=== PATIENT | female | born 1965 | race Caucasian/White ===

== ENCOUNTER 2020-11-14 01:20 | Outpatient (CLI) | payer OTHER, SELFPAY ==
[2020-11-14 18:46] LABS: SARS-CoV-2 RNA PCR Negative
== END 2020-11-14 01:21 | disposition home or self-care (01) ==
LOC: ANHCOVIDDT 01:20
PROVIDERS: PCP Family Medicine Sports Medicine; Visit Provider Internal Medicine Gastroenterology
DX: Z01.812 Encounter for preprocedural laboratory examination (principal); Z20.822 Contact with and (suspected) exposure to COVID-19
CPT/HCPCS: C9803; U0003; U0005

== ENCOUNTER 2020-11-18 01:19 | Day surgery (SDC) | payer OTHER, SELFPAY ==
[2020-11-05 10:16] VITALS: BMI 35.6
[2020-11-18 07:32] VITALS: PULSE 92; RESP 18; TEMP 36.2; O2SAT 98
[2020-11-18] MEDS: LACTATED RINGERS 1,000 ML 150 ML IV CONT (07:44)
[2020-11-18 07:49] LABS: Glucose Point of Care 219 (65-105)
--- NOTE | 2020-11-18 07:53 | WPDANESEPPF ---
Anes - Initial Pre Proc Eval Procedure: Operation Date: 11/18/20 08:30 Proposed Procedures p Screening Colonoscopy - Rahul Connell MD Date/Time: 11/18/20 07:53 Surgeon: Rahul Connell MD Pre Op Diagnosis: Neoplasm Screening Patient Data Age: 55 Gender: F Height: 1.65 m Weight: 95.9 kg Last Vital Signs Temp 36.2 C L 11/18/20 07:32 Pulse 92 11/18/20 07:32 Resp 18 11/18/20 07:32 Pulse Ox 98 11/18/20 07:32 Allergies Allergy/AdvReac Type Severity Reaction Status Date / Time No Known Drug Allergies Allergy Unknown none Verified 11/18/20 07:31 Home Medications Medication Instructions Recorded Confirmed Type cyclobenzaprine 10 mg PO DAILY PRN 11/05/20 11/18/20 History hydrochlorothiazide 25 mg PO DAILY 11/05/20 11/18/20 History meloxicam 7.5 mg PO DAILY PRN 11/05/20 11/18/20 History metformin 500 mg PO BID 11/05/20 11/18/20 History pregabalin 75 mg PO BID 11/05/20 11/18/20 History tramadol 50 mg PO DAILY PRN 11/05/20 11/18/20 History Laboratory Tests 11/18/20 07:46 POC Capillary Glucose 219 mg/dl H mg/dl (65-105) Patient hx anesthesia problems: none Family hx anesthesia problems: none PMFSH Past Medical History Medical History (Updated 11/18/20 @ 07:54 by Marko Esquivel MD) Back pain Diabetes HTN (hypertension) Obesity Social History Social History Smoking packs per day: 0.5 Smoking cigarettes per day: 10.0 Smoking status: Current every day smoker Tobacco type: cigarettes Alcohol intake: never Substance use type: does not use Living arrangements: with family Spiritual care concerns: No Anes - Eval Final PreProcedure Day of Procedure 11/18/20 07:53 Patient weight: obese Heart: regular rate and rhythm Lungs: clear to auscultation and normal air movement Airway: Mallampati scale class II Neurological: alert and oriented Last oral intake: >/= 8 hours ASA classification: III Emergent: no Anesthetic plan: proceed Anesthesia type and monitoring: general GIVS Informed Consent: The patient's anesthetic plan and its attendant risks and benefits were discussed with the patient/family/POA. Questions were solicited and answers provided to the satisfaction of the patient/family/POA.
--- NOTE | 2020-11-18 08:25 | PM.HPGS ---
History of Present Illness History of Present Illness Consent: Risks, benefits, and alternatives have been discussed and questions answered. Patient agrees to proceed with procedure. Chief complaint: Neoplasm Screening Narrative: Eli Jordan is a 55 year old female here for first colonoscopy, maternal grandmother and aunt with colon cancer. Review of Systems Constitutional: Constitutional: Denies headache(s) and Denies weakness Eyes: Eyes: Denies blurry vision ENT: Reports Normal hearing present, Denies headache(s) and Denies neck pain Cardiovascular: Cardiovascular: Denies chest pain and Denies dyspnea Respiratory: Respiratory: Denies dyspnea Gastrointestinal: Gastrointestinal: Reports no additional gastrointestinal complaints Genitourinary: Genitourinary: Denies dysuria Musculoskeletal: Musculoskeletal: Denies neck pain Integumentary/Breasts: Skin/Breast: Denies dry skin Neurologic: Reports Normal hearing present, Denies headache(s) and Denies weakness Psychiatric: Psychiatric: Denies anxiety Endocrine: Endocrine: Denies change in body appearance Hematologic/Lymphatic: Hematologic/Lymphatic: Denies easy bleeding Allergic/Immunologic: Allergic/Immunologic: Denies urticaria PMFSH Past Medical History Medical History (Updated 11/18/20 @ 08:26 by Rahul Connell MD) Back pain Colon cancer screening Diabetes HTN (hypertension) Obesity Social History Social History Smoking packs per day: 0.5 Smoking cigarettes per day: 10.0 Smoking status: Current every day smoker Tobacco type: cigarettes Alcohol intake: never Substance use type: does not use Living arrangements: with family Spiritual care concerns: No Meds Home Medications and Allergies Home Medications Medication Instructions Recorded Confirmed Type cyclobenzaprine 10 mg PO DAILY PRN 11/05/20 11/18/20 History hydrochlorothiazide 25 mg PO DAILY 11/05/20 11/18/20 History meloxicam 7.5 mg PO DAILY PRN 11/05/20 11/18/20 History metformin 500 mg PO BID 11/05/20 11/18/20 History pregabalin 75 mg PO BID 11/05/20 11/18/20 History tramadol 50 mg PO DAILY PRN 11/05/20 11/18/20 History Allergies Allergy/AdvReac Type Severity Reaction Status Date / Time No Known Drug Allergies Allergy Unknown none Verified 11/18/20 07:31 Vital Signs Vital Signs - 24 hr 11/18/20 07:32 Temperature 97.1 F L Pulse Rate 92 Respiratory Rate 18 Pulse Oximetry 98 Exam Const: General: comfortable and no acute distress HENMT: General nose exam: Normal nares present Eyes: General: appearance normal, both eyes and all related structures Neck: Neck: no JVD Resp: Auscultation: clear to auscultation bilaterally Cardio: Rate: regular rate Rhythm: regular rhythm GI: Inspection: non-distended GI Palp: Yes Soft to palpation Skin: General skin exam: normal color Neuro: General: gait normal Speech: normal speech Extrem: General: normal to inspection Psych: Mental Status: mental status grossly normal Assessment and Plan Assessment and plan (1) Colon cancer screening: Code(s): Z12.11 - Encounter for screening for malignant neoplasm of colon Status: Acute Assessment and Plan: will proceed with colonoscopy
[2020-11-18 08:56] VITALS: BP 104/56; PULSE 76; RESP 18; O2SAT 97
[2020-11-18 09:06] VITALS: BP 100/61; PULSE 76; RESP 20; O2SAT 98
[2020-11-18 09:16] VITALS: BP 115/58; PULSE 75; RESP 16; O2SAT 99
[2020-11-18 09:26] VITALS: BP 124/71; PULSE 74; RESP 18; O2SAT 100
== END 2020-11-18 09:32 | disposition home or self-care (01) ==
PROVIDERS: PCP Family Medicine Sports Medicine; Visit Provider Internal Medicine Gastroenterology
PROC: 0DJD8ZZ Inspection of Lower Intestinal Tract, Via Natural or Artificial Opening Endoscopic (ICD-10-PCS; CPT 45378; principal; 2020-11-18 08:30)
DX: Z12.11 Encounter for screening for malignant neoplasm of colon (principal); D12.5 Benign neoplasm of sigmoid colon; D12.3 Benign neoplasm of transverse colon; E11.9 Type 2 diabetes mellitus without complications; I10 Essential (primary) hypertension; Z79.890 Hormone replacement therapy; E66.9 Obesity, unspecified; Z68.35 Body mass index [BMI] 35.0-35.9, adult; K63.5 Polyp of colon; K64.8 Other hemorrhoids
CPT/HCPCS: 45385; 82948; 88305; C9803; J2704; J7120; U0003; U0005

== ENCOUNTER 2024-02-01 01:12 | Day surgery (SDC) | payer OTHER, SELFPAY ==
[2024-01-23 13:17] VITALS: BMI 33.5
[2024-02-01 08:25] VITALS: BP 121/84; PULSE 86; RESP 20; TEMP 36.4; O2SAT 99; BMI 32.4
[2024-02-01] MEDS: LACTATED RINGERS 1,000 ML 150 ML IV CONT (08:29)
[2024-02-01 08:41] LABS: Glucose Point of Care 251 mg/dl (65-105)
--- NOTE | 2024-02-01 08:41 | P.PNAN_ITS ---
Anes - Initial Pre Proc Eval Procedure: Operation Date: 02/01/24 09:30 Proposed Procedures p Screening Colonoscopy - Rahul Connell MD Date/Time: 02/01/24 08:41 Surgeon: Rahul Connell MD Pre Op Diagnosis: hx colon polyps Patient Data Age: 58 Gender: F Height: 1.65 m Weight: 88.5 kg Last Vital Signs Temp 97.6 F 02/01/24 08:25 Pulse 86 02/01/24 08:25 Resp 20 02/01/24 08:25 BP 121/84 02/01/24 08:25 Pulse Ox 99 02/01/24 08:25 O2 Del Method Room Air 02/01/24 08:25 Allergies Allergy/AdvReac Type Severity Reaction Status Date / Time No Known Drug Allergies Allergy Unknown none Verified 02/01/24 08:23 Home Medications Medication Instructions Recorded Confirmed Type cyclobenzaprine 10 mg tablet 10 mg PO DAILY PRN Pain 11/05/20 02/01/24 History hydrochlorothiazide 25 mg tablet 25 mg PO DAILY 11/05/20 02/01/24 History meloxicam 7.5 mg tablet 7.5 mg PO DAILY PRN Pain 11/05/20 02/01/24 History metformin 500 mg tablet 500 mg PO BID 11/05/20 02/01/24 History pregabalin 75 mg capsule 75 mg PO BID 11/05/20 02/01/24 History tramadol 50 mg tablet 50 mg PO DAILY PRN Pain 11/05/20 02/01/24 History Laboratory Tests 02/01/24 08:39 POC Capillary Glucose 251 H mg/dl (65-105) Patient hx anesthesia problems: none Family hx anesthesia problems: none Results Review: All pre-operative results and documents have been reviewed as part of the pre- operative evaluation. [facility] Past Medical History Medical History (Updated 11/18/20 @ 08:26 by Rahul Connell MD) Back pain Colon cancer screening Diabetes HTN (hypertension) Obesity Social History Social History Smoking packs per day: 0.5 Smoking cigarettes per day: 10.0 Smoking status: Current every day smoker Tobacco type: cigarettes Alcohol intake: never Substance use type: does not use Living arrangements: with family Spiritual care concerns: No Anes - Eval Final PreProcedure Day of Procedure 02/01/24 08:41 Patient weight: obese Heart: regular rate and rhythm Lungs: clear to auscultation Airway: Mallampati scale class II Neurological: alert and oriented Last oral intake: >/= 8 hours ASA classification: III Emergent: no Anesthetic plan: proceed Anesthesia type and monitoring: general GIVS and standard monitoring Results Review: All pre-operative results and documents have been reviewed as part of the pre- operative evaluation. Informed Consent: The patient's anesthetic plan and its attendant risks and benefits were discussed with the patient/family/POA. Questions were solicited and answers provided to the satisfaction of the patient/family/POA.
--- NOTE | 2024-02-01 09:00 | PM.HPGS ---
History of Present Illness History of Present Illness Consent: Risks, benefits, and alternatives have been discussed and questions answered. Patient agrees to proceed with procedure. Chief complaint: hx colon polyps Narrative: Eli Jordan is a 58 year old female with colon polyps in 2020 Review of Systems Review of Systems: All systems reviewed & are unremarkable except as noted in HPI and below PMFSH Past Medical History Medical History (Updated 02/01/24 @ 09:01 by Rahul Connell MD) Adenomatous colon polyp Back pain Colon cancer screening Diabetes HTN (hypertension) Obesity Social History Social History Smoking packs per day: 0.5 Smoking cigarettes per day: 10.0 Smoking status: Current every day smoker Tobacco type: cigarettes Alcohol intake: never Substance use type: does not use Living arrangements: with family Spiritual care concerns: No Meds Home Medications and Allergies Home Medications Medication Instructions Recorded Confirmed Type cyclobenzaprine 10 mg tablet 10 mg PO DAILY PRN Pain 11/05/20 02/01/24 History hydrochlorothiazide 25 mg tablet 25 mg PO DAILY 11/05/20 02/01/24 History meloxicam 7.5 mg tablet 7.5 mg PO DAILY PRN Pain 11/05/20 02/01/24 History metformin 500 mg tablet 500 mg PO BID 11/05/20 02/01/24 History pregabalin 75 mg capsule 75 mg PO BID 11/05/20 02/01/24 History tramadol 50 mg tablet 50 mg PO DAILY PRN Pain 11/05/20 02/01/24 History Allergies Allergy/AdvReac Type Severity Reaction Status Date / Time No Known Drug Allergies Allergy Unknown none Verified 02/01/24 08:23 Vital Signs Vital Signs - 24 hr 02/01/24 08:25 Temperature 97.6 F Pulse Rate 86 Respiratory Rate 20 Blood Pressure 121/84 Pulse Oximetry 99 Oxygen Delivery Room Air Exam Const: General: comfortable and no acute distress HENMT: Face/Nose/Sinus: Normal nares present Eyes: General: appearance normal, both eyes and all related structures Neck: Neck: no JVD Resp: Auscultation: clear to auscultation bilaterally Cardio: Rate: regular rate Rhythm: regular rhythm GI: Inspection: non-distended GI Palp: Yes Soft to palpation Skin: General skin exam: normal color Neuro: General: gait normal Speech: normal speech Extrem: General: normal to inspection Psych: Mental Status: mental status grossly normal Assessment and Plan Assessment and plan (1) Adenomatous colon polyp: Code(s): D12.6 - Benign neoplasm of colon, unspecified Status: Acute Assessment and Plan: colonoscopy
[2024-02-01 09:22] VITALS: BP 93/59; PULSE 74; RESP 18; O2SAT 99
[2024-02-01 09:32] VITALS: BP 100/61; PULSE 70; RESP 18; O2SAT 100
[2024-02-01 09:42] VITALS: BP 113/67; PULSE 71; RESP 18; O2SAT 100
== END 2024-02-01 09:50 | disposition home or self-care (01) ==
PROVIDERS: PCP Family Medicine; Visit Provider Internal Medicine Gastroenterology
PROC: 0DJD8ZZ Inspection of Lower Intestinal Tract, Via Natural or Artificial Opening Endoscopic (ICD-10-PCS; CPT 45378; principal; 2024-02-01 09:30)
DX: Z12.11 Encounter for screening for malignant neoplasm of colon (principal); D12.2 Benign neoplasm of ascending colon; D12.3 Benign neoplasm of transverse colon; D12.4 Benign neoplasm of descending colon; K64.8 Other hemorrhoids; I10 Essential (primary) hypertension; E11.9 Type 2 diabetes mellitus without complications; F17.210 Nicotine dependence, cigarettes, uncomplicated; E66.9 Obesity, unspecified; Z68.32 Body mass index [BMI] 32.0-32.9, adult; Z79.891 Long term (current) use of opiate analgesic; Z79.84 Long term (current) use of oral hypoglycemic drugs
CPT/HCPCS: 45385; 82948; 88305; J2704; J7120

== ENCOUNTER 2024-03-23 19:57 | Emergency (ER) | payer OTHER, SELFPAY ==
--- NOTE | ~2024-03-23 | XR_ITS ---
XR knee RT 3V 03/23/2024 20:36 Indication: Right knee pain Procedure: 3 views right knee Comparison: No prior studies for comparison. Findings: There is mild osteoarthritis. No fracture, subluxation or dislocation. No joint effusion. Impression: 1: Mild osteoarthritis of the right knee. Reviewed, dictated and finalized at location B. Impression: 1: Mild osteoarthritis of the right knee.
--- NOTE | ~2024-03-23 | XR_ITS ---
XR chest 1V 03/23/2024 20:36 Indication: Left shoulder bruising Procedure: AP view of the chest Comparison: 09/20/2018 Findings: Heart size normal. No focal air space disease, pulmonary edema, pleural effusion or suspect ed pneumothorax. No acute osseous abnormality. Impression: 1: No acute cardiopulmonary disease. Reviewed, dictated and finalized at location B. Impression: 1: No acute cardiopulmonary disease.
--- NOTE | ~2024-03-23 | XR_ITS ---
XR clavicle LT 03/23/2024 20:36 Indication: Left shoulder pain Procedure: 2 views left shoulder Comparison: 03/23/2024 Findings: There is mild polyarticular osteoarthritis. No fracture, subluxation or dislocation. No sof t tissue abnormality. Impression: 1: Mild polyarticular osteoarthritis of the left shoulder Reviewed, dictated and finalized at location B. Impression: 1: Mild polyarticular osteoarthritis of the left shoulder
--- NOTE | ~2024-03-23 | XR_ITS ---
XR shoulder LT min 2V 03/23/2024 20:36 Indication: Left shoulder pain after injury Procedure: 4 views left shoulder Comparison: 03/23/2024 Findings: There is anatomic alignment. There is mild polyarticular osteoarthritis. No fracture or tra umatic malalignment. No focal soft tissue abnormality. Impression: 1: No acute fracture. Reviewed, dictated and finalized at location B. Impression: 1: No acute fracture.
[2024-03-23 20:01] VITALS: BP 159/91; PULSE 104; PULSE 109; RESP 20; RESP 21; TEMP 36.8; O2SAT 97; O2SAT 98
[2024-03-23 20:02] VITALS: BP 159/91; PULSE 109; RESP 19; O2SAT 93
[2024-03-23] MEDS: HYDROcodone/acetaminophen (*CRX) 5-325 MG TABLET 1 TAB PO (20:11)
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
[2024-03-23 21:55] VITALS: BP 141/89; PULSE 90; RESP 18; O2SAT 98
== END 2024-03-23 21:58 | disposition home or self-care (01) ==
PROVIDERS: Emergency Provider Emergency Medicine; PCP Family Medicine
DX: S80.01XA Contusion of right knee, initial encounter (principal); S40.012A Contusion of left shoulder, initial encounter; F17.210 Nicotine dependence, cigarettes, uncomplicated; E11.9 Type 2 diabetes mellitus without complications; I10 Essential (primary) hypertension; Z79.84 Long term (current) use of oral hypoglycemic drugs; V28.09XA Other motorcycle driver injured in noncollision transport accident in nontraffic accident, initial encounter
CPT/HCPCS: 71045; 73000; 73030; 73562; 99284; A9270

== ENCOUNTER 2024-06-13 20:37 | Emergency (ER) | payer OTHER, SELFPAY ==
--- NOTE | ~2024-06-13 | XR_ITS ---
EXAMINATION: XR shoulder RT min 2V DATE: 06/13/2024 21:42 INDICATION: Right shoulder injury. TECHNIQUE: 4 views of right shoulder were obtained. COMPARISON: None. FINDINGS: Alignment is normal. No fracture. There is mild osteoarthritis of acromioclavicular joint a nd glenohumeral joint. IMPRESSION: 1. Mild polyarticular osteoarthritis. Reviewed, dictated and finalized at location A.
[2024-06-13 20:40] VITALS: BP 156/63; PULSE 91; RESP 16; TEMP 36.1; O2SAT 100
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
[2024-06-13] MEDS: HYDROcodone/acetaminophen (*CRX) 5-325 MG TABLET 1 TAB PO (22:20)
== END 2024-06-13 22:40 | disposition home or self-care (01) ==
PROVIDERS: Emergency Provider Emergency Medicine; PCP Family Medicine
DX: S49.91XA Unspecified injury of right shoulder and upper arm, initial encounter (principal); I10 Essential (primary) hypertension; E11.9 Type 2 diabetes mellitus without complications; E66.9 Obesity, unspecified; Z68.33 Body mass index [BMI] 33.0-33.9, adult; F17.210 Nicotine dependence, cigarettes, uncomplicated; Z86.010 Personal history of colon polyps; Z79.84 Long term (current) use of oral hypoglycemic drugs; Z79.899 Other long term (current) drug therapy; M19.011 Primary osteoarthritis, right shoulder; W18.30XA Fall on same level, unspecified, initial encounter
CPT/HCPCS: 73030; 99283; A9270

== ENCOUNTER 2024-07-08 07:48 | Outpatient (CLI) | payer OTHER, SELFPAY ==
--- NOTE | ~2024-07-08 | MR_ITS ---
EXAMINATION: MR shoulder RT wo con DATE: 07/08/2024 08:28 INDICATION: Unspecified injury of right shoulder. TECHNIQUE: Magnetic resonance imaging (MRI) of the right shoulder was performed without intravenous c ontrast. Sequences included axial PD-weighted FS FSE, coronal oblique PD-weighted FS FSE and T2-weigh leela FS FSE, and sagittal oblique T2-weighted FS FSE and T1-weighted FSE. COMPARISON: Right shoulder radiographs 06/13/2024 FINDINGS: Coracoacromial arch: The acromion undersurface is curved in morphology (type II). There is severe acromioclavicular joint osteoarthritis including inferiorly directed osteophytes. There is moderate subacromial/subdeltoid bu rsitis. Rotator cuff: There is severe supraspinatus and infraspinatus tendinopathy. There is an articular-sided partial-thi ckness tear of the conjoined portion of the tendon measuring 3 mm anterior to posterior by 13 mm prox imal to distal by less than 20% tendon thickness. Teres minor tendon is normal. There is mild subscap ularis tendinopathy. There is no asymmetric fatty atrophy of the rotator cuff muscle bellies. There i s edema in supraspinatus muscle belly, consistent with strain. Biceps tendon and glenoid labrum: Biceps tendon is in bicipital groove. There is mild intra-articular biceps tendinopathy. There is a t ear of the anterior glenoid labrum. Fluid: There is a small glenohumeral joint effusion. Bones/cartilage: There is a fracture involving anterior and anteroinferior glenoid. There is full-thickness cartilage loss of glenoid and deep partial-thickness cartilage loss of humeral head. Osteophytes are noted. IMPRESSION: 1. Fracture involving anterior and anteroinferior glenoid. 2. Severe glenohumeral joint chondrosis. 3. Severe rotator cuff tendinopathy with articular-sided partial thickness tear of supraspinatus and infraspinatus tendons. 4. Severe acromioclavicular joint osteoarthritis. 5. Mild intra-articular biceps tendinopathy. 6. Small glenohumeral joint effusion. 7. Moderate subacromial/subdeltoid bursitis. Reviewed, dictated and finalized at location A.
== END 2024-07-08 07:49 | disposition home or self-care (01) ==
PROVIDERS: PCP Anesthesiology; Visit Provider Orthopaedic Surgery
DX: M19.011 Primary osteoarthritis, right shoulder (principal); M25.411 Effusion, right shoulder; M75.51 Bursitis of right shoulder
CPT/HCPCS: 73221

== ENCOUNTER 2024-08-07 14:00 | Observation (INO) | payer OTHER, SELFPAY ==
--- NOTE | ~2024-08-07 | XR_ITS ---
EXAMINATION: XR chest 1V portable DATE: 08/07/2024 14:30 INDICATION: Weakness. Stroke. TECHNIQUE: frontal view of the chest was obtained. COMPARISON: Chest radiograph dated 03/23/2024 FINDINGS: Calcite nodules at the lateral left lung base consistent with old granulomatous disease. No other air space opacities, pulmonary edema, pleural effusion or pneumothorax. The cardiomediastinal silhouette is normal. Visualized bones and soft tissues are unremarkable. IMPRESSION: 1. No acute cardiopulmonary disease. Reviewed, dictated and finalized at location A.
--- NOTE | ~2024-08-07 | MR_ITS ---
EXAMINATION: MR brain/brain stem wo con DATE: 08/08/2024 07:41 INDICATION: Slurred speech. Right facial droop. TECHNIQUE: Magnetic resonance imaging (MRI) of the brain and brainstem was performed without intraven ous contrast. COMPARISON: Head CT 08/07/2024 FINDINGS: There are patchy areas of acute infarct involving right insula and right frontal parietal r egion. There is an old infarct in left parietal lobe. There are old infarcts in right temporal pariet al occipital region. There are old infarcts in the left thalamus and left basal ganglia. There is an old infarct in left cerebellum. There are scattered areas of nonspecific increased T2-weighted signal intensity in the cerebral white matter. There is no intracranial hemorrhage or abnormal mass lesion. The ventricles are normal in size. The orbits are normal. There is mild mucosal thickening in the le ft ethmoid sinuses. There is a small right mastoid effusion. IMPRESSION: 1. Acute infarct involving the right insula and right frontal parietal region. 2. Multiple old infarcts in the brain. 3. Moderate nonspecific cerebral white matter disease, which likely represents chronic small vessel i schemic disease. Reviewed, dictated and finalized at location A. IMPRESSION: 1. Acute infarct involving the right insula and right frontal parietal region. 2. Multiple old infarcts in the brain. 3. Moderate nonspecific cerebral white matter disease, which likely represents chronic small vessel ischemic disease.
--- NOTE | ~2024-08-07 | CT_ITS ---
CTA brain carotid Ordering provider: Janneth Iverson III, DO History: . facial droop . Comparison: None. Technique: CT angiogram head and neck was performed following timed intravenous injection of contrast . Thin slice axial images and reformatted coronal images were obtained. Three dimensional reformatted images of the brain were also obtained using a [employer] workstation. Radiation reduction technique ut ilized.The dose-length product was 972.98 mGy-cm. 100 mL Omnipaque 350 was given IV. FINDINGS: HEAD: --ANTERIOR AND MIDDLE CEREBRAL ARTERIES AND BRANCHES: Normal caliber and contour. --INTERNAL CAROTID ARTERIES: Mild atheromatous disease but no significant stenosis. No occlusion. --BASILAR ARTERY AND BRANCHES: Normal caliber and contour. No atheromatous disease. --POSTERIOR CEREBRAL ARTERIES: Normal caliber and contour --POSTERIOR COMMUNICATING ARTERIES: Not visualized which is probably related to congenital absence or small size. --ANEURYSM: None visualized. --BRAIN: Please refer to report of CT head performed the same day. --BONES AND SUPERFICIAL SOFT TISSUES: Please refer to report of CT head performed the same day. --PARANASAL SINUSES AND MASTOIDS: Please refer to report of CT head done the same day. NECK: --RIGHT CERVICAL CAROTID SYSTEM: Mild atheromatous disease of the carotid bulb and proximal internal carotid artery without significant stenosis. Percent stenosis per NASCET criteria is 0%. No carotid dissection. Otherwise, no significant atheromatous disease or stenosis of the cervical carotid system . --LEFT CERVICAL CAROTID SYSTEM: Mild atheromatous disease of the carotid bulb and proximal internal c arotid artery without significant stenosis. Percent stenosis per NASCET criteria is 0%. No carotid d issection. Otherwise, no significant atheromatous disease or stenosis of the cervical carotid system. --VERTEBRAL ARTERIES: Normal caliber and contour. --VISUALIZED AORTIC ARCH AND BRANCHING VESSELS: Mild atheromatous disease but no significant stenosis . --SOFT TISSUES: Normal. Fibrotic changes of the lungs. --CERVICAL SPINE: Age appropriate degenerative changes. IMPRESSION: 1. CTA head and neck. Percent stenosis per NASCET criteria is 0%. 2. No intracranial vascular occlusion or significant stenosis. Reviewed, dictated and finalized at location A.
--- NOTE | ~2024-08-07 | CT_ITS ---
CT brain wo con Ordering provider: Jarvis Bates MD History: 59 years Female with . cva? . Comparison: None. Technique: CT of the head without contrast. Radiation reduction technique utilized.The dose-length product was 681 mGy-cm. FINDINGS: BRAIN PARENCHYMA AND CSF SPACES: Mild leukoaraiosis and diffuse cortical atrophy. Mild atheromatous d isease. Hypodensity in the posterior right temporal lobe most likely old infarct with encephalomalaci a. Old lacunar infarct in the left thalamus. No midline shift, mass effect or hemorrhage. The brain parenchyma and CSF spaces are otherwise normal. VISUALIZED PARANASAL SINUSES: Well aerated. MASTOIDS: Well aerated. BONES: The bones appear intact. SOFT TISSUES: Visualized nasopharynx is normal. Superficial soft tissues are normal. IMPRESSION: No acute intracranial findings. If Still suspicious is MRI is advised. Reviewed, dictated and finalized at location A.
--- NOTE | 2024-08-07 14:06 | ECG_ITS ---
Test Date: 2024-08-07 14:09:57 Measurements Intervals [place] Rate: P: 0 CA: 0 QRS: 0 QRSD: 0 T: 0 QT: 0 QTc: 0 Interpretive Statements SINUS RHYTHM WARNING: DATA QUALITY MAY AFFECT INTERPRETATION No previous ECG available for comparison Electronically Signed On 08-08-2024 09:35:37 CDT by Jennifer Bob M.D.
[2024-08-07 14:07] VITALS: BP 150/83; PULSE 89; RESP 18; TEMP 36.5; O2SAT 97
[2024-08-07 14:29] LABS: Basophils Absolute Auto 0.1 K/mm3 (0.0-0.1); Basophils Percent Auto 0.5 % (0.2-1.2); Eosinophils Absolute Auto 0.3 K/mm3 (0-0.3); Eosinophils Percent Auto 2.8 % (0-4.4); Hematocrit 43.3 % (37.0-47.0); Hemoglobin 14.7 g/dL (12.0-15.0); Immature Granulocyte Absolute 0.04 K/mm3 (0.00-0.031); Immature Granulocyte Percent A 0.4 % (0-0.5); Lymphocytes Absolute Auto 1.77 K/mm3 (0.9-3.2); Lymphocytes Percent Auto 17.1 % (18.3-44.2); Mean Corpuscular HGB Conc 33.9 g/dl (32-36); Mean Corpuscular Hemoglobin 28.3 pg (26-34); Mean Corpuscular Volume 83.4 fl (80-100); Monocytes Absolute Auto 0.7 K/mm3 (0.1-0.6); Monocytes Percent Auto 6.5 % (2.6-8.5); Neutrophils Absolute Auto 7.5 K/mm3 (1.3-6.7); Neutrophils Percent Auto 72.7 % (45.5-73.1); Platelet Count Result 210 k/mm3 (150-375); Red Blood Count 5.19 M/mm3 (4.2-5.4); Red Cell Distribution Width 13.2 % (11.5-14.5); White Blood Count 10.4 K/mm3 (4.5-10.0)
[2024-08-07 14:36] LABS: Alanine Aminotransferase 21 U/L (6-35); Albumin Level 4.6 g/dL (3.5-5.1); Alkaline Phosphatase 165 U/L (38-126); Anion Gap 9 mmol/L (4-12); Aspartate Amino Transferase 20 U/L (14-36); Bilirubin,Total 0.4 mg/dL (0.2-1.3); Blood Urea Nitrogen 15 mg/dL (7-17); Calcium 9.4 mg/dL (8.4-10.2); Carbon Dioxide 26 mmol/L (22-30); Chloride 100 mmol/L (98-107); Estimated CRCL calculation 54 ml/min; Estimated Glomerular Filt Rate 50; Glucose 207 mg/dL (65-110); INR 0.9; Potassium 4.4 mmol/L (3.4-5.0); Prothrombin Time 12.2 Seconds (11.1-14.7); Sodium 135 mmol/L (137-145)
--- NOTE | 2024-08-07 14:36 | ED_ITS ---
HPI - Neuro Symptoms/Deficit General Chief Complaint: Neuro Symptoms/Deficit Stated Complaint: ?cva, TANIA 0530 Time Seen by Provider: 08/07/24 14:30 History of Present Illness HPI Narrative: Pt presents with right sided facial droop and slurred speech. Pt had some slurred speech last night but thought it was related to nasal congestion. Pt went to bed, woke her up at 0530 and said she had no slurred speech or facial droop and he went to work. He called her at noon and she had slurred speech. Pt has no complaints of GOMEZ or any extremity weakness. Pt has had two prior CVA's. Related Data Home Medications Medication Instructions Recorded Confirmed meloxicam 7.5 mg tablet 7.5 mg PO DAILY 11/05/20 08/07/24 tramadol 50 mg tablet 50 mg PO BID PRN Pain 11/05/20 08/07/24 hydrocodone 5 mg-acetaminophen 325 1 tablet PO Q6H PRN pain 08/07/24 08/07/24 mg tablet Allergies Allergy/AdvReac Type Severity Reaction Status Date / Time No Known Drug Allergies Allergy Unknown none Verified 08/07/24 18:21 Review of Systems Review of Systems: All systems reviewed & are unremarkable except as noted in HPI and below PMFSH Past Medical History Medical History Adenomatous colon polyp Cerebrovascular accident no residual deficits Hypertension Obesity Type 2 diabetes mellitus Surgical History Surgical History History of section History of colonoscopy with polypectomy History of lumbosacral spine surgery fusion and cages L4-S1 Family History Family History Unknown Diabetes mellitus Hypertension Mother Diabetes mellitus Hypertension Social History Social History (Updated 08/07/24 @ 21:13 by Estephania Mccoy PA-C) Social History: Surrogate medical decision maker: Sammy Jordan, spouse. Code status: Full code. Smoking packs per day: 0.5 Smoking cigarettes per day: 10.0 Years smoked: 15 Smoking pack-years: 7.50 Smoking status: Former smoker Tobacco type: cigarettes Alcohol intake: never Substance use: never Substance use type: does not use Do You Feel Safe in your Home?: Yes Lack of Transportation: No Lack of Food: Never True Current Housing: I Have Housing Concerned About Future Housing: Decline to Answer Difficulty Paying Gas/Electric Bills: Decline to Answer Difficulty Paying for Meds: Decline to Answer Currently Unemployed: Decline to Answer Education: Decline to Answer Difficulty w/ Childcare or Family Care: Decline to Answer Living arrangements: with family Additional living arrangements comments: Lives in [place] with . Occupation/Education: retired Additional occupation/education comments: On disability since a back injury at work. Spiritual care concerns: No Exam Const: General: healthy appearing and no acute distress Nutritional Appe arance: well nourished Orientation/consciousness: patient oriented x3 Limitations: no limitations HENMT: Head: normal to inspection Mouth: Yes moist mucous membranes Eyes: Conjunctivae: conjunctivae normal Pupils: Equal, round and reactive pupils present EOM: EOMs intact bilaterally Neck: Neck: normal visual inspection Resp: Effort & Inspection: normal respiratory effort Auscultation: clear to auscultation bilaterally Cardio: Rate: regular rate Rhythm: regular rhythm GI: GI Palp: Yes Soft to palpation and No Tenderness to palpation present (GI) Auscultation: normal bowel sounds Skin: General skin exam: normal color Rashes: no rashes Wounds: no wounds Neuro: General: patient oriented x3, moves all extremities and no focal motor deficits (right sided facial droop) Speech: Abnormal speech present slurred Extrem: General: normal to inspection and no clubbing, cyanosis or edema Psych: Mental Status: mental status grossly normal Affect: normal affect Attitude: cooperative Course Vital Signs Vital signs: Vital Signs Temperature 97.7 F 08/07/24 14:07 Pulse Rate 89 08/07/24 14:07 Respiratory Rate 18 08/07/24 14:07 Blood Pressure 150/83 H 08/07/24 14:07 Pulse Oximetry 97 08/07/24 14:07 Temperature 98.9 F 08/07/24 19:58 Pulse Rate 68 08/07/24 19:58 Respiratory Rate 22 H 08/07/24 19:58 Blood Pressure 132/57 L 08/07/24 19:58 Pulse Oximetry 98 08/07/24 19:58 Oxygen Delivery Room Air 08/07/24 17:30 MDM - Neuro Symptoms/Deficit MDM Narrative Medical decision making narrative: Pt presents with slurred speech and right facila droop. onset sometime between 0530 this morning and noon so out of window due to indeterminate onset time. Will do CVA work up and will need admission or transfer. CT non acute labs and ekg unremarkable. Dicussed with Estephania Larios and agrees to admit. can consult neuro in am Lab Data 08/07/24 14:19 08/07/24 14:19 Labs: Lab Results 08/07/24 08/07/24 Range/Units 14:19 14:34 WBC 10.4 H (4.5-10.0) K/mm3 RBC 5.19 (4.2-5.4) M/mm3 Hgb 14.7 (12.0-15.0) g/dL Hct 43.3 (37.0-47.0) % MCV 83.4 (80-100) fl MCH 28.3 (26-34) pg MCHC 33.9 (32-36) g/dl RDW 13.2 (11.5-14.5) % Plt Count 210 (150-375) k/mm3 MPV 10.0 (7.4-10.4) fl Immature Gran % (Auto) 0.4 (0-0.5) % Neut % (Auto) 72.7 (45.5-73.1) % Lymph % (Auto) 17.1 L (18.3-44.2) % [place] % (Auto) 6.5 (2.6-8.5) % Eos % (Auto) 2.8 (0-4.4) % Baso % (Auto) 0.5 (0.2-1.2) % Lymph # (Auto) 1.77 (0.9-3.2) K/mm3 [place] # (Auto) 0.7 H (0.1-0.6) K/mm3 Eos # (Auto) 0.3 (0-0.3) K/mm3 Baso # (Auto) 0.1 (0.0-0.1) K/mm3 Abs Immat Gran (auto) 0.04 H (0.00-0.031) K/mm3 Absolute Neuts (auto) 7.5 H (1.3-6.7) K/mm3 Absolute Nucleated RBC 0.000 (0.0-0.012) K/mm3 Nucleated RBC % 0.0 (0.0-0.2) % PT 12.2 (11.1-14.7) Seconds INR 0.9 APTT 24.5 (22.3-36.8) Seconds Sodium 135 L (137-145) mmol/L Potassium 4.4 (3.4-5.0) mmol/L Chloride 100 (98-107) mmol/L Carbon Dioxide 26 (22-30) mmol/L Anion Gap 9 (4-12) mmol/L BUN 15 (7-17) mg/dL Creatinine 1.10 H (0.7-1.0) mg/dL Estim Creat Clear Calc 54 ml/min Estimated GFR 50 L (59 - ) Glucose 207 H (65-110) mg/dL POC Capillary Glucose 210 H (65-105) mg/dl Calcium 9.4 (8.4-10.2) mg/dL Total Bilirubin 0.4 (0.2-1.3) mg/dL AST 20 (14-36) U/L ALT 21 (6-35) U/L Alkaline Phosphatase 165 H (38-126) U/L Troponin I < 0.012 (0.000-0.034) ng/mL Total Protein 8.0 (6.3-8.2) g/dL Albumin 4.6 (3.5-5.1) g/dL Discharge Plan Discharge Clinical Impression: Acute CVA (cerebrovascular accident) Patient Disposition: Still a Patient Condition: Stable
[2024-08-07 14:37] LABS: Partial Thromboplastin Time 24.5 Seconds (22.3-36.8)
[2024-08-07 14:41] VITALS: PULSE 80; RESP 16; O2SAT 100
[2024-08-07 14:42] VITALS: BP 155/82; PULSE 83; RESP 14
[2024-08-07 14:51] LABS: Troponin I < 0.012 ng/mL (0.000-0.034)
[2024-08-07 15:31] VITALS: BP 117/50; PULSE 70; RESP 15; O2SAT 97
[2024-08-07 16:05] LABS: Glucose Point of Care 210 mg/dl (65-105)
--- NOTE | 2024-08-07 16:52 | PC.NURSE ---
Pt able to drink water from a straw without any sign of aspiration.
--- NOTE | 2024-08-07 16:59 | PC.NURSE ---
Report called [facility]. All questions answered at this time. Deo avionics technician to transport pt to floor via stretcher on telemetry. Pt and at bedside updated.
--- NOTE | 2024-08-07 17:10 | PC.NURSE ---
This patient, Eli Jordan, was admitted to 3 [facility] Surg Room 313-01. Patient/family oriented to hospital policies and general routines including ID bracelet, bed and alarms, visiting hours, pain management, procedures, bathroom and other care routines, personal items, smoking policy, room service/diet, and visiting hours. Information on how to activate the Rapid Response Team has been discussed. Patient/Family are encouraged to report perceived risks to care and to ask questions if they do not understand what they are told or what they should do.
[2024-08-07 17:26] VITALS: BMI 32.1
[2024-08-07] MEDS: ASPIRIN 325 MG TABLET PO (17:41)
--- NOTE | 2024-08-07 18:10 | PM.IMHP ---
H&P: HPI History of Present Illness Date/Time: 08/07/24 18:10 Chief Complaint: Slurred speech. Narrative: This is a pleasant 59-year-old female with history of stroke without residual deficit, hypertension, and type 2 diabetes mellitus who presented to the emergency department via private vehicle for evaluation of slurred speech. The patient and her provide the following history. Over the past 5 days she has had some sinus congestion and last night thought her speech seemed a little slurred though she attributed that to her congestion. woke the patient at about 04:00 this morning when he was on his way to work to check on her and she seemed to be in her usual state of health. At noontime he called her on her lunch break and noticed that her speech was slurred and when he came home to check on her of the right side of her face seemed to be drooping and she was brought in for evaluation. With further questioning she reports some tingling in her right hand but she goes on to say that has been an intermittent problem for a while due to a torn rotator cuff. She denies vertigo, visual changes, dysphagia, focal weakness, palpitations, and sensations of irregular heart beat. In the ED: Vital signs were stable on arrival. Labs are significant for WBC count of 10.4, sodium 135, creatinine 1.10, glucose 207. Head CT showed no acute findings and CTA of the head and neck showed 0% stenosis in the bilateral internal carotid arteries and no intracranial vascular occlusion or significant stenosis. She was given aspirin 325 mg and is being admitted in this setting for close monitoring and neurology consultation. Review of Systems Review of Systems: 12 systems were reviewed and are negative except for as per HPI. [facility] Past Medical History Medical History Adenomatous colon polyp Cerebrovascular accident no residual deficits Hypertension Obesity Type 2 diabetes mellitus Surgical History Surgical History History of section History of colonoscopy with polypectomy History of lumbosacral spine surgery fusion and cages L4-S1 Family History Family History Unknown Diabetes mellitus Hypertension Mother Diabetes mellitus Hypertension Social History Social History (Updated 08/07/24 @ 21:13 by Estephania Mccoy PA-C) Social History: Surrogate medical decision maker: Sammy Jordan, spouse. Code status: Full code. Smoking packs per day: 0.5 Smoking cigarettes per day: 10.0 Years smoked: 15 Smoking pack-years: 7.50 Smoking status: Former smoker Tobacco type: cigarettes Alcohol intake: never Substance use: never Substance use type: does not use Do You Feel Safe in your Home?: Yes Lack of Transportation: No Lack of Food: Never True Current Housing: I Have Housing Concerned About Future Housing: Decline to Answer Difficulty Paying Gas/Electric Bills: Decline to Answer Difficulty Paying for Meds: Decline to Answer Currently Unemployed: Decline to Answer Education: Decline to Answer Difficulty w/ Childcare or Family Care: Decline to Answer Living arrangements: with family Additional living arrangements comments: Lives in [place] with . Occupation/Education: retired Additional occupation/education comments: On disability since a back injury at work. Spiritual care concerns: No Meds Home Medications and Allergies Home Medications Medication Instructions Recorded Confirmed Type meloxicam 7.5 mg tablet 7.5 mg PO DAILY 11/05/20 08/07/24 History tramadol 50 mg tablet 50 mg PO BID PRN Pain 11/05/20 08/07/24 History hydrocodone 5 mg-acetaminophen 325 1 tablet PO Q6H PRN pain 08/07/24 08/07/24 History mg tablet Allergies Allergy/AdvReac Type Severity Reaction Status Date / Time No Known Drug Allergies Allergy Unknown none Verified 08/07/24 18:21 Vital Signs Vital Signs - 24 hr 08/07/24 14:07 08/07/24 14:41 08/07/24 14:42 Temperature 97.7 F Pulse Rate 89 80 83 Respiratory Rate 18 16 14 Blood Pressure 150/83 H 155/82 H Pulse Oximetry 97 100 08/07/24 15:31 Temperature Pulse Rate 70 Respiratory Rate 15 Blood Pressure 117/50 L Pulse Oximetry 97 Exam Narrative: General: Nontoxic-appearing female sitting up in bed in no acute distress. Weight: 87.7 kg. BMI: 32.2. HEENT: Normocephalic, atraumatic. PERRL, EOMI. Sclera anicteric. Oral mucosa moist. Oropharynx clear. Neck: Supple. No carotid bruits. Respiratory: Lungs are clear to auscultation bilaterally. Cardiovascular: Regular rate and rhythm with S1-S2. Gastrointestinal: Abdomen is soft, nontender, and nondistended with positive bowel sounds. No organomegaly. Skin: Warm and dry. No rash or lesions on limited exam. Extremities: No cyanosis, clubbing, or edema. Radial and pedal pulses intact. Neurological: Alert and oriented. Cranial nerves 2-12 are grossly intact. Speech is clear. Tongue seems to deviate a bit to the left. Mild asymmetry of the mouth. No pronator drift. Hand teletype technician and foot pushes are equal bilaterally. Right toe mildly upgoing. Strength equal in upper and lower extremities. Psychiatric: Pleasant and cooperative with appropriate mood and affect. She is in good spirits. H&P: Results Labs Labs: Short CBC 08/07/24 Range/Units 14:19 WBC 10.4 H (4.5-10.0) K/mm3 Hgb 14.7 (12.0-15.0) g/dL Hct 43.3 (37.0-47.0) % Plt Count 210 (150-375) k/mm3 BMP 08/07/24 14:19 Sodium 135 L Potassium 4.4 Chloride 100 Carbon Dioxide 26 BUN 15 Creatinine 1.10 H Glucose 207 H Calcium 9.4 Cardiac Enzymes 08/07/24 Range/Units 14:19 Troponin I < 0.012 (0.000-0.034) ng/mL Liver Function 08/07/24 Range/Units 14:19 Total Bilirubin 0.4 (0.2-1.3) mg/dL AST 20 (14-36) U/L ALT 21 (6-35) U/L Alkaline Phosphatase 165 H (38-126) U/L Albumin 4.6 (3.5-5.1) g/dL Imaging Head CT 08/07/24 14:28 IMPRESSION: 1. No acute intracranial findings. 2. If Still suspicious is MRI is advised. Chest X-Ray 08/07/24 14:35 IMPRESSION: 1. No acute cardiopulmonary disease. Head/Neck CTA 08/07/24 15:55 IMPRESSION: 1. CTA head and neck. Percent stenosis per NASCET criteria is 0%. 2. No intracranial vascular occlusion or significant stenosis. Assessment and Plan Assessment and plan (1) Neurological symptoms: Code(s): R29.90 - Unspecified symptoms and signs involving the nervous system Status: Acute (2) Type 2 diabetes mellitus: Code(s): E11.9 - Type 2 diabetes mellitus without complications Status: Acute (3) Hypertension: Code(s): I10 - Essential (primary) hypertension Status: Acute (4) Renal insufficiency: Code(s): N28.9 - Disorder of kidney and ureter, unspecified Status: Acute Plan The patient presented to the emergency department for evaluation of slurred speech and facial droop as detailed in HPI. Labs, imaging, EKG, and all reports were personally reviewed. Last known normal was at about 04:30 that she is far outside of the window for thrombolytics. Symptoms are very mild at this time with slight facial asymmetry and paresthesias of the right hand which may or may not be new. Transient cerebral ischemia is the likely diagnosis however cannot rule out cerebrovascular accident and a brain MRI has been ordered. The right hand paresthesias could be peripheral as she has had issues with her right rotator cuff lately as was previously mentioned. CTA of the head and neck showed no intracranial occlusions or significant stenosis in 0% stenosis of the internal carotid arteries. She has no history of atrial fibrillation and denies palpitations though it may be prudent to send her home on event monitor given her presumably cryptic strokes in the past. Echocardiogram with bubble study ordered. Check fasting lipids in a.m. Dual antiplatelet therapy is likely indicated pending MRI. Bedside swallow evaluation has also been ordered. Blood pressures were reviewed and they are stable. Initiate sliding scale insulin, Accu-Cheks, and hypoglycemic protocol. Check hemoglobin A1c. I suspect she has some component of chronic kidney disease though she has not had labs that this facility for quite some time and records have been requested from her doctor's office for comparison. Her medications will be reviewed and resumed as appropriate. Findings and treatment plan were discussed with the patient. Questions were solicited and answered to satisfaction. The patient's medical management will be taken over by the hospitalist team in a.m. Quality VTE Prophylaxis VTE prophylaxis: mechanical ordered Pharmacological Therapy Was IV thrombolytic therapy given?: No Contraindications to IV thrombolytic therapy: medical contraindication (outside the window, minimal deficits) The patient has been admitted under observation status. Hospitalist [facility] Advance Care Plan I have confirmed that the patient's Advanced Care Plan is present, code status is documented, or surrogate decision maker is listed in patient medical record.: Yes Medication Reconciliation I have utilized all available resources to obtain, update and review the patients current medications (includes all prescriptions, OTC, herbals, cannabis, and nutritional supplements).: Yes
[2024-08-07 19:58] VITALS: BP 132/57; PULSE 68; RESP 22; TEMP 37.2; O2SAT 98
[2024-08-07 20:00] VITALS: PULSE 78
[2024-08-07 22:00] LABS: Glucose Point of Care 287 mg/dl (65-105)
[2024-08-07] MEDS: INSULIN ASPART (*BKC) 100 UNITS/ML SUB-Q (22:03)
[2024-08-08] VITALS (9 sets, daily range): BP systolic 122–150; BP diastolic 54–74; PULSE 66–91; RESP 12–18; TEMP 36.1–36.8; O2SAT 96–100
[2024-08-08 06:44] LABS: Hematocrit 42.7 % (37.0-47.0); Mean Corpuscular HGB Conc 32.8 g/dl (32-36); Mean Corpuscular Volume 85.4 fl (80-100); Mean Platelet Volume 10.7 fl (7.4-10.4); Platelet Count Result 202 k/mm3 (150-375); Red Cell Distribution Width 13.2 % (11.5-14.5); White Blood Count 8.7 K/mm3 (4.5-10.0)
[2024-08-08 06:51] LABS: Anion Gap 6 mmol/L (4-12); Blood Urea Nitrogen 17 mg/dL (7-17); Calcium 9.2 mg/dL (8.4-10.2); Carbon Dioxide 29 mmol/L (22-30); Chloride 100 mmol/L (98-107); Cholesterol 251 mg/dL (0-200); Estimated CRCL calculation 49 ml/min; Estimated Glomerular Filt Rate 46; Glucose 226 mg/dL (65-110); HDL Direct 40 mg/dL; Potassium 4.3 mmol/L (3.4-5.0); Sodium 135 mmol/L (137-145); Triglycerides 203 mg/dL (<150)
[2024-08-08 07:02] LABS: LDL Cholesterol Direct 151 mg/dL
[2024-08-08] MEDS: MELOXICAM 7.5 MG TABLET PO (08:13)
[2024-08-08] MEDS: ASPIRIN 325 MG TABLET PO (08:13)
[2024-08-08 08:14] LABS: Glucose Point of Care 198 mg/dl (65-105)
--- NOTE | 2024-08-08 09:45 | PCSTNOTE ---
Please refer to the Bedside Swallow Evaluation in the EMR. Please note, silent aspiration cannot be ruled out at bedside.
--- NOTE | 2024-08-08 11:08 | P.PNIM_ITS ---
Progress Note: A&P Assessment and Plan (1) Neurological symptoms: Code(s): R29.90 - Unspecified symptoms and signs involving the nervous system Status: Acute Assessment and Plan: * Acute infarct present as per MRI as reviewed independently by myself and the radiologists report. * Awaiting Neurology consultation * No TNK/TPA given as pt was outside of the window of allotted time to give * PT and OT eval. * Speech evaluated and recommendations for regular diet and consistencies is made. * Continue daily ASA 325 mg. Suspect Neuro will recommend starting DAPT therapy. * Will initiate Atorvastatin 80 mg po daily. * Fall precautions * Recommend tight glucose control. * ECHO pending. (2) Type 2 diabetes mellitus: Code(s): E11.9 - Type 2 diabetes mellitus without complications Status: Chronic Assessment and Plan: * Poorly controlled at A1C is 10.0. * Continue low dose SSI. * Recommend initiation of insulin upon discharge. * breastfeeding educator and dietitian consult. Pt at high risk of repeat Vascular event. * Continue diabetic diet * Hypoglycemic protocol continued * Glucose checks continued. (3) Dyslipidemia: Code(s): E78.5 - Hyperlipidemia, unspecified Status: Acute Assessment and Plan: * Newly dx'd. * Total cholesterol 251, Trigs 203, LDL 151, HDL 40 * In setting of new and second CVA. * Initiated Atorvastatin 80 mg po daily. (4) Hypertension: Code(s): I10 - Essential (primary) hypertension Status: Chronic Assessment and Plan: * Allow permissive HTN at current. * No current intervention needed. * Continue to monitor and trend. (5) Renal insufficiency: Code(s): N28.9 - Disorder of kidney and ureter, unspecified Status: Chronic Assessment and Plan: * Chronic Kidney disease. * Appears to be at baseline function with Cr/BUN 1.2/17 respectively. * Monitor with labs. Time Spent With Patient Time with patient: 25 - 35 minutes Subjective Date/time seen: 08/08/24 0900 Interval history: This 59 year old female pt was examined at the bedside today in interval assessment since being admitted to the hospital with concerns of stroke like symptoms. CT/CTA was negative in ER and MRI was completed today. ECHO is still pending. MRI today showed an acute infarct involving the right insula and right frontal parietal region. We are still awaiting Neurology consult. PT and OT are consulted and we await their recommendations. Speech has consulted and they are recommending a regular diet and liquid intake as she passed her swallow eval. She is receiving ASA 325 mg daily. Review of Systems Review of Systems: All systems reviewed & are unremarkable except as noted in HPI and below Exam Narrative: General: Nontoxic-appearing female sitting up in bed in no acute distress. HEENT: Normocephalic, atraumatic. PERRL, EOMI. Sclera anicteric. Oral mucosa moist. Oropharynx clear. Neck: Supple. No carotid bruits. Respiratory: Lungs are clear to auscultation bilaterally. Cardiovascular: Regular rate and rhythm with S1-S2. Gastrointestinal: Abdomen is soft, nontender, and nondistended with positive bowel sounds. No organomegaly. Skin: Warm and dry. No rash or lesions on limited exam. Extremities: No cyanosis, clubbing, or edema. Radial and pedal pulses intact. Neurological: Alert and oriented. Cranial nerves 2-12 are grossly intact. Speech is clear. Tongue seems to deviate a bit to the left. Mild asymmetry of the mouth. No pronator drift. 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 Right toe mildly upgoing. Strength equal in upper and lower extremities. Psychiatric: Pleasant and cooperative with appropriate mood and affect. She is in good spirits. Objective Data Vital Signs Vital Signs: Vital Signs - 24 hr 08/07/24 14:07 08/07/24 14:41 08/07/24 14:42 Temperature 97.7 F Pulse Rate 89 80 83 Respiratory Rate 18 16 14 Blood Pressure 150/83 H 155/82 H Pulse Oximetry 97 100 Oxygen Delivery 08/07/24 15:31 08/07/24 17:30 08/07/24 19:58 Temperature 98.9 F Pulse Rate 70 68 Respiratory Rate 15 22 H Blood Pressure 117/50 L 132/57 L Pulse Oximetry 97 98 Oxygen Delivery Room Air 08/08/24 00:00 08/07/24 20:00 08/08/24 00:00 Temperature 97.1 F L Pulse Rate 90 78 91 Respiratory Rate 12 Blood Pressure 130/64 Pulse Oximetry 96 Oxygen Delivery 08/08/24 04:00 08/08/24 04:00 08/08/24 07:43 Temperature 97.5 F L Pulse Rate 66 72 Respiratory Rate 18 Blood Pressure 129/65 Pulse Oximetry 97 96 Oxygen Delivery Room Air 08/08/24 08:00 08/08/24 08:13 08/08/24 08:13 Temperature 96.9 F L Pulse Rate 72 74 Respiratory Rate 16 Blood Pressure 131/71 Pulse Oximetry 100 Oxygen Delivery Room Air Intake/Output Intake/Output: Intake & Output 08/05/24 08/06/24 08/07/24 08/08/24 23:59 23:59 23:59 23:59 Intake Total 1392 Balance 1392 Meds/Results Medications: Active Medications Generic Name Dose Route Start Last Admin Trade Name Freq PRN Reason Stop Dose Admin Acetaminophen 650 mg 08/07/24 18:17 Acetaminophen 325 Mg Tablet PO Q6H PRN Mild Pain (1-3) or Fever Hydrocodone Bitart/Acetaminophen 1 tab 08/07/24 21:22 Hydrocodone/Acetaminophen (*Crx) 5-325 Mg Tablet PO Q6H PRN pain 7-10 Aspirin 325 mg 08/08/24 08:00 08/08/24 08:13 Aspirin 325 Mg Tablet PO 325 mg DAILY@0800 [facility] Administration Dextrose 12.5 gm 08/07/24 21:23 Dextrose 50% 25 Gm/50 Ml Syringe IV PUSH PRN PRN Hypoglycemia Protocol Glucagon 1 mg 08/07/24 21:23 Glucagon For Inj 1 Mg Vial IM PRN PRN Hypoglycemia Protocol Glucose 15 gm 08/07/24 21:23 Glucose Oral Gel 15 Gm Of Glucse In 37.5 Gm Tube PO PRN PRN Hypoglycemia Protocol Dextrose 1,000 mls @ 100 mls/hr 08/07/24 21:23 Dextrose 5% 1,000 Ml IVPB PRN PRN Hypoglycemia Protocol Insulin Aspart 2 - 5 units 08/08/24 08:00 08/08/24 08:09 Insulin Aspart (*Bkc) 100 Units/Ml SUB-Q Not Given TIDWM [facility] Protocol Insulin Aspart 1 - 2 units 08/07/24 21:30 08/07/24 22:03 Insulin Aspart (*Bkc) 100 Units/Ml SUB-Q 1 units HS SARBJIT Administration Protocol Meloxicam 7.5 mg 08/08/24 09:00 08/08/24 08:13 Meloxicam 7.5 Mg Tablet PO 7.5 mg DAILY SARBJIT Administration Perflutren Lipid Microsphere 0 ml 08/07/24 18:17 Perflutren Lipid Microspheres 1.5 Ml Vial Diluted To 10 Ml Total Volume IV PUSH 08/10/24 18:18 ONCE PRN adequate visualization Protocol Tramadol HCl 50 mg 08/07/24 21:22 Tramadol Hcl (*Crx) 50 Mg Tablet PO BID PRN Pain 4-6 Radiology Results: ITS Impressions Head CT 08/07/24 14:28 IMPRESSION: No acute intracranial findings. If Still suspicious is MRI is advised. Chest X-Ray 08/07/24 14:35 IMPRESSION: 1. No acute cardiopulmonary disease. Head/Neck CTA 08/07/24 15:55 IMPRESSION: 1. CTA head and neck. Percent stenosis per NASCET criteria is 0%. 2. No intracranial vascular occlusion or significant stenosis. Brain MRI 08/08/24 07:45 IMPRESSION: 1. Acute infarct involving the right insula and right frontal parietal region. 2. Multiple old infarcts in the brain. 3. Moderate nonspecific cerebral white matter disease, which likely represents chronic small vessel ischemic disease. Labs Labs: Laboratory Results - last 24 hr 08/07/24 08/07/24 08/07/24 14:19 14:34 21:57 WBC 10.4 H RBC 5.19 Hgb 14.7 Hct 43.3 MCV 83.4 MCH 28.3 MCHC 33.9 RDW 13.2 Plt Count 210 MPV 10.0 Immature Gran % (Auto) 0.4 Neut % (Auto) 72.7 Lymph % (Auto) 17.1 L [place] % (Auto) 6.5 Eos % (Auto) 2.8 Baso % (Auto) 0.5 Lymph # (Auto) 1.77 [place] # (Auto) 0.7 H Eos # (Auto) 0.3 Baso # (Auto) 0.1 Abs Immat Gran (auto) 0.04 H Absolute Neuts (auto) 7.5 H Absolute Nucleated RBC 0.000 Nucleated RBC % 0.0 PT 12.2 INR 0.9 APTT 24.5 Sodium 135 L Potassium 4.4 Chloride 100 Carbon Dioxide 26 Anion Gap 9 BUN 15 Creatinine 1.10 H Estim Creat Clear Calc 54 Estimated GFR 50 L Glucose 207 H POC Capillary Glucose 210 H 287 H Hemoglobin A1c 10.0 H Calcium 9.4 Magnesium Total Bilirubin 0.4 AST 20 ALT 21 Alkaline Phosphatase 165 H Troponin I < 0.012 Total Protein 8.0 Albumin 4.6 Triglycerides Cholesterol LDL Cholesterol Direct HDL Direct 08/08/24 08/08/24 05:58 08:09 WBC 8.7 RBC 5.00 Hgb 14.0 Hct 42.7 MCV 85.4 MCH 28.0 MCHC 32.8 RDW 13.2 Plt Count 202 MPV 10.7 H Immature Gran % (Auto) Neut % (Auto) Lymph % (Auto) [place] % (Auto) Eos % (Auto) Baso % (Auto) Lymph # (Auto) [place] # (Auto) Eos # (Auto) Baso # (Auto) Abs Immat Gran (auto) Absolute Neuts (auto) Absolute Nucleated RBC Nucleated RBC % PT INR APTT Sodium 135 L Potassium 4.3 Chloride 100 Carbon Dioxide 29 Anion Gap 6 BUN 17 Creatinine 1.20 H Estim Creat Clear Calc 49 Estimated GFR 46 L Glucose 226 H POC Capillary Glucose 198 H Hemoglobin A1c Calcium 9.2 Magnesium 2.0 Total Bilirubin AST ALT Alkaline Phosphatase Troponin I Total Protein Albumin Triglycerides 203 H Cholesterol 251 H LDL Cholesterol Direct 151 HDL Direct 40 Quality VTE Prophylaxis VTE prophylaxis: mechanical ordered Stroke Date of last known normal: 08/07/24 Time of last known normal: 04:30 Stroke Scale Stroke scale date:: 08/08/24 Stroke scale time:: 09:00 1a Level of conciousness: alert-0 1b Level of consciousness: answers both correctly-0 1c Level of consciousness: obeys both correctly-0 2 Best gaze: normal-0 3 Visual: no visual loss-0 4 Facial palsy: minor paralysis-1 5a Motor: left arm: no drift-0 5b Motor: right arm: no drift-0 6a Motor: left leg: no drift-0 6b Motor: right leg: no drift-0 7 Limb ataxia: absent-0 8 Sensory: pinprick less sharp-1 9 Best language: no aphasia-0 10 Dysarthria: slurs some words-1 11 Extinction and inattention: no abnormality-0 Level:: 3 Comment: Pt is edentulous making it hard for me to understand some of her speech. Pharmacological Therapy Was IV thrombolytic therapy given?: No Contraindications to IV thrombolytic therapy: medical contraindication (Outside of appropriate window of time.) Reason anticoag or antiplatelet not ordered by end of day 2: not indicated (Pt awaiting Neuro consult. ASA 325 mg was initiated.)
--- NOTE | 2024-08-08 12:02 | WPDNEURCNPN ---
Assessment and Plan Assessment and plan (1) Acute CVA (cerebrovascular accident): Code(s): I63.9 - Cerebral infarction, unspecified Status: Acute (2) Renal insufficiency: Code(s): N28.9 - Disorder of kidney and ureter, unspecified Status: Chronic (3) Type 2 diabetes mellitus: Code(s): E11.9 - Type 2 diabetes mellitus without complications Status: Chronic (4) Hypertension: Code(s): I10 - Essential (primary) hypertension Status: Chronic Plan Since the CT angiogram did not show any significant abnormalities. Good be important to look for any cardiac source in the meanwhile we should keep her on dual antiplatelets and high does high intensity statin. I will suggest aspirin Plavix and atorvastatin 80 mg a day. Her LDL was high at 151. She has had 2 strokes in the past. I spoke to her made aware of these. Will require speech therapy. Physical therapy assessment was done and they did not find much to worry so far. I have told her sometimes strokes can get worse in the 1st 2-5 days and has close observation is desirable. An echocardiogram will be obtained. EKG shows sinus rhythm. A prolonged cardiac monitoring should be considered since the source of multiple stroke has not been identified. Consult date: 08/08/24 HPI: Eli Jordan is a 59 year old female with history of diabetes mellitus and previous strokes presented with slurring of speech which started yesterday. Her noticed that there is also some flattening of the left side of the face. The symptoms have persisted. In the past she has has somewhat of a similar presentation. The 1st stroke occurred in early part of 2022 and another 1 in May of 2020 3 and 1 of them so she was treated at [facility]. Another 1 treated here. The patient denies any chest pain or shortness of breath. No headaches or diplopia. No difficulties swallowing. She does not feel she has any weakness in upper lower limbs. She was in usual state of health before the onset of symptoms yesterday. In the emergency room she did have a CT scan of the brain and CT angiogram head and neck which did not show any significant abnormality. MRI of the brain has been performed which shows a new infarct in the right right frontal parietal area on the diffusion scanning in addition to the old infarct noted in both sides right more than left side. Review of Systems Review of Systems: All systems reviewed & are unremarkable except as noted in HPI and below PMFSH Past Medical History Medical History (Updated 08/08/24 @ 11:29 by KIMBERLY Guthrie) Adenomatous colon polyp Cerebrovascular accident no residual deficits Dyslipidemia Hypertension Obesity Type 2 diabetes mellitus Surgical History Surgical History History of section History of colonoscopy with polypectomy History of lumbosacral spine surgery fusion and cages L4-S1 Family History Family History Unknown Diabetes mellitus Hypertension Mother Diabetes mellitus Hypertension Social History Social History (Updated 08/07/24 @ 21:13 by Estephania Mccoy PA-C) Social History: Surrogate medical decision maker: Sammy Howardatt, spouse. Code status: Full code. Smoking packs per day: 0.5 Smoking cigarettes per day: 10.0 Years smoked: 15 Smoking pack-years: 7.50 Smoking status: Former smoker Tobacco type: cigarettes Alcohol intake: never Substance use: never Substance use type: does not use Do You Feel Safe in your Home?: Yes Lack of Transportation: No Lack of Food: Never True Current Housing: I Have Housing Concerned About Future Housing: Decline to Answer Difficulty Paying Gas/Electric Bills: Decline to Answer Difficulty Paying for Meds: Decline to Answer Currently Unemployed: Decline to Answer Education: Decline to Answer Difficulty w/ Childcare or Family Care: Decline to Answer Living arrangements: with family Additional living arrangements comments: Lives in [place] with . Occupation/Education: retired Additional occupation/education comments: On disability since a back injury at work. Spiritual care concerns: No Meds Home Medications and Allergies Home Medications Medication Instructions Recorded Confirmed Type meloxicam 7.5 mg tablet 7.5 mg PO DAILY 11/05/20 08/07/24 History tramadol 50 mg tablet 50 mg PO BID PRN Pain 11/05/20 08/07/24 History hydrocodone 5 mg-acetaminophen 325 1 tablet PO Q6H PRN pain 08/07/24 08/07/24 History mg tablet Allergies Allergy/AdvReac Type Severity Reaction Status Date / Time No Known Drug Allergies Allergy Unknown none Verified 08/07/24 18:21 Vital Signs Vital Signs - 24 hr 08/07/24 14:07 08/07/24 14:41 08/07/24 14:42 Temperature 97.7 F Pulse Rate 89 80 83 Respiratory Rate 18 16 14 Blood Pressure 150/83 H 155/82 H Pulse Oximetry 97 100 Oxygen Delivery 08/07/24 15:31 08/07/24 17:30 08/07/24 19:58 Temperature 98.9 F Pulse Rate 70 68 Respiratory Rate 15 22 H Blood Pressure 117/50 L 132/57 L Pulse Oximetry 97 98 Oxygen Delivery Room Air 08/08/24 00:00 08/07/24 20:00 08/08/24 00:00 Temperature 97.1 F L Pulse Rate 90 78 91 Respiratory Rate 12 Blood Pressure 130/64 Pulse Oximetry 96 Oxygen Delivery 08/08/24 04:00 08/08/24 04:00 08/08/24 07:43 Temperature 97.5 F L Pulse Rate 66 72 Respiratory Rate 18 Blood Pressure 129/65 Pulse Oximetry 97 96 Oxygen Delivery Room Air 08/08/24 08:00 08/08/24 08:13 08/08/24 08:13 Temperature 96.9 F L Pulse Rate 72 74 Respiratory Rate 16 Blood Pressure 131/71 Pulse Oximetry 100 Oxygen Delivery Room Air Exam Narrative: Fully conscious alert, oriented to self time place and person, no aphasia however she has moderate dysarthria. Examination head and neck shows no evidence of external trauma. No nuchal rigidity. No carotid bruit. Cranial nerves on individual testing reveal visual marques by confrontation are normal. Pupils were equal and reactive to light. There is a mild flattening of the left nasolabial fold. Tongue was however midline. Face sensation intact. Extraocular movements were within normal limits. Other cranial nerves were within normal limits. Motor system shows normal power and tone in both upper and lower limbs however there is some loss of rapid alternating movement of the left hand compared to the right side. No significant difference noted in the lower limbs. Deep tendon reflexes at biceps triceps supinator and knee and ankle reflexes did not show any significant asymmetry. Since a young person was intact to pain temperature vibration. No involuntary movements were seen. Coordination [id number] appears normal. Gait was not tested at this time. Results Labs 08/08/24 05:58 08/08/24 05:58 Labs: Short CBC 08/07/24 08/08/24 Range/Units 14:19 05:58 WBC 10.4 H 8.7 (4.5-10.0) K/mm3 Hgb 14.7 14.0 (12.0-15.0) g/dL Hct 43.3 42.7 (37.0-47.0) % Plt Count 210 202 (150-375) k/mm3 BMP 08/07/24 08/08/24 14:19 05:58 Sodium 135 L 135 L Potassium 4.4 4.3 Chloride 100 100 Carbon Dioxide 26 29 BUN 15 17 Creatinine 1.10 H 1.20 H Glucose 207 H 226 H Calcium 9.4 9.2 Cardiac Enzymes 08/07/24 Range/Units 14:19 Troponin I < 0.012 (0.000-0.034) ng/mL Liver Function 08/07/24 Range/Units 14:19 Total Bilirubin 0.4 (0.2-1.3) mg/dL AST 20 (14-36) U/L ALT 21 (6-35) U/L Alkaline Phosphatase 165 H (38-126) U/L Albumin 4.6 (3.5-5.1) g/dL Imaging Attestation: I personally reviewed and interpreted this imaging study as follows: ( MRI of the brain) My impression: new infarct noted in the right frontal parietal area. Small lesions were noted. For noted all for more bite the left side. These appear to involve cord to call a as in the right tried. Radiologist's impression: Same
[2024-08-08 12:26] LABS: Glucose Point of Care 299 mg/dl (65-105)
[2024-08-08] MEDS: INSULIN ASPART (*BKC) 100 UNITS/ML SUB-Q ×3 (12:28→21:19)
[2024-08-08] MEDS: PERFLUTREN LIPID MICROSPHERES 1.5 ML VIAL DILUTED TO 10 ML TOTAL VOLUME IV PUSH (15:19)
--- NOTE | 2024-08-08 15:20 | IVDEFINITY ---
Prior to administration of IV Definity the patient was educated on the risks and benefits of the imaging enhancing agent including potential adverse side effects. The patient verbalized understanding. Allergies were verified. No exclusion criteria were identified and at least one of the following inclusion criteria were met: 1) physician request, 2) patient technically difficult to image (per the [place] [employer]ch[employer] guidelines of two or more segments not discernable within the apical view), or 3) questionable left ventricular function. ?
[2024-08-08 16:23] LABS: Glucose Point of Care 299 mg/dl (65-105)
--- NOTE | 2024-08-08 18:18 | ECHO_ITS ---
Patient Info Name: Eli Jordan Age: 59 years : 1965 Gender: Female Ht: 65 in Wt: 193 lbs BSA: 2.04 m2 HR: 72 bpm BP: 129 / 65 mmHg Heart Rhythm: Sinus Rhythm Technical Quality: Fair Exam Date: 08/08/2024 11:44 AM Exam Location: Echo Lab Patient Status: Inpatient Admit Date: 08/07/2024 Staff Ordering Physician: Estephania Mccoy PA-C Assistant Community Manager: Iggy Blackmon RDCS Attending Provider: Macy Ying Referring Physician: Darius JORGENSEN; Exam Type: CA echo dop bubble study w con Study Info Indications - stroke - HTN Complete two-dimentional, color flow and Doppler transthoracic echocardiogram is performed with agitated saline and with contrast to opacify the left ventricle and to improve the delineation of the left ventricle endocardial borders. Contrast/Agitated Saline Contrast/Ag. Saline: Definity Amount: 2.00 ml Existing IV Access: Yes IV Access Condition: patent with no signs of infiltration Contrast/Ag. Saline: Agitated Saline Amount: 14.00 ml Existing IV Access: Yes IV Access Condition: patent with no signs of infiltration Summary 1. Left ventricular chamber dimension is normal. 2. Left ventricular systolic function is normal, estimated at 60-65%. 3. There is mildly increased left ventricular wall thickness. 4. The left ventricular diastolic function is grade I diastolic dysfunction. 5. Right ventricular systolic function is normal. 6. Left atrial chamber dimension is moderately enlarged. 7. Intact interatrial septum visualized by color flow and agitated saline imaging. Negative bubble study. 8. There is mild mitral valve regurgitation. Left Ventricle Left ventricular chamber dimension is normal. Left ventricular systolic function is normal, estimated at 60-65%. There is mildly increased left ventricular wall thickness. The left ventricular diastolic function is grade I diastolic dysfunction. Right Ventricle Right ventricular chamber dimension is normal. Right ventricular systolic function is normal. Left Atria Left atrial chamber dimension is moderately enlarged. Right Atria Right atrial chamber dimension is normal. Atrial Septum Intact interatrial septum visualized by color flow and agitated saline imaging. Negative bubble study. Aortic Valve The aortic valve is probable trileaflet. There is no aortic valve stenosis. There is no aortic valve regurgitation. Pulmonic Valve The pulmonic valve is not well visualized. There is no pulmonic regurgitation. Mitral Valve There is mild mitral valve regurgitation. Tricuspid Valve There is trace tricuspid valve regurgitation. Pericardium/Pleural The pericardium appears epicardial fat pad. There is no pericardial effusion. Inferior Vena Cava Normal inferior vena cava with >50% collapse upon inspiration consistent with normal right atrial pressure, 3 mmHg. Aorta The aortic root size at the sinus of Valsalva is normal. Left Ventricular Outflow Tract Name Value Normal LVOT Doppler LVOT Peak Gradient 6 mmHg LVOT Mean Gradient 3 mmHg LVOT VTI 22 cm LVOT VTI/AV VTI Ratio 0.8 Pulmonic Valve Name Value Normal PV Doppler PV Peak Gradient 3 mmHg Mitral Valve Name Value Normal MV Doppler MV Decel [place] 381 cm/s2 MV PHT 92 ms MV Area (PHT) 2.4 cm2 4.0-5.0 MV Diastolic Function MV E Peak Velocity 121 cm/s MV A Peak Velocity 133 cm/s MV E/A 0.9 MV Decel Time 318 ms Tricuspid Valve Name Value Normal Estimated PAP/RSVP RA Pressure 3 mmHg <=5 Aorta Name Value Normal Ascending Aorta Ao Root Diameter (MM) 2.2 cm Ao Root Diam Index (MM) 1.1 cm/m2 Aortic Valve Name Value Normal AV Doppler AV Peak Velocity 143 cm/s AV Peak Gradient 8 mmHg AV Mean Gradient 4 mmHg AV VTI 28 cm Ventricles Name Value Normal LV Dimensions 2D/MM IVS Diastolic Thickness (2D) 0.9 cm 0.6-1.0 IVS Diastole Thickness (MM) 1.0 cm 0.6-0.9 LVID Diastole (2D) 4.3 cm 3.8-5.2 LVID Diastole (MM) 4.9 cm 3.8-5.2 LVIW Diastolic Thickness (2D) 0.8 cm 0.6-0.9 LVIW Diastolic Thickness (MM) 1.0 cm 0.6-0.9 LVID Systole (2D) 2.4 cm 2.2-3.5 LVID Systole (MM) 2.9 cm 2.2-3.5 LV Mass (2D Cubed) 123.61 g 67.00-162.00 LV Mass Index (2D Cubed) 61 g/m2 43-95 Relative Wall Thickness (2D) 0.39 LV Mass (MM Cubed) 167.66 g 67.00-162.00 LV Mass Index (MM Cubed) 82 g/m2 43-95 Relative Wall Thickness (MM) 0.40 LV Fractional Shortening/Ejection Fraction 2D/MM LV Fractional Shortening (2D) 44 % 27-45 LV Fractional Shortening (MM) 41 % 27-45 LV EF (MM Teicholz) 71 % 54-74 LV EF (2D Teicholz) 76 % 54-74 LV Diastolic Volume (4C MOD) 52 ml LV EF (4C MOD) 56 % LV Diastolic Volume (2C MOD) 35 ml LV EF (2C MOD) 52 % LV Diastolic Volume (BP MOD) 43 ml 46-106 LV Diastolic Volume Index (BP MOD) 21 ml/m2 29-61 LV Systolic Volume (BP MOD) 20 ml 14-42 LV Systolic Volume Index (BP MOD) 10 ml/m2 8-24 LV EF (BP MOD) 54 % 54-74 LV Diastolic Length (4C) 7.4 cm LV Systolic Length (4C) 6.2 cm LV Stroke Volume (4C MOD) 29 ml Atria Name Value Normal LA Dimensions LA Dimension (MM) 4.0 cm 2.7-3.8 LA Volume (4C A-L) 47 ml LA Volume (BP A-L) 39 ml RA Dimensions RA Area (4C) 10.2 cm2 <=18.0 Report Signatures
[2024-08-08 20:23] LABS: Glucose Point of Care 237 mg/dl (65-105)
[2024-08-09] VITALS (8 sets, daily range): BP systolic 128–144; BP diastolic 45–73; PULSE 64–89; RESP 12–20; TEMP 36.1–36.8; O2SAT 98–100; BMI 33.4
[2024-08-09 07:35] LABS: Basophils Percent Auto 0.5 % (0.2-1.2); Eosinophils Absolute Auto 0.2 K/mm3 (0-0.3); Eosinophils Percent Auto 3.1 % (0-4.4); Hemoglobin 12.9 g/dL (12.0-15.0); Immature Granulocyte Absolute 0.04 K/mm3 (0.00-0.031); Immature Granulocyte Percent A 0.5 % (0-0.5); Lymphocytes Absolute Auto 2.21 K/mm3 (0.9-3.2); Lymphocytes Percent Auto 28.1 % (18.3-44.2); Mean Corpuscular HGB Conc 33.1 g/dl (32-36); Mean Corpuscular Volume 84.8 fl (80-100); Mean Platelet Volume 10.5 fl (7.4-10.4); Monocytes Absolute Auto 0.5 K/mm3 (0.1-0.6); Monocytes Percent Auto 6.6 % (2.6-8.5); Neutrophils Absolute Auto 4.8 K/mm3 (1.3-6.7); Neutrophils Percent Auto 61.2 % (45.5-73.1); Platelet Count Result 177 k/mm3 (150-375); Red Cell Distribution Width 13.2 % (11.5-14.5); White Blood Count 7.9 K/mm3 (4.5-10.0)
[2024-08-09 07:39] LABS: Glucose Point of Care 174 mg/dl (65-105)
[2024-08-09 07:50] LABS: Alanine Aminotransferase 21 U/L (6-35); Albumin Level 3.7 g/dL (3.5-5.1); Alkaline Phosphatase 124 U/L (38-126); Anion Gap 6 mmol/L (4-12); Aspartate Amino Transferase 22 U/L (14-36); Bilirubin,Total 0.4 mg/dL (0.2-1.3); Blood Urea Nitrogen 18 mg/dL (7-17); Calcium 8.9 mg/dL (8.4-10.2); Carbon Dioxide 26 mmol/L (22-30); Chloride 103 mmol/L (98-107); Estimated CRCL calculation 58 ml/min; Estimated Glomerular Filt Rate 56; Glucose 168 mg/dL (65-110); Magnesium 1.9 mg/dL (1.6-2.3); Potassium 4.1 mmol/L (3.4-5.0); Sodium 135 mmol/L (137-145)
[2024-08-09] MEDS: ATORVASTATIN 40 MG TABLET 80 MG PO (08:42)
[2024-08-09] MEDS: MELOXICAM 7.5 MG TABLET PO (08:42)
[2024-08-09] MEDS: CLOPIDOGREL BISULFATE 75 MG TABLET PO (08:42)
[2024-08-09] MEDS: ASPIRIN 325 MG TABLET 81 MG PO (08:49)
[2024-08-09] MEDS: ASPIRIN 81 MG CHEWABLE TABLET PO (08:50)
[2024-08-09 12:01] LABS: Glucose Point of Care 232 mg/dl (65-105)
[2024-08-09] MEDS: INSULIN ASPART (*BKC) 100 UNITS/ML SUB-Q ×3 (12:06→20:53)
[2024-08-09 16:31] LABS: Glucose Point of Care 211 mg/dl (65-105)
--- NOTE | 2024-08-09 16:49 | P.PNIM_ITS ---
Progress Note: A&P Assessment and Plan (1) Neurological symptoms: Code(s): R29.90 - Unspecified symptoms and signs involving the nervous system Status: Acute Assessment and Plan: * Acute infarct present as per MRI as reviewed independently by myself and the radiologists report. * Awaiting Neurology to see patient. * No TNK/TPA given as pt was outside of the window of allotted time to give * PT and OT eval done and pt cleared with no further therapy recommended due to pt independence. * Speech evaluated and recommendations for regular diet and consistencies is made. * Continue daily ASA 325 mg, Plavix and statin. * Continue Atorvastatin 80 mg po daily. * Fall precautions * Continue tight glucose control. * ECHO with no intracardiac embolus with negative bubble study. EF 60-65%. * Teacher Citizenship consulted for possible outpatient cardiac monitoring per neurologist recommendations. * Maintains SR on telemetry. (2) Type 2 diabetes mellitus: Code(s): E11.9 - Type 2 diabetes mellitus without complications Status: Chronic Assessment and Plan: * Poorly controlled as A1C is 10.0. * Continue low dose SSI. * Consider initiation of insulin upon discharge. * clinical systems educator and dietitian consult. Pt at high risk of repeat Vascular event. * Continue diabetic diet * Hypoglycemic protocol continued * Glucose checks continued. (3) Dyslipidemia: Code(s): E78.5 - Hyperlipidemia, unspecified Status: Acute Assessment and Plan: * Newly dx'd. * Total cholesterol 251, Trigs 203, LDL 151, HDL 40 * In setting of new and second CVA. * Continue Atorvastatin 80 mg po daily. (4) Hypertension: Code(s): I10 - Essential (primary) hypertension Status: Chronic Assessment and Plan: * BP well controlled. * Continue to monitor and trend. (5) Renal insufficiency: Code(s): N28.9 - Disorder of kidney and ureter, unspecified Status: Chronic Assessment and Plan: * Chronic Kidney disease. * Appears to be at baseline function with Cr/BUN 1.2/17 respectively. * Monitor with labs. * Avoid nephrotoxins. Plan Awaiting wallpaper embosser helper and neurologist recommendations pending discharge. Time Spent With Patient Time with patient: 25 - 35 minutes Subjective Date/time seen: 08/09/24 10:45 Interval history: This 59 year old female pt was examined at the bedside today in interval assessment since being admitted to the hospital with concerns of stroke like symptoms. CT/CTA was negative in ER and MRI showing Acute infarct involving the right insula and right frontal parietal region. ECHO is still pending. Still awaiting Neurology to see. PT and OT evaluation done and patient noted to be independent with good strength and endurance. Speech recommending a regular diet and liquid intake as she passed her swallow eval. She is receiving ASA 325 mg daily. Review of Systems Review of Systems: 12 systems were reviewed and are negativ e except for as per HPI. All systems reviewed & are unremarkable except as noted in HPI and below Exam Narrative: General: Nontoxic-appearing female sitting up in bed in no acute distress. HEENT: Normocephalic, atraumatic. PERRL, EOMI. Sclera anicteric. Oral mucosa moist. Oropharynx clear. Neck: Supple. No carotid bruits. Respiratory: Lungs are clear to auscultation bilaterally. Cardiovascular: Regular rate and rhythm with S1-S2. Gastrointestinal: Abdomen is soft, nontender, and nondistended with positive bowel sounds. No organomegaly. Skin: Warm and dry. No rash or lesions on limited exam. Extremities: No cyanosis, clubbing, or edema. Radial and pedal pulses intact. Neurological: Alert and oriented. Cranial nerves 2-12 are grossly intact. Speech is clear. Strength equal in upper and lower extremities, 5/5. Psychiatric: Pleasant and cooperative with appropriate mood and affect. She is in good spirits. Objective Data Vital Signs Vital Signs: Vital Signs - 24 hr 08/08/24 20:00 08/08/24 23:55 08/09/24 00:00 Temperature 97.5 F L 97.8 F Pulse Rate 81 72 78 Respiratory Rate 14 14 Blood Pressure 133/67 122/54 L Pulse Oximetry 99 100 08/09/24 04:00 08/09/24 04:00 08/09/24 08:00 Temperature 97.1 F L 98.2 F Pulse Rate 73 68 65 Respiratory Rate 12 18 Blood Pressure 128/73 134/48 L Pulse Oximetry 99 100 08/09/24 12:00 08/09/24 15:29 Temperature 96.9 F L 96.9 F L Pulse Rate 86 86 Respiratory Rate 18 18 Blood Pressure 130/45 L 133/52 L Pulse Oximetry 100 100 Intake/Output Intake/Output: Intake & Output 08/06/24 08/07/24 08/08/24 08/09/24 23:59 23:59 23:59 23:59 Intake Total 2292 660 Balance 2292 660 Meds/Results Medications: Active Medications Generic Name Dose Route Start Last Admin Trade Name Freq PRN Reason Stop Dose Admin Acetaminophen 650 mg 08/07/24 18:17 Acetaminophen 325 Mg Tablet PO Q6H PRN Mild Pain (1-3) or Fever Hydrocodone Bitart/Acetaminophen 1 tab 08/07/24 21:22 Hydrocodone/Acetaminophen (*Crx) 5-325 Mg Tablet PO Q6H PRN pain 7-10 Aspirin 81 mg 08/09/24 08:50 08/09/24 08:50 Aspirin 81 Mg Chewable Tablet PO 81 mg DAILY@0800 SARBJIT Administration Atorvastatin Calcium 80 mg 08/09/24 09:00 08/09/24 08:42 Atorvastatin 40 Mg Tablet PO 80 mg DAILY SARBJIT Administration Clopidogrel Bisulfate 75 mg 08/09/24 09:00 08/09/24 08:42 Clopidogrel Bisulfate 75 Mg Tablet PO 75 mg QAM SARBJIT Administration Dextrose 12.5 gm 08/07/24 21:23 Dextrose 50% 25 Gm/50 Ml Syringe IV PUSH PRN PRN Hypoglycemia Protocol Glucagon 1 mg 08/07/24 21:23 Glucagon For Inj 1 Mg Vial IM PRN PRN Hypoglycemia Protocol Glucose 15 gm 08/07/24 21:23 Glucose Oral Gel 15 Gm Of Glucse In 37.5 Gm Tube PO PRN PRN Hypoglycemia Protocol Dextrose 1,000 mls @ 100 mls/hr 08/07/24 21:23 Dextrose 5% 1,000 Ml IVPB PRN PRN Hypoglycemia Protocol Insulin Aspart 2 - 5 units 08/08/24 08:00 08/09/24 12:06 Insulin Aspart (*Bkc) 100 Units/Ml SUB-Q 2 units TIDWM SARBJIT Administration Protocol Insulin Aspart 1 - 2 units 08/07/24 21:30 08/08/24 21:19 Insulin Aspart (*Bkc) 100 Units/Ml SUB-Q 1 units HS SARBJIT Administration Protocol Meloxicam 7.5 mg 08/08/24 09:00 08/09/24 08:42 Meloxicam 7.5 Mg Tablet PO 7.5 mg DAILY SARBJIT Administration Tramadol HCl 50 mg 08/07/24 21:22 Tramadol Hcl (*Crx) 50 Mg Tablet PO BID PRN Pain 4-6 Radiology Results: ITS Impressions Head CT 08/07/24 14:28 IMPRESSION: No acute intracranial findings. If Still suspicious is MRI is advised. Chest X-Ray 08/07/24 14:35 IMPRESSION: 1. No acute cardiopulmonary disease. Head/Neck CTA 08/07/24 15:55 IMPRESSION: 1. CTA head and neck. Percent stenosis per NASCET criteria is 0%. 2. No intracranial vascular occlusion or significant stenosis. Brain MRI 08/08/24 07:45 IMPRESSION: 1. Acute infarct involving the right insula and right frontal parietal region. 2. Multiple old infarcts in the brain. 3. Moderate nonspecific cerebral white matter disease, which likely represents chronic small vessel ischemic disease. Labs Labs: Laboratory Results - last 24 hr 08/08/24 08/09/24 08/09/24 19:47 07:19 07:28 WBC 7.9 RBC 4.60 Hgb 12.9 Hct 39.0 MCV 84.8 MCH 28.0 MCHC 33.1 RDW 13.2 Plt Count 177 MPV 10.5 H Immature Gran % (Auto) 0.5 Neut % (Auto) 61.2 Lymph % (Auto) 28.1 [place] % (Auto) 6.6 Eos % (Auto) 3.1 Baso % (Auto) 0.5 Lymph # (Auto) 2.21 [place] # (Auto) 0.5 Eos # (Auto) 0.2 Baso # (Auto) 0.0 Abs Immat Gran (auto) 0.04 H Absolute Neuts (auto) 4.8 Absolute Nucleated RBC 0.000 Nucleated RBC % 0.0 Sodium 135 L Potassium 4.1 Chloride 103 Carbon Dioxide 26 Anion Gap 6 BUN 18 H Creatinine 1.00 Estim Creat Clear Calc 58 Estimated GFR 56 L Glucose 168 H POC Capillary Glucose 237 H 174 H Calcium 8.9 Magnesium 1.9 Total Bilirubin 0.4 AST 22 ALT 21 Alkaline Phosphatase 124 Total Protein 7.0 Albumin 3.7 08/09/24 08/09/24 11:35 16:25 WBC RBC Hgb Hct MCV MCH MCHC RDW Plt Count MPV Immature Gran % (Auto) Neut % (Auto) Lymph % (Auto) [place] % (Auto) Eos % (Auto) Baso % (Auto) Lymph # (Auto) [place] # (Auto) Eos # (Auto) Baso # (Auto) Abs Immat Gran (auto) Absolute Neuts (auto) Absolute Nucleated RBC Nucleated RBC % Sodium Potassium Chloride Carbon Dioxide Anion Gap BUN Creatinine Estim Creat Clear Calc Estimated GFR Glucose POC Capillary Glucose 232 H 211 H Calcium Magnesium Total Bilirubin AST ALT Alkaline Phosphatase Total Protein Albumin Quality VTE Prophylaxis VTE prophylaxis: mechanical ordered If No VTE Prophylaxis Answer both mechanical and pharmacologic: Reason no pharmacologic proph: medical contraindication Hospitalist MIPS Advance Care Plan I have confirmed that the patient's Advanced Care Plan is present, code status is documented, or surrogate decision maker is listed in patient medical record.: Yes Medication Reconciliation I have utilized all available resources to obtain, update and review the patients current medications (includes all prescriptions, OTC, herbals, cannabis, and nutritional supplements).: Yes
--- NOTE | 2024-08-09 17:33 | P.CONCA_ITS ---
Assessment and Plan Assessment and plan (1) Acute CVA (cerebrovascular accident): Code(s): I63.9 - Cerebral infarction, unspecified Status: Acute Assessment and Plan: Acute CVA with multiple old CVAs noted by previous MRI. This does raise concern of cardioembolic phenomena. Echocardiogram does not show any evidence of shunting albeit a transthoracic echocardiogram with agitated saline study is not 100% with regards to evaluation for a PFO. Other possibilities for cardioembolic phenomena include paroxysmal atrial fibrillation. Outpatient monitoring reportedly performed in the past not show any evidence of atrial fibrillation. She does have left atrial enlargement which does increase her risk of AFib. I do think that further outpatient monitoring is reasonable. I did talk to her about external monitor. However she has worn an external monitor in the past. In my opinion, I think it would be better to have an implantable loop recorder placed. This can be performed as an outpatient. Her and her are in agreement and willing to proceed with loop recorder. In the meantime acute stroke workup and per Neurology and primary care team. Can consider an outpatient TANGELA with agitated saline study if patient is going to be discharged before day. In time, I agree with anti-platelet therapy as well as statin. (2) Hypertension associated with diabetes: Code(s): E11.59 - Type 2 diabetes mellitus with other circulatory complications; I15.2 - Hypertension secondary to endocrine disorders Status: Acute Assessment and Plan: Per primary team (3) Obesity: Code(s): E66.9 - Obesity, unspecified Status: Acute Assessment and Plan: Dietary and lifestyle modifications for weight loss (4) Dyslipidemia: Code(s): E78.5 - Hyperlipidemia, unspecified Status: Acute Assessment and Plan: Continue atorvastatin History of Present Illness History of Present Illness Consult date/time: 08/09/24 17:33 Requesting physician: Pat Barcenas NP Consult reason: Other (Stroke, consider outpatient monitoring) Reason For Visit: CVA Narrative: Reason for consultation: Stroke, outpatient monitoring consultation Date of service 08/09/2024 requesting provider: Pat Rader History:59-year-old female with history of stroke without residual deficit. She states that she had a stroke in November 2022 affecting her in another episode in May of 2023 also affecting her speech and this admission also because of slurred speech. She has a history of hypertension, and type 2 diabetes mellitus who presented to the emergency department via private vehicle for evaluation of slurred speech. Reportedly sinus congestion and some slurred speech which her and her originally thought was to her sinus issues. However due to acutely worsening speech and slurring she came spoke for further evaluation and her had also knows that there was some drooping of her face. MRI has confirmed acute CVA and and multiple old strokes are noted via MRI. From a cardiac perspective she denies any chest pain, shortness breath, syncope, presyncope, paroxysmal nocturnal dyspnea, orthopnea, edema palpitations. She has worn outpatient monitoring in the past which was reportedly unremarkable but not available for review at this point. Inpatient pvc monitor revealed any arrhythmia. Review of Systems Review of Systems: All systems reviewed & are unremarkable except as noted in HPI and below Constitutional: Constitutional: Denies body ache(s) Eyes: Eyes: Denies blurry vision ENT: Reports Normal hearing present Cardiovascular: Cardiovascular: Denies chest pain and Denies palpitations Respiratory: Respiratory: Denies chest congestion Gastrointestinal: Gastrointestinal: Denies abdominal pain Genitourinary: Genitourinary: Denies hematuria Musculoskeletal: Musculoskeletal: Reports back pain Integumentary/Breasts: Skin/Breast: Denies pruritus Neurologic: Reports Abnormal speech present Psychiatric: Psychiatric: Denies anxiety Endocrine: Endocrine: Denies excessive sweating Hematologic/Lymphatic: Hematologic/Lymphatic: Denies easy bleeding Allergic/Immunologic: Allergic/Immunologic: Denies GI upset with certain foods PMFSH Past Medical History Medical History Adenomatous colon polyp Cerebrovascular accident no residual deficits Dyslipidemia Hypertension Obesity Type 2 diabetes mellitus Surgical History Surgical History History of section History of colonoscopy with polypectomy History of lumbosacral spine surgery fusion and cages L4-S1 Family History Family History Unknown Diabetes mellitus Hypertension Mother Diabetes mellitus Hypertension Social History Social History Social History: Surrogate medical decision maker: Sammy Jordan, spouse. Code status: Full code. Smoking packs per day: 0.5 Smoking cigarettes per day: 10.0 Years smoked: 15 Smoking pack-years: 7.50 Smoking status: Former smoker Tobacco type: cigarettes Alcohol intake: never Substance use: never Substance use type: does not use Do You Feel Safe in your Home?: Yes Lack of Transportation: No Lack of Food: Never True Current Housing: I Have Housing Concerned About Future Housing: Decline to Answer Difficulty Paying Gas/Electric Bills: Decline to Answer Difficulty Paying for Meds: Decline to Answer Currently Unemployed: Decline to Answer Education: Decline to Answer Difficulty w/ Childcare or Family Care: Decline to Answer Living arrangements: with family Additional living arrangements comments: Lives in [place] with . Occupation/Education: retired Additional occupation/education comments: On disability since a back injury at work. Spiritual care concerns: No Meds Home Medications and Allergies Home Medications Medication Instructions Recorded Confirmed Type meloxicam 7.5 mg tablet 7.5 mg PO DAILY 11/05/20 08/07/24 History tramadol 50 mg tablet 50 mg PO BID PRN Pain 11/05/20 08/07/24 History hydrocodone 5 mg-acetaminophen 325 1 tablet PO Q6H PRN pain 08/07/24 08/07/24 History mg tablet Allergies Allergy/AdvReac Type Severity Reaction Status Date / Time No Known Drug Allergies Allergy Unknown none Verified 08/07/24 18:21 Vital Signs Vital Signs - 24 hr 08/08/24 20:00 08/08/24 23:55 08/09/24 00:00 Temperature 36.4 C L 36.6 C Pulse Rate 81 72 78 Respiratory Rate 14 14 Blood Pressure 133/67 122/54 L Pulse Oximetry 99 100 Oxygen Delivery 08/09/24 04:00 08/09/24 04:00 08/09/24 08:00 Temperature 36.2 C L 36.8 C Pulse Rate 73 68 65 Respiratory Rate 12 18 Blood Pressure 128/73 134/48 L Pulse Oximetry 99 100 Oxygen Delivery 08/09/24 12:00 08/09/24 15:29 08/09/24 08:00 Temperature 36.1 C L 36.1 C L Pulse Rate 86 86 Respiratory Rate 18 18 Blood Pressure 130/45 L 133/52 L Pulse Oximetry 100 100 Oxygen Delivery Room Air Exam Narrative: Alert oriented appears stated age Const: General: comfortable and no acute distress HENMT: Ears: TM's normal bilaterally Face/Nose/Sinus: Normal nares present Eyes: General: appearance normal, both eyes and all related structures Neck: Neck: supple and no JVD Carotids: no bruits Chest: Other: No reproducible chest wall pain to palpation Resp: Effort & Inspection: normal respiratory effort Auscultation: clear to auscultation bilaterally Cardio: Rate: regular rate Rhythm: regular rhythm Heart sounds: no murmurs GI: Inspection: distended GI Palp: Yes Soft to palpation Skin: General skin exam: normal color and no rashes or lesions noted Neuro: General: gait normal Speech: No normal speech Sensory Exam: normal sensation Extrem: General: normal to inspection Psych: Mental Status: mental status grossly normal Affect: normal affect Results Labs and Meds 08/09/24 07:19 08/09/24 07:19 Lab results: Cardiac Enzymes 08/09/24 Range/Units 07:19 AST 22 (14-36) U/L CBC 08/09/24 Range/Units 07:19 WBC 7.9 (4.5-10.0) K/mm3 RBC 4.60 (4.2-5.4) M/mm3 Hgb 12.9 (12.0-15.0) g/dL Hct 39.0 (37.0-47.0) % Plt Count 177 (150-375) k/mm3 Lymph # (Auto) 2.21 (0.9-3.2) K/mm3 [place] # (Auto) 0.5 (0.1-0.6) K/mm3 Eos # (Auto) 0.2 (0-0.3) K/mm3 Baso # (Auto) 0.0 (0.0-0.1) K/mm3 Comprehensive Metabolic Panel 08/09/24 Range/Units 07:19 Sodium 135 L (137-145) mmol/L Potassium 4.1 (3.4-5.0) mmol/L Chloride 103 (98-107) mmol/L Carbon Dioxide 26 (22-30) mmol/L BUN 18 H (7-17) mg/dL Creatinine 1.00 (0.7-1.0) mg/dL Glucose 168 H (65-110) mg/dL Calcium 8.9 (8.4-10.2) mg/dL AST 22 (14-36) U/L ALT 21 (6-35) U/L Alkaline Phosphatase 124 (38-126) U/L Total Protein 7.0 (6.3-8.2) g/dL Albumin 3.7 (3.5-5.1) g/dL Intake and Output 08/09/24 08/09/24 08/09/24 07:59 15:59 23:59 Intake Total 300 360 Balance 300 360 Intake: Oral 300 360 Other: # Unmeasured Voids 2 Patient Weight 08/09/24 23:59 Weight 91.2 kg EKG is personally reviewed and independently interpreted showing normal sinus rhythm. Normal EKG. Echocardiogram also independently interpreted and personally reviewed showing 1. Left ventricular chamber dimension is normal. 2. Left ventricular systolic function is normal, estimated at 60-65%. 3. There is mildly increased left ventricular wall thickness. 4. The left ventricular diastolic function is grade I diastolic dysfunction. 5. Right ventricular systolic function is normal. 6. Left atrial chamber dimension is moderately enlarged. 7. Intact interatrial septum visualized by color flow and agitated saline imaging. Negative bubble study. 8. There is mild mitral valve regurgitation.
[2024-08-09 20:43] LABS: Glucose Point of Care 239 mg/dl (65-105)
[2024-08-10] VITALS: BP 100/73; PULSE 63; PULSE 66; RESP 20; TEMP 36.4; O2SAT 100
[2024-08-10 04:00] VITALS: BP 131/64; PULSE 62; PULSE 73; RESP 20; TEMP 36.3; O2SAT 100
[2024-08-10 05:58] LABS: Basophils Percent Auto 0.6 % (0.2-1.2); Eosinophils Absolute Auto 0.2 K/mm3 (0-0.3); Eosinophils Percent Auto 3.4 % (0-4.4); Hematocrit 38.1 % (37.0-47.0); Hemoglobin 12.9 g/dL (12.0-15.0); Immature Granulocyte Absolute 0.02 K/mm3 (0.00-0.031); Immature Granulocyte Percent A 0.3 % (0-0.5); Lymphocytes Absolute Auto 2.06 K/mm3 (0.9-3.2); Mean Corpuscular HGB Conc 33.9 g/dl (32-36); Mean Corpuscular Hemoglobin 28.8 pg (26-34); Mean Platelet Volume 10.6 fl (7.4-10.4); Monocytes Absolute Auto 0.5 K/mm3 (0.1-0.6); Monocytes Percent Auto 6.9 % (2.6-8.5); Neutrophils Absolute Auto 4.3 K/mm3 (1.3-6.7); Neutrophils Percent Auto 59.8 % (45.5-73.1); Platelet Count Result 174 k/mm3 (150-375); Red Blood Count 4.48 M/mm3 (4.2-5.4); Red Cell Distribution Width 13.1 % (11.5-14.5); White Blood Count 7.1 K/mm3 (4.5-10.0)
[2024-08-10 06:07] LABS: Alanine Aminotransferase 22 U/L (6-35); Albumin Level 3.8 g/dL (3.5-5.1); Alkaline Phosphatase 121 U/L (38-126); Anion Gap 6 mmol/L (4-12); Aspartate Amino Transferase 21 U/L (14-36); Bilirubin,Total 0.5 mg/dL (0.2-1.3); Blood Urea Nitrogen 17 mg/dL (7-17); Calcium 8.8 mg/dL (8.4-10.2); Carbon Dioxide 24 mmol/L (22-30); Chloride 106 mmol/L (98-107); Estimated CRCL calculation 64 ml/min; Estimated Glomerular Filt Rate > 60; Glucose 179 mg/dL (65-110); Potassium 4.1 mmol/L (3.4-5.0); Sodium 136 mmol/L (137-145)
[2024-08-10 07:51] LABS: Glucose Point of Care 178 mg/dl (65-105)
[2024-08-10 08:00] VITALS: BP 124/69; PULSE 56; PULSE 72; RESP 20; TEMP 36.4; O2SAT 100
[2024-08-10] MEDS: CLOPIDOGREL BISULFATE 75 MG TABLET PO (08:23)
[2024-08-10] MEDS: ASPIRIN 81 MG CHEWABLE TABLET PO (08:24)
[2024-08-10] MEDS: MELOXICAM 7.5 MG TABLET PO (08:24)
[2024-08-10] MEDS: ATORVASTATIN 40 MG TABLET 80 MG PO (08:24)
--- NOTE | 2024-08-10 11:17 | P.PNCA_ITS ---
Progress Note: A&P Assessment and Plan (1) Acute CVA (cerebrovascular accident): Code(s): I63.9 - Cerebral infarction, unspecified Status: Acute Assessment and Plan: Acute CVA with multiple old CVAs noted by previous MRI. This does raise concern of cardioembolic phenomena. Echocardiogram does not show any evidence of shunting albeit a transthoracic echocardiogram with agitated saline study is not 100% with regards to evaluation for a PFO. Other possibilities for cardioembolic phenomena include paroxysmal atrial fibrillation. Outpatient monitoring reportedly performed in the past did not show any evidence of atrial fibrillation. She does have left atrial enlargement which does increase her risk of AFib. I do think that further outpatient monitoring is reasonable. I did talk to her about external monitor. However she has worn an external monitor in the past. Plan for outpatient implantable loop recorder placement. Her and her are in agreement and willing to proceed with loop recorder. In the meantime acute stroke workup and per Neurology and primary care team. Can consider an outpatient TANGELA with agitated saline study if patient is going to be discharged before day. Continue aspirin, Plavix and atorvastatin. Hemoglobin is stable at 12.9 today (2) Hypertension associated with diabetes: Code(s): E11.59 - Type 2 diabetes mellitus with other circulatory complications; I15.2 - Hypertension secondary to endocrine disorders Status: Acute Assessment and Plan: Per primary team (3) Obesity: Code(s): E66.9 - Obesity, unspecified Status: Acute Assessment and Plan: Dietary and lifestyle modifications for weight loss (4) Dyslipidemia: Code(s): E78.5 - Hyperlipidemia, unspecified Status: Acute Assessment and Plan: Continue atorvastatin Subjective Date/time seen: 08/10/24 11:17 Interval history: 59-year-old admitted for stroke Date of Service: 08/10/2024: From a cardiac perspective she feels okay. No arrhythmia. No chest pain, shortness of breath Review of Systems Review of Systems: All systems reviewed & are unremarkable except as noted in HPI and below Constitutional: Constitutional: Denies body ache(s) Eyes: Eyes: Denies blurry vision ENT: Denies Normal hearing present Cardiovascular: Cardiovascular: Denies chest pain Respiratory: Respiratory: Denies dyspnea Gastrointestinal: Gastrointestinal: Denies abdominal pain Genitourinary: Genitourinary: Denies hematuria Musculoskeletal: Musculoskeletal: Denies joint swelling Integumentary/Breasts: Skin/Breast: Denies rash Neurologic: Reports Abnormal speech present Psychiatric: Psychiatric: Denies anxiety Endocrine: Endocrine: Denies change in body appearance Hematologic/Lymphatic: Hematologic/Lymphatic: Denies easy bleeding Allergic/Immunologic: Allergic/Immunologic: Denies GI upset with certain foods Exam Narrative: Awake alert appears to be no acute distress Const: General: comfortable and no acute distress HENMT: Ears: TM's normal bilaterally Face/Nose/Sinus: Normal nares present Eyes: General: appearance normal, both eyes and all related structures Neck: Neck: supple and no JVD Carotids: no bruits Chest: Other: No reproducible chest wall pain to palpation Resp: Effort & Inspection: normal respiratory effort Auscultation: clear to auscultation bilaterally Cardio: Rate: regular rate Rhythm: regular rhythm Heart sounds: no murmurs GI: Inspection: distended Skin: General skin exam: normal color and no rashes or lesions noted Neuro: General: gait normal Cranial nerves: Yes Normal hearing present Speech: No normal speech and Abnormal speech present Sensory Exam: normal sensation Extrem: General: normal to inspection Psych: Mental Status: mental status grossly normal Affect: normal affect Other: Slurred speech Objective Data Vital Signs Vital Signs: Vital Signs - 24 hr 08/09/24 12:00 08/09/24 15:29 08/09/24 12:00 Temperature 36.1 C L 36.1 C L Pulse Rate 86 86 64 Respiratory Rate 18 18 Blood Pressure 130/45 L 133/52 L Pulse Oximetry 100 100 Oxygen Delivery 08/09/24 16:00 08/09/24 20:00 08/09/24 20:35 Temperature 36.3 C L Pulse Rate 89 71 74 Respiratory Rate 20 Blood Pressure 144/69 H Pulse Oximetry 98 Oxygen Delivery 08/10/24 00:00 08/10/24 00:00 08/10/24 04:00 Temperature 36.4 C Pulse Rate 63 66 62 Respiratory Rate 20 Blood Pressure 100/73 Pulse Oximetry 100 Oxygen Delivery 08/10/24 04:00 08/10/24 08:00 08/10/24 08:00 Temperature 36.3 C L 36.4 C Pulse Rate 73 72 56 L Respiratory Rate 20 20 Blood Pressure 131/64 124/69 Pulse Oximetry 100 100 Oxygen Delivery 08/10/24 08:00 Temperature Pulse Rate Respiratory Rate Blood Pressure Pulse Oximetry Oxygen Delivery Room Air Intake/Output Intake/Output: Intake & Output 08/07/24 08/08/24 08/09/24 08/10/24 23:59 23:59 23:59 23:59 Intake Total 2292 1330 500 Balance 2292 1330 500 Meds/Results Medications: Active Medications Generic Name Dose Route Start Last Admin Trade Name Freq PRN Reason Stop Dose Admin Acetaminophen 650 mg 08/07/24 18:17 Acetaminophen 325 Mg Tablet PO Q6H PRN Mild Pain (1-3) or Fever Hydrocodone Bitart/Acetaminophen 1 tab 08/07/24 21:22 Hydrocodone/Acetaminophen (*Crx) 5-325 Mg Tablet PO Q6H PRN pain 7-10 Aspirin 81 mg 08/09/24 08:50 08/10/24 08:24 Aspirin 81 Mg Chewable Tablet PO 81 mg DAILY@0800 SARBJIT Administration Atorvastatin Calcium 80 mg 08/09/24 09:00 08/10/24 08:24 Atorvastatin 40 Mg Tablet PO 80 mg DAILY SARBJIT Administration Clopidogrel Bisulfate 75 mg 08/09/24 09:00 08/10/24 08:23 Clopidogrel Bisulfate 75 Mg Tablet PO 75 mg QAM SARBJIT Administration Dextrose 12.5 gm 08/07/24 21:23 Dextrose 50% 25 Gm/50 Ml Syringe IV PUSH PRN PRN Hypoglycemia Protocol Glucagon 1 mg 08/07/24 21:23 Glucagon For Inj 1 Mg Vial IM PRN PRN Hypoglycemia Protocol Glucose 15 gm 08/07/24 21:23 Glucose Oral Gel 15 Gm Of Glucse In 37.5 Gm Tube PO PRN PRN Hypoglycemia Protocol Dextrose 1,000 mls @ 100 mls/hr 08/07/24 21:23 Dextrose 5% 1,000 Ml IVPB PRN PRN Hypoglycemia Protocol Insulin Aspart 2 - 5 units 08/08/24 08:00 08/10/24 08:24 Insulin Aspart (*Bkc) 100 Units/Ml SUB-Q Not Given TIDWM SARBJIT Protocol Insulin Aspart 1 - 2 units 08/07/24 21:30 08/09/24 20:53 Insulin Aspart (*Bkc) 100 Units/Ml SUB-Q 1 units HS SARBJIT Administration Protocol Meloxicam 7.5 mg 08/08/24 09:00 08/10/24 08:24 Meloxicam 7.5 Mg Tablet PO 7.5 mg DAILY SARBJIT Administration Tramadol HCl 50 mg 10/23/24 21:22 Tramadol Hcl (*Crx) 50 Mg Tablet PO BID PRN Pain 4-6 Radiology Results: ITS Impressions Head CT 08/07/24 14:28 IMPRESSION: No acute intracranial findings. If Still suspicious is MRI is advised. Chest X-Ray 08/07/24 14:35 IMPRESSION: 1. No acute cardiopulmonary disease. Head/Neck CTA 08/07/24 15:55 IMPRESSION: 1. CTA head and neck. Percent stenosis per NASCET criteria is 0%. 2. No intracranial vascular occlusion or significant stenosis. Brain MRI 08/08/24 07:45 IMPRESSION: 1. Acute infarct involving the right insula and right frontal parietal region. 2. Multiple old infarcts in the brain. 3. Moderate nonspecific cerebral white matter disease, which likely represents chronic small vessel ischemic disease. Labs Labs: Laboratory Results - last 24 hr 08/09/24 08/09/24 08/09/24 11:35 16:25 20:17 WBC RBC Hgb Hct MCV MCH MCHC RDW Plt Count MPV Immature Gran % (Auto) Neut % (Auto) Lymph % (Auto) Williams % (Auto) Eos % (Auto) Baso % (Auto) Lymph # (Auto) Williams # (Auto) Eos # (Auto) Baso # (Auto) Abs Immat Gran (auto) Absolute Neuts (auto) Absolute Nucleated RBC Nucleated RBC % Sodium Potassium Chloride Carbon Dioxide Anion Gap BUN Creatinine Estim Creat Clear Calc Estimated GFR Glucose POC Capillary Glucose 232 H 211 H 239 H Calcium Magnesium Total Bilirubin AST ALT Alkaline Phosphatase Total Protein Albumin 08/10/24 08/10/24 05:51 07:39 WBC 7.1 RBC 4.48 Hgb 12.9 Hct 38.1 MCV 85.0 MCH 28.8 MCHC 33.9 RDW 13.1 Plt Count 174 MPV 10.6 H Immature Gran % (Auto) 0.3 Neut % (Auto) 59.8 Lymph % (Auto) 29.0 Williams % (Auto) 6.9 Eos % (Auto) 3.4 Baso % (Auto) 0.6 Lymph # (Auto) 2.06 Williams # (Auto) 0.5 Eos # (Auto) 0.2 Baso # (Auto) 0.0 Abs Immat Gran (auto) 0.02 Absolute Neuts (auto) 4.3 Absolute Nucleated RBC 0.000 Nucleated RBC % 0.0 Sodium 136 L Potassium 4.1 Chloride 106 Carbon Dioxide 24 Anion Gap 6 BUN 17 Creatinine 0.90 Estim Creat Clear Calc 64 Estimated GFR > 60 Glucose 179 H POC Capillary Glucose 178 H Calcium 8.8 Magnesium 2.0 Total Bilirubin 0.5 AST 21 ALT 22 Alkaline Phosphatase 121 Total Protein 7.0 Albumin 3.8
[2024-08-10 12:00] VITALS: BP 142/68; PULSE 73; PULSE 78; RESP 18; TEMP 36.4; O2SAT 99
[2024-08-10 12:06] LABS: Glucose Point of Care 237 mg/dl (65-105)
[2024-08-10] MEDS: INSULIN ASPART (*BKC) 100 UNITS/ML SUB-Q (12:11)
--- NOTE | 2024-08-10 15:12 | P.DS_ITS ---
DS: Admitting Diagnosis Discharge Date 08/10/24 Admitting Diagnosis Acute CVA. DS: Discharge Diagnosis Discharge Diagnosis (1) Neurological symptoms: Code(s): R29.90 - Unspecified symptoms and signs involving the nervous system Status: Acute Assessment and Plan: * Acute infarct present as per MRI as reviewed independently by myself and the radiologists report. * Neurologist recommendation noted. * No TNK/TPA given as pt was outside of the window of allotted time to give * PT and OT eval done and pt cleared with no further therapy recommended due to pt independence. * Speech evaluated and recommendations for regular diet and consistencies is made. * Continue daily ASA 325 mg, Plavix and statin. * Continue Atorvastatin 80 mg po daily. * Continue tight glucose control. * ECHO with no intracardiac embolus with negative bubble study. EF 60-65%. * Tetryl Nitrator Operator consulted for possible outpatient cardiac monitoring per neurologist recommendations. * Maintains SR on telemetry. * Patient to follow-up with medication assistant outpatient for possible implantable look recorder placement and possible TANGELA. (2) Type 2 diabetes mellitus: Code(s): E11.9 - Type 2 diabetes mellitus without complications Status: Chronic Assessment and Plan: * Poorly controlled as A1C is 10.0. * Continue low dose SSI. * Consider initiation of insulin upon discharge. * hospice educator and dietitian saw pt. Pt at high risk of repeat Vascular event. * Continue diabetic diet. * Hypoglycemic protocol continued * Glucose checks continued. * Unclear if pt takes hypoglycemics at home, none of his home meds list. (3) Dyslipidemia: Code(s): E78.5 - Hyperlipidemia, unspecified Status: Acute Assessment and Plan: * Newly dx'd. * Total cholesterol 251, Trigs 203, LDL 151, HDL 40 * In setting of new and second CVA. * Continue Atorvastatin 80 mg po daily. (4) Hypertension: Code(s): I10 - Essential (primary) hypertension Status: Chronic Assessment and Plan: * BP well controlled. * Continue to monitor and trend. (5) Renal insufficiency: Code(s): N28.9 - Disorder of kidney and ureter, unspecified Status: Chronic Assessment and Plan: * Chronic Kidney disease. * Appears to be at baseline function with Cr/BUN 1.2/17 respectively. * Monitor with labs. * Avoid nephrotoxins. Plan Patient to be discharge to f/u with medication assistant outpatient for possible loop recorder placement and TANGELA. DS: Summary Hospital Course Reason for hospitalization: Acute CVA Hospital Course: Eli Jordan is a 59 year old female with history of diabetes mellitus and previous strokes who presented with slurring of speech which started the day before her presentation. Her noticed that there is also some flattening of the left side of the face and the symptoms persisted. The 1st stroke occurred in early part of 2022 and another 1 in May of 2023 and 1 of them she was treated at [facility]. Another 1 treated here. The patient denied any chest pain or shortness of breath. No headaches or diplopia. No difficulties swallowing. She does not feel she has any weakness in upper lower limbs. She was in usual state of health before the onset of symptom prior to her presentation. In the emergency room she did have a CT scan of the brain and CT angiogram head and neck which did not show any significant abnormality. MRI of the brain has been performed which shows a new infarct in the right right frontal parietal area on the diffusion scanning in addition to the old infarct noted in both sides right more than left side. Patient was seen by PT and OT and noted to be independent for home discharge. She was also seen by ST and was cleared for regular diet. She was seen by the neurologist and recommended for outpatient cardiac monitoring for possible PAF or other dysrhythmia. She has been by the medication assistant and scheduled for outpatient f/u for cardiac monitoring and possible TANGELA. No acute neuro deficits noted and patient is medically stable for home discharge and will f/u with medication assistant and neurologist outpatient. Patient will be started on Metformin for diabetes as it appears patient was not on any hypoglycemics. Status at Discharge Functional status at discharge: independent ambulation Overall status at discharge: patient is progressing back to baseline Time Spent with Patient Time attestation: Total time spent providing and/or coordinating discharge services: Time spent: Greater than 30 minutes Exam Narrative: General: Nontoxic-appearing female sitting up in bed in no acute distress. HEENT: Normocephalic, atraumatic. PERRL, EOMI. Sclera anicteric. Oral mucosa moist. Oropharynx clear. Neck: Supple. No carotid bruits. Respiratory: Lungs are clear to auscultation bilaterally. Cardiovascular: Regular rate and rhythm with S1-S2. Gastrointestinal: Abdomen is soft, nontender, and nondistended with positive bowel sounds. No organomegaly. Skin: Warm and dry. No rash or lesions on limited exam. Extremities: No cyanosis, clubbing, or edema. Radial and pedal pulses intact. Neurological: Alert and oriented. Cranial nerves 2-12 are grossly intact. Speech is clear. Strength equal in upper and lower extremities, 5/5. Psychiatric: Pleasant and cooperative with appropriate mood and affect. She is in good spirits. DS: Data Data Completed and Pending Labs on day of discharge: Labs from last 24 hours 08/10/24 08/10/24 08/10/24 11:29 07:39 05:51 WBC 7.1 RBC 4.48 Hgb 12.9 Hct 38.1 MCV 85.0 MCH 28.8 MCHC 33.9 RDW 13.1 Plt Count 174 MPV 10.6 H Immature Gran % (Auto) 0.3 Neut % (Auto) 59.8 Lymph % (Auto) 29.0 Alexander % (Auto) 6.9 Eos % (Auto) 3.4 Baso % (Auto) 0.6 Lymph # (Auto) 2.06 Alexander # (Auto) 0.5 Eos # (Auto) 0.2 Baso # (Auto) 0.0 Abs Immat Gran (auto) 0.02 Absolute Neuts (auto) 4.3 Absolute Nucleated RBC 0.000 Nucleated RBC % 0.0 Sodium 136 L Potassium 4.1 Chloride 106 Carbon Dioxide 24 Anion Gap 6 BUN 17 Creatinine 0.90 Estim Creat Clear Calc 64 Estimated GFR > 60 Glucose 179 H POC Capillary Glucose 237 H 178 H Calcium 8.8 Magnesium 2.0 Total Bilirubin 0.5 AST 21 ALT 22 Alkaline Phosphatase 121 Total Protein 7.0 Albumin 3.8 08/09/24 08/09/24 20:17 16:25 WBC RBC Hgb Hct MCV MCH MCHC RDW Plt Count MPV Immature Gran % (Auto) Neut % (Auto) Lymph % (Auto) Alexander % (Auto) Eos % (Auto) Baso % (Auto) Lymph # (Auto) Alexander # (Auto) Eos # (Auto) Baso # (Auto) Abs Immat Gran (auto) Absolute Neuts (auto) Absolute Nucleated RBC Nucleated RBC % Sodium Potassium Chloride Carbon Dioxide Anion Gap BUN Creatinine Estim Creat Clear Calc Estimated GFR Glucose POC Capillary Glucose 239 H 211 H Calcium Magnesium Total Bilirubin AST ALT Alkaline Phosphatase Total Protein Albumin Discharge Plan Discharge Attending physician on discharge: Zuhair Archer Consulting providers: Vidya Saldivar; Mike Taylor Discharging Clinician: Pat Barcenas Anticipated Discharge Date/Time: 08/10/24 15:29 Patient Disposition: Home, Self-Care Activity: as tolerated Diet: heart healthy and diabetic Patient Instructions: Antibiotic Form Patient Language: Maori Stand Alone Forms: General Discharge Information Follow-up/Referrals: Mike Taylor MD [Physician] - 1 Week Vidya Saldivar MD [Physician] - 2 Weeks Discharge Medications: New atorvastatin 40 mg Tablet 80 mg PO DAILY Qty: 60 0RF clopidogrel 75 mg Tablet 75 mg PO QAM Qty: 60 0RF aspirin [Children's Aspirin] 81 mg Tablet,Chewable 81 mg PO DAILY@0800 Qty: 60 0RF metformin 500 mg tablet 500 mg PO BID Qty: 60 0RF Continued tramadol 50 mg tablet 50 mg PO BID PRN (Reason: Pain) hydrocodone-acetaminophen 5-325 mg tablet 1 tablet PO Q6H PRN (Reason: pain) Discontinued meloxicam 7.5 mg tablet 7.5 mg PO DAILY Other Ambulatory Orders: Diabetes Education Referral (Routine) Timeframe: 1 Day Location: Determined by Patient Ordered By: Pat Barcenas Date of admission: 08/07/24 16:13 Primary Care Provider: YasmanyPaco Admitting Provider: Zuhair Archer Attending physician on admission: Macy Ying Condition: Stable Quality VTE Prophylaxis VTE prophylaxis: mechanical ordered Hospitalist MIPS Heart Failure (Exclusion) Patient has history of Heart Transplant or Left Ventricular Assistive Device?: No IF YES, STOP HERE Heart Failure (Qualifier) Patient has current or prior documentation of LVEF less than or equal to 40%, or mod/servere depressed LVSF?: No IF NO, STOP HERE If Medications not prescribed/taking Reason patient not prescribed/taking ASHLEY or ARB: Patient reasons: pt declined or other pt reason (Pt declined) Reason patient not prescribed/taking bisoprolol, carvedilol, or sustained realease metoprolol succinate: Patient reasons: pt declined or other pt reason (Pt declined)
--- NOTE | 2024-08-16 11:58 | PCCDE ---
08/16/24 11:50 am Follow up courtesy call Spoke with pt and . Have seen HCP since DC. Started on Rybelsus -> reviewed how to take (were not aware to avoid beverages x 30 min) Advised re: outpatient opportunities, they are not interested currently. FJ
== END 2024-08-10 16:00 | disposition home or self-care (01) ==
LOC: ANHED 15:18 → ANH3MEDSUR 17:03
PROVIDERS: Emergency Medicine; Physician Assistant; Admitting Provider Internal Medicine; Emergency Provider Emergency Medicine; PCP Family Medicine; Visit Provider Nurse Practitioner Adult Health
DX: I63.9 Cerebral infarction, unspecified (principal); R47.81 Slurred speech; R29.810 Facial weakness; E11.59 Type 2 diabetes mellitus with other circulatory complications; I15.2 Hypertension secondary to endocrine disorders; E78.5 Hyperlipidemia, unspecified; N28.9 Disorder of kidney and ureter, unspecified; E66.9 Obesity, unspecified; Z68.33 Body mass index [BMI] 33.0-33.9, adult; Z86.73 Personal history of transient ischemic attack (TIA), and cerebral infarction without residual deficits; Z86.0101 Personal history of adenomatous and serrated colon polyps; Z87.891 Personal history of nicotine dependence
CPT/HCPCS: 36415; 70450; 70496; 70498; 70551; 71045; 80048; 80053; 80061; 82948; 83036; 83735; 84484; 85025; 85027; 85610; 85730; 92507; 92522; 92610; 93005; 96374; 96375; 97161; 97165; 99285; A9270; C8929; G0378; J1815; Q9957; Q9967

== ENCOUNTER 2024-08-23 11:02 | Outpatient (CLI) | payer OTHER, SELFPAY ==
[2024-08-22 12:41] VITALS: BMI 31.6
[2024-08-23] VITALS (11 sets, daily range): BP systolic 104–152; BP diastolic 52–100; PULSE 64–84; RESP 12–19; TEMP 36.3; O2SAT 96–100; BMI 31.6
--- NOTE | 2024-08-23 12:37 | P.SEDATION_ITS ---
Moderate Sedation Note-Pt Data Patient Data Diagnosis: CVA Present Complaint: CVA Procedure to be performed/Plan: Transesophageal Echocardiogram Allergies Allergy/AdvReac Type Severity Reaction Status Date / Time No Known Drug Allergies Allergy Unknown none Verified 08/23/24 11:46 Home Medications Medication Instructions Recorded Confirmed Type tramadol 50 mg tablet 50 mg PO BID PRN Pain 11/05/20 08/22/24 History aspirin 81 mg chewable tablet 81 mg PO DAILY@0800 #60 tabs 08/10/24 08/22/24 Rx (Children's Aspirin) atorvastatin 40 mg tablet 80 mg PO DAILY #60 tabs 08/10/24 08/22/24 Rx clopidogrel 75 mg tablet 75 mg PO QAM #60 tabs 08/10/24 08/22/24 Rx metformin 500 mg tablet 500 mg PO BID #60 tabs 08/10/24 08/22/24 Rx omeprazole 40 mg capsule,delayed 40 mg DAILY 08/22/24 08/22/24 History release Sedation/Anesthesia: No previous sedation/anesthesia problems (including family history). [facility] Past Medical History Medical History Adenomatous colon polyp Cerebrovascular accident no residual deficits Dyslipidemia Hypertension Obesity Type 2 diabetes mellitus Surgical History Surgical History History of section History of colonoscopy with polypectomy History of lumbosacral spine surgery fusion and cages L4-S1 Family History Family History Unknown Diabetes mellitus Hypertension Mother Diabetes mellitus Hypertension Social History Social History Social History: Surrogate medical decision maker: Sammy Jordan, spouse. Code status: Full code. Smoking packs per day: 0.5 Smoking cigarettes per day: 10.0 Years smoked: 15 Smoking pack-years: 7.50 Smoking status: Former smoker Tobacco type: cigarettes Alcohol intake: never Substance use: never Substance use type: does not use Do You Feel Safe in your Home?: Yes Lack of Transportation: No Lack of Food: Never True Current Housing: I Have Housing Concerned About Future Housing: Decline to Answer Difficulty Paying Gas/Electric Bills: Decline to Answer Difficulty Paying for Meds: Decline to Answer Currently Unemployed: Decline to Answer Education: Decline to Answer Difficulty w/ Childcare or Family Care: Decline to Answer Living arrangements: with family Additional living arrangements comments: Lives in [place] with . Occupation/Education: retired Additional occupation/education comments: On disability since a back injury at work. Spiritual care concerns: No Mod Sed Physical Exam Physical Exam Pre Procedural Exam: Normal: Appearance, Lungs, Heart Rate, Heart Rhythm, Neuro Exam, Extremities and Skin Hours since solid foods: 12 Hours since liquid intake: 8 Mallampati Classification: class III Internal Medicine - PN: Obj Da Vital Signs Vital Signs: Vital Signs - 24 hr 08/23/24 11:48 Temperature 36.3 C L Pulse Rate 79 Respiratory Rate 19 Blood Pressure 125/85 Pulse Oximetry 98 Oxygen Delivery Room Air ASA Classification/Sedation ASA Classification/Sedation ASA Class: II Emergent: No Risks: Risks, benefits and alternatives explained and patient/family accepted plan for sedation. Patient re-evaluated immediately prior to sedation.
--- NOTE | 2024-08-23 12:37 | WPDHPUPDATE1 ---
History and Physical Update Update Date/Time: 08/23/24 12:37 History and Physical has been reviewed, including an updated exam of the patient. There are NO changes in the patient's condition. Risks, benefits, and alternatives have been discussed and questions answered. Patient agrees to proceed with procedure.
--- NOTE | 2024-08-23 14:28 | P.PCNTEE_ITS ---
TANGELA TransEsophageal Echocardiogram Date of procedure: 08/23/24 Procedure Type: Date Of Procedure: 08/23/2024 Brief History Of Present Illness: Patient is a 59 year old female with history of CVA who is referred for TANGELA to assess for PFO/ASD. Indication: CVA Procedure In Detail: After verbal and written informed consent was obtained, the patient risks, benefits, and alternatives explained in detail. The patient agreed to proceed with the plan of care as outlined above.?The patient was evaluated at bedside in [facility].?The posterior oropharynx, neck, and jaw angle all within normal limits on examination. Lungs were clear to auscultation. See pre-sedation note for further details. The patient was then placed in the appropriate 30 to 45 degree angle supine position at a slight left lateral decubitus position.?Patient was monitored throughout the study with telemetry, oxygen saturation, end-tidal CO2 monitoring, blood pressure, heart rate, and respirations.?The posterior hypopharynx was then locally anesthetized using repeated administration of Hurricaine spray. After local anesthetic of the posterior hypopharynx was achieved and the oral bite block placed, moderate sedation was administered.?After confirmation of adequate moderate sedation, the transesophageal echocardiogram probe was advanced through the oral bite block into the posterior hypopharynx and into the esophagus easily and without complication.?Multiple, multiplanar echocardiographic images were obtained in multiple standard re-projections.?Pulsed wave, continuous-wave, and color-flow D oppler were utilized in conjunction with this study.?At the conclusion of the study, the transesophageal echocardiogram probe was removed easily and without complication. The patient tolerated the procedure well without difficulty.?Patient was in sinus rhythm throughout the study. Moderate Sedation / Anesthesia Administration: Procedure / sedation start time: 13:07 Procedure / sedation end time: 13:26 Total procedure time: 19 minutes Total of IV Versed 3mg and Fentanyl 100mg was administered by RN. FINDINGS: LEFT VENTRICLE: Size and systolic function were within normal limits without wall motion abnormalities with ejection fraction of 55-60%. RIGHT VENTRICLE:?Size and systolic function within normal limits. LEFT ATRIUM: Appears moderately enlarged. RIGHT ATRIUM: Normal size. INTERATRIAL SEPTUM: Interatrial septum appears lipomatous. No shunt by color Doppler. Bubbly study is negative, with both rest and Valsalva. MITRAL VALVE: The mitral valve leaflets appear mildly thickened. There is moderate-severe mitral regurgitation. AORTIC VALVE: The aortic valve is trileaflet. Mild sclerosis. No aortic regurgitation. TRICUSPID VALVE: The tricuspid valve is anatomically normal with normal leaflet excursion with trivial regurgitation identified.? PULMONIC VALVE: Pulmonic valve is grossly normal. LEFT ATRIAL APPENDAGE: Anatomically normal structure with prominent pectinate muscles without thrombus or vegetation identified. ? PERICARDIUM: The pericardium was anatomically normal without significant pericardial effusion. ? AORTA: Mild atherosclerotic disease. Complications: None
== END 2024-08-23 14:55 | disposition home or self-care (01) ==
LOC: ANHCARD 11:04
PROVIDERS: PCP Family Medicine; Visit Provider Internal Medicine
PROC: (CPT 93312; principal; 2024-08-23 13:00)
DX: I63.9 Cerebral infarction, unspecified (principal)
CPT/HCPCS: 93312; 93320; 93325; J2250; J3010

== ENCOUNTER 2024-11-12 09:40 | Emergency (ER) | payer BC, SELFPAY ==
--- NOTE | ~2024-11-12 | XR_ITS ---
EXAMINATION: XR chest 1V portable DATE: 11/12/2024 12:44 INDICATION: Preoperative evaluation post fall with left tibial plateau fracture. TECHNIQUE: frontal view of the chest was obtained. COMPARISON: Chest radiograph dated 08/07/2024 FINDINGS: Unchanged small calcified nodule in the left lower lung zone along with calcified AP window lymph nod es consistent with old granulomatous disease. No other new airspace opacities, pulmonary edema, pleur al effusion or pneumothorax. The cardiomediastinal silhouette is normal. Moderate to severe thoracic spondylosis. IMPRESSION: 1. No acute cardiopulmonary disease. Reviewed, dictated and finalized at location A. MOTIVE STARTER REPAIRER
--- NOTE | ~2024-11-12 | XR_ITS ---
XR knee RT min 4V 11/12/2024 11:25 INDICATION: Right knee pain after fall PROCEDURE: 4 views right knee COMPARISON: No prior studies for comparison. FINDINGS: Fracture, dislocation or subluxation is not identified. The soft tissues appear within norm al limits. No foreign bodies are identified. IMPRESSION: 1: NO ACUTE BONE OR JOINT ABNORMALITY IDENTIFIED. Reviewed, dictated and finalized at location A. STAMPER
--- NOTE | ~2024-11-12 | XR_ITS ---
XR knee LT min 4V 11/12/2024 11:24 Indication: Status post fall. Left knee pain. Procedure: 4 views left knee Comparison: No prior studies for comparison. Findings: There is a comminuted mildly displaced intra-articular fracture of the tibial plateau exten ding to the metaphysis with mild dorsal angulation. Moderate joint effusion. Cannot exclude nondispla haily proximal fibular fracture. Impression: 1: Comminuted mildly displaced intra-articular fracture left tibial plateau extending to the metaphys is with dorsal angulation. Reviewed, dictated and finalized at location A. CIATE AUTOMATION ENGINEER Impression: 1: Comminuted mildly displaced intra-articular fracture left tibial plateau ext ending to the metaphysis with dorsal angulation.
--- NOTE | ~2024-11-12 | CT_ITS ---
CLINICAL INDICATION: Tibial plateau fracture. COMPARISON: Plain film evaluation of the right knee, performed on the same day. TECHNIQUE: Computed tomography (CT) of the right knee was performed without intravenous contrast. The dose-length product was 572.77 mGy-cm. FINDINGS/OBSERVATIONS: Redemonstration of a comminuted bicondylar fracture with a transverse fracture the metaphy sis from the diaphysis. The distal femur is intact. Comminuted fracture of the proximal fibula is also noted. Large suprapatellar joint effusion with a fluid/fluid level, secondary to blood products. The poplite al artery and vein are intact despite trace retropulsion of the fracture fragments. IMPRESSION: Complex lower leg fracture, as detailed above. Reviewed, dictated and finalized at location A. SER
[2024-11-12 09:43] VITALS: BP 152/78; PULSE 101; RESP 18; TEMP 36.4; O2SAT 99
--- OUTSIDE RECORDS SUMMARY | 2024-11-12 10:13 | XMS_ITS | Clinical Summary ---
Author Organization [facility] Address [address] [place] [address] Care Team Providers Care Casket Assembler Metal Name Role Phone Unavailable Primary Care Provider Unavailabl e Source Comments [facility],non-owned Affiliates and Associated Physician Practices is amultiple site organization consisting of ambulatory clinics and hospital sitesin [place], [place], [place] and [place]. This disclosure is being madepursuant to the Care Everywhere program and may not contain all information available regarding this patient. Last updated 18.[facility] [employer] Social History Tobacco Use Types Packs/Day Years Used Date Smoking Tobacco: Never Assessed Sex and Gender Information Value Date Recorded Sex Assigned at Not on file Gender Identity Not on file Sexual Orientation Not on file Plan of Treatment Health Maintenance Due Date Last Done Comments COLOGUARD (AGES 45-75) - COL ON CA SCREENING 1963 COLON MONITORING 1963 COLONOSCOPY - COLON CA SCREENING 1963 CT COLONOGRAPHY - COLON CA SCREENING 1963 Colorectal Cancer Screening 1963 FIT - COLON CA SCREENING 1963 FLEX SIG - COLON CA SCREENING 1963 LIPID TESTING 1963 MAMMOGRAM 1963 PAP SMEAR 1963 HIV SCREENING 1978 HEPATITIS C SCREENING 06/10/1981 DTAP/TDAP/TD VACCINES (1 - Tdap) 1982 PNEUMOCOCCAL VACCINE 50+ (1 of 1 - PCV) 2013 ZOSTER VACCINE (1 of 2) 2013 COVID-19 VACCINE ( - 2023-2 5 season) 2024 INFLUENZA VACCINE (#1) 2024 DEPRESSION SCREENING 10/16/2024 Respiratory Syncytial Virus (RSV) Vaccine Pt: or over 60 yrs (1 - 1-dose 75+ series) 2038 HEPATITIS B VACCINE Aged Out No longe r eligible based on patient's age to complete this topic HIB VACCINE Aged Out No longer eligi ble based on patient's age to complete this topic HPV VACCINE Aged Out No longer eligi ble based on patient's age to complete this topic MENINGOCOCCAL (Group B) VACCINE Aged Out No longer eligible based on patient's age to complete this topic MENINGOCOCCAL VACCINE Aged Out No leana traci eligible based on patient's age to complete this topic PNEUMOCOCCAL VACCINE Aged Out No long er eligible based on patient's age to complete this topic
--- OUTSIDE RECORDS SUMMARY | 2024-11-12 10:13 | XMS_ITS ---
Author Organization [facility] Address [address] [place] [address] CANDICE Alarcon [address] Care Team Providers Care Team Leader/Research Psychologist Name Role Phone JOESPH MORENO MD Primary Care Provider Leland Watson Unavailable [phone] ALLERGIES No Known Allergies REASON FOR VISIT Follow Up, Right = Left Low Back Pain, Right = Left Lower Extremity Pain MEDICATIONS Medication SIG (Take, Route, Frequency, Duration) Notes Start Date End Date Status Xanax 0.25 MG 1-2 tablets Orally 30 minutes prior to injection 11/28/2023 Active Lidocaine 5 % 1 patch remove after 12 hours External Once a day Active Methocarbamol 750 MG 1 tablet Oral every 8 hrs Active EQ Aspirin Adult Low Dose 81 MG Oral for 90 Active traMADol HCl 50 MG 1 tablet as needed Orally 2x/day severe pain for 30 days MAY FILL 10/28/24 10/24/2024 Active Clopidogrel Bisulfate 75 MG 1 tablet Ora l Once a day Active Omeprazole 40 MG Oral for 90 A ctive Cymbalta 60 MG 1 capsule Orally Once a day Active Pregabalin 75 MG 1 capsule Orally every 12 hours 10/25/2022 Active Meloxicam 7.5 MG take 1 tablet by mouth twice daily Oral 2x/day for 30 days Active Cyclobenzaprine HCl 10 MG 1 tab as neede d orally every 12 hours PRN muscle spasms for 30 days 04/28/2023 Active Rybelsus 7 MG 1 tablet at least 30 minutes before first food, beverage or other oral medicine of the day Orally Once a day for 30 day(s) Active hydroCHLOROthiazide 25 MG 1 tablet in th e morning Oral Once a day Active Voltaren 1 % apply 4 grams to painful joint(s) Transdermal 4x/day as needed for pain for 30 days Active metFORMIN HCl 500 MG 1 tablet with a meal Orally Once a day for 30 day(s) Active Atorvastatin Calcium 20 MG 1 tablet Oral Once a day Active NIFEdipine ER Osmotic Release 30 MG Oral for 30 Active Sertraline HCl 25 MG TAKE 1 TABLET BY MOUTH ONCE DAILY Oral for 30 Active SOCIAL HISTORY Tobacco Use: Social History Observation Description Date Details (start date - stop date) Current Smoker NA - NA Sex Assigned At : Social History Observation Description Sex Assigned At Unknown Tobacco Use/Smoking Question Answer Notes Are you a current every day smoker VITAL SIGNS Blood pressure systolic 123 mm Hg 10/24/19 25 Blood pressure diastolic 85 mm Hg 025 Heart Rate 78 /min 10/24/2024 Respiratory Rate 16 /min 10/24/2024 Height 5 ft 5 in in 10/24/2024 Weight 213 lbs 10/24/2024 BMI 35.44 kg/m2 10/24/2024 Encounters Encounter Location Date Provider Diagnosis [facility] [address] [place] [address] 10/24/2024 Leland Vitale Radiculopathy, lumbosacral region M54.17 ; Spondylosis without myelopathy or radiculopathy, lumbar region M47.816 ; Sacroiliitis, not elsewhere classified M46.1 ; Postlaminectomy syndrome, not elsewhere classified M96.1 ; Radiculopathy, lumbar region M54.16 ; 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 ; retirement (current) use of opiate analgesic Z79.891 ; retirement (current) use of non-steroidal anti-inflammatories (NSAID) Z79.1 and transport specialist (current) use of anticoagulants Z79.01 ASSESSMENTS Encounter Date Diagnosis Assessment Notes Treatment Notes Treatment Clinical Notes 10/24/2024 Radiculopathy, lumbosacral region (ICD-10 - M54.17) The side effects of opioid analgesics including sedation, constipation potentially resulting in bowel obstruction, respiratory depression, tolerance, addiction, hyperalgesia, withdrawal after abrupt discontinuation, immunosuppression and endocrine abnormalities such as hypocortisolism and hypogonadism resulting in sexual dysfunction which may become permanent were discussed and the patient expressed an understanding of the above. The patient was advised to avoid driving, climbing ladders and operating dangerous machinery after taking this medication. The patient was advised to avoid consuming alcohol, illicit drugs and sedative/hypnotic drugs in conjunction with this medication due to the risk of profound respiratory depression and . The patient was directed to utilize the lowest effective dose possible. The importance of safe storage and keeping opioid medications locked up at all times in order to prevent theft and unintended consumption by friends, relatives or anyone else was discussed with the patient at length. The patient agrees to fully comply with the above. The [place] and [place] PDMP were reviewed and were appropriate 10/24/2024 Spondylosis without myelopathy or radiculopathy, lumbar region (ICD-10 - M47.816) 10/24/2024 Sacroiliitis, not elsewhere classified (ICD-10 - M46.1) 10/24/2024 Postlaminectomy syndrome, not elsewhere classified (ICD-10 - M96.1) 10/24/2024 Radiculopathy, lumbar region (ICD-10 - M54.16) 10/24/2024 Fear of injections and transfusions (ICD-10 - F40.231) 10/24/2024 retirement (current) use of opiate analgesic (ICD-10 - Z79.891) 10/24/2024 retirement (current) use of non-steroidal anti-inflammatories (NSAID) (ICD-10 - Z79.1) 10/24/2024 retirement (current) use of anticoagulants (ICD-10 - Z79.01) 10/24/2024 Other The above-named patient was evaluated in conjunction with Dr. Vitale. I have discussed and reviewed all of the pertinent history, physical examination findings and diagnostic imaging results with him. As a result of our discussion, Dr. Vitale has determined the above assessment and directed the treatment plan. This note was dictated using voice recognition software and therefore inadvertent errors may have occurred. This note was dictated by BOBBY Barrientos. Total Time Spent with Patient and Medical Decision Makin minutes PLAN OF TREATMENT Medication Medication Name Sig Start Date Stop Date Notes traMADol HCl 50 MG 1 tablet as needed O rally 2x/day severe pain for 30 days 10/24/2024 MAY FILL 10/28/24 Treatment Notes Assessment Notes Radiculopathy, lumbosacral region The si de effects of opioid analgesics including sedation, constipation potentially resulting in bowel obstruction, respiratory depression, tolerance, addiction, hyperalgesia, withdrawal after abrupt discontinuation, immunosuppression and endocrine abnormalities such as hypocortisolism and hypogonadism resulting in sexual dysfunction which may become permanent were discussed and the patient expressed an understanding of the above. The patient was advised to avoid driving, climbing ladders and operating dangerous machinery after taking this medication. The patient was advised to avoid consuming alcohol, illicit drugs and sedative/hypnotic drugs in conjunction with this medication due to the risk of profound respiratory depression and . The patient was directed to utilize the lowest effective dose possible. The importance of safe storage and keeping opioid medications locked up at all times in order to prevent theft and unintended consumption by friends, relatives or anyone else was discussed with the patient at length. The patient agrees to fully comply with the above. The [place] and [place] PDMP were reviewed and were appropriate Other The above-named patient was evaluated in conjunction with Dr. Vitael. I have discussed and reviewed all of the pertinent history, physical examination findings and diagnostic imaging results with him. As a result of our discussion, Dr. Vitale has determined the above assessment and directed the treatment plan. This note was dictated using voice recognition software and therefore inadvertent errors may have occurred. This note was dictated by BOBBY Barrientos. Total Time Spent with Patient and Medical Decision Makin minutes Next Appt Details Follow Up: 4 Weeks OPV, Reas on: Provider Name:Leland silvalianna, 11/21/2024 02:30:00 PM, [address] [place] [address], [phone], Progress Notes * Examination Category Sub-Category Detail Notes Examination/ Pre-Anesthesia Assessment General: The patient is alert and ruth ented X 3 in moderate distress secondary to pain HEENT: Normocephalic, atrau matic. PERRL. The oropharynx is clear Neck: There is full range of motion of the cervical spine Heart: Regular rate and rhy thm Chest: Clear to auscultatio n bilaterally Abdomen: Soft and benign Musculoskeletal and Extremities: There i s tenderness to palpation over the bilateral L2-3 through L5-S1 facet joints. Extension and lateral rotation of the lumbar spine reproduces the patient's typical axial low back pain. Yuliana's, [place]'s and [place]ens[place]'s are positive bilaterally. There is severe tenderness palpation over the bilateral sacroiliac joints. There is tenderness to palpation over the bilateral lumbar paraspinal muscles and palpable myofascial trigger points throughout. There is weakness and atrophy of the bilateral lumbar paraspinal muscle., There is tenderness to palpation about the right shoulder with positive right shoulder impingement upon 90 degrees of abduction Neurological: Straight leg raise p ositive bilaterally for the referral reduction of pain down the L3 and L4 dermatomes bilaterally. There is diminished sensation to light touch over the left lateral thigh. There are no focal strength deficits in the bilateral lower extremities. There is 4 out of 5 strength at the bilateral EHL , Straight leg raise positive bilaterally for the referral reduction of pain down the L3 and L4 dermatomes bilaterally. There is diminished sensation to light touch over the left lateral thigh. There are no focal strength deficits in the bilateral lower extremities. There is 4 out of 5 strength at the bilateral EHL Skin: Clean, dry and intac t , Clean, dry and intact Psychiatric: Mood and affect are normal , Mood and affect are normal History and Physical Notes * HPI (History of Present Illness) Category Sub-Category Detail Notes Pain Management Radiographic Imaging MRI Lumbar Spine with and without Contrast 10/19/2020: Posterior spinal fusion L4-S1. L4-L5 grade 1 anterolisthesis. L2-3: Broad-based disc bulge and bilateral facet arthropathy. Mild right, mild to moderate left neuroforaminal stenosis. L3-4: Broad-based disc bulge and bilateral facet arthropathy with mild central canal stenosis. Moderate right, moderate to severe left neuroforaminal stenosis. L4-L5: No evidence of residual disc bulge, bilateral facet arthropathy. [id number] bilateral neuroforaminal stenosis. L5-S1: No evidence of residual disc bulge. Bilateral facet arthropathy. Mild left neuroforaminal stenosis. MRI right shoulder performed 07/08/24. Fracture involving the anterior and anterior-inferior glenoid severe. Glenohumeral joint chondrosis severe rotator cuff tendinopathy with particular sided partial thickness tear of the supraspinatus and infraspinatus tendons. Severe acromioclavicular joint osteoarthritis. Mild intra-articular biceps tendinopathy. Small glenohumeral joint effusion. Moderate subacromial/subdeltoid bursitis Assessment and Follow-up: Follow-up Plan documen leela:: Yes MIPS Quality 2020: MIPS Documented:: Compliant
--- OUTSIDE RECORDS SUMMARY | 2024-11-12 10:13 | XMS_ITS ---
Author Organization [facility] Address [address] [place] [address] CANDICE Alarcon [address] Care Team Providers Care Spine Specialist Name Role Phone JOESHP MORENO MD Primary Care Provider Leland Watson Unavailable [phone] ALLERGIES No Known Allergies REASON FOR VISIT Follow Up, Right = Left Low Back Pain, Right = Left Lower Extremity Pain MEDICATIONS Medication SIG (Take, Route, Frequency, Duration) Notes Start Date End Date Status Omeprazole 40 MG Oral for 90 A ctive Clopidogrel Bisulfate 75 MG 1 tablet Ora l Once a day Active Cymbalta 60 MG 1 capsule Orally Once a day Active Meloxicam 7.5 MG take 1 tablet by mouth twice daily Oral 2x/day for 30 days Active Pregabalin 75 MG 1 capsule Orally every 12 hours 10/25/2022 Active Cyclobenzaprine HCl 10 MG 1 tab as neede d orally every 12 hours PRN muscle spasms for 30 days 04/28/2023 Active hydroCHLOROthiazide 25 MG 1 tablet in th e morning Oral Once a day Active Rybelsus 7 MG 1 tablet at least 30 minutes before first food, beverage or other oral medicine of the day Orally Once a day for 30 day(s) Active metFORMIN HCl 500 MG 1 tablet with a meal Orally Once a day for 30 day(s) Active Voltaren 1 % apply 4 grams to painful joint(s) Transdermal 4x/day as needed for pain for 30 days Active NIFEdipine ER Osmotic Release 30 MG Oral for 30 Active Atorvastatin Calcium 20 MG 1 tablet Oral Once a day Active Sertraline HCl 25 MG TAKE 1 TABLET BY MOUTH ONCE DAILY Oral for 30 Active EQ Aspirin Adult Low Dose 81 MG Oral for 90 Active traMADol HCl 50 MG 1 tablet as needed Orally 2x/day severe pain for 30 days MAY FILL 09/28/24 08/21/2024 Active Lidocaine 5 % 1 patch remove after 12 hours External Once a day Active Xanax 0.25 MG 1-2 tablets Orally 30 minutes prior to injection 11/28/2023 Active Methocarbamol 750 MG 1 tablet Oral every 8 hrs Active SOCIAL HISTORY Tobacco Use: Social History Observation Description Date Details (start date - stop date) Current Smoker NA - NA Sex Assigned At : Social History Observation Description Sex Assigned At Unknown Tobacco Use/Smoking Question Answer Notes Are you a current every day smoker VITAL SIGNS Blood pressure systolic 121 mm Hg 09/17/20 Blood pressure diastolic 77 mm Hg 024 Heart Rate 85 /min 09/17/2024 Respiratory Rate 18 /min 09/17/2024 Height 5 ft 5 in in 09/17/2024 Weight 213 lbs 09/17/2024 BMI 35.44 kg/m2 09/17/2024 Encounters Encounter Location Date Provider Diagnosis [facility] [address] [place] [address] 09/17/2024 Leland Vitale Radiculopathy, lumbosacral region M54.17 ; Spondylosis without myelopathy or radiculopathy, lumbar region M47.816 ; Sacroiliitis, not elsewhere classified M46.1 ; Postlaminectomy syndrome, not elsewhere classified M96.1 ; Radiculopathy, lumbar region M54.16 ; 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 ; penitentiary (current) use of opiate analgesic Z79.891 ; penitentiary (current) use of non-steroidal anti-inflammatories (NSAID) Z79.1 and terminal makeup operator (current) use of anticoagulants Z79.01 ASSESSMENTS Encounter Date Diagnosis Assessment Notes Treatment Notes Treatment Clinical Notes 09/17/2024 Radiculopathy, lumbosacral region (ICD-10 - M54.17) The [...] to fully comply with the above. The [place] and [place] PDMP were reviewed and were appropriate 09/17/2024 Spondylosis without myelopathy or radiculopathy, lumbar region (ICD-10 - M47.816) 09/17/2024 Sacroiliitis, not elsewhere classified (ICD-10 - M46.1) 09/17/2024 Postlaminectomy syndrome, not elsewhere classified (ICD-10 - M96.1) 09/17/2024 Radiculopathy, lumbar region (ICD-10 - M54.16) 09/17/2024 Fear of injections and transfusions (ICD-10 - F40.231) 09/17/2024 penitentiary (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 09/17/2024 terminal makeup operator (current) use of non-steroidal anti-inflammatories (NSAID) (ICD-10 - Z79.1) 09/17/2024 penitentiary (current) use of anticoagulants (ICD-10 - Z79.01) 09/17/2024 Other The above-named patient was evaluated in [...] rally 2x/day severe pain for 30 days 08/21/2024 MAY FILL 09/28/24 Treatment Notes Assessment Notes Radiculopathy, lumbosacral region [...] to fully comply with the above. The [place] and [place] PDMP were reviewed and were appropriate terminal makeup operator (current) use of o piate analgesic The patient submitted a urine sample for drug screening to ensure compliance. Other The above-named patient was evaluated in [...] 4 Weeks OPV, Reas on: Provider Name:Leland Huber martinez, 11/21/2024 02:30:00 PM, [address] [place], [phone], Progress Notes * Examination Category Sub-Category Detail [...] patient's typical axial low back pain. Yuliana's, [place]'s and Gaenslen's are positive bilaterally. There is [...] of residual disc bulge, bilateral facet arthropathy. [id number] bilateral neuroforaminal stenosis. L5-S1: No evidence of [...]
--- OUTSIDE RECORDS SUMMARY | 2024-11-12 10:13 | XMS_ITS | Patient Health Summary ---
Author Organization [facility] Address [address] [place] [address] Care Team Providers Care Hob Mill Operator Name Role Phone Unavailable Primary Care Provider Unavailabl e Note from [facility],non-owned Affiliates and Associated Physician Practices is amultiple site organization consisting of ambulatory clinics and hospital sitesin [place], [place], [place] and [place]. This disclosure is being madepursuant to the Care Everywhere program and may not contain all information available regarding this patient. Last updated 18.[facility] Social History Tobacco Use Types Packs/Day Years Used Date Smoking Tobacco: Never Assessed Sex and Gender Information Value Date Recorded Sex Assigned at Not on file Gender Identity Not on file Sexual Orientation Not on file
--- OUTSIDE RECORDS SUMMARY | 2024-11-12 10:13 | XMS_ITS | Referral Summary ---
Author Organization [facility] Address [address] [place] [address] Care Team Providers Care Guest House Manager Name Role Phone Unavailable Primary Care Provider Unavailabl e Source Comments [facility],non-owned Affiliates and Associated Physician Practices is amultiple site organization consisting of ambulatory clinics and hospital sitesin [place], [place], [place] and [place]. This disclosure is being madepursuant to the Care Everywhere program and may not contain all information available regarding this patient. Last updated 18.[facility] Social History Tobacco Use Types Packs/Day Years Used Date Smoking Tobacco: Never Assessed Sex and Gender Information Value Date Recorded Sex Assigned at Not on file Gender Identity Not on file Sexual Orientation Not on file Plan of Treatment Not on file
--- OUTSIDE RECORDS SUMMARY | 2024-11-12 10:13 | XMS_ITS | CONTINUITY OF CARE DOCUMENT ---
Author Name maxim pan Address Unknown Organization [facility] Address [address] [place] [address] Phone [phone] Care Team Providers Care Medical Research Tech Name Role Phone Dennis SARAVIA, Bijan Unavailable SONIA DANIELS MD Unavailable SONIA DANIELS MD Unavailable INSURANCE PROVIDERS Payer name Policy type / Coverage type [place] ID [place] [id number] [facility] [id number] Other [id number]
--- OUTSIDE RECORDS SUMMARY | 2024-11-12 10:14 | XMS_ITS ---
Author Organization [facility] Address [address] [place] [address] CANDICE Alarcon [address] Care Team Providers Care Windows Migration Technician Name Role Phone JOESPH MORENO MD Primary Care Provider Leland Watson Unavailable [phone] ALLERGIES No Known Allergies REASON FOR VISIT Follow Up, Right = Left Low Back Pain, Right = Left Lower Extremity Pain MEDICATIONS Medication SIG (Take, Route, Frequency, Duration) Notes Start Date End Date Status NIFEdipine ER Osmotic Release 30 MG Oral for 30 Active Atorvastatin Calcium 20 MG 1 tablet Oral Once a day Active Methocarbamol 750 MG 1 tablet Oral every 8 hrs Active EQ Aspirin Adult Low Dose 81 MG Oral for 90 Active Lidocaine 5 % 1 patch remove after 12 hours External Once a day Active Pregabalin 75 MG 1 capsule Orally every 12 hours 10/25/2022 Active Omeprazole 40 MG Oral for 90 A ctive Xanax 0.25 MG 1-2 tablets Orally 30 minutes prior to injection 11/28/2023 Active Meloxicam 7.5 MG take 1 tablet by mouth twice daily Oral 2x/day for 30 days Active Clopidogrel Bisulfate 75 MG 1 tablet Ora l Once a day Active Cymbalta 60 MG 1 capsule Orally Once a day Active Voltaren 1 % apply 4 grams to painful joint(s) Transdermal 4x/day as needed for pain for 30 days Active metFORMIN HCl 500 MG 1 tablet with a meal Orally Once a day for 30 day(s) Active Rybelsus 7 MG 1 tablet at least 30 minutes before first food, beverage or other oral medicine of the day Orally Once a day for 30 day(s) Active hydroCHLOROthiazide 25 MG 1 tablet in th e morning Oral Once a day Active traMADol HCl 50 MG 1 tablet as needed Orally 2x/day severe pain for 30 days MAY FILL 08/30/24 08/21/2024 Active Sertraline HCl 25 MG TAKE 1 TABLET BY MOUTH ONCE DAILY Oral for 30 Active Cyclobenzaprine HCl 10 MG 1 tab as neede d orally every 12 hours PRN muscle spasms for 30 days 04/28/2023 Active SOCIAL HISTORY Tobacco Use: Social History Observation Description Date Details (start date - stop date) Current Smoker NA - NA Sex Assigned At : Social History Observation Description Sex Assigned At Unknown Tobacco Use/Smoking Question Answer Notes Are you a current every day smoker VITAL SIGNS Blood pressure systolic 132 mm Hg 08/21/20 24 Blood pressure diastolic 90 mm Hg 024 Heart Rate 79 /min 08/21/2024 Respiratory Rate 18 /min 08/21/2024 Height 5 ft 5 in in 08/21/2024 Weight 213 lbs 08/21/2024 BMI 35.44 kg/m2 08/21/2024 Encounters Encounter Location Date Provider Diagnosis [facility] [address] [place] [address] 08/21/2024 Leland Vitale Radiculopathy, lumbosacral region M54.17 ; Spondylosis without myelopathy or radiculopathy, lumbar region M47.816 ; Sacroiliitis, not elsewhere classified M46.1 ; Postlaminectomy syndrome, not elsewhere classified M96.1 ; Radiculopathy, lumbar region M54.16 ; 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 The [place] and [place] PDMP were reviewed and were appropriate 08/21/2024 Spondylosis without myelopathy or radiculopathy, lumbar region (ICD-10 - M47.816) 08/21/2024 Sacroiliitis, not elsewhere classified (ICD-10 - M46.1) 08/21/2024 Postlaminectomy syndrome, not elsewhere classified (ICD-10 - M96.1) 08/21/2024 Radiculopathy, lumbar region (ICD-10 - M54.16) 08/21/2024 Fear of injections and transfusions (ICD-10 - F40.231) 08/21/2024 care home (current) use of opiate analgesic (ICD-10 - Z79.891) 08/21/2024 care home (current) use of non-steroidal anti-inflammatories (NSAID) (ICD-10 - Z79.1) 08/21/2024 technician terminal and repeater (current) use of anticoagulants (ICD-10 - Z79.01) 08/21/2024 Other The above-named patient was evaluated in [...] pain for 30 days 08/21/2024 MAY FILL 08/30/24 Treatment Notes Assessment Notes Radiculopathy, lumbosacral region [...] to fully comply with the above. The [place] PDMP were reviewed and were appropriate Other [...] on: Provider Name:Leland silvalianna, 11/21/2024 02:30:00 PM, [address] [place] [address], [id number], Progress Notes * Examination Category Sub-Category [...] patient's typical axial low back pain. Yuliana's, [place]'s and [place]'s are positive bilaterally. There is [...] of residual disc bulge, bilateral facet arthropathy. [id number] bilateral neuroforaminal stenosis. L5-S1: No evidence of [...]
--- OUTSIDE RECORDS SUMMARY | 2024-11-12 10:14 | XMS_ITS | Clinical Summary ---
Author Organization [facility] Address [address] [place] [address]. [place], [place] [id number] [place] [address] Care Team Providers Care Product Development Engineer Name Role Phone Unavailable Primary Care Provider Unavailabl e Social History Tobacco Use Types Packs/Day Years Used Date Smoking Tobacco: Never Assessed Comments Unknown Sex and Gender Information Value Date Recorded Sex Assigned at Not on file Legal Sex Female 8:33 PM CDT Gender Identity Not on file Sexual Orientation Not on file Last Filed Vital Signs Vital Sign Reading Time Taken Comments Blood Pressure 144/92 01/31/2013 9:12 AM CDT Pulse 81 01/31/2013 9:12 AM CDT Temperature - - Respiratory Rate - - Oxygen Saturation - - Inhaled Oxygen Concentration - - Weight 85.3 kg (188 lb) 01/31/2013 9:12 AM CDT Height 165.1 cm (5' 5 ) 01/31/2013 9:12 AM CDT Body Mass Index 31.28 01/31/2013 9:12 AM CDT Plan of Treatment Health Maintenance Due Date Last Done Comments Cervical Cancer Screening Pa p Smear (Age 30 to 64) Every 3 Years 1963 Colorectal Cancer Screening Colonoscopy (10 Years) 1963 Annual Physical 1966 Hepatitis C 1981 DTaP, Tdap and Td Vaccines ( 1 - Tdap) 1982 Cervical Cancer Screening Pa p with HPV Testing (Age 30 to 64) Every 5 Years 1993 Cervical Cancer Screening with HPV 1993 Mammogram Screening 2003 Zoster Vaccines (1 of 2) 2013 COVID-19 Vaccine ( - 2023-2 5 season) 2024 Influenza Adult (#1) 2024 RSV Immunization or 60+ Years (1 - 1-dose 75+ series) 2038 Meningococcal B Vaccine Aged Out No l onger eligible based on patient's age to complete this topic Meningococcal Vaccine Aged Out No leana traci eligible based on patient's age to complete this topic Pneumococcal Vaccine: Pediat rics (0 to 5 Years) and At-Risk Patients (6 to 64 Years) Aged Out No longer eligible b ased on patient's age to complete this topic RSV Immunizations Under 20 Months Aged Out No longer eligible based on patient's age to complete this topic
--- NOTE | 2024-11-12 12:27 | ECG_ITS ---
Test Date: 2024-11-12 13:26:37 Measurements Intervals [place] Rate: 84 P: 47 [place]: 148 QRS: 58 QRSD: 84 T: 14 QT: 377 QTc: 447 Interpretive Statements SINUS RHYTHM Compared to ECG 08/07/2024 14:09:57 No significant changes Electronically Signed On 11-12-2024 16:42:45 BAR WAITER/WAITRESS by Jennifer Bob M.D.
--- OUTSIDE RECORDS SUMMARY | 2024-11-12 12:54 | XMS_ITS | Referral Summary ---
Author Organization [facility] Address [address] [address] Care Team Providers Care Power Regulator Name Role Phone Unavailable Primary Care Provider Unavailabl e Source Comments [facility],non-owned Affiliates and Associated Physician Practices is amultiple site organization consisting of ambulatory clinics and hospital sitesin [place], [place], [place] and [place]. This disclosure is being madepursuant to the Care Everywhere program and may not contain all information available regarding this patient. Last updated 18.[facility] Social History Tobacco Use Types Packs/Day Years Used Date Smoking Tobacco: Never Assessed Sex and Gender Information Value Date Recorded Sex Assigned at Not on file Gender Identity Not on file Sexual Orientation Not on file Plan of Treatment Not on file
--- OUTSIDE RECORDS SUMMARY | 2024-11-12 12:54 | XMS_ITS | Clinical Summary ---
Author Organization [facility] Address [address] [place] [address] Care Team Providers Care Program Clinician Name Role Phone Unavailable Primary Care Provider Unavailabl e Source Comments [facility],non-owned Affiliates and Associated Physician Practices is amultiple site organization consisting of ambulatory clinics and hospital sitesin [place], [place], [place] and [place]. This disclosure is being madepursuant to the Care Everywhere program and may not contain all information available regarding this patient. Last updated 18.[facility] [employer] Social History Tobacco Use Types Packs/Day Years [...]
--- OUTSIDE RECORDS SUMMARY | 2024-11-12 12:55 | XMS_ITS | CONTINUITY OF CARE DOCUMENT ---
Author Name maxim pan Address Unknown Organization [facility] Address [address] [place] [address] Phone [phone] Care Team Providers Care Yarn Twister Name Role Phone Dennis SARAVIA, Bijan Unavailable SONIA DANIELS MD Unavailable SONIA DANIELS MD Unavailable INSURANCE PROVIDERS Payer name Policy type / Coverage type [place] ID [place] [id number] 3 [facility] [id number] Other [id number]
--- OUTSIDE RECORDS SUMMARY | 2024-11-12 12:55 | XMS_ITS | Patient Health Record ---
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 Results (Not yet reviewed by provider) Interpretation: Performing Lab:[id number] [email or web address], [address] [facility] [facility] [address] Becca Barkley MD Notes/Report: 4-ANPP: Fentanyl Negative. Acetyl fentanyl: Fentanyl Negative. Acetyl norfenta nyl: Fentanyl Negative. Acryl fentanyl: Fentanyl Negative. Carfentanil: Fentany l Negative. Para-fluorofentanyl: Fentanyl Negative. Codeine Quantification negative 50 ng/mL Morphine Quantification negative 50 ng/mL Hydrocodone Quantification negative 50 ng/mL Norhydrocodone Quantification negative 50 ng/mL Hydromorphone Quantification negative 50 ng/mL Oxycodone Quantification negative 50 ng/mL Noroxycodone Quantification negative 50 ng/mL Oxymorphone Quantification negative 50 ng/mL Buprenorphine Quantification negative 5 ng/mL Norbuprenorphine Quantification negative 20 ng/mL Fentanyl Quantification negative 1 ng/mL Norfentanyl Quantification negative 8 ng/mL Methadone Quantification negative 100 ng/mL EDDP (Methadone metabolite) Quantification negative 100 ng/mL Tramadol Quantification negative 100 ng/mL B-kkdcbqmmy-cvfsoiay Quantification negative 100 n g/mL A-Kmbksavwa-Khpkskfs Quantification negative 100 n g/mL Tapentadol Quantification negative 50 ng/mL Meperidine Quantification negative 50 ng/mL Normeperidine Quantification negative 50 ng/mL Alpha-Hydroxyalprazolam Quantification negative 20 ng/mL 7-Kphlw-Ljsjergfkd Quantification negative 20 ng/m L Lorazepam Quantification negative 40 ng/mL Nordiazepam Quantification negative 40 ng/mL Temazepam Quantification negative 50 ng/mL Oxazepam Quantification negative 40 ng/mL Amphetamine Quantification negative 100 ng/mL Methylphenidate Quantification negative 50 ng/mL Ritalinic Acid Quantification negative 50 ng/mL Citalopram/Escitalopram Quantification negative 25 ng/mL N-Desmethylcitalopram Quantification negative 25 n g/mL Hydroxybupropion Quantification negative 50 ng/mL Duloxetine Quantification negative 25 ng/mL Fluoxetine Quantification negative 25 ng/mL NorFluoxetine Quantification negative 25 ng/mL Paroxetine Quantification negative 25 ng/mL Sertraline Quantification negative 10 ng/mL Trazodone Quantification negative 10 ng/mL Venlafaxine Quantification negative 100 ng/mL Desmethylvenlafaxine Quantification negative 100 n g/mL Aripipazole Quantification negative 5 ng/mL [id number]-3373 Quantification negative 15 Clozapine Quantification negative 25 ng/mL N-Desmethylclozapine Quantification negative 25 ng /mL Haloperidol Quantification negative 5 ng/mL Reduced Haloperidol Quantification negative 5 ng/m L Olanzapine Quantification negative 25 ng/mL Quetiapine Quantification negative 25 ng/mL Norquetiapine Quantification negative 25 ng/mL Risperidone Quantification negative 10 ng/mL Hydroxyrisperidone Quantification negative 25 ng/m L Gabapentin Quantification negative 1000 Pregabalin Quantification negative 400 Lamotrigine Quantification negative 50 ng/mL Ketamine Quantification negative 50 ng/mL Norketamine Quantification negative 50 ng/mL Naltrexone Quantification negative 10 ng/mL Naltrexol Quantification negative 10 ng/mL Naloxone Quantification negative 20 cZolpidem Quantification negative 10 ng/mL Carisoprodol Quantification negative 100 ng/mL Meprobamate Quantification negative 100 ng/mL Pentobarbital Quantification negative 200 ng/mL Phenobarbital Quantification negative 200 ng/mL Secobarbital Quantification negative 200 ng/mL Butalbital Quantification negative 200 ng/mL Amitriptyline Quantification negative 50 ng/mL Nortriptyline Quantification negative 50 ng/mL Imipramine Quantification negative 50 ng/mL Desipramine Quantification negative 50 ng/mL Cyclobenzaprine Quantification negative 50 ng/mL Dextromethorphan negative 50 ng/mL Levorphanol / Dextrorphan Quantification negative 50 ng/mL Phentermine Quantification negative 50 ng/mL Methamphetamine Quantification negative 100 ng/mL Cocaine metabolite Quantification negative 50 ng/m L cTHC (Marijuana metabolite) Quantification negative 15 ng/mL MDMA Quantification negative 100 ng/mL 6-CORBY (Heroin metabolite) Quantification negative 10 ng/mL Phencyclidine Quantification negative 10 ng/mL 4-ANPP Quantification Fen Neg 2 ng/mL Acetyl fentanyl Quantification Fen Neg 2 ng/mL Acetyl norfentanyl Quantification Fen Neg 5 ng/mL Acryl fentanyl Quantification Fen Neg 1 ng/mL Carfentanil Quantification Fen Neg 2 ng/mL Para-fluorofentanyl Quantification Fen Neg 1 ng/m L 2-methyl AP-237 Quantification negative 10 ng/mL Brorphine Quantification negative 15 ng/mL Metonitazene Quantification negative 5 ng/mL 8-aminoclonazolam Quantification negative 10 ng/mL Etizolam Quantification negative 10 ng/mL Alpha-hydroxyetizolam Quantification negative 10 n g/mL Flualprazolam Quantification negative 10 ng/mL Flubromazolam Quantification negative 10 ng/mL OYZ690 metabolite Quantification negative 10 ng/mL ORV187 metabolite Quantification negative 10 ng/mL RCS4 metabolite Quantification negative 10 ng/mL XLR11/UR144 metabolite negative 10 ng/mL 5F-ADB-M7 negative 10 ng/mL VS-YJATCTUT-J9 negative 10 ng/mL QYKZ-NPESEPLF-D0 negative 10 ng/mL Eutylone Quantification negative 10 ng/mL Methylone Quantification negative 3 ng/mL Xylazine Quantification negative 10 ng/mL 4-hydroxy Xylazine Quantification negative 10 ng/m L Mitragynine (Kratom alkaloid ) Quantification negative 1 ng/mL 9-TQ-Tiyuicutnxa (Kratom alk aloid) Quantification negative 1 ng/mL ETHANOL negative 20 mg/dL mg/dL Ethyl Glucuronide Quantification negative 500 ng/m L Ethyl Sulfate Quantification negative 500 ng/mL CREATININE (CHEMICAL) normal-27.8 >20 mg/dL mg/dL OXIDANT normal-0 <200 ug/mL ug/mL PH normal-5.3 4.5 - 9.5 SPECIFIC GRAVITY normal-1.005 1.003 - 1.035 [facility] Results (Not yet reviewed by provider) Interpretation: Performing Lab:[id number] [email or web address], [address] [facility] [address] Becca Barkley MD Notes/Report: 4-ANPP: Fentanyl Negative. Acetyl fentanyl: Fentanyl Negative. Acetyl norfenta nyl: Fentanyl Negative. Acryl fentanyl: Fentanyl Negative. Carfentanil: Fentany l Negative. Para-fluorofentanyl: Fentanyl Negative. Codeine Quantification negative 50 ng/mL Morphine Quantification negative 50 ng/mL Hydrocodone Quantification negative 50 ng/mL Norhydrocodone Quantification negative 50 ng/mL Hydromorphone Quantification negative 50 ng/mL Oxycodone Quantification negative 50 ng/mL Noroxycodone Quantification negative 50 ng/mL Oxymorphone Quantification negative 50 ng/mL Buprenorphine Quantification negative 5 ng/mL Norbuprenorphine Quantification negative 20 ng/mL Fentanyl Quantification negative 1 ng/mL Norfentanyl Quantification negative 8 ng/mL Methadone Quantification negative 100 ng/mL EDDP (Methadone metabolite) Quantification negative 100 ng/mL Tramadol Quantification positive-1382.931 100 ng/mL O-vwsmugaun-cpjgwvxe Quantification positive-697.748 1 00 ng/mL G-Jtimnwbtu-Oyakqzcl Quantification positive-433.749 1 00 ng/mL Tapentadol Quantification negative 50 ng/mL Meperidine Quantification negative 50 ng/mL Normeperidine Quantification negative 50 ng/mL Alpha-Hydroxyalprazolam Quantification negative 20 ng/mL 4-Epmup-Mpevjbtrhf Quantification negative 20 ng/m L Lorazepam Quantification negative 40 ng/mL Nordiazepam Quantification negative 40 ng/mL Temazepam Quantification negative 50 ng/mL Oxazepam Quantification negative 40 ng/mL Amphetamine Quantification negative 100 ng/mL Methylphenidate Quantification negative 50 ng/mL Ritalinic Acid Quantification negative 50 ng/mL Citalopram/Escitalopram Quantification negative 25 ng/mL N-Desmethylcitalopram Quantification negative 25 n g/mL Hydroxybupropion Quantification negative 50 ng/mL Duloxetine Quantification negative 25 ng/mL Fluoxetine Quantification negative 25 ng/mL NorFluoxetine Quantification negative 25 ng/mL Paroxetine Quantification negative 25 ng/mL Sertraline Quantification negative 10 ng/mL Trazodone Quantification negative 10 ng/mL Venlafaxine Quantification negative 100 ng/mL Desmethylvenlafaxine Quantification negative 100 n g/mL Aripipazole Quantification negative 5 ng/mL [id number]-3373 Quantification negative 15 ng/mL Clozapine Quantification negative 25 ng/mL N-Desmethylclozapine Quantification negative 25 ng /mL Haloperidol Quantification negative 5 ng/mL Reduced Haloperidol Quantification negative 5 ng/m L Olanzapine Quantification negative 25 ng/mL Quetiapine Quantification negative 25 ng/mL Norquetiapine Quantification negative 25 ng/mL Risperidone Quantification negative 10 ng/mL Hydroxyrisperidone Quantification negative 25 ng/m L Gabapentin Quantification negative 1000 ng/mL Pregabalin Quantification negative 400 ng/mL Lamotrigine Quantification negative 50 ng/mL Ketamine Quantification negative 50 ng/mL Norketamine Quantification negative 50 ng/mL Naltrexone Quantification negative 10 ng/mL Naltrexol Quantification negative 10 ng/mL Naloxone Quantification negative 20 ng/mL cZolpidem Quantification negative 10 ng/mL Carisoprodol Quantification negative 100 ng/mL Meprobamate Quantification negative 100 ng/mL Pentobarbital Quantification negative 200 ng/mL Phenobarbital Quantification negative 200 ng/mL Secobarbital Quantification negative 200 ng/mL Butalbital Quantification negative 200 ng/mL Amitriptyline Quantification negative 50 ng/mL Nortriptyline Quantification negative 50 ng/mL Imipramine Quantification negative 50 ng/mL Desipramine Quantification negative 50 ng/mL Cyclobenzaprine Quantification positive-77.067 50 ng/m L Dextromethorphan negative 50 ng/mL Levorphanol / Dextrorphan Quantification negative 50 ng/mL Phentermine Quantification negative 50 ng/mL Methamphetamine Quantification negative 100 ng/mL Cocaine metabolite Quantification negative 50 ng/m L cTHC (Marijuana metabolite) Quantification negative 15 ng/mL MDMA Quantification negative 100 ng/mL 6-CORBY (Heroin metabolite) Quantification negative 10 ng/mL Phencyclidine Quantification negative 10 ng/mL 4-ANPP Quantification Fen Neg 2 ng/mL Acetyl fentanyl Quantification Fen Neg 2 ng/mL Acetyl norfentanyl Quantification Fen Neg 5 ng/mL Acryl fentanyl Quantification Fen Neg 1 ng/mL Carfentanil Quantification Fen Neg 2 ng/mL Para-fluorofentanyl Quantification Fen Neg 1 ng/m L 2-methyl AP-237 Quantification negative 10 ng/mL Brorphine Quantification negative 15 ng/mL Metonitazene Quantification negative 5 ng/mL 8-aminoclonazolam Quantification negative 10 ng/mL Etizolam Quantification negative 10 ng/mL Alpha-hydroxyetizolam Quantification negative 10 n g/mL Flualprazolam Quantification negative 10 ng/mL Flubromazolam Quantification negative 10 ng/mL EGR007 metabolite Quantification negative 10 ng/mL MKA837 metabolite Quantification negative 10 ng/mL RCS4 metabolite Quantification negative 10 ng/mL XLR11/UR144 metabolite negative 10 ng/mL 5F-ADB-M7 negative 10 ng/mL MH-NFBYKPPB-I8 negative 10 ng/mL EQDJ-ZAFYNYHL-I5 negative 10 ng/mL Eutylone Quantification negative 10 ng/mL Methylone Quantification negative 3 ng/mL Xylazine Quantification negative 10 ng/mL 4-hydroxy Xylazine Quantification negative 10 ng/m L Mitragynine (Kratom alkaloid ) Quantification negative 1 ng/mL ng/mL 5-GW-Efjtzcrarop (Kratom alk aloid) Quantification negative 1 ng/mL ng/mL ETHANOL positive-164.100 20 mg/dL mg/dL Ethyl Glucuronide Quantification negative 500 ng/m L Ethyl Sulfate Quantification negative 500 ng/mL CREATININE (CHEMICAL) normal-29.1 >20 mg/dL mg/dL OXIDANT normal-0 <200 ug/mL ug/mL PH normal-4.5 4.5 - 9.5 SPECIFIC GRAVITY normal-1.008 1.003 - 1.035 [facility] Results (Not yet reviewed by provider) Interpretation: Performing Lab:[id number] [email or web address], [address] [facility] [address] Becca Barkley MD Notes/Report: Acetyl fentanyl: Fentanyl Negative. Acetyl norfentanyl: Fentanyl Negative. Acr yl fentanyl: Fentanyl Negative. Carfentanil: Fentanyl Negative. Para-fluorofent anyl: Fentanyl Negative. Codeine Quantification negative 50 ng/mL Morphine Quantification negative 50 ng/mL Hydrocodone Quantification negative 50 ng/mL Norhydrocodone Quantification negative 50 ng/mL Hydromorphone Quantification negative 50 ng/mL Oxycodone Quantification negative 50 ng/mL Noroxycodone Quantification negative 50 ng/mL Oxymorphone Quantification negative 50 ng/mL Fentanyl Quantification negative 1 ng/mL Norfentanyl Quantification negative 8 ng/mL Methadone Quantification negative 100 ng/mL EDDP (Methadone metabolite) Quantification negative 100 ng/mL Tramadol Quantification positive-7107.214 100 ng/mL Z-jxleltoxj-evqxkaou Quantification positive-3106.144 100 ng/mL R-Soxgcsygc-Eqnwnrbu Quantification positive-3722.215 100 ng/mL Alpha-Hydroxyalprazolam Quantification negative 20 ng/mL 9-Adkqf-Tyqcxpgfyi Quantification negative 20 ng/m L Lorazepam Quantification negative 40 ng/mL Nordiazepam Quantification negative 40 ng/mL Temazepam Quantification negative 50 ng/mL Oxazepam Quantification negative 40 ng/mL Amphetamine Quantification negative 100 ng/mL Methamphetamine Quantification negative 100 ng/mL Cocaine metabolite Quantification negative 50 ng/m L cTHC (Marijuana metabolite) Quantification negative 15 ng/mL 6-CORBY (Heroin metabolite) Quantification negative 10 ng/mL Acetyl fentanyl Quantification Fen Neg 2 ng/mL Acetyl norfentanyl Quantification Fen Neg 5 ng/mL Acryl fentanyl Quantification Fen Neg 1 ng/mL Carfentanil Quantification Fen Neg 2 ng/mL Para-fluorofentanyl Quantification Fen Neg 1 ng/m L Mitragynine (Kratom alkaloid ) Quantification negative 1 ng/mL 6-BM-Jkhmmvlhhwy (Kratom alk aloid) Quantification negative 1 ng/mL Ethyl Glucuronide Quantification negative 500 ng/m L Ethyl Sulfate Quantification negative 500 ng/mL [facility] Results (Not yet reviewed by provider) Interpretation: Performing Lab:[id number] [email or web address], [address] [facility] [facility] [address] Becca Barkley MD Notes/Report: Acetyl fentanyl: Fentanyl Negative. Acetyl norfentanyl: Fentanyl Negative. Acr yl fentanyl: Fentanyl Negative. Carfentanil: Fentanyl Negative. Para-fluorofent anyl: Fentanyl Negative. Codeine Quantification negative 50 ng/mL Morphine Quantification negative 50 ng/mL Hydrocodone Quantification negative 50 ng/mL Norhydrocodone Quantification negative 50 ng/mL Hydromorphone Quantification negative 50 ng/mL Oxycodone Quantification negative 50 ng/mL Noroxycodone Quantification negative 50 ng/mL Oxymorphone Quantification negative 50 ng/mL Fentanyl Quantification negative 1 ng/mL Norfentanyl Quantification negative 8 ng/mL Methadone Quantification negative 100 ng/mL EDDP (Methadone metabolite) Quantification negative 100 ng/mL Tramadol Quantification positive-> 84691 100 ng/mL G-yzpcugrqp-wunfaaqh Quantification positive-73894.721 100 ng/mL J-Fweobdbio-Hblmnntu Quantification positive-> 50874 1 00 ng/mL Alpha-Hydroxyalprazolam Quantification negative 20 ng/mL 0-Vuxth-Sfpcrvfaaq Quantification negative 20 ng/m L Lorazepam Quantification negative 40 ng/mL Nordiazepam Quantification negative 40 ng/mL Temazepam Quantification negative 50 ng/mL Oxazepam Quantification negative 40 ng/mL Amphetamine Quantification negative 100 ng/mL Methamphetamine Quantification negative 100 ng/mL Cocaine metabolite Quantification negative 50 ng/m L cTHC (Marijuana metabolite) Quantification negative 15 ng/mL 6-CORBY (Heroin metabolite) Quantification negative 10 ng/mL Acetyl fentanyl Quantification Fen Neg 2 ng/mL Acetyl norfentanyl Quantification Fen Neg 5 ng/mL Acryl fentanyl Quantification Fen Neg 1 ng/mL Carfentanil Quantification Fen Neg 2 ng/mL Para-fluorofentanyl Quantification Fen Neg 1 ng/m L Mitragynine (Kratom alkaloid ) Quantification negative 1 ng/mL 4-YY-Rtrnmywrjvd (Kratom alk aloid) Quantification negative 1 ng/mL Ethyl Glucuronide Quantification negative 500 ng/m L Ethyl Sulfate Quantification negative 500 ng/mL REASON FOR REFERRAL Reason Discuss options for RT SHOULDER fracture involving anterior and anteroinferior glenoid Diagnosis 1 Pain in right should er (M25.511) Referral Organization [facility] Referring Provider First Name Leland Referring Provider Last Name Winifred Referring Provider Speciality Pain Medic ine Referred Provider Ginny HAYDEN BRUCE Referred Provider Specialty Orthopedic S urgery Referral Priority Stat MEDICATIONS Medication SIG (Take, Route, Frequency, Duration) Notes Start Date End Date Status Atorvastatin Calcium 20 MG 1 tablet Oral Once a day Active Clopidogrel Bisulfate 75 MG 1 tablet Ora l Once a day Active NIFEdipine ER Osmotic Release 30 MG Oral for 30 Active Omeprazole 40 MG Oral for 90 A ctive Sertraline HCl 25 MG TAKE 1 TABLET BY MOUTH ONCE DAILY Oral for 30 Active Xanax 0.25 MG 1-2 tablets Orally 30 minutes prior to injection 11/28/2023 Active Cyclobenzaprine HCl 10 MG 1 tab as neede d orally every 12 hours PRN muscle spasms for 30 days 04/28/2023 Active Lidocaine 5 % 1 patch remove after 12 hours External Once a day Active Rybelsus 7 MG 1 tablet at least 30 minutes before first food, beverage or other oral medicine of the day Orally Once a day for 30 day(s) Active Methocarbamol 750 MG 1 tablet Oral every 8 hrs Active hydroCHLOROthiazide 25 MG 1 tablet in morning Oral Once a day Active EQ Aspirin Adult Low Dose 81 MG Oral for 90 Active Voltaren 1 % apply 4 grams to painful joint(s) Transdermal 4x/day as needed for pain for 30 days Active metFORMIN HCl 500 MG 1 tablet with a meal Orally Once a day for 30 day(s) Active traMADol HCl 50 MG 1 tablet as needed Orally 2x/day severe pain for 30 days MAY FILL 10/28/24 10/24/2024 Active Cymbalta 60 MG 1 capsule Orally Once a day Active Pregabalin 75 MG 1 capsule Orally every 12 hours 10/25/2022 Active Meloxicam 7.5 MG take 1 tablet by mouth twice daily Oral 2x/day for 30 days Active SOCIAL HISTORY Tobacco Use: Social History Observation Description Date Details (start date - stop date) Current Smoker NA - NA Sex Assigned At : Social History Observation Description Sex Assigned At Unknown Tobacco Use/Smoking Question Answer Notes Are you a current every day smoker Alcohol Screen (Audit-C) Question Answer Notes Did you have a drink containing alcohol in the p ast year? No Points 0 Interpretation Negative PROBLEMS Problem Type ICD Code Onset Dates Problem Status W/U Status Risk SNOMED Code Notes Problem Morbid (severe) obesity due to excess calories (E66.01) Active confirmed Morbid obesity (disorder) (815207831) Problem Fear of injections and transfusions (F40.231) Active confirmed Fear of medical treatment (134938598) Problem Unspecified osteoarthritis, unspecified site (M19.90) Active confirmed Osteoarthritis (088301134) Problem Sacroiliitis, not elsewhere classified (M46.1) Active confirmed Solitary sacroiliitis (321340582) Problem Spondylosis without myelopathy or radiculopathy, lumbar region (M47.816) Active confirmed Lumbosacral spondylosis without myelopathy (76200012) Problem Spondylosis without myelopathy or radiculopathy, lumbosacral region (M47.817) Active confirmed Lumbosacral spondylosis without myelopathy (disorder) (99570354) Problem Intervertebral disc disorders with radiculopathy, lumbar region (M51.16) Active confirmed Radiculopathy d ue to lumbar intervertebral disc disorder (874519583373081) Problem Other intervertebral disc degeneration, lumbar region (M51.36) Active confirmed Degeneration of lumbar intervertebral disc (06291133) Problem Other intervertebral disc degeneration, lumbosacral region (M51.37) Active confirmed Degeneration of lumbosacral intervertebral disc (80871730) Problem Radiculopathy, lumbar region (M54.16) Active confirmed Lumbar radiculopathy (482270414) Problem Radiculopathy, lumbosacral region (M54.17) Active confirmed Lumbosacral radiculopathy (6952404) Problem Postlaminectomy syndrome, not elsewhere classified (M96.1) Active confirmed Post-lami nectomy syndrome (11392212) Problem Osseous stenosis of neural canal of lumbar region (M99.33) Active confirmed Spinal stenosis of lumbar region (59971855) Problem 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) Active confirmed Spinal stenosis of lumbar region (97758895) Problem Osseous and subluxation stenosis of intervertebral foramina of lumbar region (M99.63) Active confirmed Spinal steno sis of lumbar region (39003357) Problem 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) Active confirmed Long-term curre nt use of anticoagulant (625981070) Problem 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) Active confirmed High risk drug monitoring status (771144185) Problem Spinal stenosis, lumbar region with neurogenic claudication (M48.062) Active confirmed Neurogenic claudication (699110050) VITAL SIGNS Heart Rate 78 /min 10/24/2024 Respiratory Rate 16 /min 10/24/2024 Oximetry 99 % 01/17/2024 Blood pressure diastolic 85 mm Hg 10/24/2024 Height 5 ft 5 in in 10/24/2024 Blood pressure systolic 123 mm Hg 10/24/2024 Weight 213 lbs 10/24/2024 BMI 35.44 kg/m2 10/24/2024 Encounters Encounter Location Date Provider Diagnosis [facility] [address] [facility] [place] [address] [place] [address] 11/28/2023 Leland Vitale Radiculopathy, lumbosacral region M54.17 ; Spondylosis without myelopathy or radiculopathy, lumbar region M47.816 ; Sacroiliitis, not elsewhere classified M46.1 ; Postlaminectomy syndrome, not elsewhere classified M96.1 ; Radiculopathy, lumbar region M54.16 ; 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 ; nursing home (current) use of opiate analgesic Z79.891 ; nursing home (current) use of non-steroidal anti-inflammatories (NSAID) Z79.1 and nursing home (current) use of anticoagulants Z79.01 [facility] [address] [place] [address] 12/05/2023 Leland Stynowick Radiculopathy, lumbosacral region M54.17 ; Other intervertebral disc degeneration, lumbosacral region M51.37 and Osseous stenosis of neural canal of lumbar region M99.33 [facility] [address] [place] [phone] 12/06/2023 Leland Stynowick [facility] [address] [place] [address] [place] [address] 12/26/2023 Leland Stynowick Radiculopathy, lumbosacral region M54.17 ; Spondylosis without myelopathy or radiculopathy, lumbar region M47.816 ; Sacroiliitis, not elsewhere classified M46.1 ; Postlaminectomy syndrome, not elsewhere classified M96.1 ; Radiculopathy, lumbar region M54.16 ; 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 ; 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 ; nursing home (current) use of non-steroidal anti-inflammatories (NSAID) Z79.1 and nursing home (current) use of anticoagulants Z79.01 [facility] [address] [place] [address] 01/16/2024 Leland Stpeggylianna [facility] [address] [place] [address] 01/17/2024 Leland Stynowick Spondylosis without myelopathy or radiculopathy, lumbar region M47.816 ; Spondylosis without myelopathy or radiculopathy, lumbosacral region M47.817 and 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 [facility] [address] [place] [address], [place] [address] 01/18/2024 Leland Stynowick [facility] [address] [place] [address] [place] [address] 01/25/2024 Leland Stynowick Radiculopathy, lumbosacral region M54.17 ; Spondylosis without myelopathy or radiculopathy, lumbar region M47.816 ; Sacroiliitis, not elsewhere classified M46.1 ; Postlaminectomy syndrome, not elsewhere classified M96.1 ; Radiculopathy, lumbar region M54.16 ; 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 ; 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 ; nursing home (current) use of non-steroidal anti-inflammatories (NSAID) Z79.1 and nursing home (current) use of anticoagulants Z79.01 [facility] [address] [place] [phone] 02/02/2024 Leland Stynowick Radiculopathy, lumbosacral region M54.17 [facility] [address] [place] [phone] 02/27/2024 Leland Stynowick Radiculopathy, lumbosacral region M54.17 ; Spondylosis without myelopathy or radiculopathy, lumbar region M47.816 ; Sacroiliitis, not elsewhere classified M46.1 ; Postlaminectomy syndrome, not elsewhere classified M96.1 ; Radiculopathy, lumbar region M54.16 ; 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 ; nursing home (current) use of opiate analgesic Z79.891 ; nursing home (current) use of non-steroidal anti-inflammatories (NSAID) Z79.1 and 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 Z79.01 [facility] [address] [place] [phone] 03/26/2024 Leland Stynowick Radiculopathy, lumbosacral region M54.17 ; Spondylosis without myelopathy or radiculopathy, lumbar region M47.816 ; Sacroiliitis, not elsewhere classified M46.1 ; Postlaminectomy syndrome, not elsewhere classified M96.1 ; Radiculopathy, lumbar region M54.16 ; 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 ; nursing home (current) use of opiate analgesic Z79.891 ; 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 terminal supervisor (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1 and 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 Z79.01 [facility] [address] [place] [phone] 05/29/2024 Leland Vitale Radiculopathy, lumbosacral region M54.17 ; Spondylosis without myelopathy or radiculopathy, lumbar region M47.816 ; Sacroiliitis, not elsewhere classified M46.1 ; Postlaminectomy syndrome, not elsewhere classified M96.1 ; Radiculopathy, lumbar region M54.16 ; 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 ; nursing home (current) use of opiate analgesic Z79.891 ; nursing home (current) use of non-steroidal anti-inflammatories (NSAID) Z79.1 and 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 Z79.01 [facility] [address] [place] [phone] 06/26/2024 Leland Vitale Radiculopathy, lumbosacral region M54.17 ; Spondylosis without myelopathy or radiculopathy, lumbar region M47.816 ; Sacroiliitis, not elsewhere classified M46.1 ; Postlaminectomy syndrome, not elsewhere classified M96.1 ; Radiculopathy, lumbar region M54.16 ; 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 ; 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 ; ferry terminal supervisor (current) use of non-steroidal anti-inflammatories (NSAID) Z79.1 and 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 Z79.01 [facility] [address] [place] [phone] 07/24/2024 Leland Vitale Radiculopathy, lumbosacral region M54.17 ; Spondylosis without myelopathy or radiculopathy, lumbar region M47.816 ; Sacroiliitis, not elsewhere classified M46.1 ; Postlaminectomy syndrome, not elsewhere classified M96.1 ; Radiculopathy, lumbar region M54.16 ; 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 ; nursing home (current) use of opiate analgesic Z79.891 ; nursing home (current) use of non-steroidal anti-inflammatories (NSAID) Z79.1 and 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 Z79.01 [facility] [address] [place] [phone] 08/21/2024 Leland Vitale Radiculopathy, lumbosacral region M54.17 ; Spondylosis without myelopathy or radiculopathy, lumbar region M47.816 ; Sacroiliitis, not elsewhere classified M46.1 ; Postlaminectomy syndrome, not elsewhere classified M96.1 ; Radiculopathy, lumbar region M54.16 ; 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 ; nursing home (current) use of opiate analgesic Z79.891 ; nursing home (current) use of non-steroidal anti-inflammatories (NSAID) Z79.1 and nursing home (current) use of anticoagulants Z79.01 [facility] [address] [place] [phone] 09/17/2024 Leland Vitale Radiculopathy, lumbosacral region M54.17 ; Spondylosis without myelopathy or radiculopathy, lumbar region M47.816 ; Sacroiliitis, not elsewhere classified M46.1 ; Postlaminectomy syndrome, not elsewhere classified M96.1 ; Radiculopathy, lumbar region M54.16 ; 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 ; 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 ; nursing home (current) use of non-steroidal anti-inflammatories (NSAID) Z79.1 and nursing home (current) use of anticoagulants Z79.01 [facility] [address] [place] [phone] 10/24/2024 Leland Vitale Radiculopathy, lumbosacral region M54.17 ; Spondylosis without myelopathy or radiculopathy, lumbar region M47.816 ; Sacroiliitis, not elsewhere classified M46.1 ; Postlaminectomy syndrome, not elsewhere classified M96.1 ; Radiculopathy, lumbar region M54.16 ; 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 ; nursing home (current) use of opiate analgesic Z79.891 ; nursing home (current) use of non-steroidal anti-inflammatories (NSAID) Z79.1 and nursing home (current) use of anticoagulants Z79.01 ASSESSMENTS Encounter Date Diagnosis Assessment Notes Treatment Notes Treatment Clinical Notes 11/28/2023 Spondylosis without myelopathy or radiculopathy, lumbar region (ICD-10 - M47.816) 11/28/2023 Radiculopathy, lumbosacral region (ICD-10 - M54.17) Schedule a bilateral S1 transforaminal epidural steroid injection. The risks of this procedure including pain, bleeding, infection, spinal headache, persistent spinal fluid leak, epidural hematoma, nerve damage, spinal cord injury, paralysis, total spinal anesthesia resulting in cardiopulmonary arrest/, respiratory distress requiring intubation, insomnia, hyperglycemia, hair loss, muscle atrophy, skin depigmentation, weight gain, fluid retention, adrenal suppression, immunosuppression, osteoporosis resulting in fractures, avascular necrosis of the hip, cataracts, bleeding gastric ulcer, worsening pain and failure to relieve pain were discussed and the patient is agreeable to proceeding at this time. The side effects of opioid analgesics including [...] to fully comply with the above. 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 The risks of this procedure including pain, bleeding, infection, nerve damage, spinal cord injury, paralysis, total spinal anesthesia resulting in cardiopulmonary arrest/, respiratory distress requiring intubation, neuritis after radiofrequency ablation, hyperglycemia, insomnia, hair loss, muscle atrophy, skin depigmentation, weight gain, fluid retention, adrenal suppression, osteoporosis resulting in fractures, avascular necrosis of the hip, cataracts, bleeding gastric ulcer, worsening pain and failure to relieve pain were discussed and the patient is agreeable to proceeding at this time. 12/26/2023 Radiculopathy, lumbosacral region (ICD-10 - M54.17) The [...] to fully comply with the above. The [place] PD[place] were reviewed and were appropriate 01/17/2024 Spondylosis without myelopathy or radiculopathy, lumbar region (ICD-10 - M47.816) 01/17/2024 Spondylosis without myelopathy or radiculopathy, lumbosacral region (ICD-10 - M47.817) 01/25/2024 Spondylosis without myelopathy or radiculopathy, lumbar region (ICD-10 - M47.816) 01/25/2024 Radiculopathy, lumbosacral region (ICD-10 - M54.17) The [...] to fully comply with the above. The [place] PD[place] were reviewed and were appropriate 02/02/2024 Radiculopathy, lumbosacral region (ICD-10 - M54.17) 02/27/2024 Spondylosis without myelopathy or radiculopathy, lumbar region (ICD-10 - M47.816) 02/27/2024 Radiculopathy, lumbosacral region (ICD-10 - M54.17) The [...] to fully comply with the above. The [facility] PDMP were reviewed and were appropriate 03/26/2024 Spondylosis without myelopathy or radiculopathy, lumbar region (ICD-10 - M47.816) 03/26/2024 Radiculopathy, lumbosacral region (ICD-10 - M54.17) The [...] to fully comply with the above. The [place] were reviewed and were appropriate 04/24/2024 Spondylosis without myelopathy or radiculopathy, lumbar region (ICD-10 - M47.816) 04/24/2024 Radiculopathy, lumbosacral region (ICD-10 - M54.17) The [...] to fully comply with the above. The [facility] PDMP were reviewed and were appropriate 05/29/2024 Spondylosis without myelopathy or radiculopathy, lumbar region (ICD-10 - M47.816) 05/29/2024 Radiculopathy, lumbosacral region (ICD-10 - M54.17) The [...] to fully comply with the above. The [place] PD[place] were reviewed and were appropriate 06/26/2024 Spondylosis without myelopathy or radiculopathy, lumbar region (ICD-10 - M47.816) 06/26/2024 Radiculopathy, lumbosacral region (ICD-10 - M54.17) The [...] to fully comply with the above. The [facility] PDMP were reviewed and were appropriate 07/24/2024 Spondylosis without myelopathy or radiculopathy, lumbar region (ICD-10 - M47.816) 07/24/2024 Radiculopathy, lumbosacral region (ICD-10 - M54.17) The [...] to fully comply with the above. 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 The [facility] PDMP were reviewed and were appropriate 09/17/2024 Spondylosis without myelopathy or radiculopathy, lumbar region (ICD-10 - M47.816) 09/17/2024 Radiculopathy, lumbosacral region (ICD-10 - M54.17) [...] to fully comply with the above. The [place] were reviewed and were appropriate 10/24/2024 Spondylosis without myelopathy or radiculopathy, lumbar region (ICD-10 - M47.816) 10/24/2024 Radiculopathy, lumbosacral region (ICD-10 - M54.17) [...] to fully comply with the above. The [place] PD[place] were reviewed and were appropriate 10/24/2024 Sacroiliitis, not elsewhere classified (ICD-10 - M46.1) 09/17/2024 Sacroiliitis, not elsewhere classified (ICD-10 - M46.1) 08/21/2024 Sacroiliitis, not elsewhere classified (ICD-10 - M46.1) 07/24/2024 Sacroiliitis, not elsewhere classified (ICD-10 - M46.1) 06/26/2024 Sacroiliitis, not elsewhere classified (ICD-10 - M46.1) 05/29/2024 Sacroiliitis, not elsewhere classified (ICD-10 - M46.1) 04/24/2024 Sacroiliitis, not elsewhere classified (ICD-10 - M46.1) 03/26/2024 Sacroiliitis, not elsewhere classified (ICD-10 - M46.1) 02/27/2024 Sacroiliitis, not elsewhere classified (ICD-10 - M46.1) 01/25/2024 Sacroiliitis, not elsewhere classified (ICD-10 - M46.1) 12/26/2023 Sacroiliitis, not elsewhere classified (ICD-10 - M46.1) 01/17/2024 Fear of injections and transfusions (ICD-10 - F40.231) 12/05/2023 Osseous stenosis of neural canal of lumbar region (ICD-10 - M99.33) 11/28/2023 Sacroiliitis, not elsewhere classified (ICD-10 - M46.1) 11/28/2023 Postlaminectomy syndrome, not elsewhere classified (ICD-10 - M96.1) 12/26/2023 Postlaminectomy syndrome, not elsewhere classified (ICD-10 - M96.1) 01/25/2024 Postlaminectomy syndrome, not elsewhere classified (ICD-10 - M96.1) 02/27/2024 Postlaminectomy syndrome, not elsewhere classified (ICD-10 - M96.1) 03/26/2024 Postlaminectomy syndrome, not elsewhere classified (ICD-10 - M96.1) 04/24/2024 Postlaminectomy syndrome, not elsewhere classified (ICD-10 - M96.1) 05/29/2024 Postlaminectomy syndrome, not elsewhere classified (ICD-10 - M96.1) 06/26/2024 Postlaminectomy syndrome, not elsewhere classified (ICD-10 - M96.1) 07/24/2024 Postlaminectomy syndrome, not elsewhere classified (ICD-10 - M96.1) 08/21/2024 Postlaminectomy syndrome, not elsewhere classified (ICD-10 - M96.1) 09/17/2024 Postlaminectomy syndrome, not elsewhere classified (ICD-10 - M96.1) 10/24/2024 Postlaminectomy syndrome, not elsewhere classified (ICD-10 - M96.1) 10/24/2024 Radiculopathy, lumbar region (ICD-10 - M54.16) 09/17/2024 Radiculopathy, lumbar region (ICD-10 - M54.16) 08/21/2024 Radiculopathy, lumbar region (ICD-10 - M54.16) 07/24/2024 Radiculopathy, lumbar region (ICD-10 - M54.16) 06/26/2024 Radiculopathy, lumbar region (ICD-10 - M54.16) 05/29/2024 Radiculopathy, lumbar region (ICD-10 - M54.16) 04/24/2024 Radiculopathy, lumbar region (ICD-10 - M54.16) 03/26/2024 Radiculopathy, lumbar region (ICD-10 - M54.16) 02/27/2024 Radiculopathy, lumbar region (ICD-10 - M54.16) 01/25/2024 Radiculopathy, lumbar region (ICD-10 - M54.16) 12/26/2023 Radiculopathy, lumbar region (ICD-10 - M54.16) 11/28/2023 Radiculopathy, lumbar region (ICD-10 - M54.16) 11/28/2023 Fear of injections and transfusions (ICD-10 - F40.231) The patient was given written instructions explaining the above and was informed that they would need to come with a package delivery driver after taking this medication due to the risk of impairment. 12/26/2023 Fear of injections and transfusions (ICD-10 - F40.231) Due to a severe fear of needles and injections, the patient is insisting on IV Sedation with this procedure. The patient was advised she may drink clear liquids up until 2 hours prior to the procedure, but was instructed not to eat for 8 hours prior to the procedure. The inherent risks of anesthesia up to and including airway obstruction potentially resulting in cardiac arrest and were also discussed and the patient is agreeable to proceeding at this time. 01/25/2024 Fear of injections and transfusions (ICD-10 - F40.231) 02/27/2024 Fear of injections and transfusions (ICD-10 - F40.231) 03/26/2024 Fear of injections and transfusions (ICD-10 - F40.231) 04/24/2024 Fear of injections and transfusions (ICD-10 - F40.231) 05/29/2024 Fear of injections and transfusions (ICD-10 - F40.231) 06/26/2024 Fear of injections and transfusions (ICD-10 - F40.231) 07/24/2024 Fear of injections and transfusions (ICD-10 - F40.231) 08/21/2024 Fear of injections and transfusions (ICD-10 - F40.231) 09/17/2024 Fear of injections and transfusions (ICD-10 - F40.231) 10/24/2024 Fear of injections and transfusions (ICD-10 - F40.231) 09/17/2024 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 08/21/2024 nursing home (current) use of opiate analgesic (ICD-10 - Z79.891) 07/24/2024 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 (ICD-10 - Z79.891) 06/26/2024 nursing home (current) use of opiate analgesic (ICD-10 - Z79.891) 10/24/2024 nursing home (current) use of opiate analgesic (ICD-10 - Z79.891) 05/29/2024 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 04/24/2024 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 (ICD-10 - Z79.891) 03/26/2024 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 (ICD-10 - Z79.891) 02/27/2024 nursing home (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 01/25/2024 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 12/26/2023 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 11/28/2023 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 (ICD-10 - Z79.891) 11/28/2023 nursing home (current) use of non-steroidal anti-inflammatories (NSAID) (ICD-10 - Z79.1) 12/26/2023 ferry terminal supervisor (current) use of non-steroidal anti-inflammatories (NSAID) (ICD-10 - Z79.1) 01/25/2024 nursing home (current) use of non-steroidal anti-inflammatories (NSAID) (ICD-10 - Z79.1) 02/27/2024 nursing home (current) use of non-steroidal anti-inflammatories (NSAID) (ICD-10 - Z79.1) 03/26/2024 ferry terminal supervisor (current) use of non-steroidal anti-inflammatories (NSAID) (ICD-10 - Z79.1) 04/24/2024 nursing home (current) use of non-steroidal anti-inflammatories (NSAID) (ICD-10 - Z79.1) 05/29/2024 nursing home (current) use of non-steroidal anti-inflammatories (NSAID) (ICD-10 - Z79.1) 10/24/2024 nursing home (current) use of non-steroidal anti-inflammatories (NSAID) (ICD-10 - Z79.1) 06/26/2024 nursing home (current) use of non-steroidal anti-inflammatories (NSAID) (ICD-10 - Z79.1) 07/24/2024 nursing home (current) use of non-steroidal anti-inflammatories (NSAID) (ICD-10 - Z79.1) 08/21/2024 ferry terminal supervisor (current) use of non-steroidal anti-inflammatories (NSAID) (ICD-10 - Z79.1) 09/17/2024 ferry terminal supervisor (current) use of non-steroidal anti-inflammatories (NSAID) (ICD-10 - Z79.1) 09/17/2024 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 (ICD-10 - Z79.01) 08/21/2024 nursing home (current) use of anticoagulants (ICD-10 - Z79.01) 07/24/2024 nursing home (current) use of anticoagulants (ICD-10 - Z79.01) 06/26/2024 nursing home (current) use of anticoagulants (ICD-10 - Z79.01) 10/24/2024 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 (ICD-10 - Z79.01) 05/29/2024 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 (ICD-10 - Z79.01) 04/24/2024 nursing home (current) use of anticoagulants (ICD-10 - Z79.01) 03/26/2024 nursing home (current) use of anticoagulants (ICD-10 - Z79.01) 02/27/2024 nursing home (current) use of anticoagulants (ICD-10 - Z79.01) 01/25/2024 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 (ICD-10 - Z79.01) 12/26/2023 nursing home (current) use of anticoagulants (ICD-10 - Z79.01) The patient was instructed to discontinue aspirin for 6 meloxicam for 4 days prior to the procedure. I made the patient aware that she will be at an increased risk for a thromboembolic event during this time and she is willing to accept this risk. The patient was instructed to notify her primary care physician and/or professional athletes coach to obtain clearance prior to discontinuing this medication. 11/28/2023 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 (ICD-10 - Z79.01) The patient was instructed to discontinue aspirin for 6 days prior to the procedure. I made the patient aware that she will be at an increased risk for a thromboembolic event during this time and she is willing to accept this risk. The patient was instructed to notify her primary care physician and/or professional athletes coach to obtain clearance prior to discontinuing this medication. 11/28/2023 Other The above-named patient was evaluated in [...] occurred. This note was dictated by BOBBY Barrientos 12/05/2023 Other The patient voiced understanding of the treatment plan and all questions were addressed. Obtain informed consent: Bilateral Sacral 1 Transforaminal Epidural Steroid Injection under fluoroscopy. Monitor pulse, blood pressure and SaO2 before, after and as needed during procedure. Verify if the patient is currently taking blood thinner. Verify patients is not currently on antibiotics for infection. Patient may drive home. CARE PLAN: Knowledge deficit: Will verbalize understanding of the proposed procedure, including risk of electrical burn, complications and benefits of the procedure? Will the patient exhibit understanding of the discharge instructions? Safety: The potential for injury related to surgery was assessed; Fire risk score determined, test completed if applicable. Risk for injury related to wrong patient, site, procedure. TIME OUT for safety of patient and includes patient name, , procedure site, side, level, allergies, blood thinners, antibiotics, surgical counts, consents correct and signed etc. Risk for infection: Implements aseptic technique, protects from cross-contamination, performs skin preparations. Pain/Discomfort: Patient verbalizes acceptable level of pain relief prior to discharge and the ability to engage in desired activity. I HAVE REVIEWED THE PATIENT'S MEDICATION LIST AND HAVE RECONCILED THE ABOVE MEDICATIONS. PATIENT GOALS AND SAFETY CONCERNS HAVE BEEN ADDRESSED. RN initials SW. Mark Cameron was present for the entire interview and physical examination, acting as a scribe for Dr. Leland Vitale. Some of the above chart information was entered by Mark Cameron. Dr. Vitale has reviewed and agrees with this portion of the documentation. The remainder of the above note was dictated by Dr. Vitale using voice recognition software and therefore inadvertent errors may have occurred. As a result, this note may not represent a completely accurate interpretation of the intended dictation provided. 12/26/2023 Other The above-named patient was evaluated in [...] occurred. This note was dictated by BOBBY Barrientos 01/17/2024 Other The patient voiced understanding of the treatment plan and all questions were addressed. Obtain informed consent: Bilateral Lumbar 1-3 Radiofrequency Ablation under fluoroscopy. Monitor pulse, blood pressure and SaO2 before, after and as needed during procedure. Verify if the patient is currently taking blood thinner. Verify patients is not currently on antibiotics for infection The patient may not drive home CARE PLAN: Knowledge deficit: Will verbalize understanding of the proposed procedure, including risk of electrical burn, complications and benefits of the procedure? Will the patient exhibit understanding of the discharge instructions? Safety: The potential for injury related to surgery was assessed; Fire risk score determined, test completed if applicable. Risk for injury related to wrong patient, site, procedure. TIME OUT for safety of patient and includes patient name, , procedure site, side, level, allergies, blood thinners, antibiotics, surgical counts, consents correct and signed etc. Risk for infection: Implements aseptic technique, protects from cross-contamination, performs skin preparations. Pain/Discomfort: Patient verbalizes acceptable level of pain relief prior to discharge and the ability to engage in desired activity. I HAVE REVIEWED THE PATIENT'S MEDICATION LIST AND HAVE RECONCILED THE ABOVE MEDICATIONS. PATIENT GOALS AND SAFETY CONCERNS HAVE BEEN ADDRESSED. RN initials SW. Mark Cameron was present for the entire interview and physical examination, acting as a scribe for Dr. Leland Vitale. Some of the above chart information was entered by Mark Cameron. Dr. Vitale has reviewed and agrees with this portion of the documentation. The remainder of the above note was dictated by Dr. Vitale using voice recognition software and therefore inadvertent errors may have occurred. As a result, this note may not represent a completely accurate interpretation of the intended dictation provided. 01/25/2024 Other The above-named patient was evaluated in [...] occurred. This note was dictated by BOBBY Barrientos 02/27/2024 Other The above-named patient was evaluated in [...] occurred. This note was dictated by BOBBY Barrientos 03/26/2024 Other The above-named patient was evaluated in [...] occurred. This note was dictated by BOBBY Barrientos 04/24/2024 Other The above-named patient was evaluated in [...] occurred. This note was dictated by BOBBY Barrientos 05/29/2024 Other The above-named patient was evaluated in [...] occurred. This note was dictated by BOBBY Barrientos 06/26/2024 Other The above-named patient was evaluated in [...] occurred. This note was dictated by BOBBY Barrientos 07/24/2024 Other The above-named patient was evaluated in [...] with Patient and Medical Decision Makin minutes 08/21/2024 Other The above-named patient was evaluated [...] with Patient and Medical Decision Makin minutes 09/17/2024 Other The above-named patient was evaluated [...] with Patient and Medical Decision Makin minutes 10/24/2024 Other The above-named patient was evaluated [...] Medical Decision Makin minutes PLAN OF TREATMENT Pending Test Test Name Order Date MRI : Lumbar Spine with and without Cont rast ([id number]) 10/14/2020 [facility] 05/24/2022 [facility] 07/22/2022 [facility] 10/25/2022 [facility] 06/28/2023 [facility] 07/17/2023 [facility] 10/18/2023 [facility] 01/25/2024 [facility] 02/29/2024 [facility] 06/05/2024 [facility] 09/16/2024 Next Appt Details Provider Name:Leland martinez, 11/21/2024 02:30:00 PM, [address] [place], [address], Insurance Providers Payer Name Payer Address Payer Phone Subscriber Number Group Number Insured Name Patient Relationship to Insured Coverage Start Date Coverage End Date [facility] [address] [place] [phone] [id number] FRANK PENALOZA Self - patient is the insured MEDICAL (GENERAL) HISTORY Medical History History ICD Code Depression Left foot crush injury Hypertension Type 2 Diabetes Stroke CVA -06/2023 Surgical History Surgery Date(Month/Year) Anterior decompression and fusion L4-5 & L5-S1 --Dr. Zuñiga 11/06/13 & 11/08/13
--- OUTSIDE RECORDS SUMMARY | 2024-11-12 12:55 | XMS_ITS | Patient Health Summary ---
Author Organization [facility] Address [address] [place] [address] Care Team Providers Care Patient Transport Orderly Name Role Phone Unavailable Primary Care Provider Unavailabl e Note from [facility],non-owned Affiliates and Associated Physician Practices is amultiple site organization consisting of ambulatory clinics and hospital sitesin [place], [place], [place] and [place]. This disclosure is being madepursuant to the Care Everywhere program and may not contain all information available regarding this patient. Last updated 18.[facility] Social History Tobacco Use Types Packs/Day Years Used Date Smoking Tobacco: Never Assessed Sex and Gender Information Value Date Recorded Sex Assigned at Not on file Gender Identity Not on file Sexual Orientation Not on file
--- OUTSIDE RECORDS SUMMARY | 2024-11-12 12:55 | XMS_ITS | Clinical Summary ---
Author Organization [facility] Address [address] [place] [address]. [place], [place] [address] [place] [id number] Care Team Providers Care Engineering Model Maker Name Role Phone Unavailable Primary Care Provider [...]
[2024-11-12 12:59] VITALS: BP 135/71; PULSE 86; RESP 16; O2SAT 98
--- NOTE | 2024-11-12 13:00 | ED.GENADULT ---
HPI - General Adult General Chief complaint: Extremity Injury, Lower Stated complaint: fall, L knee pain Time Seen by Provider: 11/12/24 11:43 History of Present Illness HPI narrative: This 59-year-old female presenting after slip and fall. She is walking on ice when she slipped falling down and landing on her knees. She has now has severe pain in her left knee and is unable to bear weight. No other injuries. Related Data Home Medications ?Medication ?Instructions ?Recorded ?Confirmed ?Last Taken ?Type tramadol 50 mg tablet 50 mg PO BID PRN Pain 11/05/20 08/22/24 08/22/24 History omeprazole 40 mg capsule,delayed 40 mg DAILY 08/22/24 08/22/24 08/22/24 History release Allergies Allergy/AdvReac Type Severity Reaction Status Date / Time No Known Drug Allergies Allergy Unknown none Verified 08/23/24 11:46 [facility] Past Medical History Medical History Dyslipidemia Cerebrovascular accident no residual deficits Type 2 diabetes mellitus Hypertension Adenomatous colon polyp Obesity Surgical History Surgical History History of section History of lumbosacral spine surgery fusion and cages L4-S1 History of colonoscopy with polypectomy Family History Family History Unknown Diabetes mellitus Hypertension Mother Diabetes mellitus Hypertension Social History Social History Social History: Surrogate medical decision maker: Sammy Howardatt, spouse. Code status: Full code. Smoking packs per day: 0.5 Smoking cigarettes per day: 10.0 Years smoked: 15 Smoking pack-years: 7.50 Smoking status: Former smoker Tobacco type: cigarettes Alcohol intake: never Substance use: never Substance use type: does not use Do You Feel Safe in your Home?: Yes Lack of Transportation: No Lack of Food: Never True Current Housing: I Have Housing Concerned About Future Housing: Decline to Answer Difficulty Paying Gas/Electric Bills: Decline to Answer Difficulty Paying for Meds: Decline to Answer Currently Unemployed: Decline to Answer Education: Decline to Answer Difficulty w/ Childcare or Family Care: Decline to Answer Living arrangements: with family Additional living arrangements comments: Lives in [place] with . Occupation/Education: retired Additional occupation/education comments: On disability since a back injury at work. Spiritual care concerns: No Exam Narrative: APPEARANCE: No apparent distress. Head: atraumatic. EYES: EOMI, NOSE: Atraumatic NECK: Trachea midline RESPIRATORY: No increased rate of breathing CARDIOVASCULAR: RRR, ABDOMINAL: Non-distended MUSCULOSKELETAl: Focal exam of the left knee revealed swelling and mild bruising. Exquisitely tender with palpation in any sort of movement. Foot is neurovascularly intact. Focal exam of the right knee revealed small abrasion but no significant injury. No pain on movement. It is neurovascularly intact. NEURO: Alert. Moving 4/4 extremities SKIN:: Warm, dry. Normal color PSYCHIATRIC: Normal affect Course Vital Signs Vital signs: Vital Signs Temperature 97.6 F 11/12/24 09:43 Pulse Rate 101 H 11/12/24 09:43 Respiratory Rate 18 11/12/24 09:43 Blood Pressure 152/78 H 11/12/24 09:43 Pulse Oximetry 99 11/12/24 09:43 Oxygen Delivery Room Air 11/12/24 09:43 Temperature 97.6 F 11/12/24 09:43 Pulse Rate 70 11/12/24 15:05 Respiratory Rate 14 11/12/24 15:05 Blood Pressure 125/64 11/12/24 15:05 Pulse Oximetry 100 11/12/24 15:05 Oxygen Delivery Room Air 11/12/24 09:43 Medical Decision Making MDM Narrative Medical decision making narrative: -Course: 59-year-old female presenting after a slip fall. X-ray/ CT showed a comminuted tibial plateau fracture. Case was discussed with Dr. Garcia he feels she better served at a tertiary care center. Patient was accepted at the [facility] ED by Dr. Beard. Patient transferred via BLS ambulance. -DDX includes but is not limited to: Bony injury, soft tissue -Co-morbidities complicating care: Obesity history of CVA hypertension diabetes -Independent interpretation of studies: Labs and imaging reviewed -Interventions: Dilaudid -Shared decision making / Disposition:transferred Vital Signs Vital Signs: Vital Signs Temperature 97.6 F 11/12/24 09:43 Pulse Rate 101 H 11/12/24 09:43 Respiratory Rate 18 11/12/24 09:43 Blood Pressure 152/78 H 11/12/24 09:43 Pulse Oximetry 99 11/12/24 09:43 Oxygen Delivery Room Air 11/12/24 09:43 Temperature 97.6 F 11/12/24 09:43 Pulse Rate 70 11/12/24 15:05 Respiratory Rate 14 11/12/24 15:05 Blood Pressure 125/64 11/12/24 15:05 Pulse Oximetry 100 11/12/24 15:05 Oxygen Delivery Room Air 11/12/24 09:43 Lab Data 11/12/24 13:19 11/12/24 13:18 Labs: Lab Results 11/12/24 11/12/24 11/12/24 Range/Units 13:18 13:19 13:20 WBC 15.8 H (4.5-10.0) K/mm3 RBC 4.35 (4.2-5.4) M/mm3 Hgb 12.3 (12.0-15.0) g/dL Hct 36.5 L (37.0-47.0) % MCV 83.9 (80-100) fl MCH 28.3 (26-34) pg MCHC 33.7 (32-36) g/dl RDW 12.7 (11.5-14.5) % Plt Count 207 (150-375) k/mm3 MPV 11.1 H (7.4-10.4) fl Immature Gran % (Auto) 0.4 (0-0.5) % Neut % (Auto) 88.2 H (45.5-73.1) % Lymph % (Auto) 7.4 L (18.3-44.2) % [place] % (Auto) 3.5 (2.6-8.5) % Eos % (Auto) 0.2 (0-4.4) % Baso % (Auto) 0.3 (0.2-1.2) % Lymph # (Auto) 1.17 (0.9-3.2) K/mm3 [place] # (Auto) 0.6 (0.1-0.6) K/mm3 Eos # (Auto) 0.0 (0-0.3) K/mm3 Baso # (Auto) 0.0 (0.0-0.1) K/mm3 Abs Immat Gran (auto) 0.07 H (0.00-0.031) K/mm3 Absolute Neuts (auto) 13.9 H (1.3-6.7) K/mm3 Absolute Nucleated RBC 0.000 (0.0-0.012) K/mm3 Nucleated RBC % 0.0 (0.0-0.2) % PT 13.1 (11.1-14.7) Seconds INR 1.0 APTT 20.0 L (22.3-36.8) Seconds Sodium 138 (137-145) mmol/L Potassium 4.3 (3.4-5.0) mmol/L Chloride 102 (98-107) mmol/L Carbon Dioxide 22 (22-30) mmol/L Anion Gap 14 H (4-12) mmol/L BUN 12 D (7-17) mg/dL Creatinine 1.01 H (0.7-1.0) mg/dL Estim Creat Clear Calc 59 ml/min Estimated GFR 56 L (59 - ) Glucose 206 H (65-110) mg/dL Calcium 9.2 (8.4-10.2) mg/dL Total Bilirubin 0.5 (0.2-1.3) mg/dL AST 27 (14-36) U/L ALT 22 (6-35) U/L Alkaline Phosphatase 130 H (38-126) U/L Total Protein 8.0 (6.3-8.2) g/dL Albumin 4.4 (3.5-5.1) g/dL Urine Color Yellow (Yellow) Urine Appearance Clear (Clear) Urine pH 5.5 (5.0-9.0) Ur Specific [place] 1.008 (1.001-1.035) Urine Protein Negative (Negative) mg/dL Urine Glucose (UA) Negative (Negative) mg/dL Urine Ketones Negative (Negative) mg/dL Ur Blood (Man) Negative (Negative) Urine Nitrate Negative (Negative) Urine Bilirubin Negative (Negative) Urine Urobilinogen 0.2 (<2.0) mg/dL Leukocyte Esterase Rfl Negative (Negative) KARTHIKEYAN/UL Discharge Plan Discharge Clinical Impression: Fracture of tibial plateau Patient Disposition: Acute Care Hospital Condition: Stable Patient Language: Ukrainian Prescriptions: No Action tramadol 50 mg tablet 50 mg PO BID PRN (Reason: Pain) atorvastatin 40 mg Tablet 80 mg PO DAILY Qty: 60 0RF clopidogrel 75 mg Tablet 75 mg PO QAM Qty: 60 0RF aspirin [Children's Aspirin] 81 mg Tablet,Chewable 81 mg PO DAILY@0800 Qty: 60 0RF metformin 500 mg tablet 500 mg PO BID Qty: 60 0RF omeprazole 40 mg capsule,delayed release(DR/EC) 40 mg DAILY Follow-up/Referrals: Yoko,Paco Lea MD [Primary Care Provider] -
[2024-11-12] MEDS: HYDROmorphone HCL INJ (*CRX) 1 MG/ML SYR 0.5 MG IV PUSH ×2 (13:02→16:21)
[2024-11-12] MEDS: TETANUS,DIPHTHERIA,AC PERTUSSIS ADULT (0.5 ML) BOOSTRIX IM (13:32)
[2024-11-12 13:47] LABS: Add Urine Microscopic? NO; Appearance Urine Clear (Clear); Bilirubin Urine Negative (Negative); Blood Urine Negative (Negative); Color Urine Yellow (Yellow); Glucose Urine UA Negative (Negative); Ketones Urine Negative (Negative); Leukocyte Esterase Ur Negative LEU/UL (Negative); Nitrate Urine Negative (Negative); Protein Urine Negative (Negative); Specific Grav Ur 1.008 (1.001-1.035); Urobilinogen Urine 0.2 mg/dL (<2.0); pH Urine 5.5 (5.0-9.0)
[2024-11-12 13:50] LABS: Basophils Percent Auto 0.3 % (0.2-1.2); Eosinophils Percent Auto 0.2 % (0-4.4); Hematocrit 36.5 % (37.0-47.0); Hemoglobin 12.3 g/dL (12.0-15.0); Immature Granulocyte Absolute 0.07 K/mm3 (0.00-0.031); Immature Granulocyte Percent A 0.4 % (0-0.5); Lymphocytes Absolute Auto 1.17 K/mm3 (0.9-3.2); Lymphocytes Percent Auto 7.4 % (18.3-44.2); Mean Corpuscular HGB Conc 33.7 g/dl (32-36); Mean Corpuscular Hemoglobin 28.3 pg (26-34); Mean Corpuscular Volume 83.9 fl (80-100); Mean Platelet Volume 11.1 fl (7.4-10.4); Monocytes Absolute Auto 0.6 K/mm3 (0.1-0.6); Monocytes Percent Auto 3.5 % (2.6-8.5); Neutrophils Absolute Auto 13.9 K/mm3 (1.3-6.7); Neutrophils Percent Auto 88.2 % (45.5-73.1); Platelet Count Result 207 k/mm3 (150-375); Red Blood Count 4.35 M/mm3 (4.2-5.4); Red Cell Distribution Width 12.7 % (11.5-14.5); White Blood Count 15.8 K/mm3 (4.5-10.0)
[2024-11-12 13:55] LABS: Prothrombin Time 13.1 Seconds (11.1-14.7)
[2024-11-12 13:58] LABS: Alanine Aminotransferase 22 U/L (6-35); Albumin Level 4.4 g/dL (3.5-5.1); Alkaline Phosphatase 130 U/L (38-126); Anion Gap 14 mmol/L (4-12); Aspartate Amino Transferase 27 U/L (14-36); Bilirubin,Total 0.5 mg/dL (0.2-1.3); Blood Urea Nitrogen 12 mg/dL (7-17); Calcium 9.2 mg/dL (8.4-10.2); Carbon Dioxide 22 mmol/L (22-30); Chloride 102 mmol/L (98-107); Estimated CRCL calculation 59 ml/min; Estimated Glomerular Filt Rate 56; Glucose 206 mg/dL (65-110); Potassium 4.3 mmol/L (3.4-5.0); Sodium 138 mmol/L (137-145)
[2024-11-12 15:05] VITALS: BP 125/64; PULSE 70; RESP 14; O2SAT 100
[2024-11-12 16:20] VITALS: BP 136/66; PULSE 78; RESP 14; O2SAT 100
--- NOTE | 2024-11-12 16:25 | PC.NURSE ---
alerted this RN that they have new insurance and it has not yet been updated in [facility]'s system. Registration notified and to bedside at this time.
--- NOTE | 2024-11-12 16:34 | PC.NURSE ---
Per CT, images pushed to [place]. assembly technician to also make disc of images.
== END 2024-11-12 17:27 | disposition short-term general hospital (02) ==
PROVIDERS: Emergency Provider Emergency Medicine; PCP Family Medicine
DX: S82.141A Displaced bicondylar fracture of right tibia, initial encounter for closed fracture (principal); E78.5 Hyperlipidemia, unspecified; Z86.73 Personal history of transient ischemic attack (TIA), and cerebral infarction without residual deficits; E11.9 Type 2 diabetes mellitus without complications; I10 Essential (primary) hypertension; W00.0XXA Fall on same level due to ice and snow, initial encounter; Z23 Encounter for immunization
CPT/HCPCS: 36415; 71045; 73564; 73700; 80053; 81003; 85025; 85610; 85730; 90471; 90715; 93005; 96374; 96376; 99285; J1171

== ENCOUNTER 2025-02-13 16:11 | Emergency (ER) | payer BC, SELFPAY ==
--- NOTE | ~2025-02-13 | US_ITS ---
LEFT LOWER EXTREMITY VENOUS ULTRASOUND Ordering provider: Jose Maria Amos MD History: . left leg pain . Comparison: None. FINDINGS: --COMMON FEMORAL: Patent and free of thrombus. Normal compressibility, phasic flow and augmentation. --PROXIMAL SUPERFICIAL FEMORAL: Patent and free of thrombus. Normal compressibility, phasic flow and augmentation. --DISTAL SUPERFICIAL FEMORAL: Patent and free of thrombus. Normal compressibility, phasic flow and au gmentation. --POPLITEAL: Patent and free of thrombus. Normal compressibility, phasic flow and augmentation. --POSTERIOR TIBIAL: Patent and free of thrombus. Normal compressibility, phasic flow and augmentation . Thrombosis in the gastrocnemius vein. IMPRESSION: deep vein thrombosis in the left gastrocnemius vein.. No DVT seen above the knee. Dr. Amos was notified with the result of the patient at the time of dictation 5:28 PM on February 13 025 Reviewed, dictated and finalized at location A. IMPRESSION: deep vein thrombosis in the left gastrocnemius vein.. No DVT seen above the kne e. Dr. Amos was notified with the result of the patient at the time of dictati on 5:28 PM on February 13, 2025
--- NOTE | ~2025-02-13 | XR_ITS ---
XR tibia fibula LT 2V Ordering provider: Jose Maria Amos MD History: . PAIN . Comparison: November 12, 2024 FINDINGS: BONES: Postoperative changes in the proximal tibia with healing fracture in the proximal metaphysis o f the left tibia which is extending to the joint space. JOINT SPACES: Slight narrowing of the lateral compartment. SOFT TISSUES: Normal. IMPRESSION: Healing fracture in the proximal tibia with postoperative changes. Reviewed, dictated and finalized at location A.
--- NOTE | ~2025-02-13 | XR_ITS ---
HISTORY: knee pain COMPARISON: 11/12/2024 TECHNIQUE: 3 views of the left knee were performed FINDINGS: Redemonstration of a comminuted mildly displaced tibial plateau fracture with extension into the jacqui cular surface, now traversed by orthopedic hardware. Transverse lucencies within the distal femur and mid tibia, likely related to prior external fixation . Trace callus formation is appreciated. Suprapatellar joint effusion. The infrapatellar joint space is clear. IMPRESSION: As above Reviewed, dictated and finalized at location A. IMPRESSION: As above
--- OUTSIDE RECORDS SUMMARY | 2025-02-13 16:14 | XMS_ITS ---
Author Organization [facility] Address [address] [place] [address] C[place]arcon [address] Care Team Providers Care Sand Slinger Name Role Phone JOESPH MORENO MD Primary Care Provider Leland Watson Unavailable [phone] ALLERGIES No Known Allergies REASON FOR VISIT follow up, Left > Right Low Back Pain, Left > Right Lower Extremity Pain MEDICATIONS Medication SIG (Take, Route, Frequency, Duration) Notes Start Date End Date Status EQ Aspirin Adult Low Dose 81 MG Oral for 90 Active traMADol HCl 50 MG 1 tablet as needed Orally 2x/day severe pain for 30 days MAY FILL 02/15/25 02/13/2025 Active Xanax 0.25 MG 1-2 tablets Orally 30 minutes prior to injection 11/28/2023 Active Methocarbamol 750 MG 1 tablet Oral every 8 hrs Active Lidocaine 5 % 1 patch remove after 12 hours External Once a day Active Cymbalta 60 MG 1 capsule Orally Once a day Active Omeprazole 40 MG Oral for 90 A ctive Clopidogrel Bisulfate 75 MG 1 tablet Ora l Once a day Active Meloxicam 7.5 MG take 1 tablet by mouth twice daily Oral 2x/day for 30 days Active Pregabalin 75 MG 1 capsule Orally every 12 hours 10/25/2022 Active Voltaren 1 % apply 4 grams to painful joint(s) Transdermal 4x/day as needed for pain for 30 days Active hydroCHLOROthiazide 25 MG 1 tablet in th e morning Oral Once a day Active metFORMIN HCl 500 MG 1 tablet with a meal Orally Once a day for 30 day(s) Active Rybelsus 7 MG 1 tablet at least 30 minutes before first food, beverage or other oral medicine of the day Orally Once a day for 30 day(s) Active Cyclobenzaprine HCl 10 MG 1 tab as neede d orally every 12 hours PRN muscle spasms for 30 days 04/28/2023 Active Sertraline HCl 25 MG TAKE 1 TABLET BY MOUTH ONCE DAILY Oral for 30 Active NIFEdipine ER Osmotic Release 30 MG Oral for 30 Active Atorvastatin Calcium 20 MG 1 tablet Oral Once a day Active SOCIAL HISTORY Tobacco Use: Social History Observation Description Date Details (start date - stop date) Current Smoker NA - NA Sex Assigned At : Social History Observation Description Sex Assigned At Unknown Tobacco Use/Smoking Question Answer Notes Are you a current every day smoker VITAL SIGNS Blood pressure systolic 138 mm Hg 02/14/20 25 Blood pressure diastolic 74 mm Hg 025 Heart Rate 72 /min 02/13/2025 Respiratory Rate 16 /min 02/13/2025 Height 5 ft 5 in in 02/13/2025 Weight 211 lbs 02/13/2025 BMI 35.11 kg/m2 02/13/2025 Encounters Encounter Location Date Provider Diagnosis [facility] [address] [place] [address] 02/13/2025 Leland Vitale Radiculopathy, lumbosacral region M54.17 ; Spondylosis without myelopathy or radiculopathy, lumbar region M47.816 ; Sacroiliitis, not elsewhere classified M46.1 ; Postlaminectomy syndrome, not elsewhere classified M96.1 ; Radiculopathy, lumbar region M54.16 ; 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 ; half-way (current) use of opiate analgesic Z79.891 ; half-way (current) use of non-steroidal anti-inflammatories (NSAID) Z79.1 and oysterman (current) use of anticoagulants Z79.01 ASSESSMENTS Encounter Date Diagnosis Assessment Notes Treatment Notes Treatment Clinical Notes 02/13/2025 Radiculopathy, lumbosacral region (ICD-10 - M54.17) The [...] to fully comply with the above. The [place] and [place] PDMP were reviewed and were appropriate 02/13/2025 Spondylosis without myelopathy or radiculopathy, lumbar region (ICD-10 - M47.816) 02/13/2025 Sacroiliitis, not elsewhere classified (ICD-10 - M46.1) 02/13/2025 Postlaminectomy syndrome, not elsewhere classified (ICD-10 - M96.1) 02/13/2025 Radiculopathy, lumbar region (ICD-10 - M54.16) 02/13/2025 Fear of injections and transfusions (ICD-10 - F40.231) 02/13/2025 half-way (current) use of opiate analgesic (ICD-10 - Z79.891) 02/13/2025 oysterman (current) use of non-steroidal anti-inflammatories (NSAID) (ICD-10 - Z79.1) 02/13/2025 half-way (current) use of anticoagulants (ICD-10 - Z79.01) 02/13/2025 Other The above-named patient was evaluated in [...] rally 2x/day severe pain for 30 days 02/13/2025 MAY FILL 02/15/25 Treatment Notes Assessment Notes Radiculopathy, lumbosacral region [...] to fully comply with the above. The [place] and [place] PDMP were reviewed and were appropriate Other [...] Weeks OPV, Reas on: Provider Name:Leland silvalianna, 03/17/2025 01:15:00 PM, [address] [place] [address], [id number], Progress Notes * Examination Category Sub-Category [...] patient's typical axial low back pain. Yuliana's, [place]'s and [place]'s are positive bilaterally. There is [...] 5 strength at the bilateral EHL , Skin: Clean, dry and intac t Psychiatric: Mood and affect are normal History and [...] of residual disc bulge, bilateral facet arthropathy. [id number] bilateral neuroforaminal stenosis. L5-S1: No evidence of [...]
--- OUTSIDE RECORDS SUMMARY | 2025-02-13 16:14 | XMS_ITS | Patient Health Record ---
Author Organization [facility] Address [address] [place] [address] CANDICE Alarcon [id number] Care Team Providers Care Insulation Blanket Maker Name Role Phone JOESPH MORENO MD Primary Care Provider Nahum zachary Winifred Leland Unavailable [phone] ALLERGIES No Known Allergies RESULTS Component Value Reference Range Notes [facility] Results (Not yet reviewed by provider) Interpretation: Performing Lab:[id number] [employer], [address] [address] [facility] [address] Becca Barkley MD Notes/Report: 4-ANPP: Fentanyl Negative. [...] 100 ng/mL Tramadol Quantification positive-1382.931 100 ng/mL X-obgusmida-kfnngdbq Quantification positive-697.748 1 00 ng/mL B-Kthzthmlg-Btvovxsa Quantification positive-433.749 1 00 ng/mL Tapentadol Quantification negative 50 ng/mL Meperidine Quantification negative 50 ng/mL Normeperidine Quantification negative 50 ng/mL Alpha-Hydroxyalprazolam Quantification negative 20 ng/mL 3-Wbpfq-Uncwyevewo Quantification negative 20 ng/m L Lorazepam Quantification [...] 10 ng/mL Flubromazolam Quantification negative 10 ng/mL TGE123 metabolite Quantification negative 10 ng/mL MDH517 metabolite Quantification negative 10 ng/mL RCS4 metabolite Quantification negative 10 ng/mL XLR11/UR144 metabolite negative 10 ng/mL 5F-ADB-M7 negative 10 ng/mL EO-KOOEKOEI-R6 negative 10 ng/mL BCAI-UFAKOZHM-H6 negative 10 ng/mL Eutylone Quantification negative 10 ng/mL Methylone Quantification negative 3 ng/mL Xylazine Quantification negative 10 ng/mL 4-hydroxy Xylazine Quantification negative 10 ng/m L Mitragynine (Kratom alkaloid ) Quantification negative 1 ng/mL ng/mL 7-PU-Vtkcjzolwjd (Kratom alk aloid) Quantification negative 1 ng/mL ng/mL ETHANOL positive-164.100 20 mg/dL mg/dL Ethyl Glucuronide Quantification negative 500 ng/m L Ethyl Sulfate Quantification negative 500 ng/mL CREATININE (CHEMICAL) normal-29.1 >20 mg/dL mg/dL OXIDANT normal-0 <200 ug/mL ug/mL PH normal-4.5 4.5 - 9.5 SPECIFIC GRAVITY normal-1.008 1.003 - 1.035 [employer] Results (Not yet reviewed by provider) Interpretation: Performing Lab:[id number] [employer], [address] [address] [facility] [address] Becca Barkley MD Notes/Report: Acetyl fentanyl: Fentanyl [...] 100 ng/mL Tramadol Quantification positive-7107.214 100 ng/mL F-gnkmhxcek-sokfriqu Quantification positive-3106.144 100 ng/mL A-Jjjevrhzk-Sfqorsfw Quantification positive-3722.215 100 ng/mL Alpha-Hydroxyalprazolam Quantification negative 20 ng/mL 3-Yifod-Jndrwagdwi Quantification negative 20 ng/m L Lorazepam Quantification [...] (Kratom alkaloid ) Quantification negative 1 ng/mL 1-IU-Chickwrgime (Kratom alk aloid) Quantification negative 1 ng/mL Ethyl Glucuronide Quantification negative 500 ng/m L Ethyl Sulfate Quantification negative 500 ng/mL [facility] Results (Not yet reviewed by provider) Interpretation: Performing Lab:[id number] [employer] [address] [address] [facility] [address] Becca Barkley MD Notes/Report: Acetyl fentanyl: Fentanyl [...] Quantification negative 100 ng/mL Tramadol Quantification positive-> 10186 100 ng/mL F-jpoygmzzc-woredqcz Quantification positive-25214.721 100 ng/mL P-Ktszenfwr-Ipiwxdrq Quantification positive-> 38736 1 00 ng/mL Alpha-Hydroxyalprazolam Quantification negative 20 ng/mL 4-Uxwkb-Uligkcyprg Quantification negative 20 ng/m L Lorazepam Quantification [...] (Kratom alkaloid ) Quantification negative 1 ng/mL 4-RZ-Cqfgjstqdam (Kratom alk aloid) Quantification negative 1 ng/mL Ethyl Glucuronide Quantification negative 500 ng/m L Ethyl Sulfate Quantification negative 500 ng/mL [employer] Results (Not yet reviewed by provider) Interpretation: Performing Lab:[id number] [employer], [address] [address] [facility] [address] Becca Barkley MD Notes/Report: Acetyl fentanyl: Fentanyl [...] metabolite) Quantification negative 100 ng/mL Tramadol Quantification positive-84966.703 100 ng/mL F-crblxisgy-ondbazzo Quantification positive-8291.474 100 ng/mL A-Tuknvzrbi-Cnikejay Quantification positive-8685.501 100 ng/mL Alpha-Hydroxyalprazolam Quantification negative 20 ng/mL 2-Bzhjv-Yocoiyfzjc Quantification negative 20 ng/m L Lorazepam Quantification [...] (Kratom alkaloid ) Quantification negative 1 ng/mL 0-OK-Yywiuytjsgz (Kratom alk aloid) Quantification negative 1 ng/mL [...] Duration) Notes Start Date End Date Status Voltaren 1 % apply 4 grams to painful joint(s) Transdermal 4x/day as needed for pain for 30 days Active hydroCHLOROthiazide 25 MG 1 tablet in th e morning Oral Once a day Active EQ Aspirin Adult Low Dose 81 MG Oral for 90 Active Cymbalta 60 MG 1 capsule Orally Once a day Active traMADol HCl 50 MG 1 tablet as needed Orally 2x/day severe pain for 30 days MAY FILL 02/15/25 02/13/2025 Active metFORMIN HCl 500 MG 1 tablet with a meal Orally Once a day for 30 day(s) Active Sertraline HCl 25 MG TAKE 1 TABLET BY MOUTH ONCE DAILY Oral for 30 Active Xanax 0.25 MG 1-2 tablets Orally 30 minutes prior to injection 11/28/2023 Active NIFEdipine ER Osmotic Release 30 MG Oral for 30 Active Omeprazole 40 MG Oral for 90 A ctive Rybelsus 7 MG 1 tablet at least 30 minutes before first food, beverage or other oral medicine of the day Orally Once a day for 30 day(s) Active Methocarbamol 750 MG 1 tablet Oral every 8 hrs Active Cyclobenzaprine HCl 10 MG 1 tab as neede d orally every 12 hours PRN muscle spasms for 30 days 04/28/2023 Active Lidocaine 5 % 1 patch remove after 12 hours External Once a day Active Pregabalin 75 MG 1 capsule Orally every 12 hours 10/25/2022 Active Atorvastatin Calcium 20 MG 1 tablet [...] calories (E66.01) Active confirmed Morbid obesity (disorder) (462528307) Problem Fear of injections and transfusions (F40.231) Active confirmed Fear of medical treatment (550693741) Problem Unspecified osteoarthritis, unspecified site (M19.90) Active confirmed Osteoarthritis (137127225) Problem Sacroiliitis, not elsewhere classified (M46.1) Active confirmed Solitary sacroiliitis (844466147) Problem Spondylosis without myelopathy or radiculopathy, lumbar region (M47.816) Active confirmed Lumbosacral spondylosis without myelopathy (62451202) Problem Spondylosis without myelopathy or radiculopathy, lumbosacral region (M47.817) Active confirmed Lumbosacral spondylosis without myelopathy (disorder) (48684700) Problem Intervertebral disc disorders with radiculopathy, lumbar region (M51.16) Active confirmed Radiculopathy d ue to lumbar intervertebral disc disorder (244996951514407) Problem Other intervertebral disc degeneration, lumbar region (M51.36) Active confirmed Degeneration of lumbar intervertebral disc (24374152) Problem Other intervertebral disc degeneration, lumbosacral region (M51.37) Active confirmed Degeneration of lumbosacral intervertebral disc (02434686) Problem Radiculopathy, lumbar region (M54.16) Active confirmed Lumbar radiculopathy (076067899) Problem Radiculopathy, lumbosacral region (M54.17) Active confirmed Lumbosacral radiculopathy (2862159) Problem Postlaminectomy syndrome, not elsewhere classified (M96.1) Active confirmed Post-lami nectomy syndrome (60307628) Problem Osseous stenosis of neural canal of lumbar region (M99.33) Active confirmed Spinal stenosis of lumbar region (52163722) Problem 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) Active confirmed Spinal stenosis of lumbar region (62422744) Problem Osseous and subluxation stenosis of intervertebral foramina of lumbar region (M99.63) Active confirmed Spinal steno sis of lumbar region (83700031) Problem long-term (current) use of anticoagulants (Z79.01) Active confirmed Long-term curre nt use of anticoagulant (425184792) Problem long-term (current) use of opiate analgesic (Z79.891) Active confirmed High risk drug monitoring status (291595342) Problem Spinal stenosis, lumbar region with neurogenic claudication (M48.062) Active confirmed Neurogenic claudication (169395658) VITAL SIGNS Heart Rate 72 /min 02/13/2025 Respiratory Rate 16 /min 02/13/2025 Blood pressure diastolic 74 mm Hg 02/13/2025 Height 5 ft 5 in in 02/13/2025 Blood pressure systolic 138 mm Hg 02/13/2025 Weight 211 lbs 02/13/2025 BMI 35.11 kg/m2 02/13/2025 Encounters Encounter Location Date Provider Diagnosis [facility] [address] [place] [phone] 02/27/2024 Lleand Stynowick Radiculopathy, lumbosacral region M54.17 ; Spondylosis without myelopathy or radiculopathy, lumbar region M47.816 ; Sacroiliitis, not elsewhere classified M46.1 ; Postlaminectomy syndrome, not elsewhere classified M96.1 ; Radiculopathy, lumbar region M54.16 ; 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 ; long-term (current) use of opiate analgesic Z79.891 ; lobsterman (current) use of non-steroidal anti-inflammatories (NSAID) Z79.1 and long-term (current) use of anticoagulants Z79.01 [facility] [address] [place] [phone] 03/26/2024 Leland Stynowick Radiculopathy, lumbosacral region M54.17 ; Spondylosis without myelopathy or radiculopathy, lumbar region M47.816 ; Sacroiliitis, not elsewhere classified M46.1 ; Postlaminectomy syndrome, not elsewhere classified M96.1 ; Radiculopathy, lumbar region M54.16 ; 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 ; long-term (current) use of opiate analgesic Z79.891 ; long-term (current) use of non-steroidal anti-inflammatories (NSAID) Z79.1 and long-term (current) use of anticoagulants Z79.01 [facility] [address] [place] [phone] 04/24/2024 Leland Stynowick Radiculopathy, lumbosacral region M54.17 ; Spondylosis without myelopathy or radiculopathy, lumbar region M47.816 ; Sacroiliitis, not elsewhere classified M46.1 ; Postlaminectomy syndrome, not elsewhere classified M96.1 ; Radiculopathy, lumbar region M54.16 ; 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 ; long-term (current) use of opiate analgesic Z79.891 ; long-term (current) use of non-steroidal anti-inflammatories (NSAID) Z79.1 and long-term (current) use of anticoagulants Z79.01 [facility] [address] [place] [phone] 05/29/2024 Leland Stynowick Radiculopathy, lumbosacral region M54.17 ; Spondylosis without myelopathy or radiculopathy, lumbar region M47.816 ; Sacroiliitis, not elsewhere classified M46.1 ; Postlaminectomy syndrome, not elsewhere classified M96.1 ; Radiculopathy, lumbar region M54.16 ; 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 ; long-term (current) use of opiate analgesic Z79.891 ; lobsterman (current) use of non-steroidal anti-inflammatories (NSAID) Z79.1 and lobsterman (current) use of anticoagulants Z79.01 [facility] [address] [place] [phone] 06/26/2024 Leland Stynowick Radiculopathy, lumbosacral region M54.17 ; Spondylosis without myelopathy or radiculopathy, lumbar region M47.816 ; Sacroiliitis, not elsewhere classified M46.1 ; Postlaminectomy syndrome, not elsewhere classified M96.1 ; Radiculopathy, lumbar region M54.16 ; 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 ; lobsterman (current) use of opiate analgesic Z79.891 ; long-term (current) use of non-steroidal anti-inflammatories (NSAID) Z79.1 and lobsterman (current) use of anticoagulants Z79.01 [facility] [address] [place] [phone] 07/24/2024 Leland Stynowick Radiculopathy, lumbosacral region M54.17 ; Spondylosis without myelopathy or radiculopathy, lumbar region M47.816 ; Sacroiliitis, not elsewhere classified M46.1 ; Postlaminectomy syndrome, not elsewhere classified M96.1 ; Radiculopathy, lumbar region M54.16 ; 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 ; lobsterman (current) use of opiate analgesic Z79.891 ; long-term (current) use of non-steroidal anti-inflammatories (NSAID) Z79.1 and lobsterman (current) use of anticoagulants Z79.01 [facility] [address] [place] [phone] 08/21/2024 Leland Stynowick Radiculopathy, lumbosacral region M54.17 ; Spondylosis without myelopathy or radiculopathy, lumbar region M47.816 ; Sacroiliitis, not elsewhere classified M46.1 ; Postlaminectomy syndrome, not elsewhere classified M96.1 ; Radiculopathy, lumbar region M54.16 ; 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 ; long-term (current) use of opiate analgesic Z79.891 ; long-term (current) use of non-steroidal anti-inflammatories (NSAID) Z79.1 and long-term (current) use of anticoagulants Z79.01 [facility] [address] [place] [phone] 09/17/2024 Leland Stynowick Radiculopathy, lumbosacral region M54.17 ; Spondylosis without myelopathy or radiculopathy, lumbar region M47.816 ; Sacroiliitis, not elsewhere classified M46.1 ; Postlaminectomy syndrome, not elsewhere classified M96.1 ; Radiculopathy, lumbar region M54.16 ; 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 ; lobsterman (current) use of opiate analgesic Z79.891 ; long-term (current) use of non-steroidal anti-inflammatories (NSAID) Z79.1 and long-term (current) use of anticoagulants Z79.01 [facility] [address] [place] [phone] 10/24/2024 Leland Stynowick Radiculopathy, lumbosacral region M54.17 ; Spondylosis without myelopathy or radiculopathy, lumbar region M47.816 ; Sacroiliitis, not elsewhere classified M46.1 ; Postlaminectomy syndrome, not elsewhere classified M96.1 ; Radiculopathy, lumbar region M54.16 ; 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 ; lobsterman (current) use of opiate analgesic Z79.891 ; lobsterman (current) use of non-steroidal anti-inflammatories (NSAID) Z79.1 and long-term (current) use of anticoagulants Z79.01 [facility] [address] [place] [phone] 11/21/2024 Leland Stynowick Radiculopathy, lumbosacral region M54.17 ; Spondylosis without myelopathy or radiculopathy, lumbar region M47.816 ; Sacroiliitis, not elsewhere classified M46.1 ; Postlaminectomy syndrome, not elsewhere classified M96.1 ; Radiculopathy, lumbar region M54.16 ; 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 ; lobsterman (current) use of opiate analgesic Z79.891 ; long-term (current) use of non-steroidal anti-inflammatories (NSAID) Z79.1 and long-term (current) use of anticoagulants Z79.01 [facility] [address] [place] [phone] 12/19/2024 Leland Stynowick Radiculopathy, lumbosacral region M54.17 ; Spondylosis without myelopathy or radiculopathy, lumbar region M47.816 ; Sacroiliitis, not elsewhere classified M46.1 ; Postlaminectomy syndrome, not elsewhere classified M96.1 ; Radiculopathy, lumbar region M54.16 ; 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 ; lobsterman (current) use of opiate analgesic Z79.891 ; long-term (current) use of non-steroidal anti-inflammatories (NSAID) Z79.1 and lobsterman (current) use of anticoagulants Z79.01 [facility] [address] [place] [phone] 01/15/2025 Leland Stynowick Radiculopathy, lumbosacral region M54.17 ; Spondylosis without myelopathy or radiculopathy, lumbar region M47.816 ; Sacroiliitis, not elsewhere classified M46.1 ; Postlaminectomy syndrome, not elsewhere classified M96.1 ; Radiculopathy, lumbar region M54.16 ; 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 ; lobsterman (current) use of opiate analgesic Z79.891 ; long-term (current) use of non-steroidal anti-inflammatories (NSAID) Z79.1 and lobsterman (current) use of anticoagulants Z79.01 [facility] [address] [place] [phone] 02/13/2025 Leland Vitale Radiculopathy, lumbosacral region M54.17 ; Spondylosis without myelopathy or radiculopathy, lumbar region M47.816 ; Sacroiliitis, not elsewhere classified M46.1 ; Postlaminectomy syndrome, not elsewhere classified M96.1 ; Radiculopathy, lumbar region M54.16 ; 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 ; lobsterman (current) use of opiate analgesic Z79.891 ; lobsterman (current) use of non-steroidal anti-inflammatories (NSAID) Z79.1 and lobsterman (current) use of anticoagulants Z79.01 ASSESSMENTS Encounter Date Diagnosis Assessment Notes Treatment Notes Treatment Clinical Notes 02/27/2024 Spondylosis without myelopathy or radiculopathy, lumbar [...] to fully comply with the above. The [facility] PDMP were reviewed and were appropriate [...] to fully comply with the above. The [facility] PDMP were reviewed and were appropriate 04/24/2024 [...] to fully comply with the above. The [facility] PDMP were reviewed and were appropriate [...] to fully comply with the above. The [facility] PDMP were reviewed and were appropriate 06/26/2024 [...] to fully comply with the above. The [facility] PDMP were reviewed and were appropriate [...] to fully comply with the above. The [place] PDMP were reviewed and were appropriate 08/21/2024 [...] to fully comply with the above. The [place] PD[place] were reviewed and were appropriate 09/17/2024 [...] to fully comply with the above. The [place] PD[place] were reviewed and were appropriate 10/24/2024 [...] to fully comply with the above. The [facility] PDMP were reviewed and were appropriate 11/21/2024 Radiculopathy, lumbosacral region (ICD-10 - M54.17) The [...] to fully comply with the above. The [facility] PDMP were reviewed and were appropriate 12/19/2024 Spondylosis without myelopathy or radiculopathy, lumbar region (ICD-10 - M47.816) 12/19/2024 Radiculopathy, lumbosacral region (ICD-10 - M54.17) The [...] to fully comply with the above. The [facility] PDMP were reviewed and were appropriate 01/15/2025 Spondylosis without myelopathy or radiculopathy, lumbar region (ICD-10 - M47.816) 01/15/2025 Radiculopathy, lumbosacral region (ICD-10 - M54.17) The [...] to fully comply with the above. The [facility] PDMP were reviewed and were appropriate 02/13/2025 Spondylosis without myelopathy or radiculopathy, lumbar region (ICD-10 - M47.816) 02/13/2025 Radiculopathy, lumbosacral region (ICD-10 - M54.17) [...] to fully comply with the above. The [facility] PDMP were reviewed and were appropriate 02/13/2025 Sacroiliitis, not elsewhere classified (ICD-10 - M46.1) 01/15/2025 Sacroiliitis, not elsewhere classified (ICD-10 - M46.1) 11/21/2024 Spondylosis without myelopathy or radiculopathy, lumbar region (ICD-10 - M47.816) 12/19/2024 Sacroiliitis, not elsewhere classified (ICD-10 - M46.1) 10/24/2024 Sacroiliitis, not elsewhere classified (ICD-10 - [...] not elsewhere classified (ICD-10 - M46.1) 02/27/2024 Postlaminectomy syndrome, not elsewhere classified (ICD-10 [...] syndrome, not elsewhere classified (ICD-10 - M96.1) 11/21/2024 Sacroiliitis, not elsewhere classified (ICD-10 - M46.1) 12/19/2024 Postlaminectomy syndrome, not elsewhere classified (ICD-10 - M96.1) 01/15/2025 Postlaminectomy syndrome, not elsewhere classified (ICD-10 - M96.1) 02/13/2025 Postlaminectomy syndrome, not elsewhere classified (ICD-10 - M96.1) 02/13/2025 Radiculopathy, lumbar region (ICD-10 - M54.16) 01/15/2025 Radiculopathy, lumbar region (ICD-10 - M54.16) 12/19/2024 Radiculopathy, lumbar region (ICD-10 - M54.16) 10/24/2024 Radiculopathy, lumbar region (ICD-10 - M54.16) 11/21/2024 Postlaminectomy syndrome, not elsewhere classified (ICD-10 - [...] 02/27/2024 Radiculopathy, lumbar region (ICD-10 - M54.16) 02/27/2024 Fear of injections and transfusions (ICD-10 [...] of injections and transfusions (ICD-10 - F40.231) 11/21/2024 Radiculopathy, lumbar region (ICD-10 - M54.16) 12/19/2024 Fear of injections and transfusions (ICD-10 - F40.231) 01/15/2025 Fear of injections and transfusions (ICD-10 - F40.231) 02/13/2025 Fear of injections and transfusions (ICD-10 - F40.231) 01/15/2025 long-term (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 12/19/2024 lobsterman (current) use of opiate analgesic (ICD-10 - Z79.891) 10/24/2024 long-term (current) use of opiate analgesic (ICD-10 - Z79.891) 11/21/2024 Fear of injections and transfusions (ICD-10 - F40.231) 09/17/2024 long-term (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 08/21/2024 long-term (current) use of opiate analgesic (ICD-10 - Z79.891) 07/24/2024 lobsterman (current) use of opiate analgesic (ICD-10 - Z79.891) 06/26/2024 long-term (current) use of opiate analgesic (ICD-10 - Z79.891) 05/29/2024 long-term (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 04/24/2024 long-term (current) use of opiate analgesic (ICD-10 - Z79.891) 03/26/2024 long-term (current) use of opiate analgesic (ICD-10 - Z79.891) 02/27/2024 lobsterman (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 02/13/2025 long-term (current) use of opiate analgesic (ICD-10 - Z79.891) 02/13/2025 long-term (current) use of non-steroidal anti-inflammatories (NSAID) (ICD-10 - Z79.1) 02/27/2024 lobsterman (current) use of non-steroidal anti-inflammatories (NSAID) (ICD-10 - Z79.1) 03/26/2024 lobsterman (current) use of non-steroidal anti-inflammatories (NSAID) (ICD-10 - Z79.1) 04/24/2024 lobsterman (current) use of non-steroidal anti-inflammatories (NSAID) (ICD-10 - Z79.1) 05/29/2024 lobsterman (current) use of non-steroidal anti-inflammatories (NSAID) (ICD-10 - Z79.1) 06/26/2024 lobsterman (current) use of non-steroidal anti-inflammatories (NSAID) (ICD-10 - Z79.1) 07/24/2024 lobsterman (current) use of non-steroidal anti-inflammatories (NSAID) (ICD-10 - Z79.1) 08/21/2024 lobsterman (current) use of non-steroidal anti-inflammatories (NSAID) (ICD-10 - Z79.1) 09/17/2024 lobsterman (current) use of non-steroidal anti-inflammatories (NSAID) (ICD-10 - Z79.1) 10/24/2024 long-term (current) use of non-steroidal anti-inflammatories (NSAID) (ICD-10 - Z79.1) 11/21/2024 long-term (current) use of opiate analgesic (ICD-10 - Z79.891) 12/19/2024 long-term (current) use of non-steroidal anti-inflammatories (NSAID) (ICD-10 - Z79.1) 01/15/2025 long-term (current) use of non-steroidal anti-inflammatories (NSAID) (ICD-10 - Z79.1) 01/15/2025 lobsterman (current) use of anticoagulants (ICD-10 - Z79.01) 12/19/2024 long-term (current) use of anticoagulants (ICD-10 - Z79.01) 11/21/2024 lobsterman (current) use of non-steroidal anti-inflammatories (NSAID) (ICD-10 - Z79.1) 10/24/2024 lobsterman (current) use of anticoagulants (ICD-10 - Z79.01) 09/17/2024 lobsterman (current) use of anticoagulants (ICD-10 - Z79.01) 08/21/2024 long-term (current) use of anticoagulants (ICD-10 - Z79.01) 07/24/2024 long-term (current) use of anticoagulants (ICD-10 - Z79.01) 06/26/2024 long-term (current) use of anticoagulants (ICD-10 - Z79.01) 05/29/2024 long-term (current) use of anticoagulants (ICD-10 - Z79.01) 04/24/2024 lobsterman (current) use of anticoagulants (ICD-10 - Z79.01) 03/26/2024 long-term (current) use of anticoagulants (ICD-10 - Z79.01) 02/27/2024 long-term (current) use of anticoagulants (ICD-10 - Z79.01) 02/13/2025 lobsterman (current) use of anticoagulants (ICD-10 - Z79.01) 11/21/2024 long-term (current) use of anticoagulants (ICD-10 - Z79.01) 02/27/2024 Other The above-named patient was evaluated [...] with Patient and Medical Decision Makin minutes 12/19/2024 Other The above-named patient was evaluated in [...] with Patient and Medical Decision Makin minutes 01/15/2025 Other The above-named patient was evaluated in [...] with Patient and Medical Decision Makin minutes 02/13/2025 Other The above-named patient was evaluated [...] Lumbar Spine with and without Cont rast (66711) 10/14/2020 [facility] 05/24/2022 [facility] 07/22/2022 [facility] 10/25/2022 [facility] 06/28/2023 [facility] 07/17/2023 [facility] 10/18/2023 Millennium Results 01/25/2024 Millennium Results 02/29/2024 Millennium Results 06/05/2024 Millennium Results 09/16/2024 Millennium Results 01/15/2025 CANCELLED 12/28/2023 Next Appt Details Provider Name:Leland Ngo Ventura martinez, 03/17/2025 01:15:00 PM, [address] [place], [address], Insurance Providers Payer Name Payer Address Payer Phone Subscriber Number Group Number Insured Name Patient Relationship to Insured Coverage Start Date Coverage End Date [facility] [address] [place] [address] [id number] FRANK PENAOLZA Self - patient is the insured MEDICAL (GENERAL) HISTORY Medical History History ICD Code Depression Left foot crush injury Hypertension Type 2 Diabetes Stroke CVA -06/2023 Surgical History Surgery Date(Month/Year) Anterior decompression and fusion L4-5 & L5-S1 --Dr. Zuñiga 11/06/13 & 11/08/13
--- OUTSIDE RECORDS SUMMARY | 2025-02-13 16:15 | XMS_ITS | Clinical Summary ---
Author Organization [facility] Address [address] [place] [id number] Care Team Providers Care Pediatric Licensed Practical Nurse Name Role Phone Unavailable Primary Care Provider [...] Screening with HPV 1993 Mammogram Screening 2003 Pneumococcal Vaccine: 50+ Ye ars (1 of 1 - PCV) 2013 Zoster Vaccines (1 of 2) 2013 COVID-19 Vaccine ( - 2023-2 5 season) 2024 RSV Immunization or 60+ Years (1 [...]
--- OUTSIDE RECORDS SUMMARY | 2025-02-13 16:15 | XMS_ITS | CONTINUITY OF CARE DOCUMENT ---
Author Name maxim pan Address Unknown Organization [facility] Address [address] [address] [place] [address] Phone [phone] Care Team Providers Care Quality Checker Name Role Phone Dennis SARAVIA, Biajn Unavailable SONIA DANIELS MD Unavailable [phone] SONIA DANIELS MD Unavailable [phone] INSURANCE PROVIDERS Payer name Policy type / Coverage type [place] red democrat ID MEDICARE [place] [id number] 3 [facility] [id number] Other [id number]
--- OUTSIDE RECORDS SUMMARY | 2025-02-13 16:15 | XMS_ITS ---
Author Organization [facility] Address [address] [place] [address] CANDICE Alarcon [address] Care Team Providers Care Director Of Sales Marketing Name Role Phone JOESPH MORENO MD Primary Care Provider Leland Watson Unavailable [phone] ALLERGIES No Known Allergies REASON FOR VISIT Follow Up, Right = Left Low Back Pain, Left Lower Extremity Pain MEDICATIONS Medication SIG (Take, Route, Frequency, Duration) Notes Start Date End Date Status Xanax 0.25 MG 1-2 tablets Orally 30 minutes prior to injection 11/28/2023 Active Omeprazole 40 MG Oral for 90 A ctive EQ Aspirin Adult Low Dose 81 MG Oral for 90 Active Methocarbamol 750 MG 1 tablet Oral every 8 hrs Active Lidocaine 5 % 1 patch remove after 12 hours External Once a day Active Clopidogrel Bisulfate 75 MG 1 tablet Ora l Once a day Active Meloxicam 7.5 MG take 1 tablet by mouth twice daily Oral 2x/day for 30 days Active Pregabalin 75 MG 1 capsule Orally every 12 hours 10/25/2022 Active Cymbalta 60 MG 1 capsule Orally Once a day Active metFORMIN HCl 500 MG 1 tablet with a meal Orally Once a day for 30 day(s) Active Sertraline HCl 25 MG TAKE 1 TABLET BY MOUTH ONCE DAILY Oral for 30 Active Voltaren 1 % apply 4 grams [...] muscle spasms for 30 days 04/28/2023 Active NIFEdipine ER Osmotic Release 30 MG Oral for 30 Active Atorvastatin Calcium 20 MG 1 tablet Oral Once a day Active traMADol HCl 50 MG 1 tablet as needed Orally 2x/day severe pain for 30 days MAY FILL 01/17/25 01/15/2025 Active SOCIAL HISTORY Tobacco Use: Social History Observation Description Date Details (start date - stop date) Current Smoker NA - NA Sex Assigned At : Social History Observation Description Sex Assigned At Unknown Tobacco Use/Smoking Question Answer Notes Are you a current every day smoker VITAL SIGNS Blood pressure systolic 130 mm Hg 01/16/20 25 Blood pressure diastolic 84 mm Hg 025 Heart Rate 86 /min 01/15/2025 Respiratory Rate 18 /min 01/15/2025 Height 5 ft 5 in in 01/15/2025 Weight 214 lbs 01/15/2025 BMI 35.61 kg/m2 01/15/2025 Encounters Encounter Location Date Provider Diagnosis [facility] [address] [place] [address] 01/15/2025 Leland Vitale Radiculopathy, lumbosacral region M54.17 ; Spondylosis without myelopathy or radiculopathy, lumbar region M47.816 ; Sacroiliitis, not elsewhere classified M46.1 ; Postlaminectomy syndrome, not elsewhere classified M96.1 ; Radiculopathy, lumbar region M54.16 ; 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 The [place] PDMP were reviewed and were appropriate 01/15/2025 Spondylosis without myelopathy or radiculopathy, lumbar region (ICD-10 - M47.816) 01/15/2025 Sacroiliitis, not elsewhere classified (ICD-10 - M46.1) 01/15/2025 Postlaminectomy syndrome, not elsewhere classified (ICD-10 - M96.1) 01/15/2025 Radiculopathy, lumbar region (ICD-10 - M54.16) 01/15/2025 Fear of injections and transfusions (ICD-10 - F40.231) 01/15/2025 shelter (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 01/15/2025 shelter (current) use of non-steroidal anti-inflammatories (NSAID) (ICD-10 - Z79.1) 01/15/2025 termite helper (current) use of anticoagulants (ICD-10 - Z79.01) 01/15/2025 Other The above-named patient was evaluated [...] rally 2x/day severe pain for 30 days 01/15/2025 MAY FILL 01/17/25 Treatment Notes Assessment Notes Radiculopathy, lumbosacral region [...] to fully comply with the above. The [place] PDMP were reviewed and were appropriate termite helper (current) use of o piate analgesic The [...] OPV, Reas on: Provider Name:Leland Huber martinez, 03/17/2025 01:15:00 PM, [address] [place], [address], Progress Notes * Examination Category Sub-Category Detail [...] patient's typical axial low back pain. Yuliana's, [place]'s and [place]'s are positive bilaterally. There is [...] of residual disc bulge, bilateral facet arthropathy. [id number] bilateral neuroforaminal stenosis. L5-S1: No evidence of [...]
--- OUTSIDE RECORDS SUMMARY | 2025-02-13 16:15 | XMS_ITS | Referral Summary ---
Author Organization [facility] Address [address] [place] [address] Care Team Providers Care Auto Service Representative Name Role Phone Paco Babcock MD Primary Care Provider [phone] Encounters Date Type Department Care Team Description 01/16/2025 1:41 PM CDT - 01/16/2025 11:59 PM CDT Hospital Encounter [facility] [address] [place] [id number] Amanda Mckenzie MD Closed bicondylar fracture of left tibial plateau; Closed fracture of left tibial plateau with routine healing, subsequent encounter; Closed fracture of left tibial plateau, initial encounter Discharge Disposition: Discharge to home or self care 01/16/2025 2:40 PM CDT Office Visit [facility] Orthopaedic Surgery [address] [place] [address] Advanced Medicine 6th [place] [address] [place] [address] Amanda Mckenzie MD Closed bicondylar fracture of left tibial plateau (Primary Dx); Closed fracture of left tibial plateau with routine healing, subsequent encounter; Closed fracture of left tibial plateau, initial encounter 12/19/2024 10:00 AM OPTIMIZATION ENGINEER Office Visit [facility] Orthopaedic Surgery [address] [place] [address] Medicine 6th [place] [address] [place] [address] Amanda Mckenzie MD Closed bicondylar fracture of left tibial plateau (Primary Dx); Closed fracture of left tibial plateau with routine healing, subsequent encounter 11/29/2024 9:08 AM OPTIMIZATION ENGINEER - 12/02/2024 3:45 PM OPTIMIZATION ENGINEER Hospital Encounter [facility] [address] [place] [address] Amanda Mckenzie MD Closed bicondylar fracture of left tibial plateau (Primary Dx); Closed fracture of left tibial plateau, initial encounter Discharge Disposition: Discharge to home or self care 11/29/2024 3:48 PM OPTIMIZATION ENGINEER - 11/29/2024 11:59 PM OPTIMIZATION ENGINEER Hospital Encounter [facility] [address] [place] [address] Discharge Disposition: Discharge to home or self care 11/29/2024 [facility] [address] [facility] Room 3420 (Third Floor) [place] [address] Stelal Gamble RN Exposure to blood-borne pathogen (Primary Dx) 11/29/2024 12:50 PM OPTIMIZATION ENGINEER - 11/29/2024 4:00 PM OPTIMIZATION ENGINEER Surgery [facility] Operating Room [address] [place] [address] Amanda Mcknezie MD REMOVAL EXTERNAL FIXATION DEVICE LOWER EXTREMITY 11/29/2024 1:08 PM OPTIMIZATION ENGINEER Anesthesia Event [facility] Operating Room [address] [place] [address] Emily Escobar MD Beardsley, Allison Marie, NP 11/28/2024 Telephone [facility] Orthopaedic Surgery [facility] Advanced Medicine 6th [place] [address] [place] [address] Amanda Mckenzie MD 11/25/2024 Telephone [facility] Orthopaedic Surgery [facility] Advanced Medicine 6th [place] [address] [place] [address] Amanda Mckenzie MD from Last 3 Months Allergies No known active allergies Medications clopidogreL (PLAVIX) 75 mg tabletIndications:C erebral Thromboembolism Prevention,CVA July 2024 Take 1 tablet (75 mg total) by mouth every morning Active atorvastatin (LIPITOR) 80 mg tabletIndications:h yperlipidemia Take 1 tablet (80 mg total) by mouth nightly 08/13/20 24 Active metFORMIN (GLUCOPHAGE) 500 mg tabletIndications:t ype 2 diabetes mellitus Take 1 tablet (500 mg total) by mouth 2 (two) times a day Active aspirin 81 mg enteric coated tabletIndications:p revention of thrombosis Take 1 tablet (81 mg total) by mouth sex offender treatment professional before breakfast 11/18/19 24 Active acetaminophen (TYLENOL) 325 mg tabletIndications:P ain Take 2 tablets (650 mg total) by mouth every 6 (six) hours 30 tablet 11/15/19 25 Active Rybelsus 7 mg tabletIndications:t ype 2 diabetes mellitus Take 1 tablet (7 mg total) by mouth sex offender treatment professional before breakfast Active traMADoL (ULTRAM) 50 mg tablet 1 tablet as needed Orally 2x/day severe pain for 30 days 12/20/19 25 Active cyclobenzaprine (FLEXERIL) 10 mg tabletIndications:M uscle Spasm Take 1 tablet (10 mg total) by mouth every 8 (eight) hours as needed for muscle spasms 30 tablet 11/15/19 25 025 Discontin ued(Thera py completed ) Active Problems Problem Noted Date Diagnosed Date Closed bicondylar fracture of left tibial platea u 11/14/2024 Discharge planning issues 11/13/2024 Assessment & Plan (11/14/2024 9:13 AM OPTIMIZATION ENGINEER): 11/13: New admission, OR with ortho- external fixation placed. 11/14 POD1 from ex fix. Ortho okay with patient discharging and coming back later (~2 weeks) for her definitive surgery. PT/OT kristin pending. SARA [place] Fall, initial encounter 11/12/2024 Assessment & Plan (11/13/2024 11:18 AM OPTIMIZATION ENGINEER): - Same level mechanical fall on ice Closed fracture of left tibial plateau Assessment & Plan (11/14/2024 9:13 AM OPTIMIZATION ENGINEER): - Ortho trauma consult - OR 11/13 External fixation - Too swollen to repair - Elevate LLE - PT/OT - NWB LLE -Ortho okay with patient discharging and coming back later (~2 weeks) for her definitive surgery. History of multiple cerebrovascular accidents (C VAs) 08/15/2024 Assessment & Plan (11/13/2024 2:00 PM OPTIMIZATION ENGINEER): - Homen ASA/ plavix held, resume as appropriate. - Community ambulator without assist device at baseline Dyslipidemia 08/15/2024 Type 2 diabetes mellitus, wi thout long-term current use of insulin 08/15/2024 Assessment & Plan (11/13/2024 11:33 AM OPTIMIZATION ENGINEER): - Home metformin held - SSI History of lumbar fusion 08/15/2024 Social History Tobacco Use Types Packs/Day Years Used Date Smoking Tobacco: Former Cigarettes Tobacco Cessation:Counseling Given: Not Answered [facility] Utilities Answer Date Recorded In the past 12 months has th [employer], oil, or water [employer] threatened to shut off services in your home? Patient unable to answer 12/02/2024 Social Connection and Isolation Panel [NHANES] A nswer Date Recorded In a typical week, how many times do you talk on the phone with family, friends, or neighbors? Patient unable to answer 12/02/2024 How often do you get togethe r with friends or relatives? Patient unable to answer 12/02/2024 How often do you attend [facility] or [facility] services? Patient unable to answer 12/02/2024 Do you belong to any clubs o r organizations such as sabianist groups, unions, fraternal or athletic groups, or school groups? Patient unable to answer 12/02/2024 How often do you attend meet ings of the clubs or organizations you belong to? Patient unable to answer 12/02/2024 Are you , , di vorced, , never , or living with a partner? Patient unable to answer 12/02/2024 AUDIT-C Answer Date Recorded Q1: How often do you have a drink containing alcohol? Never 11/29/2024 Q2: How many drinks containi ng alcohol do you have on a typical day when you are drinking? Patient does not drink Q3: How often do you have si x or more drinks on one occasion? Never 11/29/2024 Overall Financial Resource Strain (CARDIA) Answe r Date Recorded How hard is it for you to pa y for the very basics like food, housing, medical care, and heating? Patient unable to answer 12/02/2024 Hunger Vital Sign Answer Date Recorded Within the past 12 months, y ou worried that your food would run out before you got the money to buy more. Patient unable to answer 12/02/2024 Within the past 12 months, t he food you bought just didn't last and you didn't have money to get more. Patient unable to answer 12/02/2024 PRAPARE - Transportation Answer Date Re corded In the past 12 months, has l ack of transportation kept you from medical appointments or from getting medications? Patient unable to answer 12/02/2024 In the past 12 months, has l ack of transportation kept you from meetings, work, or from getting things needed for daily living? Patient unable to answer 12/02/2024 Housing Stability Vital Sign Answer Clement e Recorded In the last 12 months, was t here a time when you were not able to pay the mortgage or rent on time? Patient unable to answer 12/02/2024 In the past 12 months, how m any times have you moved where you were living? 0 12/02/2024 At any time in the past 12 m [facility], were you homeless or living in a jail (including now)? Patient unable to answer 12/02/2024 Personal Safety Answer Date Recorded Have you ever been in or are you currently in a harmful physical or emotional relationship or is someone making you feel afraid or unsafe? Denies 11/29/2024 Comments No Sex and Gender Information Value Date Recorded Sex Assigned at Not on file Legal Sex Female 8:15 AM CDT Gender Identity Not on file Sexual Orientation Not on file Last Filed Vital Signs Vital Sign Reading Time Taken Comments Blood Pressure 109/55 12/02/2024 1:05 PM OPTIMIZATION ENGINEER Pulse 99 12/02/2024 1:05 PM OPTIMIZATION ENGINEER Temperature 36.5 C (97.7 F) 12/02/2024 7:15 AM OPTIMIZATION ENGINEER Respiratory Rate 16 12/02/2024 7:15 AM OPTIMIZATION ENGINEER Oxygen Saturation 100% 12/02/2024 1:05 PM OPTIMIZATION ENGINEER Inhaled Oxygen Concentration - - Weight 95.8 kg (211 lb 3.2 oz) 11/30/2024 10:43 PM OPTIMIZATION ENGINEER Height 165.1 cm (5' 5 ) 11/30/2024 8:21 PM OPTIMIZATION ENGINEER Body Mass Index 35.15 11/30/2024 8:21 PM OPTIMIZATION ENGINEER Plan of Treatment Not on file Medical Devices Implanted Type [facility] Director Device Identifier Shelf Expiration Date Model / Serial / Lot Synthes Schanz 5mm 170mm 50mm Blunt Trocar Point Xlong Screw External 294.55 - [id number] Implanted:Qty: 2 on 11/13/2024 by Amanda Mckenzie MD at [facility] Left: Leg Synthes 294.55 / / Synthes Schanz 5mm 200mm Blunt Trocar Point Mr Conditional Screw External 294.56 - [id number] Implanted:Qty: 2 on 11/13/2024 by Amanda Mckenzie MD at [facility] Left: Leg Synthes 294.56 / / [employer] rtho Evos 3.5mm 70mm Self Tap Lock Screw Bone Sterile [id number] - [id number] Implanted:Qty: 1 on 11/29/2024 by Amanda Mckenzie MD at [facility] Left: Tibia [employer]/Or tho [id number] / / [employer] r[employer]o Evos 4.7mm 80mm Full Thread Screw Bone Sterile Osteopenia [id number] - [id number] Implanted:Qty: 1 on 11/29/2024 by Amanda Mckenzie MD at [facility] Left: Tibia [employer]/Or tho [id number] / / [employer] r[employer]o Evos 117x10.9x2mm 25x1.5mm 8 Hole Low Profile Variable Angle Lock [id number] - [id number] Implanted:Qty: 1 on 11/29/2024 by Amanda Mckenzie MD at [facility] Left: Tibia [employer]/Or tho [id number] / / [employer] r[employer]o Evos 134x11.5x3.6mm 32.3x1.9mm 10 Hole Low Profile Variable Angle [id number] - [id number] Implanted:Qty: 1 on 11/29/2024 by Amanda Mckenzie MD at [facility] Left: Tibia [employer]/Or tho [id number] / / Allosource Cubes Graft 15ml Bone Cancellous [id number] - [id number] - [id number] Implanted:Qty: 1 on 11/29/2024 by Amanda Mckenzie MD at [facility] Left: Tibia Allosource 05/17/2029 [id number] / [id number] / [id number] [employer]o Evos 3.5mm 26mm Self Tap Cortex Screw Bone Sterile [id number] - [id number] Implanted:Qty: 2 on 11/29/2024 by Amanda Mckenzie MD at [facility] Left: Tibia [employer]/Or tho [id number] / / [employer] r[employer]o Evos 3.5mm 28mm Self Tap Cortex Screw Bone Sterile [id number] - [id number] Implanted:Qty: 2 on 11/29/2024 by Amanda Mckenzie MD at [facility] Left: Tibia [employer]/Or tho [id number] / / [employer]/O rtho Screw Bone Cortical St Non Locking Evos 3.5x30mm Ss [id number] - [id number] Implanted:Qty: 1 on 11/29/2024 by Amanda Mckenzie MD at [facility] Left: Tibia [employer]/Or tho [id number] / / [employer]/O rtho Evos 3.5mm 60mm Self Tap Lock Screw Bone Sterile [id number] - [id number] Implanted:Qty: 1 on 11/29/2024 by Amanda Mckenzie MD at [facility] Left: Tibia [employer]/Or tho [id number] / / [employer]/O rtho Evos 3.5mm 75mm Self Tap Lock Screw Bone Sterile [id number] - [id number] Implanted:Qty: 3 on 11/29/2024 by Amanda Mckenzie MD at [facility] Left: Tibia [employer]/Or tho [id number] / / [employer]/O rtho Evos 3.5mm 80mm Self Tap Lock Screw Bone Sterile [id number] - [id number] Implanted:Qty: 1 on 11/29/2024 by Amanda Mckenzie MD at [facility] Left: Tibia [employer]/Or tho [id number] / / Procedures Procedure Name Priority Date/Time Associated Diagnosis Comments XR KNEE LEFT 1 OR 2 VIEWS Schedule Routine, Read Routine (OP Routine) 01/16/2025 1:49 PM CDT Closed bicondylar fracture of left tibial plateau Closed fracture of left tibial plateau with routine healing, subsequent encounter Closed fracture of left tibial plateau, initial encounter POCT GLUCOSE DEVICE Routine 12/02/2024 1 1:22 AM OPTIMIZATION ENGINEER POCT GLUCOSE DEVICE Routine 12/02/2024 7 :18 AM OPTIMIZATION ENGINEER POCT GLUCOSE DEVICE Routine 12/01/2024 8 :04 PM OPTIMIZATION ENGINEER POCT GLUCOSE DEVICE Routine 12/01/2024 4 :53 PM OPTIMIZATION ENGINEER POCT GLUCOSE DEVICE Routine 12/01/2024 1 2:10 PM OPTIMIZATION ENGINEER POCT GLUCOSE DEVICE Routine 12/01/2024 8 :23 AM OPTIMIZATION ENGINEER EGFR Routine 11/30/2024 8:31 PM OPTIMIZATION ENGINEER BASIC METABOLIC PANEL Routine 11/30/2024 8:31 PM OPTIMIZATION ENGINEER CBC WITHOUT DIFFERENTIAL Routine 11/30/2024 8:31 PM OPTIMIZATION ENGINEER POCT GLUCOSE DEVICE Routine 11/30/2024 8 :26 PM OPTIMIZATION ENGINEER POCT GLUCOSE DEVICE Routine 11/30/2024 5 :54 PM OPTIMIZATION ENGINEER POCT GLUCOSE DEVICE Routine 11/30/2024 1 1:59 AM OPTIMIZATION ENGINEER POCT GLUCOSE DEVICE Routine 11/29/2024 8 :26 PM OPTIMIZATION ENGINEER POCT GLUCOSE DEVICE Routine 11/29/2024 5 :17 PM OPTIMIZATION ENGINEER HIV 1/2 ANTIBODY PLUS P24 ANTIGEN Routine 11/29/2024 3:33 PM OPTIMIZATION ENGINEER HEPATITIS C ANTIBODY Routine 11/29/2024 3:33 PM OPTIMIZATION ENGINEER HEPATITIS B SURFACE ANTIGEN Routine 11/29/2024 3:33 PM OPTIMIZATION ENGINEER FL FLUOROSCOPY < 1 HOUR IP Routine 11/29/2024 3:00 PM OPTIMIZATION ENGINEER POCT GLUCOSE DEVICE Routine 11/29/2024 1 :46 PM OPTIMIZATION ENGINEER ANESTHESIA INTUBATION Routine 11/29/2024 1:39 PM OPTIMIZATION ENGINEER OPEN REDUCTION INTERNAL FIXATION - TIBIAL PLATEAU 11/29/2024 1:11 PM OPTIMIZATION ENGINEER Closed bicondylar fracture of left tibial plateau Case Notes 11/25@1632- Per Winnie via staff msg make third case - [facility] Special Needs Room 210 REMOVAL EXTERNAL FIXATION DEVICE LOWER EXTREMITY 11/29/2024 1:11 PM OPTIMIZATION ENGINEER Closed bicondylar fracture of left tibial plateau Case Notes 11/25@1632- Per Winnie via staff msg make third case - [facility] Special Needs Room 210 WA AN PROCEDURE PLACEHOLDER Routine 11/29/2024 12:45 PM OPTIMIZATION ENGINEER WA AN PROCEDURE PLACEHOLDER Routine 11/29/2024 12:44 PM OPTIMIZATION ENGINEER POCT GLUCOSE DEVICE Routine 11/29/2024 1 1:37 AM OPTIMIZATION ENGINEER from Last 3 Months Results * XR Knee Left 1 or 2 Views (01/16/2025 1:49 PM CDT) Anatomical Region Laterality Modality Lower Extremities, Knee Left Computed Radiography 01/16/2025 2:21 PM CDT Impressions 01/16/2025 3:36 PM CDT Interval fixation of bicondylar tibial plateau fractures. Dictated by: Kleber Subramanian M.D. The radiology attending physician has personally reviewed this study, and had reviewed and/or edited this written report and agrees with it. Electronically signed by: Celestino Cain D.O. Narrative 01/16/2025 3:36 PM CDT EXAMINATION: XR KNEE LEFT 1 OR 2 VIEWS HISTORY: fracture COMPARISON: 11/04/2024 FINDINGS: Interval fixation of bicondylar tibial plateau fractures. Instrumentation is intact. 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 Small knee joint effusion. Developing heterotopic ossification along the proximal medial collateral ligament, suggestive of underlying ligamentous injury. Procedure Note Celestino Cain, DO - 01/16/2025 EXAMINATION: XR KNEE LEFT 1 OR 2 VIEWS HISTORY: fracture COMPARISON: 11/04/2024 FINDINGS: Interval fixation of bicondylar tibial plateau fractures. Instrumentation is intact. 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 Small knee joint effusion. Developing heterotopic ossification along the proximal medial collateral ligament, suggestive of underlying ligamentous injury. IMPRESSION: Interval fixation of bicondylar tibial plateau fractures. Dictated by: Kleber Subramanian M.D. The radiology attending physician has personally reviewed this study, and had reviewed and/or edited this written report and agrees with it. Electronically signed by: Celestino Cain D.O. Amanda Mckenzie MD IMG XR PROCEDURES Final Result * (ABNORMAL) POCT glucose (12/02/2024 11:22 AM OPTIMIZATION ENGINEER) [facility] Signature Glucose, POC 202(H) 70 - 199 mg/dL Blood 12/02/2024 11:2 2 AM OPTIMIZATION ENGINEER 12/02/2024 11:22 AM OPTIMIZATION ENGINEER us Amanda Mckenzie MD LAB POCT ORDERABLE S - DEVICE Final Result Performing Organization Address [facility] [address] [facility] Co de Phone Number [facility] [place] [address] * POCT glucose (12/02/2024 7:18 AM OPTIMIZATION ENGINEER) Glucose, POC 136 70 - 199 mg/dL Blood 12/02/2024 7:18 AM OPTIMIZATION ENGINEER 12/02/2024 7:18 AM OPTIMIZATION ENGINEER us Amanda Mckenzie MD LAB POCT ORDERABLE S - DEVICE Final Result Performing Organization Address [facility] [address]/[facility] de Phone Number [facility] [place] [address] * POCT glucose (12/01/2024 8:04 PM OPTIMIZATION ENGINEER) Glucose, POC 196 70 - 199 mg/dL Blood 12/01/2024 8:04 PM OPTIMIZATION ENGINEER 12/01/2024 8:04 PM OPTIMIZATION ENGINEER us Amanda Mckenzie MD LAB POCT ORDERABLE S - DEVICE Final Result Performing Organization Address [facility] [address]/[facility] de Phone Number [facility] [place] [address] * (ABNORMAL) POCT glucose (12/01/2024 4:53 PM OPTIMIZATION ENGINEER) Glucose, POC 200(H) 70 - 199 mg/dL Blood 12/01/2024 4:53 PM OPTIMIZATION ENGINEER 12/01/2024 4:53 PM OPTIMIZATION ENGINEER us Amanda Mckenzie MD LAB POCT ORDERABLE S - DEVICE Final Result Performing Organization Address [facility] [address]/[facility] Co de Phone Number GABRIELLA [facility] [place] [address] * POCT glucose (12/01/2024 12:10 PM OPTIMIZATION ENGINEER) Glucose, POC 195 70 - 199 mg/dL Blood 12/01/2024 12:1 0 PM OPTIMIZATION ENGINEER 12/01/2024 12:10 PM OPTIMIZATION ENGINEER Amanda Mckenzie MD LAB POCT ORDERABLE S - DEVICE Final Result Performing Organization Address City/[facility] [address]/[facility] Co de Phone Number GABRIELLA [facility] [place] [address] * POCT glucose (12/01/2024 8:23 AM OPTIMIZATION ENGINEER) Glucose, POC 164 70 - 199 mg/dL Blood 12/01/2024 8:23 AM OPTIMIZATION ENGINEER 12/01/2024 8:23 AM OPTIMIZATION ENGINEER Amanda Mckenzie MD LAB POCT ORDERABLE S - DEVICE Final Result Performing Organization Address City/[facility] [address]/[facility] Co de [place] [address] * (ABNORMAL) eGFR (11/30/2024 8:31 PM OPTIMIZATION ENGINEER) eGFR 51(L) >=60 mL/min/1. 73 m2 Comment: Interpretive Data Reference Interval Normal >/= 90 mL/min/1.73m2 Mildly decreased* 60 - 89 mL/min/1.73m2 Mildly to moderately decreased 45 - 59 mL/min/1.73m2 Moderately to severely decreased 30 - 44 mL/min/1.73m2 Severely decreased 15 - 29 mL/min/1.73m2 Kidney Failure < 15 mL/min/1.73m2 *Relative to young adult level Estimated glomerular filtration rate is determined by the 2020 CKD-EPI equation recommended by the National Kidney Foundation (A Unifying Approach to GFR Estimation: Recommendations of the NKF-ASK Task Force on Reassessing the Inclusion of Race in Diagnosing Kidney Disease, JASN 2021). The CKD-EPI equation should not be used for patients with unstable renal function and has not been validated in children and those over 70. Current interpretive data was last reviewed 2021. Blood 11/30/2024 8:31 PM OPTIMIZATION ENGINEER 11/30/2024 10:37 PM OPTIMIZATION ENGINEER us Amanda Mckenzie MD LAB BLOOD ORDERABL ES Final Result Performing Organization Address City/[facility] [address]/ZIP Co de Phone Number [facility] Department [place] [address] * (ABNORMAL) CBC without differential (11/30/2024 8:31 PM OPTIMIZATION ENGINEER) WBC 9.3 3.8 - 9.9 K/cumm Hgb 9.9(L) 11.9 - 15.5 g/dL [facility] Hct 31.1(L) 35.6 - 45.5 % [facility] Plt 291 150 - 400 K/cumm [facility] MPV 10.3 9.1 - 12.3 fL [facility] RBC 3.66(L) 3.90 - 5.20 M/cumm [facility] MCV 85.0 81.3 - 96.4 fL [facility] MCH 27.0(L) 27.1 - 33.3 pg [facility] MCHC 31.8(L) 32.3 - 35.7 g/dL [facility] RDW CV 13.2 11.1 - 14.9 % [facility] RDW SD 40.9 35.7 - 48.1 fL [facility] NRBC abs 0.00 0.00 - 0.01 K/cumm [facility] Blood 11/30/2024 8:31 PM OPTIMIZATION ENGINEER 11/30/2024 10:38 PM OPTIMIZATION ENGINEER us Amanda Mckenzie MD LAB BLOOD ORDERABL ES Final Result Performing Organization Address City/[facility] [address]/ZIP Co de Phone Number [facility] Department [place] [address] * (ABNORMAL) Basic metabolic panel (11/30/2024 8:31 PM OPTIMIZATION ENGINEER) Pathologist [facility] [place] Sodium 135 135 - 145 mmol/L Potassium, pl 3.9 3.3 - 4.9 mmol/L [facility] Chloride 100 97 - 110 mmol/L [facility] CO2 26 22 - 32 mmol/L [facility] Anion gap 9 2 - 15 mmol/L [facility] BUN 15 6 - 25 mg/dL [facility] Creatinine 1.21(H) 0.60 - 1.10 mg/dL [facility] Glucose 196 70 - 199 mg/dL [facility] Comment: Interpretive Data Fasting glucose >/= 126 mg/dl is diagnostic for diabetes. Fasting is defined as no caloric intake for at least 8 hours. Fasting glucose between 100 mg/dl to 125 mg/dl is diagnostic of prediabetes. In a patient with classic symptoms of hyperglycemia or hyperglycemic crisis, a random glucose >/= 200 mg/dl is diagnostic for diabetes. In the absence of unequivocal hyperglycemia, results should be confirmed by repeat testing. The classification and Diagnosis of Diabetes Diabetes Care 2021; 46: S19-S40. Current interpretive data was last revised 2022. Calcium 9.0 8.5 - 10.3 mg/dL [facility] Blood 11/30/2024 8:31 PM OPTIMIZATION ENGINEER 11/30/2024 10:37 PM OPTIMIZATION ENGINEER Amanda Mckenzie MD LAB BLOOD ORDERABL ES Final Result [facility] [place] [address] * (ABNORMAL) POCT glucose (11/30/2024 8:26 PM OPTIMIZATION ENGINEER) Pathologist [facility] [place] Glucose, POC 210(H) 70 - 199 mg/dL Comment:Glu2: RN/ Notified Glucose comment 1 Glu2: RN/ Notified [facility] Blood 11/30/2024 8:26 PM OPTIMIZATION ENGINEER 11/30/2024 8:26 PM OPTIMIZATION ENGINEER us Amanda Mckenzie MD LAB POCT ORDERABLE S - DEVICE Final Result Performing Organization Address [facility] [address]/[facility] Co de Phone Number [facility] [place] [address] * (ABNORMAL) POCT glucose (11/30/2024 5:54 PM OPTIMIZATION ENGINEER) Glucose, POC 200(H) 70 - 199 mg/dL Blood 11/30/2024 5:54 PM OPTIMIZATION ENGINEER 11/30/2024 5:54 PM OPTIMIZATION ENGINEER us Amanda Mckenzie MD LAB POCT ORDERABLE S - DEVICE Final Result Performing Organization Address [facility] [address]/[facility] [place] [address] * (ABNORMAL) POCT glucose (11/30/2024 11:59 AM OPTIMIZATION ENGINEER) Glucose, POC 271(H) 70 - 199 mg/dL Comment:Glu2: RN/MD Notified Glucose comment 1 Glu2: RN/MD Notified [facility] Blood 11/30/2024 11:5 9 AM OPTIMIZATION ENGINEER 11/30/2024 11:59 AM OPTIMIZATION ENGINEER us Amanda Mckenzie MD LAB POCT ORDERABLE S - DEVICE Final Result Performing Organization Address [facility] [address]/[facility] [place] [address] * POCT glucose (11/29/2024 8:26 PM OPTIMIZATION ENGINEER) Glucose, POC 182 70 - 199 mg/dL Blood 11/29/2024 8:26 PM OPTIMIZATION ENGINEER 11/29/2024 8:26 PM OPTIMIZATION ENGINEER us Amanda Mckenzie MD LAB POCT ORDERABLE S - DEVICE Final Result Performing Organization Address City/[facility] [address]/[facility] Co de Phone Number GABRIELLA ALEJO Pawel [facility] [place] [address] * POCT glucose (11/29/2024 5:17 PM OPTIMIZATION ENGINEER) Pathologist [facility] Glucose, POC 176 70 - 199 mg/dL Blood 11/29/2024 5:17 PM OPTIMIZATION ENGINEER 11/29/2024 5:17 PM OPTIMIZATION ENGINEER Amanda Mckenzie MD LAB POCT ORDERABLE S - DEVICE Final Result Performing Organization Address [facility] de Phone Number [facility] [place] [address] * HIV 1/2 Antibody plus p24 Antigen Blood (11/29/2024 3:33 PM OPTIMIZATION ENGINEER) [facility] HIV 1/2 ab + p24 ag Nonreactive Nonreactive Comment:Nonreactive for HIV- 1 antigen and HIV-1/HIV-2 antibodies. No laboratory evidence of HIV infection. If acute HIV infection is suspected, consider testing for HIV-1 RNA. Current interpretive data was last revised on 22. Blood 11/29/2024 3:33 PM OPTIMIZATION ENGINEER 11/29/2024 4:27 PM OPTIMIZATION ENGINEER Chino Aguayo MD LAB MICROBIOLOGY - GENERAL OR DERABLES Final Result Performing Organization Address [facility] [address]/[facility] Co de Phone Number [facility] [place] [address] * Hepatitis C antibody Blood (11/29/2024 3:33 PM OPTIMIZATION ENGINEER) Pathologist [facility] [place] Hep C Ab Nonreactive Nonreactive Comment:Antibodies to HCV no t detected. Does NOT exclude the possibility of recent exposure to HCV. Current interpretive data was last revised on 22 Blood 11/29/2024 3:33 PM OPTIMIZATION ENGINEER 11/29/2024 4:27 PM OPTIMIZATION ENGINEER us Chino Aguayo MD LAB MICROBIOLOGY - GENERAL OR DERABLES Final Result Performing Organization Address [facility] [address]/[facility] Phone Number [facility] [place] [address] * Hepatitis B Surface Antigen Blood (11/29/2024 3:33 PM OPTIMIZATION ENGINEER) HepBsAg Nonreactive Nonreactive Blood 11/29/2024 3:33 PM OPTIMIZATION ENGINEER 11/29/2024 4:27 PM OPTIMIZATION ENGINEER us Chino Aguayo MD LAB MICROBIOLOGY - GENERAL OR DERABLES Final Result Performing Organization Address [facility] [place] [address] * FL Fluoroscopy < 1 Hour (11/29/2024 3:00 PM OPTIMIZATION ENGINEER) Narrative [facility] - 11/29/2024 3:00 PM OPTIMIZATION ENGINEER The images from this study are not interpreted by Radiology. Please refer to the physician's procedure / OR operative note. us Amanda Mckenzie MD IMG FLUOROSCOPY WA OCEDURES Final Result Performing Organization Address [facility] de Phone Number [email or web address] * POCT glucose (11/29/2024 1:46 PM OPTIMIZATION ENGINEER) Glucose, POC 155 70 - 199 mg/dL Blood 11/29/2024 1:46 PM OPTIMIZATION ENGINEER 11/29/2024 1:46 PM OPTIMIZATION ENGINEER us Amanda Mckenzie MD LAB POCT ORDERABLE S - DEVICE Final Result Performing Organization Address [facility] [address]/[facility] Phone Number [facility] [place] [address] * Airway (11/29/2024 1:39 PM OPTIMIZATION ENGINEER) Narrative Fortunato Prabhakar MD - 11/29/2024 1:39 PM OPTIMIZATION ENGINEER Fortunato Prabhakar MD 11/29/2024 1:53 PM Airway Patient location: OR Urgency: elective Indications for airway management: anesthesia Difficult airway: no Staff: Supervising provider: Emily Escobar MD Placed by: Resident: Fortunato Prabhakar MD Emergent airway documentation: Risks and benefits discussed: yes Consent obtained: yes Airway prep: Preoxygenated: yes Patient position: sniffing Mask difficulty assessment: 0 - not attempted Final airway details: Final airway type: endotracheal airway Tube type: ETT ETT size: 7.0 mm Cuffed: yes Technique used for successful ETT placement: video laryngoscopy Devices/Methods used in placement: stylet Insertion site: oral Blade type: Leandra Blade size: 3 Cormack-Lehane (video): grade I - full view of glottis Initial cuff pressure: 30 cm H2O Cuff inflated with: air Placement verified by: auscultation and CO2 detection Airway secured with: silk tape Number of attempts: 1 Planned trial extubation: yes Emily Escobar MD ANESTHE FRANK ORDERABLES Edited Result - Final * [place] AN PROCEDURE PLACEHOLDER (11/29/2024 12:45 PM OPTIMIZATION ENGINEER) Narrative Awais Juarez MD - 11/29/2024 12:45 PM OPTIMIZATION ENGINEER Macy Ramírez MD 11/29/2024 12:56 PM Peripheral Block Patient location during procedure: pre-op holding End time: 11/29/2024 12:39 PM Reason for block: post-op pain management per surgeon request Ultrasound image in chart or stored: yes Block type: single shot Laterality: left Block type: saphenous nerve block - subsartorial approach Staff: Supervising provider: Awais Juarez MD Placed by: Resident: Macy Ramírez MD Procedure prep: Preprocedure checklist: patient identified, procedure contraindications assessed, site marked, procedure consent, surgical consent, IV checked, risks, benefits and alternatives discussed, monitors and equipment checked and timeout performed Patient position: supine Procedure performed while patient: sedate with meaningful contact Monitoring: oximetry, ECG and blood pressure Supplemental O2: nasal cannula Prep solution: chlorhexidine/alcohol PPE: provider hat/mask, sterile gloves and sterile probe cover and gel Peripheral nerve block: Technique: ultrasound guided Needle type: insulated, short-bevel and echogenic Needle gauge: 22 G Needle length: 80 mm Injection assessment: injection made incrementally with constant monitoring, local visualized surrounding nerve on ultrasound, negative aspiration for heme, no paresthesias noted, normal resistance to injection and see flowsheet for medication details Assessment: Block success: full evaluation pending Events: patient tolerated procedure well with no complications Macy Ramírez MD ANESTHESIA ORDERABLES Final Result * [place] AN PROCEDURE PLACEHOLDER (11/29/2024 12:44 PM OPTIMIZATION ENGINEER) Narrative Awais Juarez MD - 11/29/2024 12:44 PM OPTIMIZATION ENGINEER Awais Juarez MD 11/29/2024 6:15 PM Peripheral Block Patient location during procedure: pre-op holding End time: 11/29/2024 12:35 PM Reason for block: post-op pain management per surgeon request Ultrasound image in chart or stored: yes Block type: single shot Laterality: left Block type: sciatic nerve block - popliteal Staff: Supervising provider: Awais Juarez MD Placed by: Resident: Macy Ramírez MD Procedure prep: Preprocedure checklist: patient identified, procedure contraindications assessed, site marked, procedure consent, surgical consent, IV checked, risks, benefits and alternatives discussed, monitors and equipment checked and timeout performed Patient position: supine Procedure performed while patient: sedate with meaningful contact Monitoring: ECG, oximetry and blood pressure Supplemental O2: nasal cannula Prep solution: chlorhexidine/alcohol PPE: provider hat/mask, sterile gloves and sterile probe cover and gel Peripheral nerve block: Technique: ultrasound guided Needle type: insulated, short-bevel and echogenic Needle gauge: 22 G Needle length: 80 mm Injection assessment: injection made incrementally with constant monitoring, local visualized surrounding nerve on ultrasound, negative aspiration for heme, no paresthesias noted, normal resistance to injection and see flowsheet for medication details Assessment: Block success: full evaluation pending Events: patient tolerated procedure well with no complications Macy Ramírez MD ANESTHESIA ORDERABLES Final Result * POCT glucose (11/29/2024 11:37 AM OPTIMIZATION ENGINEER) Glucose, POC 165 70 - 199 mg/dL Blood 11/29/2024 11:3 7 AM OPTIMIZATION ENGINEER 11/29/2024 11:37 AM OPTIMIZATION ENGINEER Amanda Mckenzie MD LAB POCT ORDERABLE S - DEVICE Final Result [facility] [address] [place] [address] from Last 3 Months Insurance [employer] MEDICARE [employer] MEDICARE Advance Directives For more information, please contact: [phone] * Full Code (Latest Code Status on File) Date Activated Date Inactivated Comments 11/29/2024 5:14 PM 12/02/2024 7:50 PM * Full Code Date Activated Date Inactivated Comments 11/13/2024 2:31 PM 11/15/2024 6:59 PM * Full Code Date Activated Date Inactivated Comments 11/13/2024 2:31 PM 11/13/2024 2:31 PM Care Teams Auto Service Representative Relationship Specialty Start Date End Date Paco Babcock MD [address] [place] [address] PCP - General Family Medicine 08/07/24
--- OUTSIDE RECORDS SUMMARY | 2025-02-13 16:15 | XMS_ITS | Clinical Summary ---
Author Organization [facility] Address [address] [place] [address] Care Team Providers Care Laboratory Technology Teacher Name Role Phone Paco Babcock MD Primary Care Provider [phone] Allergies No known active allergies Medications clopidogreL [...] 1 tablet (81 mg total) by mouth human resources temp before breakfast 11/18/19 24 Active acetaminophen (TYLENOL) 325 mg tabletIndications:P ain Take 2 tablets (650 mg total) by mouth every 6 (six) hours 30 tablet 11/15/19 25 Active Rybelsus 7 mg tabletIndications:t ype 2 diabetes mellitus Take 1 tablet (7 mg total) by mouth human resources temp before breakfast Active traMADoL (ULTRAM) 50 mg [...] 11/13/2024 Assessment & Plan (11/14/2024 9:13 AM PUBLIC HEALTH REPRESENTATIVE): 11/13: New admission, OR with ortho- external fixation placed. 11/14 POD1 from ex fix. Ortho okay with patient discharging and coming back later (~2 weeks) for her definitive surgery. PT/OT evals pending. DC amalia Fall, initial encounter 11/12/2024 Assessment & Plan (11/13/2024 11:18 AM PUBLIC HEALTH REPRESENTATIVE): - Same level mechanical fall on ice Closed fracture of left tibial plateau Assessment & Plan (11/14/2024 9:13 AM PUBLIC HEALTH REPRESENTATIVE): - Ortho trauma consult - OR 11/13 External fixation - Too swollen to repair - Elevate LLE - PT/OT - NWB LLE -Ortho okay with patient discharging and coming back later (~2 weeks) for her definitive surgery. History of multiple cerebrovascular accidents (C VAs) 08/15/2024 Assessment & Plan (11/13/2024 2:00 PM PUBLIC HEALTH REPRESENTATIVE): - Homen ASA/ plavix held, resume as appropriate. - Community ambulator without assist device at baseline Dyslipidemia 08/15/2024 Type 2 diabetes mellitus, wi thout long-term current use of insulin 08/15/2024 Assessment & Plan (11/13/2024 11:33 AM PUBLIC HEALTH REPRESENTATIVE): - Home metformin held - SSI History of lumbar fusion 08/15/2024 Encounters Date Type Department Care Team Description 01/16/2025 2:40 PM CDT Office Visit [facility] Orthopaedic Surgery [address] 6th [place] [address] [place] [address] Amanda Mckenzie MD Closed bicondylar fracture of left tibial plateau (Primary Dx); Closed fracture of left tibial plateau with routine healing, subsequent encounter; Closed fracture of left tibial plateau, initial encounter 01/16/2025 1:41 PM CDT - 01/16/2025 11:59 PM CDT Hospital Encounter [facility] [address] [place] [address] Amanda Mckenzie MD Closed bicondylar fracture of left tibial plateau; Closed fracture of left tibial plateau with routine healing, subsequent encounter; Closed fracture of left tibial plateau, initial encounter Discharge Disposition: Discharge to home or self care 12/19/2024 10:00 AM PUBLIC HEALTH REPRESENTATIVE Office Visit [facility] Orthopaedic Surgery [address] [facility] [address] [facility] 6th [place] [address] [place] [address] Amanda Mckenzie MD Closed bicondylar fracture of left tibial plateau (Primary Dx); Closed fracture of left tibial plateau with routine healing, subsequent encounter 11/29/2024 3:48 PM PUBLIC HEALTH REPRESENTATIVE - 11/29/2024 11:59 PM PUBLIC HEALTH REPRESENTATIVE Hospital Encounter [address] [address] Discharge Disposition: Discharge to home or self care 11/29/2024 1:08 PM PUBLIC HEALTH REPRESENTATIVE Anesthesia Event [facility] Operating Room [address] [place] [address] Emily Escobar MD Beardsley, Allison Marie, NP 11/29/2024 12:50 PM PUBLIC HEALTH REPRESENTATIVE - 11/29/2024 4:00 PM PUBLIC HEALTH REPRESENTATIVE Surgery [facility] Operating Room [address] [place] [address] Amanda Mckenzie MD REMOVAL EXTERNAL FIXATION DEVICE LOWER EXTREMITY 11/29/2024 9:08 AM PUBLIC HEALTH REPRESENTATIVE - 12/02/2024 3:45 PM PUBLIC HEALTH REPRESENTATIVE Hospital Encounter [address] [address] Amanda Mckenzie MD Closed bicondylar fracture of left tibial plateau (Primary Dx); Closed fracture of left tibial plateau, initial encounter Discharge Disposition: Discharge to home or self care 11/29/2024 Orders Only [facility] [address] [facility] [address] (Third Floor) [place] [address] Stella Gamble RN Exposure to blood-borne pathogen (Primary Dx) 11/28/2024 Telephone [facility] Orthopaedic Surgery [address] [address] 6th [place] [address] [place] [phone] Amanda Mckenzie MD 11/25/2024 Telephone [facility] Orthopaedic Surgery [address] 6th [place] [address] [place] [phone] Amanda Mckenzie MD from Last 3 Months Surgical History Surgery Date Site/Laterality Comments LEG SURGERY 11/13/2024 APPLICATION EXTERNAL FIXATION DEVICE LOWER EXTREMITY WRIST ARTHROSCOPY Left unknown date BACK SURGERY 10/16/2012 - 10/15/2013 anterior and posterior Family History Medical History Relation Name Comments Anesthesia problems Neg Hx Relation Name Status Comments Brother Father Mother Social History Tobacco Use Types Packs/Day Years Used Date Smoking Tobacco: Former Cigarettes Tobacco Cessation:Counseling Given: Not Answered [facility] Utilities Answer Date Recorded In the past 12 months has [employer], gas, oil, or water [employer] threatened to shut off services in your [...] answer 12/02/2024 How often do you attend chur or buddhist services? Patient unable to answer 12/02/2024 Do you belong to any clubs o r organizations such as yarsanism groups, unions, fraternal or athletic groups, or [...] any time in the past 12 m [facility], were you homeless or living in a fpc (including now)? Patient unable to answer 12/02/2024 [...] on file Sexual Orientation Not on file Obstetrics History Last Filed Vital Signs Vital Sign Reading Time Taken Comments Blood Pressure 109/55 12/02/2024 1:05 PM PUBLIC HEALTH REPRESENTATIVE Pulse 99 12/02/2024 1:05 PM PUBLIC HEALTH REPRESENTATIVE Temperature 36.5 C (97.7 F) 12/02/2024 7:15 AM PUBLIC HEALTH REPRESENTATIVE Respiratory Rate 16 12/02/2024 7:15 AM PUBLIC HEALTH REPRESENTATIVE Oxygen Saturation 100% 12/02/2024 1:05 PM PUBLIC HEALTH REPRESENTATIVE Inhaled Oxygen Concentration - - Weight 95.8 kg (211 lb 3.2 oz) 11/30/2024 10:43 PM PUBLIC HEALTH REPRESENTATIVE Height 165.1 cm (5' 5 ) 11/30/2024 8:21 PM PUBLIC HEALTH REPRESENTATIVE Body Mass Index 35.15 11/30/2024 8:21 PM PUBLIC HEALTH REPRESENTATIVE Plan of Treatment Health Maintenance Due Date Last Done Comments Albumin Creatinine Ratio, Urine 1963 Breast Cancer Screening-Mammogram 1963 Cervical Cancer Screening 1963 Colon Cancer Screening-Colonoscopy 1963 Depression Screening 1963 Hemoglobin A1C 1963 Dilated Eye Exam 1963 Foot Exam 1963 Lipid Panel 1963 DTaP/Tdap/Td Vaccine (1 - Tdap) 1974 Hepatitis B Screening 1981 Regular Well Visit/Exam 18-64 1981 Pneumococcal vaccine <65 (2 of 2 - PCV) 04/28/2022 04/28/2021 Influenza Vaccine (Season Ended) 2025 eGFR 11/30/2025 11/30/2024, 10/18, 11/14/2024, Additional history exists Zoster Vaccine Completed 08/02/2021, 04/28/2021 Hepatitis C Screening Completed 11/29/2024 Medical Devices Implanted Type Area Cowlman Device Identifier Shelf Expiration Date Model / Serial / Lot Synthes Schanz 5mm 170mm 50mm Blunt [place]car [place] Xlong Screw External 294.55 - [id number] Implanted:Qty: 2 on 11/13/2024 by Amanda Mckenzie MD at [facility] Left: Leg Synthes 294.55 / / Synthes Schanz 5mm 200mm Blunt [place]car [place] Mr Conditional Screw External 294.56 - [id number] Implanted:Qty: 2 on 11/13/2024 by Amanda Mckenzie MD at [facility] Left: Leg Synthes 294.56 / / [employer]/O rtho Evos 3.5mm 70mm Self Tap Lock Screw Bone Sterile [id number] - [id number] Implanted:Qty: 1 on 11/29/2024 by Amanda Mckenzie MD at [facility] Left: Tibia [employer]/Or tho [id number] / / [employer]/O rtho Evos 4.7mm 80mm Full Thread Screw Bone Sterile Osteopenia 14917726 - [id number] Implanted:Qty: 1 on 11/29/2024 by Amanda Mckenzie MD at [facility] Left: Tibia [employer]/Or tho [id number] / / [employer]/O rtho Evos 117x10.9x2mm 25x1.5mm 8 Hole Low Profile Variable Angle Lock [id number] - [id number] Implanted:Qty: 1 on 11/29/2024 by Amanda Mckenzie MD at [facility] Left: Tibia [employer]/Or tho [id number] / / [employer]/O rtho Evos 134x11.5x3.6mm 32.3x1.9mm 10 Hole Low Profile Variable Angle [id number] - [id number] Implanted:Qty: 1 on 11/29/2024 by Amanda Mckenzie MD at [facility] Left: Tibia [employer]/Or tho [id number] / / Allosource Cubes Graft 15ml Bone Cancellous [id number] - [id number] - [id number] Implanted:Qty: 1 on 11/29/2024 by Amanda Mckenzie MD at [facility] Left: Tibia Allosource 05/17/2029 [id number] / [id number] / [id number] [employer]/O rtho Evos 3.5mm 26mm Self Tap Cortex Screw Bone Sterile [id number] - [id number] Implanted:Qty: 2 on 11/29/2024 by Amanda Mckenzie MD at [facility] Left: Tibia [employer]/Rich[employer]/Or tho [id number] / / [employer]/Rich[employer]/O rtho Evos 3.5mm 28mm Self Tap Cortex Screw Bone Sterile 57174262 - [id number] Implanted:Qty: 2 on 11/29/2024 by Amanda Mckenzie MD at [facility] Left: Tibia [employer]/Rich[employer]/Or tho [id number] / / [employer]/Rich[employer]/O rtho Screw Bone Cortical St Non Locking Evos 3.5x30mm Ss [id number] - [id number] Implanted:Qty: 1 on 11/29/2024 by Amanda Mckenzie MD at [facility] Left: Tibia [employer]/Rich[employer]/Or tho [id number] / / [employer]/Rich[employer]/O rtho Evos 3.5mm 60mm Self Tap Lock Screw Bone Sterile [id number] - [id number] Implanted:Qty: 1 on 11/29/2024 by Amanda Mckenzie MD at [facility] Left: Tibia [employer]/Rich[employer]/Or tho [id number] / / [employer]/Rich[employer]/O rtho Evos 3.5mm 75mm Self Tap Lock Screw Bone Sterile [id number] - [id number] Implanted:Qty: 3 on 11/29/2024 by Amanda Mckenzie MD at [facility] Left: Tibia [employer]/Rich[employer]/Or tho [id number] / / [employer]/Rich[employer]/O rtho Evos 3.5mm 80mm Self Tap Lock Screw Bone Sterile [id number] - [id number] Implanted:Qty: 1 on 11/29/2024 by Amanda Mckenzie MD at [facility] Left: Tibia [employer]/Rich[employer]/Or tho [id number] / / Procedures Procedure Name Priority Date/Time Associated Diagnosis Comments XR KNEE LEFT 1 OR 2 VIEWS Schedule Routine, Read Routine (OP Routine) 01/16/2025 1:49 PM CDT Closed bicondylar fracture of left tibial plateau Closed fracture of left tibial plateau with routine healing, subsequent encounter Closed fracture of left tibial plateau, initial encounter POCT GLUCOSE DEVICE Routine 12/02/2024 1 1:22 AM PUBLIC HEALTH REPRESENTATIVE POCT GLUCOSE DEVICE Routine 12/02/2024 7 :18 AM PUBLIC HEALTH REPRESENTATIVE POCT GLUCOSE DEVICE Routine 12/01/2024 8 :04 PM PUBLIC HEALTH REPRESENTATIVE POCT GLUCOSE DEVICE Routine 12/01/2024 4 :53 PM PUBLIC HEALTH REPRESENTATIVE POCT GLUCOSE DEVICE Routine 12/01/2024 1 2:10 PM PUBLIC HEALTH REPRESENTATIVE POCT GLUCOSE DEVICE Routine 12/01/2024 8 :23 AM PUBLIC HEALTH REPRESENTATIVE EGFR Routine 11/30/2024 8:31 PM PUBLIC HEALTH REPRESENTATIVE BASIC METABOLIC PANEL Routine 11/30/2024 8:31 PM PUBLIC HEALTH REPRESENTATIVE CBC WITHOUT DIFFERENTIAL Routine 11/30/2024 8:31 PM PUBLIC HEALTH REPRESENTATIVE POCT GLUCOSE DEVICE Routine 11/30/2024 8 :26 PM PUBLIC HEALTH REPRESENTATIVE POCT GLUCOSE DEVICE Routine 11/30/2024 5 :54 PM PUBLIC HEALTH REPRESENTATIVE POCT GLUCOSE DEVICE Routine 11/30/2024 1 1:59 AM PUBLIC HEALTH REPRESENTATIVE POCT GLUCOSE DEVICE Routine 11/29/2024 8 :26 PM PUBLIC HEALTH REPRESENTATIVE POCT GLUCOSE DEVICE Routine 11/29/2024 5 :17 PM PUBLIC HEALTH REPRESENTATIVE HIV 1/2 ANTIBODY PLUS P24 ANTIGEN Routine 11/29/2024 3:33 PM PUBLIC HEALTH REPRESENTATIVE HEPATITIS C ANTIBODY Routine 11/29/2024 3:33 PM PUBLIC HEALTH REPRESENTATIVE HEPATITIS B SURFACE ANTIGEN Routine 11/29/2024 3:33 PM PUBLIC HEALTH REPRESENTATIVE FL FLUOROSCOPY < 1 HOUR IP Routine 11/29/2024 3:00 PM PUBLIC HEALTH REPRESENTATIVE POCT GLUCOSE DEVICE Routine 11/29/2024 1 :46 PM PUBLIC HEALTH REPRESENTATIVE ANESTHESIA INTUBATION Routine 11/29/2024 1:39 PM PUBLIC HEALTH REPRESENTATIVE OPEN REDUCTION INTERNAL FIXATION - TIBIAL PLATEAU 11/29/2024 1:11 PM PUBLIC HEALTH REPRESENTATIVE Closed bicondylar fracture of left tibial plateau Case Notes 11/25@1632- Per Winnie via staff msg make third case - [facility] Special Needs Room 210 REMOVAL EXTERNAL FIXATION DEVICE LOWER EXTREMITY 11/29/2024 1:11 PM PUBLIC HEALTH REPRESENTATIVE Closed bicondylar fracture of left tibial plateau Case Notes 11/25@1632- Per Winnie via staff msg make third case - [facility] Special Needs Room 210 [place] AN PROCEDURE PLACEHOLDER Routine 11/29/2024 12:45 PM PUBLIC HEALTH REPRESENTATIVE [place] AN PROCEDURE PLACEHOLDER Routine 11/29/2024 12:44 PM PUBLIC HEALTH REPRESENTATIVE POCT GLUCOSE DEVICE Routine 11/29/2024 1 1:37 AM PUBLIC HEALTH REPRESENTATIVE from Last 3 Months Results * XR [...] it. Electronically signed by: Celestino Cain D.O. us Amanda Mckenzie MD IMG XR PROCEDURES Final Result * (ABNORMAL) POCT glucose (12/02/2024 11:22 AM PUBLIC HEALTH REPRESENTATIVE) Glucose, POC 202(H) 70 - 199 mg/dL Blood 12/02/2024 11:2 2 AM PUBLIC HEALTH REPRESENTATIVE 12/02/2024 11:22 AM PUBLIC HEALTH REPRESENTATIVE us Amanda Mckenzie MD LAB POCT ORDERABLE S - DEVICE Final Result Performing Organization Address [facility] Co de Phone Number [facility] [place] [address] * POCT glucose (12/02/2024 7:18 AM PUBLIC HEALTH REPRESENTATIVE) Glucose, POC 136 70 - 199 mg/dL Blood 12/02/2024 7:18 AM PUBLIC HEALTH REPRESENTATIVE 12/02/2024 7:18 AM PUBLIC HEALTH REPRESENTATIVE us Amanda Mckenzie MD LAB POCT ORDERABLE S - DEVICE Final Result Performing Organization Address [facility] Co de Phone Number [facility] Department [place] [address] * POCT glucose (12/01/2024 8:04 PM PUBLIC HEALTH REPRESENTATIVE) Glucose, POC 196 70 - 199 mg/dL Blood 12/01/2024 8:04 PM PUBLIC HEALTH REPRESENTATIVE 12/01/2024 8:04 PM PUBLIC HEALTH REPRESENTATIVE us Amanda Mckenzie MD LAB POCT ORDERABLE S - DEVICE Final Result Performing Organization Address [facility] Co de Phone Number [facility] [place] [address] * (ABNORMAL) POCT glucose (12/01/2024 4:53 PM PUBLIC HEALTH REPRESENTATIVE) Glucose, POC 200(H) 70 - 199 mg/dL Blood 12/01/2024 4:53 PM PUBLIC HEALTH REPRESENTATIVE 12/01/2024 4:53 PM PUBLIC HEALTH REPRESENTATIVE us Amanda Mckenzie MD LAB POCT ORDERABLE S - DEVICE Final Result Performing Organization Address [facility] de Phone Number [facility] [place] [address] * POCT glucose (12/01/2024 12:10 PM PUBLIC HEALTH REPRESENTATIVE) Glucose, POC 195 70 - 199 mg/dL Blood 12/01/2024 12:1 0 PM PUBLIC HEALTH REPRESENTATIVE 12/01/2024 12:10 PM PUBLIC HEALTH REPRESENTATIVE us Amanda Mckenzie MD LAB POCT ORDERABLE S - DEVICE Final Result Performing Organization Address City/[facility] de Phone Number [facility] [place] [address] * POCT glucose (12/01/2024 8:23 AM PUBLIC HEALTH REPRESENTATIVE) Glucose, POC 164 70 - 199 mg/dL Blood 12/01/2024 8:23 AM PUBLIC HEALTH REPRESENTATIVE 12/01/2024 8:23 AM PUBLIC HEALTH REPRESENTATIVE us Amanda Mckenzie MD LAB POCT ORDERABLE S - DEVICE Final Result Performing Organization Address [facility] Co de Phone Number [facility] [place] [address] * (ABNORMAL) eGFR (11/30/2024 8:31 PM PUBLIC HEALTH REPRESENTATIVE) eGFR 51(L) >=60 mL/min/1. 73 m2 Comment: [...] of Race in Diagnosing Kidney Disease, JASN 2020). The CKD-EPI equation should not be used for patients with unstable renal function and has not been validated in children and those over 70. Current interpretive data was last reviewed 2021. Blood 11/30/2024 8:31 PM PUBLIC HEALTH REPRESENTATIVE 11/30/2024 10:37 PM PUBLIC HEALTH REPRESENTATIVE us Amanda Mckenzie MD LAB BLOOD ORDERABL ES Final Result Performing Organization Address City/[facility]/ZIP Co de Phone Number [facility] Department [place] [address] * (ABNORMAL) CBC without differential (11/30/2024 8:31 PM PUBLIC HEALTH REPRESENTATIVE) Pathologist [facility] WBC 9.3 3.8 - 9.9 K/cumm Hgb 9.9(L) 11.9 - 15.5 g/dL [facility] Hct 31.1(L) 35.6 - 45.5 % [facility] Plt 291 150 - 400 K/cumm [facility] MPV 10.3 9.1 - 12.3 fL [facility] RBC 3.66(L) 3.90 - 5.20 M/cumm [facility] MCV 85.0 81.3 - 96.4 fL [facility] MCH 27.0(L) 27.1 - 33.3 pg [facility] MCHC 31.8(L) 32.3 - 35.7 g/dL [facility] RDW CV 13.2 11.1 - 14.9 % [facility] RDW SD 40.9 35.7 - 48.1 fL [facility] NRBC abs 0.00 0.00 - 0.01 K/cumm [facility] Blood 11/30/2024 8:31 PM PUBLIC HEALTH REPRESENTATIVE 11/30/2024 10:38 PM PUBLIC HEALTH REPRESENTATIVE Amanda Mckenzie MD LAB BLOOD ORDERABL ES Final Result [facility] Department [place] [address] * (ABNORMAL) Basic metabolic panel (11/30/2024 8:31 PM PUBLIC HEALTH REPRESENTATIVE) Sodium 135 135 - 145 mmol/L Potassium, pl 3.9 3.3 - 4.9 mmol/L [facility] Chloride 100 97 - 110 mmol/L [facility] CO2 26 22 - 32 mmol/L [facility] Anion gap 9 2 - 15 mmol/L [facility] BUN 15 6 - 25 mg/dL [facility] Creatinine 1.21(H) 0.60 - 1.10 mg/dL [facility] Glucose 196 70 - 199 mg/dL [facility] Comment: Interpretive Data Fasting glucose >/= 126 [...] 2022. Calcium 9.0 8.5 - 10.3 mg/dL [facility] Blood 11/30/2024 8:31 PM PUBLIC HEALTH REPRESENTATIVE 11/30/2024 10:37 PM PUBLIC HEALTH REPRESENTATIVE us Amanda Mckenzie MD LAB BLOOD ORDERABL ES Final Result Performing Organization Address [facility] Co de Phone Number [facility] [place] [address] * (ABNORMAL) POCT glucose (11/30/2024 8:26 PM PUBLIC HEALTH REPRESENTATIVE) Glucose, POC 210(H) 70 - 199 mg/dL Comment:Glu2: RN/MD Notified Glucose comment 1 Glu2: RN/MD Notified [facility] Blood 11/30/2024 8:26 PM PUBLIC HEALTH REPRESENTATIVE 11/30/2024 8:26 PM PUBLIC HEALTH REPRESENTATIVE us Amanda Mckenzie MD LAB POCT ORDERABLE S - DEVICE Final Result Performing Organization Address [facility] de Phone Number [facility] Department [facility] [place] [address] * (ABNORMAL) POCT glucose (11/30/2024 5:54 PM PUBLIC HEALTH REPRESENTATIVE) Glucose, POC 200(H) 70 - 199 mg/dL Blood 11/30/2024 5:54 PM PUBLIC HEALTH REPRESENTATIVE 11/30/2024 5:54 PM PUBLIC HEALTH REPRESENTATIVE us Amanda Mckenzie MD LAB POCT ORDERABLE S - DEVICE Final Result Performing Organization Address [facility] de Phone Number [facility] Department [place] [address] * (ABNORMAL) POCT glucose (11/30/2024 11:59 AM PUBLIC HEALTH REPRESENTATIVE) Glucose, POC 271(H) 70 - 199 mg/dL Comment:Glu2: RN/MD Notified Glucose comment 1 Glu2: RN/MD Notified [facility] Blood 11/30/2024 11:5 9 AM PUBLIC HEALTH REPRESENTATIVE 11/30/2024 11:59 AM PUBLIC HEALTH REPRESENTATIVE us Amanda Mckenzie MD LAB POCT ORDERABLE S - DEVICE Final Result Performing Organization Address [facility]/[place] [address] * POCT glucose (11/29/2024 8:26 PM PUBLIC HEALTH REPRESENTATIVE) Glucose, POC 182 70 - 199 mg/dL Blood 11/29/2024 8:26 PM PUBLIC HEALTH REPRESENTATIVE 11/29/2024 8:26 PM PUBLIC HEALTH REPRESENTATIVE us Amanda Mckenzie MD LAB POCT ORDERABLE S - DEVICE Final Result Performing Organization Address [facility] Co de Phone Number [facility] Department [place] [address] * POCT glucose (11/29/2024 5:17 PM PUBLIC HEALTH REPRESENTATIVE) Glucose, POC 176 70 - 199 mg/dL Blood 11/29/2024 5:17 PM PUBLIC HEALTH REPRESENTATIVE 11/29/2024 5:17 PM PUBLIC HEALTH REPRESENTATIVE us Amanda Mckenzie MD LAB POCT ORDERABLE S - DEVICE Final Result Performing Organization Address [facility]/ZIP Co de Phone Number [facility] [place] [address] * HIV 1/2 Antibody plus p24 Antigen Blood (11/29/2024 3:33 PM PUBLIC HEALTH REPRESENTATIVE) HIV 1/2 ab + p24 ag Nonreactive Nonreactive Comment:Nonreactive for HIV- 1 antigen and HIV-1/HIV-2 antibodies. No laboratory evidence of HIV infection. If acute HIV infection is suspected, consider testing for HIV-1 RNA. Current interpretive data was last revised on 22. Blood 11/29/2024 3:33 PM PUBLIC HEALTH REPRESENTATIVE 11/29/2024 4:27 PM PUBLIC HEALTH REPRESENTATIVE Chino Aguayo MD LAB MICROBIOLOGY - GENERAL OR DERABLES Final Result Performing Organization Address [facility] Co de Phone Number [facility] [place] [address] * Hepatitis C antibody Blood (11/29/2024 3:33 PM PUBLIC HEALTH REPRESENTATIVE) Pathologist [facility] Hep C Ab Nonreactive Nonreactive Comment:Antibodies to HCV no t detected. Does NOT exclude the possibility of recent exposure to HCV. Current interpretive data was last revised on 22 Blood 11/29/2024 3:33 PM PUBLIC HEALTH REPRESENTATIVE 11/29/2024 4:27 PM PUBLIC HEALTH REPRESENTATIVE Chino Aguayo MD LAB MICROBIOLOGY - GENERAL OR DERABLES Final Result Performing Organization Address City/[facility] Co de Phone Number [facility] [place] [address] * Hepatitis B Surface Antigen Blood (11/29/2024 3:33 PM PUBLIC HEALTH REPRESENTATIVE) HepBsAg Nonreactive Nonreactive Blood 11/29/2024 3:33 PM PUBLIC HEALTH REPRESENTATIVE 11/29/2024 4:27 PM PUBLIC HEALTH REPRESENTATIVE Chino Aguayo MD LAB MICROBIOLOGY - GENERAL OR DERABLES Final Result Performing Organization Address [facility] Co de Phone Number [facility] [place] [address] * [place] Fluoroscopy < 1 Hour (11/29/2024 3:00 PM PUBLIC HEALTH REPRESENTATIVE) Narrative [id number] - 11/29/2024 3:00 PM PUBLIC HEALTH REPRESENTATIVE The images from this study are not interpreted by Radiology. Please refer to the physician's procedure / OR operative note. Amanda Mckenzie MD IMG FLUOROSCOPY [place] OCEDURES Final Result Performing Organization Address [facility] Co de Phone Number [facility] * POCT glucose (11/29/2024 1:46 PM PUBLIC HEALTH REPRESENTATIVE) Glucose, POC 155 70 - 199 mg/dL Blood 11/29/2024 1:46 PM PUBLIC HEALTH REPRESENTATIVE 11/29/2024 1:46 PM PUBLIC HEALTH REPRESENTATIVE Amanda Mckenzie MD LAB POCT ORDERABLE S - DEVICE Final Result Performing Organization Address [facility] [place] de Phone Number [facility] Department [place] [address] * Airway (11/29/2024 1:39 PM PUBLIC HEALTH REPRESENTATIVE) Narrative Fortunato Prabhakar MD - 11/29/2024 1:39 PM PUBLIC HEALTH REPRESENTATIVE Fortunato Prabhakar MD 11/29/2024 1:53 PM Airway [...] FRANK ORDERABLES Edited Result - Final * [place] AN PROCEDURE PLACEHOLDER (11/29/2024 12:45 PM PUBLIC HEALTH REPRESENTATIVE) Narrative Awais Juarez MD - 11/29/2024 12:45 PM PUBLIC HEALTH REPRESENTATIVE Macy Ramírez MD 11/29/2024 12:56 PM Peripheral [...] patient tolerated procedure well with no complications Result [facility] Macy Ramírez MD ANESTHESIA ORDERABLES Final Result * [place] AN PROCEDURE PLACEHOLDER (11/29/2024 12:44 PM PUBLIC HEALTH REPRESENTATIVE) Awais Capps MD - 11/29/2024 12:44 PM PUBLIC HEALTH REPRESENTATIVE Awais Juarez MD 11/29/2024 6:15 PM Peripheral [...] Result * POCT glucose (11/29/2024 11:37 AM PUBLIC HEALTH REPRESENTATIVE) Glucose, POC 165 70 - 199 mg/dL Blood 11/29/2024 11:3 7 AM PUBLIC HEALTH REPRESENTATIVE 11/29/2024 11:37 AM PUBLIC HEALTH REPRESENTATIVE Amanda Mckenzie MD LAB POCT ORDERABLE S - DEVICE Final Result [facility] [place] [address] from Last 3 Months Insurance MedAdherence ACCESS OOS MEDICARE MedAdherence ACCESS OOS MEDICARE Advance Directives For more information, please contact: [phone] * Full Code (Latest Code Status on File) Date Activated Date Inactivated Comments 11/29/2024 5:14 PM 12/02/2024 7:50 PM * Full Code Date Activated Date Inactivated Comments 11/13/2024 2:31 PM 11/15/2024 6:59 PM * Full Code Date Activated Date Inactivated Comments 11/13/2024 2:31 PM 11/13/2024 2:31 PM Care Teams Laboratory Technology Teacher Relationship Specialty Start Date End Date Paco Babcock MD [address] [place] [address] PCP - General Family Medicine 08/07/24
--- OUTSIDE RECORDS SUMMARY | 2025-02-13 16:15 | XMS_ITS | Clinical Summary ---
Author Organization [facility] Address [address] [place] [address] Care Team Providers Care Ash Worker Name Role Phone Unavailable Primary Care Provider Unavailabl e Source Comments [facility],non-owned Affiliates and Associated Physician Practices is amultiple site organization consisting of ambulatory clinics and hospital sitesin [place], [place], [place] and [place]. This disclosure is being madepursuant to the Care Everywhere program and may not contain all information available regarding this patient. 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 Gender Identity Not on file Sexual Orientation [...] VACCINE ( - 2023-2 5 season) 2024 DEPRESSION SCREENING 10/16/2024 INFLUENZA VACCINE (Season Ended) 2025 Respiratory Syncytial Virus (RSV) Vaccine Pt: or [...] to complete this topic MENINGOCOCCAL (Group B) VACC INE SHARED DECISION-MAKING Aged Out No longer eligibl e based on patient's age to complete this topic MENINGOCOCCAL GROUPS A/C/Y/W VACCINE Aged Out No longer eligible b ased on patient's age to complete this topic Insurance [employer] [facility] SELF PAY NO INSURANCE Member Subscriber Plan / Payer (Ef fective for All Dates) Name:Eli Jordan Member ID:Not on file Relation to Subscriber:Not on file Name:ELI JORDAN Subscriber ID:Not on file Address: [address] [place], [place] [id number] Payer ID:Not on file Group ID:Not on file Type:Self Pay Address: [facility] HEALTH CARE SELF PAY NO INSURANCE Member Subscriber Plan / Payer (Ef fective for All Dates) Name:Eli Jordan Member ID:Not on file Relation to Subscriber:Not on file Name:ELI JORDAN Subscriber ID:Not on file Address: [address] [place], [place] [id number] Payer ID:Not on file Group ID:Not on file Type:Self Pay Address: [place] HEALTH CARE SELF PAY NO INSURANCE Member Subscriber Plan / Payer (Ef fective for All Dates) Name:Eli Jordan Member ID:Not on file Relation to Subscriber:Not on file Name:ELI JORDAN Subscriber ID:Not on file Address: [address] [place] [id number] Payer ID:Not on file Group ID:Not on file Type:Self Pay Address: [place], [place]
--- OUTSIDE RECORDS SUMMARY | 2025-02-13 16:15 | XMS_ITS ---
Author Organization [facility] Address [address] [place] [address] Jane AquinoCANDICE [address] Care Team Providers Care Ribbon Weaver Name Role Phone JOESPH MORENO MD Primary Care Provider Leland Watson Unavailable [phone] ALLERGIES No Known Allergies REASON FOR VISIT Follow Up, Right = Left Low Back Pain, Left Lower Extremity Pain MEDICATIONS Medication SIG (Take, Route, Frequency, Duration) Notes Start Date End Date Status Omeprazole 40 MG Oral for 90 A ctive Xanax 0.25 MG 1-2 tablets Orally 3 0 minutes prior to injection 11/28/2023 Active Lidocaine 5 % 1 patch remove after 12 hours External Once a day Active Methocarbamol 750 MG 1 tablet Oral every 8 hrs Active EQ Aspirin Adult Low Dose 81 MG Oral for 90 Active Clopidogrel Bisulfate 75 MG 1 tablet Ora l Once a day Active metFORMIN HCl 500 MG 1 tablet with a ritchie l Orally Once a day for 30 day(s) Active Cymbalta 60 MG 1 capsule Orally Onc e a day Active Pregabalin 75 MG 1 capsule Orally ladonna ry 12 hours 10/25/2022 Active Meloxicam 7.5 MG take 1 tablet by johnny th twice daily Oral 2x/day for 30 days Active Sertraline HCl 25 MG TAKE 1 TABLET BY MO UTH ONCE DAILY Oral for 30 Active Cyclobenzaprine HCl 10 MG 1 tab as neede d orally every 12 hours PRN muscle spasms for 30 days 04/28/2023 Active Voltaren 1 % apply 4 grams to painful joint(s) Transdermal 4x/day as needed for pain for 30 days Active Rybelsus 7 MG 1 tablet at least 30 minutes before first food, beverage or other oral medicine of the day Orally Once a day for 30 day(s) Active hydroCHLOROthiazide 25 MG 1 tablet in e morning Oral Once a day Active Atorvastatin Calcium 20 MG 1 tablet Oral Once a day Active NIFEdipine ER Osmotic Releas e 30 MG Oral for 30 Active traMADol HCl 50 MG 1 tablet as needed Orally 2x/day severe pain for 30 days 12/19/2024 Active SOCIAL HISTORY Tobacco Use: Social History Observation Description Date Details (start date - stop date) Current Smoker NA - NA Sex Assigned At : Social History Observation Description Sex Assigned At Unknown Tobacco Use/Smoking Question Answer Notes Are you a current every day smoker VITAL SIGNS Blood pressure systolic 130 mm Hg 12/20/19 25 Blood pressure diastolic 96 mm Hg 025 Heart Rate 97 /min 12/19/2024 Respiratory Rate 18 /min 12/19/2024 Height 5 ft 5 in in 12/19/2024 Weight 213 lbs 12/19/2024 BMI 35.44 kg/m2 12/19/2024 Encounters Encounter Location Date Provider Diagnosis [facility] [address] [place] [address] 12/19/2024 Leland Vitale Radiculopathy, lumbosacral region M54.17 ; Spondylosis without myelopathy or radiculopathy, lumbar region M47.816 ; Sacroiliitis, not elsewhere classified M46.1 ; Postlaminectomy syndrome, not elsewhere classified M96.1 ; Radiculopathy, lumbar region M54.16 ; 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 The [place] and [place] PDMP were reviewed and were appropriate 12/19/2024 Spondylosis without myelopathy or radiculopathy, lumbar region (ICD-10 - M47.816) 12/19/2024 Sacroiliitis, not elsewhere classified (ICD-10 - M46.1) 12/19/2024 Postlaminectomy syndrome, not elsewhere classified (ICD-10 - M96.1) 12/19/2024 Radiculopathy, lumbar region (ICD-10 - M54.16) 12/19/2024 Fear of injections and transfusions (ICD-10 - F40.231) 12/19/2024 custodial (current) use of opiate analgesic (ICD-10 - Z79.891) 12/19/2024 manager long term care (current) use of non-steroidal anti-inflammatories (NSAID) (ICD-10 - Z79.1) 12/19/2024 manager long term care (current) use of anticoagulants (ICD-10 - Z79.01) 12/19/2024 Other The above-named patient was evaluated [...] rally 2x/day severe pain for 30 days 12/19/2024 Treatment Notes Assessment Notes Radiculopathy, lumbosacral region [...] fully comply with the above. The [place] PDMP were reviewed and were appropriate Other [...] 4 Weeks OPV, Reas on: Provider Name:Leland Ngo Ventura martinez, 03/17/2025 01:15:00 PM, [address] [place] [address], [phone], Progress Notes * Examination Category Sub-Category Detail [...] patient's typical axial low back pain. Yuliana's, Varina's and Gaenslen's are positive bilaterally. There is [...] of residual disc bulge, bilateral facet arthropathy. Salo-bc-[id number] bilateral neuroforaminal stenosis. L5-S1: No evidence of [...]
[2025-02-13 16:16] VITALS: BP 116/53; PULSE 90; RESP 18; TEMP 36.3; O2SAT 97
--- NOTE | 2025-02-13 16:50 | ED.GENADULT ---
HPI - General Adult General Chief complaint: Extremity Injury, Lower Stated complaint: Left knee pain Time Seen by Provider: 02/13/25 16:18 History of Present Illness HPI narrative: 59-year-old female presents emergency department for evaluation for left knee pain. Patient does have recent history of a knee fracture for which she was transferred to an outside hospital. Patient has been doing outpatient therapy and did have noticed increased bruising to the posterior left knee. Patient contacted her physician and she was instructed to present to the emergency department for evaluation and for a Doppler. Related Data Home Medications ?Medication ?Instructions ?Recorded ?Confirmed ?Last Taken ?Type tramadol 50 mg tablet 50 mg PO BID PRN Pain 11/05/20 08/22/24 08/22/24 History omeprazole 40 mg capsule,delayed 40 mg DAILY 08/22/24 08/22/24 08/22/24 History release Allergies Allergy/AdvReac Type Severity Reaction Status Date / Time No Known Drug Allergies Allergy Unknown none Verified 02/13/25 16:13 Review of Systems Review of Systems: All systems reviewed & are unremarkable except as noted in HPI and below PMFSH Past Medical History Medical History Dyslipidemia Cerebrovascular accident no residual deficits Type 2 diabetes mellitus Hypertension Adenomatous colon polyp Obesity Surgical History Surgical History History of section History of lumbosacral spine surgery fusion and cages L4-S1 History of colonoscopy with polypectomy Family History Family History Unknown Diabetes mellitus Hypertension Mother Diabetes mellitus Hypertension Social History Social History Social History: Surrogate medical decision maker: Sammy Jordan, spouse. Code status: Full code. Smoking packs per day: 0.5 Smoking cigarettes per day: 10.0 Years smoked: 15 Smoking pack-years: 7.50 Smoking status: Former smoker Tobacco type: cigarettes Alcohol intake: never Substance use: never Substance use type: does not use Do You Feel Safe in your Home?: Yes Lack of Transportation: No Lack of Food: Never True Current Housing: I Have Housing Concerned About Future Housing: Decline to Answer Difficulty Paying Gas/Electric Bills: Decline to Answer Difficulty Paying for Meds: Decline to Answer Currently Unemployed: Decline to Answer Education: Decline to Answer Difficulty w/ Childcare or Family Care: Decline to Answer Living arrangements: with family Additional living arrangements comments: Lives in [place] with . Occupation/Education: retired Additional occupation/education comments: On disability since a back injury at work. Spiritual care concerns: No Exam Narrative: APPEARANCE: Well appearing, no pain, no distress, well-nourished. HEAD: normocephalic, atraumatic. EYES: PERRLA/EOMI, conjunctivae clear. NOSE: Normal no drainage EARS:TMS clear with good light reflex. THROAT: Pharynx clear, no exudate. NECK: Supple. No adenopathy, no masses. RESPIRATORY: Airway patent, respirations nonlabored. Clear to auscultation bilaterally, no rales, rhonchi, wheezing. CARDIOVASCULAR: Regular rate and rhythm without murmurs rubs or gallops. ABDOMINAL: Soft, nontender, nondistended, normal bowel sounds MUSCULOSKELETAL: Bruising and tenderness to posterior left lower extremity NEURO: Alert. Cranial nerves II through XII intact. Good gait. Good coordination SKIN: Warm, dry. Normal Color Course Vital Signs Vital signs: Vital Signs Temperature 97.3 F L 02/13/25 16:16 Pulse Rate 90 02/13/25 16:16 Respiratory Rate 18 02/13/25 16:16 Blood Pressure 116/53 L 02/13/25 16:16 Pulse Oximetry 97 02/13/25 16:16 Oxygen Delivery Room Air 02/13/25 16:16 Temperature 97.3 F L 02/13/25 16:16 Pulse Rate 90 02/13/25 16:16 Respiratory Rate 18 02/13/25 16:16 Blood Pressure 116/53 L 02/13/25 16:16 Pulse Oximetry 97 02/13/25 16:16 Oxygen Delivery Room Air 02/13/25 16:16 Medical Decision Making MDM Narrative Medical decision making narrative: 59-year-old female presents emergency department for evaluation for left posterior knee ecchymosis. Patient's x-rays were negative for acute fracture. Ultrasound did show a DVT of the lower extremity below the knee. I discussed the case with the primary care physician and they preferred to get the patient started on Eliquis. Patient is on Plavix and aspirin. Differential Diagnosis Differential Diagnosis: DVT, thrombus, fracture Vital Signs Vital Signs: Vital Signs Temperature 97.3 F L 02/13/25 16:16 Pulse Rate 90 02/13/25 16:16 Respiratory Rate 18 02/13/25 16:16 Blood Pressure 116/53 L 02/13/25 16:16 Pulse Oximetry 97 02/13/25 16:16 Oxygen Delivery Room Air 02/13/25 16:16 Temperature 97.3 F L 02/13/25 16:16 Pulse Rate 90 02/13/25 16:16 Respiratory Rate 18 02/13/25 16:16 Blood Pressure 116/53 L 02/13/25 16:16 Pulse Oximetry 97 02/13/25 16:16 Oxygen Delivery Room Air 02/13/25 16:16 Imaging Data Radiologist's impression: Impressions Knee X-Ray 02/13/25 17:02 IMPRESSION: As above Tibia/Fibula X-Ray 02/13/25 17:21 IMPRESSION: Healing fracture in the proximal tibia with postoperative changes. Venous Doppler Study 02/13/25 17:26 IMPRESSION: deep vein thrombosis in the left gastrocnemius vein.. No DVT seen above the knee. Dr. Amos was notified with the result of the patient at the time of dictation 5:28 PM on February 13, 2025 Discharge Plan Discharge Clinical Impression: DVT (deep venous thrombosis) Patient Disposition: Home Condition: Stable Instructions: Antibiotic Form, Deep Vein Thrombosis (DC), Deep Vein Thrombosis Prevention (ED) Additional Instructions: You are currently taking Plavix and aspirin due to your stroke history. You are being started on Eliquis for the deep vein thrombosis/clot in your left lower leg. Being on all 3 of these medication does significantly increase your risk of developing uncontrolled bleeding. Have close follow-up with your physicians regarding continuing the aspirin and Plavix while your on Eliquis. Patient Language: Uzbek Prescriptions: New Eliquis DVT-PE Treat 30D Start 5 mg (74 tabs) tablets,dose pack See Rx Instructions .ROUTE .COMPLEX Qty: 74 0RF Rx Instructions: orally per package directions No Action tramadol 50 mg tablet 50 mg PO BID PRN (Reason: Pain) atorvastatin 40 mg Tablet 80 mg PO DAILY Qty: 60 0RF clopidogrel 75 mg Tablet 75 mg PO QAM Qty: 60 0RF aspirin [Children's Aspirin] 81 mg Tablet,Chewable 81 mg PO DAILY@0800 Qty: 60 0RF metformin 500 mg tablet 500 mg PO BID Qty: 60 0RF omeprazole 40 mg capsule,delayed release(DR/EC) 40 mg DAILY Follow-up/Referrals: Yoko,Paco Lea MD [Primary Care Provider] -
--- OUTSIDE RECORDS SUMMARY | 2025-02-13 17:36 | XMS_ITS | Clinical Summary ---
Author Organization [facility] Address [address] [place] [id number] Care Team Providers Care Electric Motor Fitter Name Role Phone Unavailable Primary Care Provider [...]
--- OUTSIDE RECORDS SUMMARY | 2025-02-13 17:36 | XMS_ITS | Referral Summary ---
Author Organization [facility] Address [address] [place] [address] Care Team Providers Care Marine Pipefitter Helper Name Role Phone Paco Babcock MD Primary Care Provider [phone] Encounters Date Type Department Care Team Description 01/16/2025 1:41 PM CDT - 01/16/2025 11:59 PM CDT Hospital Encounter [facility] [address] [place] [id number] Amanda Mckenzie MD Closed bicondylar fracture of left tibial plateau; Closed fracture of left tibial plateau with routine healing, subsequent encounter; Closed fracture of left tibial plateau, initial encounter Discharge Disposition: Discharge to home or self care 01/16/2025 2:40 PM CDT Office Visit [facility] [address] [place] [address] Advanced Medicine 6th [place] [address] [place] [address] Amanda Mckenzie MD Closed bicondylar fracture of left tibial plateau (Primary Dx); Closed fracture of left tibial plateau with routine healing, subsequent encounter; Closed fracture of left tibial plateau, initial encounter 12/19/2024 10:00 AM DEVOPS DEVELOPER Office Visit [facility] [address] [place] [address] Medicine 6th [place] [address] [place] [address] Amanda Mckenzie MD Closed bicondylar fracture of left tibial plateau (Primary Dx); Closed fracture of left tibial plateau with routine healing, subsequent encounter 11/29/2024 9:08 AM DEVOPS DEVELOPER - 12/02/2024 3:45 PM DEVOPS DEVELOPER Hospital Encounter [facility] [address] [place] [address] Amanda Mckenzie MD Closed bicondylar fracture of left tibial plateau (Primary Dx); Closed fracture of left tibial plateau, initial encounter Discharge Disposition: Discharge to home or self care 11/29/2024 3:48 PM DEVOPS DEVELOPER - 11/29/2024 11:59 PM DEVOPS DEVELOPER Hospital Encounter [facility] [address] [place] [address] Discharge Disposition: Discharge to home or self care 11/29/[address] [facility] [address] [facility] Room 3420 (Third Floor) [place] [address] Stella Gamble RN Exposure to blood-borne pathogen (Primary Dx) 11/29/2024 12:50 PM DEVOPS DEVELOPER - 11/29/2024 4:00 PM DEVOPS DEVELOPER Surgery [facility] Operating Room [address] [place] [address] Amanda Mckenzie MD REMOVAL EXTERNAL FIXATION DEVICE LOWER EXTREMITY 11/29/2024 1:08 PM DEVOPS DEVELOPER Anesthesia Event [facility] Operating Room [address] [place] [address] Emily Escobar MD Beardsley, Allison Marie, NP 11/28/2024 Telephone [facility] Advanced Medicine 6th [place] [address] [place] [address] Amanda Mckenzie MD 11/25/2024 Telephone [facility] Advanced Medicine 6th [place] [address] [place] [address] Amanda Mckenzie MD from Last 3 Months [...] 1 tablet (81 mg total) by mouth registered phlebotomist part time before breakfast 11/18/19 24 Active acetaminophen (TYLENOL) 325 mg tabletIndications:P ain Take 2 tablets (650 mg total) by mouth every 6 (six) hours 30 tablet 11/15/19 25 Active Rybelsus 7 mg tabletIndications:t ype 2 diabetes mellitus Take 1 tablet (7 mg total) by mouth registered phlebotomist part time before breakfast Active traMADoL (ULTRAM) 50 mg [...] 11/13/2024 Assessment & Plan (11/14/2024 9:13 AM DEVOPS DEVELOPER): 11/13: New admission, OR with ortho- external fixation placed. 11/14 POD1 from ex fix. Ortho okay with patient discharging and coming back later (~2 weeks) for her definitive surgery. PT/OT kristin pending. SARA holland Fall, initial encounter 11/12/2024 Assessment & Plan (11/13/2024 11:18 AM DEVOPS DEVELOPER): - Same level mechanical fall on ice Closed fracture of left tibial plateau Assessment & Plan (11/14/2024 9:13 AM DEVOPS DEVELOPER): - Ortho trauma consult - OR 11/13 External fixation - Too swollen to repair - Elevate LLE - PT/OT - NWB LLE -Ortho okay with patient discharging and coming back later (~2 weeks) for her definitive surgery. History of multiple cerebrovascular accidents (C VAs) 08/15/2024 Assessment & Plan (11/13/2024 2:00 PM DEVOPS DEVELOPER): - Homen ASA/ plavix held, resume as appropriate. - Community ambulator without assist device at baseline Dyslipidemia 08/15/2024 Type 2 diabetes mellitus, wi thout long-term current use of insulin 08/15/2024 Assessment & Plan (11/13/2024 11:33 AM DEVOPS DEVELOPER): - Home metformin held - SSI History of lumbar fusion 08/15/2024 Social History Tobacco Use Types Packs/Day Years Used Date Smoking Tobacco: Former Cigarettes Tobacco Cessation:Counseling Given: Not Answered [facility] Utilities Answer Date Recorded In the past 12 months has th [employer], Private Practice, oil, or water [employer] threatened to shut off services in your [...] answer 12/02/2024 How often do you attend [facility] or [facility] services? Patient unable to answer 12/02/2024 Do you belong to any clubs o r organizations such as presybeterian groups, unions, fraternal or athletic groups, or [...] any time in the past 12 m [facility], were you homeless or living in a retirement (including now)? Patient unable to answer 12/02/2024 [...] Comments Blood Pressure 109/55 12/02/2024 1:05 PM DEVOPS DEVELOPER Pulse 99 12/02/2024 1:05 PM DEVOPS DEVELOPER Temperature 36.5 C (97.7 F) 12/02/2024 7:15 AM DEVOPS DEVELOPER Respiratory Rate 16 12/02/2024 7:15 AM DEVOPS DEVELOPER Oxygen Saturation 100% 12/02/2024 1:05 PM DEVOPS DEVELOPER Inhaled Oxygen Concentration - - Weight 95.8 kg (211 lb 3.2 oz) 11/30/2024 10:43 PM DEVOPS DEVELOPER Height 165.1 cm (5' 5 ) 11/30/2024 8:21 PM DEVOPS DEVELOPER Body Mass Index 35.15 11/30/2024 8:21 PM DEVOPS DEVELOPER Plan of Treatment Not on file Medical Devices Implanted Type Area Plant Technical Specialist Device Identifier Shelf Expiration Date Model / Serial / Lot Synthes Schanz 5mm 170mm 50mm Blunt Trocar Point Xlong Screw External 294.55 - [id number] Implanted:Qty: 2 on 11/13/2024 by Amanda Mckenzie MD at [facility] Left: Leg Synthes 294.55 / / Synthes Schanz 5mm 200mm Blunt Trocar Point Mr Conditional Screw External 294.56 - [id number] Implanted:Qty: 2 on 11/13/2024 by Amanda Mckenzie MD at [facility] Left: Leg Synthes 294.56 / / Bales [employer] Nephew/Richco/O rtho Evos 3.5mm 70mm Self Tap Lock Screw Bone Sterile [id number] - [id number] Implanted:Qty: 1 on 11/29/2024 by Amanda Mckenzie MD at [facility] Left: Tibia [employer]/Rich[employer]/Or tho [id number] / / [employer]/O rtho Evos 4.7mm 80mm Full Thread Screw Bone Sterile Osteopenia [id number] - [id number] Implanted:Qty: 1 on 11/29/2024 by Amanda Mckenzie MD at [facility] Left: Tibia [employer]/Rich[employer]/Or tho [id number] / / [employer]/Rich[employer]/O rtho Evos 117x10.9x2mm 25x1.5mm 8 Hole Low Profile Variable Angle Lock [id number] - [id number] Implanted:Qty: 1 on 11/29/2024 by mAanda Mckenzie MD at [facility] Left: Tibia [employer]/Rich[employer]/Or tho [id number] / / [employer]/Rich[employer]/O rtho Evos 134x11.5x3.6mm 32.3x1.9mm 10 Hole Low Profile Variable Angle [id number] - [id number] Implanted:Qty: 1 on 11/29/2024 by Amanda Mckenzie MD at [facility] Left: Tibia [employer]/Richco/Or tho [id number] / / Allosource Cubes Graft 15ml Bone Cancellous [id number] - [id number] - [id number] Implanted:Qty: 1 on 11/29/2024 by Amanda Mckenzie MD at [facility] Left: Tibia Allosource 05/17/2029 [id number] / [id number] / [id number] [employer]hew/Richco/O rtho Evos 3.5mm 26mm Self Tap Cortex Screw Bone Sterile [id number] - [id number] Implanted:Qty: 2 on 11/29/2024 by Amanda Mckenzie MD at [facility] Left: Tibia [employer]/Richco/Or tho [id number] / / [employer]hew/Richco/O rtho Evos 3.5mm 28mm Self Tap Cortex Screw Bone Sterile [id number] - [id number] Implanted:Qty: 2 on 11/29/2024 by Amanda Mckenzie MD at [facility] Left: Tibia [employer]/Richco/Or tho [id number] / / B[employer]hew/Richco/O rtho Screw Bone Cortical St Non Locking Evos 3.5x30mm Ss [id number] - [id number] Implanted:Qty: 1 on 11/29/2024 by Amanda Mckenzie MD at [facility] Left: Tibia [employer]/Richco/Or tho [id number] / / B[employer]hew/Richco/O rtho Evos 3.5mm 60mm Self Tap Lock Screw Bone Sterile [id number] - [id number] Implanted:Qty: 1 on 11/29/2024 by Amanda Mckenzie MD at [facility] Left: Tibia [employer]/Richco/Or tho [id number] / / B[employer] Nephew/Richco/O rtho Evos 3.5mm 75mm Self Tap Lock Screw Bone Sterile [id number] - [id number] Implanted:Qty: 3 on 11/29/2024 by Amanda Mckenzie MD at [facility] Left: Tibia [employer]hew/Richco/Or tho [id number] / / B[employer] Nephew/Richco/O rtho Evos 3.5mm 80mm Self Tap Lock Screw Bone Sterile [id number] - [id number] Implanted:Qty: 1 on 11/29/2024 by Amanda Mckenzie MD at [facility] Left: Tibia [employer]hew/Richco/Or tho [id number] / / Procedures Procedure Name Priority Date/Time Associated Diagnosis Comments XR KNEE LEFT 1 OR 2 VIEWS Schedule Routine, Read Routine (OP Routine) 01/16/2025 1:49 PM CDT Closed bicondylar fracture of left tibial plateau Closed fracture of left tibial plateau with routine healing, subsequent encounter Closed fracture of left tibial plateau, initial encounter POCT GLUCOSE DEVICE Routine 12/02/2024 1 1:22 AM DEVOPS DEVELOPER POCT GLUCOSE DEVICE Routine 12/02/2024 7 :18 AM DEVOPS DEVELOPER POCT GLUCOSE DEVICE Routine 12/01/2024 8 :04 PM DEVOPS DEVELOPER POCT GLUCOSE DEVICE Routine 12/01/2024 4 :53 PM DEVOPS DEVELOPER POCT GLUCOSE DEVICE Routine 12/01/2024 1 2:10 PM DEVOPS DEVELOPER POCT GLUCOSE DEVICE Routine 12/01/2024 8 :23 AM DEVOPS DEVELOPER EGFR Routine 11/30/2024 8:31 PM DEVOPS DEVELOPER BASIC METABOLIC PANEL Routine 11/30/2024 8:31 PM DEVOPS DEVELOPER CBC WITHOUT DIFFERENTIAL Routine 11/30/2024 8:31 PM DEVOPS DEVELOPER POCT GLUCOSE DEVICE Routine 11/30/2024 8 :26 PM DEVOPS DEVELOPER POCT GLUCOSE DEVICE Routine 11/30/2024 5 :54 PM DEVOPS DEVELOPER POCT GLUCOSE DEVICE Routine 11/30/2024 1 1:59 AM DEVOPS DEVELOPER POCT GLUCOSE DEVICE Routine 11/29/2024 8 :26 PM DEVOPS DEVELOPER POCT GLUCOSE DEVICE Routine 11/29/2024 5 :17 PM DEVOPS DEVELOPER HIV 1/2 ANTIBODY PLUS P24 ANTIGEN Routine 11/29/2024 3:33 PM DEVOPS DEVELOPER HEPATITIS C ANTIBODY Routine 11/29/2024 3:33 PM DEVOPS DEVELOPER HEPATITIS B SURFACE ANTIGEN Routine 11/29/2024 3:33 PM DEVOPS DEVELOPER FL FLUOROSCOPY < 1 HOUR IP Routine 11/29/2024 3:00 PM DEVOPS DEVELOPER POCT GLUCOSE DEVICE Routine 11/29/2024 1 :46 PM DEVOPS DEVELOPER ANESTHESIA INTUBATION Routine 11/29/2024 1:39 PM DEVOPS DEVELOPER OPEN REDUCTION INTERNAL FIXATION - TIBIAL PLATEAU 11/29/2024 1:11 PM DEVOPS DEVELOPER Closed bicondylar fracture of left tibial plateau Case Notes 11/25@1632- Per Winnie via staff msg make third case - [facility] Special Needs Room 210 REMOVAL EXTERNAL FIXATION DEVICE LOWER EXTREMITY 11/29/2024 1:11 PM DEVOPS DEVELOPER Closed bicondylar fracture of left tibial plateau Case Notes 11/25@1632- Per Winnie via staff msg make third case - [facility] Special Needs Room 210 SD AN PROCEDURE PLACEHOLDER Routine 11/29/2024 12:45 PM DEVOPS DEVELOPER SD AN PROCEDURE PLACEHOLDER Routine 11/29/2024 12:44 PM DEVOPS DEVELOPER POCT GLUCOSE DEVICE Routine 11/29/2024 1 1:37 AM DEVOPS DEVELOPER from Last 3 Months Results * XR [...] * (ABNORMAL) POCT glucose (12/02/2024 11:22 AM DEVOPS DEVELOPER) [facility] Signature Glucose, POC 202(H) 70 - 199 mg/dL Blood 12/02/2024 11:2 2 AM DEVOPS DEVELOPER 12/02/2024 11:22 AM DEVOPS DEVELOPER us Amanda Mckenzie MD LAB POCT ORDERABLE S - DEVICE Final Result Performing Organization Address [facility] Co de Phone Number [facility] [place] [address] * POCT glucose (12/02/2024 7:18 AM DEVOPS DEVELOPER) Glucose, POC 136 70 - 199 mg/dL Blood 12/02/2024 7:18 AM DEVOPS DEVELOPER 12/02/2024 7:18 AM DEVOPS DEVELOPER us Amanda Mckenzie MD LAB POCT ORDERABLE S - DEVICE Final Result Performing Organization Address [facility] de Phone Number [facility] [place] [address] * POCT glucose (12/01/2024 8:04 PM DEVOPS DEVELOPER) Glucose, POC 196 70 - 199 mg/dL Blood 12/01/2024 8:04 PM DEVOPS DEVELOPER 12/01/2024 8:04 PM DEVOPS DEVELOPER us Amanda Mckenzie MD LAB POCT ORDERABLE S - DEVICE Final Result Performing Organization Address [facility] de Phone Number [facility] [place] [address] * (ABNORMAL) POCT glucose (12/01/2024 4:53 PM DEVOPS DEVELOPER) Glucose, POC 200(H) 70 - 199 mg/dL Blood 12/01/2024 4:53 PM DEVOPS DEVELOPER 12/01/2024 4:53 PM DEVOPS DEVELOPER us Amanda Mckenzie MD LAB POCT ORDERABLE S - DEVICE Final Result Performing Organization Address [facility] Co de Phone Number GABRIELLA [facility] [place] [address] * POCT glucose (12/01/2024 12:10 PM DEVOPS DEVELOPER) Glucose, POC 195 70 - 199 mg/dL Blood 12/01/2024 12:1 0 PM DEVOPS DEVELOPER 12/01/2024 12:10 PM DEVOPS DEVELOPER Amanda Mckenzie MD LAB POCT ORDERABLE S - DEVICE Final Result Performing Organization Address City/[facility] Co de Phone Number GABRIELLA [facility] [employer] [place] [address] * POCT glucose (12/01/2024 8:23 AM DEVOPS DEVELOPER) Glucose, POC 164 70 - 199 mg/dL Blood 12/01/2024 8:23 AM DEVOPS DEVELOPER 12/01/2024 8:23 AM DEVOPS DEVELOPER Amanda Mckenzie MD LAB POCT ORDERABLE S - DEVICE Final Result Performing Organization Address City/[facility] Co de [place] [address] * (ABNORMAL) eGFR (11/30/2024 8:31 PM DEVOPS DEVELOPER) eGFR 51(L) >=60 mL/min/1. 73 m2 Comment: [...] last reviewed 2021. Blood 11/30/2024 8:31 PM DEVOPS DEVELOPER 11/30/2024 10:37 PM DEVOPS DEVELOPER us Amanda Mckenzie MD LAB BLOOD ORDERABL ES Final Result Performing Organization Address City/[facility]/ZIP Co de Phone Number [facility] Department [place] [address] * (ABNORMAL) CBC without differential (11/30/2024 8:31 PM DEVOPS DEVELOPER) WBC 9.3 3.8 - 9.9 K/cumm Hgb 9.9(L) 11.9 - 15.5 g/dL [facility] Hct 31.1(L) 35.6 - 45.5 % [facility] Plt 291 150 - 400 K/cumm [facility] MPV 10.3 9.1 - 12.3 fL [facility] RBC 3.66(L) 3.90 - 5.20 M/cumm [facility] MCV 85.0 81.3 - 96.4 fL [facility] MCH 27.0(L) 27.1 - 33.3 pg [facility] MCHC 31.8(L) 32.3 - 35.7 g/dL [facility] RDW CV 13.2 11.1 - 14.9 % [facility] RDW SD 40.9 35.7 - 48.1 fL [facility] NRBC abs 0.00 0.00 - 0.01 K/cumm [facility] Blood 11/30/2024 8:31 PM DEVOPS DEVELOPER 11/30/2024 10:38 PM DEVOPS DEVELOPER us Amanda Mckenzie MD LAB BLOOD ORDERABL ES Final Result Performing Organization Address City/[facility]/ZIP Co de Phone Number [facility] Department [place] [address] * (ABNORMAL) Basic metabolic panel (11/30/2024 8:31 PM DEVOPS DEVELOPER) Pathologist [facility] Sodium 135 135 - 145 mmol/L Potassium, pl 3.9 3.3 - 4.9 mmol/L [facility] Chloride 100 97 - 110 mmol/L [facility] CO2 26 22 - 32 mmol/L [facility] Anion gap 9 2 - 15 mmol/L [facility] BUN 15 6 - 25 mg/dL [facility] Creatinine 1.21(H) 0.60 - 1.10 mg/dL [facility] Glucose 196 70 - 199 mg/dL [facility] Comment: Interpretive Data Fasting glucose [...] 2022. Calcium 9.0 8.5 - 10.3 mg/dL [facility] Blood 11/30/2024 8:31 PM DEVOPS DEVELOPER 11/30/2024 10:37 PM DEVOPS DEVELOPER Amanda Mckenzie MD LAB BLOOD ORDERABL ES Final Result [facility] Department [place] [address] * (ABNORMAL) POCT glucose (11/30/2024 8:26 PM DEVOPS DEVELOPER) Pathologist [facility] Glucose, POC 210(H) 70 - 199 mg/dL Comment:Glu2: RN/ Notified Glucose comment 1 Glu2: RN/ Notified [facility] Blood 11/30/2024 8:26 PM DEVOPS DEVELOPER 11/30/2024 8:26 PM DEVOPS DEVELOPER us Amanda Mckenzie MD LAB POCT ORDERABLE S - DEVICE Final Result Performing Organization Address [facility] Co de Phone Number [facility] [employer] [place] [address] * (ABNORMAL) POCT glucose (11/30/2024 5:54 PM DEVOPS DEVELOPER) Glucose, POC 200(H) 70 - 199 mg/dL Blood 11/30/2024 5:54 PM DEVOPS DEVELOPER 11/30/2024 5:54 PM DEVOPS DEVELOPER us Amanda Mckenzie MD LAB POCT ORDERABLE S - DEVICE Final Result Performing Organization Address [facility] [place] [address] * (ABNORMAL) POCT glucose (11/30/2024 11:59 AM DEVOPS DEVELOPER) Glucose, POC 271(H) 70 - 199 mg/dL Comment:Glu2: RN/MD Notified Glucose comment 1 Glu2: RN/MD Notified [facility] Blood 11/30/2024 11:5 9 AM DEVOPS DEVELOPER 11/30/2024 11:59 AM DEVOPS DEVELOPER us Amanda Mckenzie MD LAB POCT ORDERABLE S - DEVICE Final Result Performing Organization Address [facility] [place] [address] * POCT glucose (11/29/2024 8:26 PM DEVOPS DEVELOPER) Glucose, POC 182 70 - 199 mg/dL Blood 11/29/2024 8:26 PM DEVOPS DEVELOPER 11/29/2024 8:26 PM DEVOPS DEVELOPER us Amanda Mckenzie MD LAB POCT ORDERABLE S - DEVICE Final Result Performing Organization Address City/[facility] Co de Phone Number GABRIELLA ALEJO Pawel [facility] [employer] [place] [address] * POCT glucose (11/29/2024 5:17 PM DEVOPS DEVELOPER) Pathologist [facility] Glucose, POC 176 70 - 199 mg/dL Blood 11/29/2024 5:17 PM DEVOPS DEVELOPER 11/29/2024 5:17 PM DEVOPS DEVELOPER Amanda Mckenzie MD LAB POCT ORDERABLE S - DEVICE Final Result Performing Organization Address [facility] de Phone Number [facility] [employer] [place] [address] * HIV 1/2 Antibody plus p24 Antigen Blood (11/29/2024 3:33 PM DEVOPS DEVELOPER) [facility] HIV 1/2 ab + p24 ag Nonreactive Nonreactive Comment:Nonreactive for HIV- 1 antigen and HIV-1/HIV-2 antibodies. No laboratory evidence of HIV infection. If acute HIV infection is suspected, consider testing for HIV-1 RNA. Current interpretive data was last revised on 22. Blood 11/29/2024 3:33 PM DEVOPS DEVELOPER 11/29/2024 4:27 PM DEVOPS DEVELOPER Chino Aguayo MD LAB MICROBIOLOGY - GENERAL OR DERABLES Final Result Performing Organization Address [facility] Co de Phone Number [facility] [employer] [place] [address] * Hepatitis C antibody Blood (11/29/2024 3:33 PM DEVOPS DEVELOPER) Pathologist [facility] Hep C Ab Nonreactive Nonreactive Comment:Antibodies to HCV no t detected. Does NOT exclude the possibility of recent exposure to HCV. Current interpretive data was last revised on 22 Blood 11/29/2024 3:33 PM DEVOPS DEVELOPER 11/29/2024 4:27 PM DEVOPS DEVELOPER us Chino Aguayo MD LAB MICROBIOLOGY - GENERAL OR DERABLES Final Result Performing Organization Address [facility] Phone Number [facility] of [employer] [place] [address] * Hepatitis B Surface Antigen Blood (11/29/2024 3:33 PM DEVOPS DEVELOPER) HepBsAg Nonreactive Nonreactive Blood 11/29/2024 3:33 PM DEVOPS DEVELOPER 11/29/2024 4:27 PM DEVOPS DEVELOPER us Chino Aguayo MD LAB MICROBIOLOGY - GENERAL OR DERABLES Final Result Performing Organization Address [facility] [place] [address] * [place] Fluoroscopy < 1 Hour (11/29/2024 3:00 PM DEVOPS DEVELOPER) Narrative [facility] - 11/29/2024 3:00 PM DEVOPS DEVELOPER The images from this study are not interpreted by Radiology. Please refer to the physician's procedure / OR operative note. us Amanda Mckenzie MD IMG FLUOROSCOPY SD OCEDURES Final Result Performing Organization Address [facility] de Phone Number [email or web address] * POCT glucose (11/29/2024 1:46 PM DEVOPS DEVELOPER) Glucose, POC 155 70 - 199 mg/dL Blood 11/29/2024 1:46 PM DEVOPS DEVELOPER 11/29/2024 1:46 PM DEVOPS DEVELOPER us Amanda Mckenzie MD LAB POCT ORDERABLE S - DEVICE Final Result Performing Organization Address [facility] [place] [address] * Airway (11/29/2024 1:39 PM DEVOPS DEVELOPER) Narrative Fortunato Prabhakar MD - 11/29/2024 1:39 PM DEVOPS DEVELOPER Fortunato Prabhakar MD 11/29/2024 1:53 PM Airway [...] FRANK ORDERABLES Edited Result - Final * SD AN PROCEDURE PLACEHOLDER (11/29/2024 12:45 PM DEVOPS DEVELOPER) Narrative Awais Juarez MD - 11/29/2024 12:45 PM DEVOPS DEVELOPER Macy Ramírez MD 11/29/2024 12:56 PM Peripheral [...] Ramírez MD ANESTHESIA ORDERABLES Final Result * SD AN PROCEDURE PLACEHOLDER (11/29/2024 12:44 PM DEVOPS DEVELOPER) Narrative Awais Juarez MD - 11/29/2024 12:44 PM DEVOPS DEVELOPER Awais Juarez MD 11/29/2024 6:15 PM Peripheral [...] Result * POCT glucose (11/29/2024 11:37 AM DEVOPS DEVELOPER) Glucose, POC 165 70 - 199 mg/dL Blood 11/29/2024 11:3 7 AM DEVOPS DEVELOPER 11/29/2024 11:37 AM DEVOPS DEVELOPER Amanda Mckenzie MD LAB POCT ORDERABLE S - DEVICE Final Result [facility] [place] [address] from Last 3 Months Insurance [employer] MEDICARE [employer] MEDICARE Advance Directives For more information, please contact: [phone] * Full Code (Latest Code Status on File) Date Activated Date Inactivated Comments 11/29/2024 5:14 PM 12/02/2024 7:50 PM * Full Code Date Activated Date Inactivated Comments 11/13/2024 2:31 PM 11/15/2024 6:59 PM * Full Code Date Activated Date Inactivated Comments 11/13/2024 2:31 PM 11/13/2024 2:31 PM Care Teams Marine Pipefitter Helper Relationship Specialty Start Date End Date Paco Babcock MD [facility] [place] [address] PCP - General Family Medicine 08/07/24
--- OUTSIDE RECORDS SUMMARY | 2025-02-13 17:36 | XMS_ITS | Clinical Summary ---
Author Organization [facility] Address [address] [place] [address] Care Team Providers Care Cardiopulmonary Technician And Eeg Tech Name Role Phone Paco Babcock MD Primary Care Provider [phone] Allergies No known active allergies Medications clopidogreL [...] 1 tablet (81 mg total) by mouth repairer switchgear before breakfast 11/18/19 24 Active acetaminophen (TYLENOL) 325 mg tabletIndications:P ain Take 2 tablets (650 mg total) by mouth every 6 (six) hours 30 tablet 11/15/19 25 Active Rybelsus 7 mg tabletIndications:t ype 2 diabetes mellitus Take 1 tablet (7 mg total) by mouth repairer switchgear before breakfast Active traMADoL (ULTRAM) 50 mg [...] 11/13/2024 Assessment & Plan (11/14/2024 9:13 AM TIEING MACHINE OPERATOR): 11/13: New admission, OR with ortho- external fixation placed. 11/14 POD1 from ex fix. Ortho okay with patient discharging and coming back later (~2 weeks) for her definitive surgery. PT/OT evals pending. DC amalia Fall, initial encounter 11/12/2024 Assessment & Plan (11/13/2024 11:18 AM TIEING MACHINE OPERATOR): - Same level mechanical fall on ice Closed fracture of left tibial plateau Assessment & Plan (11/14/2024 9:13 AM TIEING MACHINE OPERATOR): - Ortho trauma consult - OR 11/13 External fixation - Too swollen to repair - Elevate LLE - PT/OT - NWB LLE -Ortho okay with patient discharging and coming back later (~2 weeks) for her definitive surgery. History of multiple cerebrovascular accidents (C VAs) 08/15/2024 Assessment & Plan (11/13/2024 2:00 PM TIEING MACHINE OPERATOR): - Homen ASA/ plavix held, resume as appropriate. - Community ambulator without assist device at baseline Dyslipidemia 08/15/2024 Type 2 diabetes mellitus, wi thout long-term current use of insulin 08/15/2024 Assessment & Plan (11/13/2024 11:33 AM TIEING MACHINE OPERATOR): - Home metformin held - SSI History of lumbar fusion 08/15/2024 Encounters Date Type Department Care Team Description 01/16/2025 2:40 PM CDT Office Visit [facility] Orthopaedic Surgery [address] 6th [place] [address] [place] [address] Amanda Mckenzie MD Closed bicondylar fracture of left tibial plateau (Primary Dx); Closed fracture of left tibial plateau with routine healing, subsequent encounter; Closed fracture of left tibial plateau, initial encounter 01/16/2025 1:41 PM CDT - 01/16/2025 11:59 PM CDT Hospital Encounter [facility] [address] [place] [address] Amanda Mckenzie MD Closed bicondylar fracture of left tibial plateau; Closed fracture of left tibial plateau with routine healing, subsequent encounter; Closed fracture of left tibial plateau, initial encounter Discharge Disposition: Discharge to home or self care 12/19/2024 10:00 AM TIEING MACHINE OPERATOR Office Visit [facility] Orthopaedic Surgery [address] [facility] 6th [place] [address] [place] [address] Amanda Mckenzie MD Closed bicondylar fracture of left tibial plateau (Primary Dx); Closed fracture of left tibial plateau with routine healing, subsequent encounter 11/29/2024 3:48 PM TIEING MACHINE OPERATOR - 11/29/2024 11:59 PM TIEING MACHINE OPERATOR Hospital Encounter [address] [address] Discharge Disposition: Discharge to home or self care 11/29/2024 1:08 PM TIEING MACHINE OPERATOR Anesthesia Event [facility] Operating Room [address] [place] [address] Emily Escobar MD Beardsley, Allison Marie, NP 11/29/2024 12:50 PM TIEING MACHINE OPERATOR - 11/29/2024 4:00 PM TIEING MACHINE OPERATOR Surgery [facility] Operating Room [address] [place] [address] Amanda Mckenzie MD REMOVAL EXTERNAL FIXATION DEVICE LOWER EXTREMITY 11/29/2024 9:08 AM TIEING MACHINE OPERATOR - 12/02/2024 3:45 PM TIEING MACHINE OPERATOR Hospital Encounter [address] [address] Amanda Mckenzie MD Closed bicondylar fracture of left tibial plateau (Primary Dx); Closed fracture of left tibial plateau, initial encounter Discharge Disposition: Discharge to home or self care 11/29/2024 Orders Only [facility] [address] [facility] [facility] [address] (Third Floor) [place] [address] Stella Gamble RN Exposure to blood-borne pathogen (Primary Dx) 11/28/2024 Telephone [facility] Orthopaedic Surgery [address] [facility] [address]th [place] [address] [place] [phone] Amanda Mckenzie MD 11/25/2024 Telephone [facility] Orthopaedic Surgery [address]th [place] [address] [place] [phone] Amanda Mckenzie MD from Last 3 Months [...] Former Cigarettes Tobacco Cessation:Counseling Given: Not Answered [facility] Utilities Answer Date Recorded In the past 12 months has [employer], gas, oil, or water [employer] threatened to shut off services in your [...] How often do you attend chur or yarsanism services? Patient unable to answer 12/02/2024 Do you belong to any clubs o r organizations such as baptism groups, unions, fraternal or athletic groups, or [...] any time in the past 12 m [facility], were you homeless or living in a mcfp (including now)? Patient unable to answer 12/02/2024 [...] Comments Blood Pressure 109/55 12/02/2024 1:05 PM TIEING MACHINE OPERATOR Pulse 99 12/02/2024 1:05 PM TIEING MACHINE OPERATOR Temperature 36.5 C (97.7 F) 12/02/2024 7:15 AM TIEING MACHINE OPERATOR Respiratory Rate 16 12/02/2024 7:15 AM TIEING MACHINE OPERATOR Oxygen Saturation 100% 12/02/2024 1:05 PM TIEING MACHINE OPERATOR Inhaled Oxygen Concentration - - Weight 95.8 kg (211 lb 3.2 oz) 11/30/2024 10:43 PM TIEING MACHINE OPERATOR Height 165.1 cm (5' 5 ) 11/30/2024 8:21 PM TIEING MACHINE OPERATOR Body Mass Index 35.15 11/30/2024 8:21 PM TIEING MACHINE OPERATOR Plan of Treatment Health Maintenance Due Date [...] Completed 11/29/2024 Medical Devices Implanted Type Area Document Reviewer Device Identifier Shelf Expiration Date Model / Serial / Lot Synthes Schanz 5mm 170mm 50mm Blunt Trocar Point Xlong Screw External 294.55 - [id number] Implanted:Qty: 2 on 11/13/2024 by Amanda Mckenzie MD at [facility] Left: Leg Synthes 294.55 / / Synthes Schanz 5mm 200mm Blunt Trocar Point Mr Conditional Screw External 294.56 - [id number] Implanted:Qty: 2 on 11/13/2024 by Amanda Mckenzie MD at [facility] Left: Leg Synthes 294.56 / / [employer]/O rtho Evos 3.5mm 70mm Self Tap Lock Screw Bone Sterile [id number] - [id number] Implanted:Qty: 1 on 11/29/2024 by Amanda Mckenzie MD at [facility] Left: Tibia [employer]/Or tho [id number] / / [employer]/O rtho Evos 4.7mm 80mm Full Thread Screw Bone Sterile Osteopenia [id number] - [id number] Implanted:Qty: 1 on 11/29/2024 by Amanda Mckenzie MD at [facility] Left: Tibia [employer]/Or tho [id number] / / [employer]/O rtho Evos 117x10.9x2mm 25x1.5mm 8 Hole Low Profile Variable Angle Lock [id number] - [id number] Implanted:Qty: 1 on 11/29/2024 by Amanda Mckenzie MD at [facility] Left: Tibia [employer]/Or tho [id number] / / [employer]/O rtho Evos 134x11.5x3.6mm 32.3x1.9mm 10 Hole Low Profile Variable Angle [id number] - [id number] Implanted:Qty: 1 on 11/29/2024 by Amanda Mckenzie MD at [facility] Left: Tibia [employer]/Or tho [id number] / / Allosource Cubes Graft 15ml Bone Cancellous [id number] - [id number] - [id number] Implanted:Qty: 1 on 11/29/2024 by Amanda Mckenzie MD at [facility] Left: Tibia [employer] 05/17/2029 [id number] / [id number] / [id number] [employer]/O rtho Evos 3.5mm 26mm Self Tap Cortex Screw Bone Sterile [id number] - [id number] Implanted:Qty: 2 on 11/29/2024 by Amanda Mckenzie MD at [facility] Left: Tibia [employer]/Or tho [id number] / / [employer]/O rtho Evos 3.5mm 28mm Self Tap Cortex Screw Bone Sterile [id number] - [id number] Implanted:Qty: 2 on 11/29/2024 by Amanda Mckenzie MD at [facility] Left: Tibia [employer]/Or tho [id number] / / [employer]/O rtho Screw Bone Cortical St Non Locking Evos 3.5x30mm Ss [id number] - [id number] Implanted:Qty: 1 on 11/29/2024 by Amanda Mckenzie MD at [facility] Left: Tibia [employer]/Or tho [id number] / / [employer]/O rtho Evos 3.5mm 60mm Self Tap Lock Screw Bone Sterile [id number] - [id number] Implanted:Qty: 1 on 11/29/2024 by Amanda Mckenzie MD at [facility] Left: Tibia [employer]/Or tho [id number] / / [employer]/O rtho Evos 3.5mm 75mm Self Tap Lock Screw Bone Sterile [id number] - [id number] Implanted:Qty: 3 on 11/29/2024 by Amanda Mckenzie MD at [facility] Left: Tibia [employer]/Rich[employer]/Or tho [id number] / / [employer]/Rich[employer]/O rtho Evos 3.5mm 80mm Self Tap Lock Screw Bone Sterile [id number] - [id number] Implanted:Qty: 1 on 11/29/2024 by Amanda Mckenzie MD at [facility] Left: Tibia [employer]/Rich[employer]/Or tho [id number] / / Procedures Procedure Name Priority Date/Time Associated Diagnosis Comments XR KNEE LEFT 1 OR 2 VIEWS Schedule Routine, Read Routine (OP Routine) 01/16/2025 1:49 PM CDT Closed bicondylar fracture of left tibial plateau Closed fracture of left tibial plateau with routine healing, subsequent encounter Closed fracture of left tibial plateau, initial encounter POCT GLUCOSE DEVICE Routine 12/02/2024 1 1:22 AM TIEING MACHINE OPERATOR POCT GLUCOSE DEVICE Routine 12/02/2024 7 :18 AM TIEING MACHINE OPERATOR POCT GLUCOSE DEVICE Routine 12/01/2024 8 :04 PM TIEING MACHINE OPERATOR POCT GLUCOSE DEVICE Routine 12/01/2024 4 :53 PM TIEING MACHINE OPERATOR POCT GLUCOSE DEVICE Routine 12/01/2024 1 2:10 PM TIEING MACHINE OPERATOR POCT GLUCOSE DEVICE Routine 12/01/2024 8 :23 AM TIEING MACHINE OPERATOR EGFR Routine 11/30/2024 8:31 PM TIEING MACHINE OPERATOR BASIC METABOLIC PANEL Routine 11/30/2024 8:31 PM TIEING MACHINE OPERATOR CBC WITHOUT DIFFERENTIAL Routine 11/30/2024 8:31 PM TIEING MACHINE OPERATOR POCT GLUCOSE DEVICE Routine 11/30/2024 8 :26 PM TIEING MACHINE OPERATOR POCT GLUCOSE DEVICE Routine 11/30/2024 5 :54 PM TIEING MACHINE OPERATOR POCT GLUCOSE DEVICE Routine 11/30/2024 1 1:59 AM TIEING MACHINE OPERATOR POCT GLUCOSE DEVICE Routine 11/29/2024 8 :26 PM TIEING MACHINE OPERATOR POCT GLUCOSE DEVICE Routine 11/29/2024 5 :17 PM TIEING MACHINE OPERATOR HIV 1/2 ANTIBODY PLUS P24 ANTIGEN Routine 11/29/2024 3:33 PM TIEING MACHINE OPERATOR HEPATITIS C ANTIBODY Routine 11/29/2024 3:33 PM TIEING MACHINE OPERATOR HEPATITIS B SURFACE ANTIGEN Routine 11/29/2024 3:33 PM TIEING MACHINE OPERATOR FL FLUOROSCOPY < 1 HOUR IP Routine 11/29/2024 3:00 PM TIEING MACHINE OPERATOR POCT GLUCOSE DEVICE Routine 11/29/2024 1 :46 PM TIEING MACHINE OPERATOR ANESTHESIA INTUBATION Routine 11/29/2024 1:39 PM TIEING MACHINE OPERATOR OPEN REDUCTION INTERNAL FIXATION - TIBIAL PLATEAU 11/29/2024 1:11 PM TIEING MACHINE OPERATOR Closed bicondylar fracture of left tibial plateau Case Notes 11/25@1632- Per Winnie via staff msg make third case - [facility] Special Needs Room 210 REMOVAL EXTERNAL FIXATION DEVICE LOWER EXTREMITY 11/29/2024 1:11 PM TIEING MACHINE OPERATOR Closed bicondylar fracture of left tibial plateau Case Notes 11/25@1632- Per Winnie via staff msg make third case - [facility] Special Needs Room 210 CA AN PROCEDURE PLACEHOLDER Routine 11/29/2024 12:45 PM TIEING MACHINE OPERATOR CA AN PROCEDURE PLACEHOLDER Routine 11/29/2024 12:44 PM TIEING MACHINE OPERATOR POCT GLUCOSE DEVICE Routine 11/29/2024 1 1:37 AM TIEING MACHINE OPERATOR from Last 3 Months Results * XR [...] * (ABNORMAL) POCT glucose (12/02/2024 11:22 AM TIEING MACHINE OPERATOR) Glucose, POC 202(H) 70 - 199 mg/dL Blood 12/02/2024 11:2 2 AM TIEING MACHINE OPERATOR 12/02/2024 11:22 AM TIEING MACHINE OPERATOR us Amanda Mckenzie MD LAB POCT ORDERABLE S - DEVICE Final Result Performing Organization Address [facility] Co de Phone Number [facility] [employer] [place] [address] * POCT glucose (12/02/2024 7:18 AM TIEING MACHINE OPERATOR) Glucose, POC 136 70 - 199 mg/dL Blood 12/02/2024 7:18 AM TIEING MACHINE OPERATOR 12/02/2024 7:18 AM TIEING MACHINE OPERATOR us Amanda Mckenzie MD LAB POCT ORDERABLE S - DEVICE Final Result Performing Organization Address [facility] Co de Phone Number [facility] Department [place] [address] * POCT glucose (12/01/2024 8:04 PM TIEING MACHINE OPERATOR) Glucose, POC 196 70 - 199 mg/dL Blood 12/01/2024 8:04 PM TIEING MACHINE OPERATOR 12/01/2024 8:04 PM TIEING MACHINE OPERATOR us Amanda Mckenzie MD LAB POCT ORDERABLE S - DEVICE Final Result Performing Organization Address [facility] Co de Phone Number [facility] [employer] [place] [address] * (ABNORMAL) POCT glucose (12/01/2024 4:53 PM TIEING MACHINE OPERATOR) Glucose, POC 200(H) 70 - 199 mg/dL Blood 12/01/2024 4:53 PM TIEING MACHINE OPERATOR 12/01/2024 4:53 PM TIEING MACHINE OPERATOR us Amanda Mckenzie MD LAB POCT ORDERABLE S - DEVICE Final Result Performing Organization Address [facility] de Phone Number [facility] [employer] [place] [address] * POCT glucose (12/01/2024 12:10 PM TIEING MACHINE OPERATOR) Glucose, POC 195 70 - 199 mg/dL Blood 12/01/2024 12:1 0 PM TIEING MACHINE OPERATOR 12/01/2024 12:10 PM TIEING MACHINE OPERATOR us Amanda Mckenzie MD LAB POCT ORDERABLE S - DEVICE Final Result Performing Organization Address City/[facility] de Phone Number [facility] [employer] [place] [address] * POCT glucose (12/01/2024 8:23 AM TIEING MACHINE OPERATOR) Glucose, POC 164 70 - 199 mg/dL Blood 12/01/2024 8:23 AM TIEING MACHINE OPERATOR 12/01/2024 8:23 AM TIEING MACHINE OPERATOR us Amanda Mckenzie MD LAB POCT ORDERABLE S - DEVICE Final Result Performing Organization Address [facility] Co de Phone Number [facility] [place] [address] * (ABNORMAL) eGFR (11/30/2024 8:31 PM TIEING MACHINE OPERATOR) eGFR 51(L) >=60 mL/min/1. 73 m2 Comment: [...] last reviewed 2021. Blood 11/30/2024 8:31 PM TIEING MACHINE OPERATOR 11/30/2024 10:37 PM TIEING MACHINE OPERATOR us Amanda Mckenzie MD LAB BLOOD ORDERABL ES Final Result Performing Organization Address City/[facility]/ZIP Co de Phone Number [facility] [place] [address] * (ABNORMAL) CBC without differential (11/30/2024 8:31 PM TIEING MACHINE OPERATOR) Pathologist [facility] WBC 9.3 3.8 - 9.9 K/cumm Hgb 9.9(L) 11.9 - 15.5 g/dL [facility] Hct 31.1(L) 35.6 - 45.5 % [facility] Plt 291 150 - 400 K/cumm [facility] MPV 10.3 9.1 - 12.3 fL [facility] RBC 3.66(L) 3.90 - 5.20 M/cumm [facility] MCV 85.0 81.3 - 96.4 fL [facility] MCH 27.0(L) 27.1 - 33.3 pg [facility] MCHC 31.8(L) 32.3 - 35.7 g/dL [facility] RDW CV 13.2 11.1 - 14.9 % [facility] RDW SD 40.9 35.7 - 48.1 fL [facility] NRBC abs 0.00 0.00 - 0.01 K/cumm [facility] Blood 11/30/2024 8:31 PM TIEING MACHINE OPERATOR 11/30/2024 10:38 PM TIEING MACHINE OPERATOR Amanda Mckenzie MD LAB BLOOD ORDERABL ES Final Result [facility] Department [place] [address] * (ABNORMAL) Basic metabolic panel (11/30/2024 8:31 PM TIEING MACHINE OPERATOR) Sodium 135 135 - 145 mmol/L Potassium, pl 3.9 3.3 - 4.9 mmol/L [facility] Chloride 100 97 - 110 mmol/L [facility] CO2 26 22 - 32 mmol/L [facility] Anion gap 9 2 - 15 mmol/L [facility] BUN 15 6 - 25 mg/dL [facility] Creatinine 1.21(H) 0.60 - 1.10 mg/dL [facility] Glucose 196 70 - 199 mg/dL [facility] Comment: Interpretive Data Fasting [...] 2022. Calcium 9.0 8.5 - 10.3 mg/dL [facility] Blood 11/30/2024 8:31 PM TIEING MACHINE OPERATOR 11/30/2024 10:37 PM TIEING MACHINE OPERATOR us Amanda Mckenzie MD LAB BLOOD ORDERABL ES Final Result Performing Organization Address [facility] Co de Phone Number [facility] [employer] [place] [address] * (ABNORMAL) POCT glucose (11/30/2024 8:26 PM TIEING MACHINE OPERATOR) Glucose, POC 210(H) 70 - 199 mg/dL Comment:Glu2: RN/MD Notified Glucose comment 1 Glu2: RN/MD Notified [facility] Blood 11/30/2024 8:26 PM TIEING MACHINE OPERATOR 11/30/2024 8:26 PM TIEING MACHINE OPERATOR us Amanda Mckenzie MD LAB POCT ORDERABLE S - DEVICE Final Result Performing Organization Address [facility] de Phone Number [facility] Department [employer] [place] [address] * (ABNORMAL) POCT glucose (11/30/2024 5:54 PM TIEING MACHINE OPERATOR) Glucose, POC 200(H) 70 - 199 mg/dL Blood 11/30/2024 5:54 PM TIEING MACHINE OPERATOR 11/30/2024 5:54 PM TIEING MACHINE OPERATOR us Amanda Mckenzie MD LAB POCT ORDERABLE S - DEVICE Final Result Performing Organization Address [facility] de Phone Number [facility] Department [place] [address] * (ABNORMAL) POCT glucose (11/30/2024 11:59 AM TIEING MACHINE OPERATOR) Glucose, POC 271(H) 70 - 199 mg/dL Comment:Glu2: RN/MD Notified Glucose comment 1 Glu2: RN/MD Notified [facility] Blood 11/30/2024 11:5 9 AM TIEING MACHINE OPERATOR 11/30/2024 11:59 AM TIEING MACHINE OPERATOR us Amanda Mckenzie MD LAB POCT ORDERABLE S - DEVICE Final Result Performing Organization Address City/[facility]/[place] [address] * POCT glucose (11/29/2024 8:26 PM TIEING MACHINE OPERATOR) Glucose, POC 182 70 - 199 mg/dL Blood 11/29/2024 8:26 PM TIEING MACHINE OPERATOR 11/29/2024 8:26 PM TIEING MACHINE OPERATOR us Amanda Mckenzie MD LAB POCT ORDERABLE S - DEVICE Final Result Performing Organization Address [facility] Co de Phone Number [facility] Department [place] [address] * POCT glucose (11/29/2024 5:17 PM TIEING MACHINE OPERATOR) Glucose, POC 176 70 - 199 mg/dL Blood 11/29/2024 5:17 PM TIEING MACHINE OPERATOR 11/29/2024 5:17 PM TIEING MACHINE OPERATOR us Amanda Mckenzie MD LAB POCT ORDERABLE S - DEVICE Final Result Performing Organization Address City/[facility]/ZIP Co de Phone Number [facility] [place] [address] * HIV 1/2 Antibody plus p24 Antigen Blood (11/29/2024 3:33 PM TIEING MACHINE OPERATOR) HIV 1/2 ab + p24 ag Nonreactive Nonreactive Comment:Nonreactive for HIV- 1 antigen and HIV-1/HIV-2 antibodies. No laboratory evidence of HIV infection. If acute HIV infection is suspected, consider testing for HIV-1 RNA. Current interpretive data was last revised on 22. Blood 11/29/2024 3:33 PM TIEING MACHINE OPERATOR 11/29/2024 4:27 PM TIEING MACHINE OPERATOR Chino Aguayo MD LAB MICROBIOLOGY - GENERAL OR DERABLES Final Result Performing Organization Address [facility] Co de Phone Number [facility] [employer] [place] [address] * Hepatitis C antibody Blood (11/29/2024 3:33 PM TIEING MACHINE OPERATOR) Pathologist [facility] Hep C Ab Nonreactive Nonreactive Comment:Antibodies to HCV no t detected. Does NOT exclude the possibility of recent exposure to HCV. Current interpretive data was last revised on 22 Blood 11/29/2024 3:33 PM TIEING MACHINE OPERATOR 11/29/2024 4:27 PM TIEING MACHINE OPERATOR Chino Aguayo MD LAB MICROBIOLOGY - GENERAL OR DERABLES Final Result Performing Organization Address City/[facility] Co de Phone Number [facility] [employer] [place] [address] * Hepatitis B Surface Antigen Blood (11/29/2024 3:33 PM TIEING MACHINE OPERATOR) HepBsAg Nonreactive Nonreactive Blood 11/29/2024 3:33 PM TIEING MACHINE OPERATOR 11/29/2024 4:27 PM TIEING MACHINE OPERATOR Chino Aguayo MD LAB MICROBIOLOGY - GENERAL OR DERABLES Final Result Performing Organization Address City/[facility] Co de Phone Number [facility] [employer] [place] [address] * [place] Fluoroscopy < 1 Hour (11/29/2024 3:00 PM TIEING MACHINE OPERATOR) Narrative [email or web address] - 11/29/2024 3:00 PM TIEING MACHINE OPERATOR The images from this study are not interpreted by Radiology. Please refer to the physician's procedure / OR operative note. Amanda Mckenzie MD IMG FLUOROSCOPY CA OCEDURES Final Result Performing Organization Address [facility] Co de Phone Number [email or web address] * POCT glucose (11/29/2024 1:46 PM TIEING MACHINE OPERATOR) Glucose, POC 155 70 - 199 mg/dL Blood 11/29/2024 1:46 PM TIEING MACHINE OPERATOR 11/29/2024 1:46 PM TIEING MACHINE OPERATOR Amanda Mckenzie MD LAB POCT ORDERABLE S - DEVICE Final Result Performing Organization Address [facility] de Phone Number [facility] [place] [facility] Department [place] [address] * Airway (11/29/2024 1:39 PM TIEING MACHINE OPERATOR) Narrative Fortunato Prabhakar MD - 11/29/2024 1:39 PM TIEING MACHINE OPERATOR Fortunato Prabhakar MD 11/29/2024 1:53 PM Airway [...] FRANK ORDERABLES Edited Result - Final * CA AN PROCEDURE PLACEHOLDER (11/29/2024 12:45 PM TIEING MACHINE OPERATOR) Narrative Awais Juarez MD - 11/29/2024 12:45 PM TIEING MACHINE OPERATOR Macy Ramírez MD 11/29/2024 12:56 PM Peripheral [...] tolerated procedure well with no complications Result [facility] Macy Ramírez MD ANESTHESIA ORDERABLES Final Result * CA AN PROCEDURE PLACEHOLDER (11/29/2024 12:44 PM TIEING MACHINE OPERATOR) Awais Capps MD - 11/29/2024 12:44 PM TIEING MACHINE OPERATOR Awais Juarez MD 11/29/2024 6:15 PM Peripheral [...] Result * POCT glucose (11/29/2024 11:37 AM TIEING MACHINE OPERATOR) Glucose, POC 165 70 - 199 mg/dL Blood 11/29/2024 11:3 7 AM TIEING MACHINE OPERATOR 11/29/2024 11:37 AM TIEING MACHINE OPERATOR Amanda Mckenzie MD LAB POCT ORDERABLE S - DEVICE Final Result [facility] Department [place] [address] from Last 3 Months Insurance [employer] MED[employer] Advance Directives For more information, please contact: [phone] * Full Code (Latest Code Status on File) Date Activated Date Inactivated Comments 11/29/2024 5:14 PM 12/02/2024 7:50 PM * Full Code Date Activated Date Inactivated Comments 11/13/2024 2:31 PM 11/15/2024 6:59 PM * Full Code Date Activated Date Inactivated Comments 11/13/2024 2:31 PM 11/13/2024 2:31 PM Care Teams Cardiopulmonary Technician And Eeg Tech Relationship Specialty Start Date End Date Paco Babcock MD [address] [place] [address] PCP - General Family Medicine 08/07/24
--- OUTSIDE RECORDS SUMMARY | 2025-02-13 17:36 | XMS_ITS | Clinical Summary ---
Author Organization [facility] Address [address] [place] [address] Care Team Providers Care Ivory Carver Name Role Phone Unavailable Primary Care Provider Unavailabl e Source Comments [facility],non-owned Affiliates and Associated Physician Practices is amultiple site organization consisting of ambulatory clinics and hospital sitesin [place], [place], [place] and [place]. This disclosure is being madepursuant to the Care Everywhere program and may not contain all information available regarding this patient. Last updated 18.[facility] Social History Tobacco Use Types Packs/Day Years Used Date Smoking Tobacco: Never Assessed Comments Unknown Sex and Gender Information Value Date Recorded Sex Assigned at Not on file Legal Sex Female 8:18 AM [place] Gender Identity Not on file Sexual Orientation [...] to complete this topic Insurance [employer] SELF PAY NO INSURANCE Member Subscriber Plan / Payer (Ef fective for All Dates) Name:Eli Jordan Member ID:Not on file Relation to Subscriber:Not on file Name:ELI JORDAN Subscriber ID:Not on file Address: [address] [place], [place] [id number] Payer ID:Not on file Group ID:Not on file Type:Self Pay Address: [facility] HE[employer] CARE SELF PAY NO INSURANCE Member Subscriber Plan / Payer (Ef fective for All Dates) Name:Eli Jordan Member ID:Not on file Relation to Subscriber:Not on file Name:ELI JORDAN Subscriber ID:Not on file Address: [address] [place], [place] [id number] Payer ID:Not on file Group ID:Not on file Type:Self Pay Address: [place], [place] HEALTH CARE SELF PAY NO INSURANCE Member Subscriber Plan / Payer (Ef fective for All Dates) Name:Eli Jordan Member ID:Not on file Relation to Subscriber:Not on file Name:ELI JORDAN Subscriber ID:Not on file Address: [address] [place] [id number] Payer ID:Not on file Group ID:Not on file Type:Self Pay Address: [place], [place]
== END 2025-02-13 18:18 | disposition home or self-care (01) ==
PROVIDERS: Emergency Provider Emergency Medicine; PCP Family Medicine
DX: I82.462 Acute embolism and thrombosis of left calf muscular vein (principal); I10 Essential (primary) hypertension; E78.5 Hyperlipidemia, unspecified; E11.9 Type 2 diabetes mellitus without complications; E66.9 Obesity, unspecified; Z68.30 Body mass index [BMI] 30.0-30.9, adult; Z86.0101 Personal history of adenomatous and serrated colon polyps; Z86.73 Personal history of transient ischemic attack (TIA), and cerebral infarction without residual deficits; Z87.891 Personal history of nicotine dependence; Z79.02 Long term (current) use of antithrombotics/antiplatelets; Z79.82 Long term (current) use of aspirin; Z79.84 Long term (current) use of oral hypoglycemic drugs
CPT/HCPCS: 73562; 73590; 93971; 99284